=== PATIENT | female | born 1980 | race Caucasian/White ===

== ENCOUNTER 2016-08-02 23:50 | Emergency (ER) | payer SELFPAY ==
[~2016-08-02] VITALS: Ht 165.1 cm; Wt 102.1 kg
[~2016-08-02 23:50] MED LIST: ALPR0.254 PO; BENZ100C PO; CEPH-264 PO; CIPR500T94 PO; CLOT12CR2 TP; CYCL10TA2 PO; ESCI10TA PO; HYDR-971 PO; IBUP-1027 PO; LIDO20SO PO; LISI10TA2 PO; METH-37 PO; METR500T PO; MIRT15TA3 PO; NAPR500T PO; NAPR500T8 PO; ONDA4TAB10 PO; PHEN-318 PO; RANI150T6 PO; SULF1TAB24 PO; SUMA100T4 PO; SUMA50TA3 PO; TRAM-29 PO; blood pressure; iron
[2016-08-03 00:21] VITALS: BP 157/93
[2016-08-03] MEDS ORDERED: VALA1000 PO (00:44)
--- NOTE | 2016-08-03 00:44 | PHYS DOC ---
Past Medical History Past Medical History: Arthritis, Bronchitis, Hypertension, Migraines Additional Past Medical Histor: adrenal mass, CTA Past Surgical History: Hysterectomy, Tonsillectomy, Tubal ligation Additional Past Surgical Histo: partial hysterectomy, ADNOIDS Alcohol Use: None Drug Use: None Adult General Chief Complaint Chief Complaint: FACE PROBLEM HPI HPI Patient is a 36 year old female who presents with blood [place]. Patient noticed a blister at the right corner of her mouth this morning she woke up. Has never had one before. No inciting event. She has tried putting Carmex and OTC cold sore cream today with no improvement. Review of Systems Review of Systems Constitutional: Denies fever or chills HENT: Blister on upper lip at R corner of mouth Respiratory: Denies cough or shortness of breath Cardiovascular: Denies chest pain GI: Denies abdominal pain, nausea, vomiting, or diarrhea Musculoskeletal: Denies back pain or joint pain Neurologic: Denies headache, focal weakness or sensory changes Allergies Allergies Allergies Coded Allergies Type Severity Reaction Last Updated Verified latex Allergy Intermediate Rash 03/10/16 Yes Physical Exam Physical Exam Constitutional: Well developed, well nourished, no acute distress, non-toxic appearance HENT: Normocephalic, atraumatic. 2-3mm vesicle on superior lip at R corner of mouth Eyes: EOMI, conjunctiva normal, no discharge Neck: No stridor Pulmonary: No respiratory distress Skin: Warm, dry Neurologic: Alert and oriented X 3 Current Patient Data Vital Signs Vital Signs Date Time Temp Pulse Resp B/P Pulse Ox O2 Delivery O2 Flow Rate FiO2 08/03/16 00:21 98.2 90 20 98 Room Air 98.2 EKG EKG [] Radiology/Procedures Radiology/Procedures [] Course & Med Decision Making Course & Med Decision Making Pertinent Labs and Imaging studies reviewed. (See chart for details) Patient is 36-year-old female who presents with apparent cold sore. Discussed expected course with patient. Patient given prescription for valacyclovir. Discharged home with instructions for follow-up and return precautions. Dragon Disclaimer Dragon Disclaimer This electronic medical record was generated, in whole or in part, using a voice recognition dictation system. Departure Departure Impression: Primary Impression: Cold sore Disposition: HOME, SELF-CARE Condition: STABLE Referrals: PETRA BRADLEY MD (PCP) Patient Instructions: Cold Sore Additional Instructions: Thank you for allowing us to provide care today in the Emergency Department. Take the provided medication as directed. Schedule a follow up appointment with your primary care doctor. Return promptly to the Emergency Department if you develop any new or concerning symptoms. Scripts Valacyclovir Hcl (Valacyclovir)1,000 Mg Tablet1,000 Mg PO BID 7 Days Prov:JOSE CASTRO MD 08/03/16 JOSE CASTRO MD Aug 03, 2016 00:44
== END 2016-08-03 00:50 | disposition home or self-care (01) ==
LOC: ER 23:50
DX: B00.1 Herpesviral vesicular dermatitis (principal); I10 Essential (primary) hypertension; G43.909 Migraine, unspecified, not intractable, without status migrainosus; M19.90 Unspecified osteoarthritis, unspecified site; Z91.040 Latex allergy status
CPT/HCPCS: 99283

== ENCOUNTER 2016-09-01 19:39 | Emergency (ER) | payer OTHER ==
[~2016-09-01] VITALS: Ht 165.1 cm; Wt 99.8 kg
[~2016-09-01 19:39] MED LIST changes: +VALA1000 PO
[2016-09-01 20:36] VITALS: BP 146/94
[2016-09-01] MEDS ORDERED: HYDR-971 PO (20:58)
[2016-09-01] MEDS ORDERED: PENI500T PO (20:58)
--- NOTE | 2016-09-01 20:59 | PHYS DOC ---
Past Medical History Past Medical History: Arthritis, Asthma, Bronchitis, Hypertension, Migraines Additional Past Medical Histor: adrenal mass, CTA Past Surgical History: Hysterectomy, Tonsillectomy, Tubal ligation, Other Additional Past Surgical Histo: partial hysterectomy, ADNOIDS, R ear Additional Information: nonsmoker Alcohol Use: None Drug Use: None Adult General Chief Complaint Chief Complaint: DENTAL PROBLEM HPI HPI Patient is a 36 year old female who presents with right maxillary dental pain starting last night. She has a tooth that was previously broken. She feels swelling of the gum surrounding the affected tooth. She denies fever or otalgia. Her PCP is Dr. Phil Aguiar. Review of Systems Review of Systems Constitutional: Denies fever or chills. [] Eyes: Denies change in visual acuity, redness, or eye pain. [] HENT: Denies ear pain, nasal congestion or sore throat. Reports right maxillary dental pain. Integument: Denies rash or skin lesions. [] Neurologic: Denies headache, focal weakness or sensory changes. [] Allergies Allergies Allergies Coded Allergies Type Severity Reaction Last Updated Verified latex Allergy Intermediate Rash 03/10/16 Yes alcohol Allergy Unknown 09/01/16 Yes Physical Exam Physical Exam Constitutional: Well developed, well nourished, no acute distress, non-toxic appearance. [] HENT: Normocephalic, atraumatic, bilateral external ears normal, oropharynx moist, no oral exudates, nose normal. Bilateral TMs without erythema or bulging. There is no posterior pharyngeal erythema or tonsillar edema. Tooth #3 is broken to the level of the gum with decay and caries. There is minimal surrounding gingival edema. There is no dental abscess. Eyes: PERRLA, EOMI, conjunctiva normal, no discharge. [] Skin: Warm, dry, no erythema, no rash. [] Neurologic: Alert and oriented X 3, normal motor function, normal sensory function, no focal deficits noted. [] Psychologic: Affect normal, judgement normal, mood normal. [] Current Patient Data Vital Signs Vital Signs Date Time Temp Pulse Resp B/P Pulse Ox O2 Delivery O2 Flow Rate FiO2 09/01/16 20:36 98.0 93 16 97 Room Air 98.0 EKG EKG [] Radiology/Procedures Radiology/Procedures [] Course & Med Decision Making Course & Med Decision Making Pertinent Labs and Imaging studies reviewed. (See chart for details) [] Dragon Disclaimer Dragon Disclaimer This electronic medical record was generated, in whole or in part, using a voice recognition dictation system. Departure Departure Impression: Primary Impression: Dental decay Disposition: 01 HOME, SELF-CARE Condition: STABLE Referrals: PHIL AGUIAR MD (PCP) Additional Instructions: Please complete all the prescribed antibiotics, even if your tooth is feeling better. Please take the prescribed pain medication as instructed. Do not drive or operate heavy machinery while taking pain medication. Please follow-up with your dentist for treatment of your tooth. Return to emergency department if you have any new or concerning symptoms. Scripts Hydrocodone/Apap 5-325 (Ray 5-325 Tablet)1 Each Tablet1 Tab PO PRN Q6HRS PRN PAIN #20 TAB Prov:CARRIE RIVERA 09/01/16 Penicillin V Potassium 500 Mg Tablet1 Tab PO TID #30 TAB Prov:CARRIE RIVERA 09/01/16 CARRIE RIVERA Sep 01, 2016 20:59
== END 2016-09-01 21:05 | disposition home or self-care (01) ==
LOC: ER 19:39
DX: K02.9 Dental caries, unspecified (principal); M19.90 Unspecified osteoarthritis, unspecified site; J45.909 Unspecified asthma, uncomplicated; I10 Essential (primary) hypertension; G43.909 Migraine, unspecified, not intractable, without status migrainosus; Z90.710 Acquired absence of both cervix and uterus; Z98.51 Tubal ligation status; Z91.040 Latex allergy status; Z88.8 Allergy status to other drugs, medicaments and biological substances
CPT/HCPCS: 99283

== ENCOUNTER 2016-09-15 09:25 | Emergency (ER) | payer OTHER ==
[~2016-09-15] VITALS: Ht 165.1 cm; Wt 104.3 kg
[~2016-09-15 09:25] MED LIST changes: +PENI500T PO
[2016-09-15] MEDS ORDERED: HYDROMORPHONE 2 MG/ML VIAL. IV PRN (10:00)
[2016-09-15] MEDS ORDERED: ONDANSETRON PF 4 MG/2 ML VIAL. IV ONE (10:00)
[2016-09-15] MEDS ORDERED: IV NORMAL SALINE 1000ML BAG 1,000 ML IV ONE (10:00)
[2016-09-15 10:20] LABS: BILIRUBIN,URINE NEGATIVE (NEG); GLUCOSE,URINE NEGATIVE (NEG); NITRITE,URINE NEGATIVE (NEG); PROTEIN,URINE NEGATIVE (NEG-TRACE); UROBILINOGEN,URINE 0.2 mg/dL (0.2 mg/dL)
[2016-09-15 10:22] LABS: BASO # 0.1 x10^3/uL (0.0-0.2); BASO % 1 % (0-3); EOS % 3 % (0-3); HEMATOCRIT 42.3 % (36.0-47.0); HEMOGLOBIN 14.1 g/dL (12.0-15.5); LYMPH % 23 % (24-48); MEAN CORPUSCULAR HEMOGLOBIN 30 pg (25-35); MEAN CORPUSCULAR HGB CONC 34 g/dL (31-37); MEAN CORPUSCULAR VOLUME 88 fL (79-100); MONO % 9 % (0-9); NEUT % 65 % (31-73); PLATELET COUNT 325 x10^3/uL (140-400); RED BLOOD COUNT 4.78 x10^6/uL (3.50-5.40); RED CELL DISTRIBUTION WIDTH 12.9 % (11.5-14.5); WHITE BLOOD COUNT 8.8 x10^3/uL (4.0-11.0)
[2016-09-15 10:30] LABS: CREATININE 0.6 mg/dL (0.6-1.0); GFR 113.1
[2016-09-15 10:38] LABS: BACTERIA,URINE MODERATE /HPF (0-FEW); SQUAMOUS EPITHELIAL CELL,UR MANY /LPF
[2016-09-15] MEDS ORDERED: ONDA4TAB10 SL (11:05)
[2016-09-15] MEDS ORDERED: HYDR-2666 PO (11:05)
--- NOTE | 2016-09-15 11:05 | PHYS DOC ---
Past Medical History Past Medical History: Arthritis, Asthma, Bronchitis, Hypertension, Migraines Additional Past Medical Histor: adrenal mass, CTA Past Surgical History: Hysterectomy, Tonsillectomy, Tubal ligation, Other Additional Past Surgical Histo: partial hysterectomy, ADNOIDS, R ear Alcohol Use: None Drug Use: None Adult General Chief Complaint Chief Complaint: FLANK PAIN HPI HPI 36-year-old female presenting today with right lower quadrant abdominal pain and right flank pain that radiates in the groin. She has a history of kidney stones in the past and states it feels like her kidney stone. The pain is moderate intermittent and is been present for approximately 24 hours. Otherwise she denies nausea vomiting. Review of systems was negative for chest pain shortness of breath fevers chills. All other review of systems is negative unless otherwise noted in history of present illness. Review of Systems Review of Systems SEE ABOVE. Current Medications Current Medications Current Medications Medications (Trade) Dose Ordered Sig/Americo Start Time Stop Time Status Last Admin Dose Admin Hydromorphone HCl (Dilaudid) 0.5 mg PRN Q1HR PRN 09/15/16 10:00 09/15/16 10:13 0.5 MG Ondansetron HCl (Zofran) 4 mg 1X ONCE 09/15/16 10:00 09/15/16 10:01 DC 09/15/16 10:12 4 MG Sodium Chloride (Iv Sodium Chloride 0.9% 1000ml Bag) 1,000 ml @ 1,000 mls/hr 1X ONCE 09/15/16 10:00 09/15/16 10:59 DC 09/15/16 10:10 1,000 MLS/HR Allergies Allergies Allergies Coded Allergies Type Severity Reaction Last Updated Verified alcohol Allergy Intermediate 09/15/16 Yes latex Allergy Intermediate Rash 09/15/16 Yes Physical Exam Physical Exam Constitutional: Well developed, well nourished, no acute distress, non-toxic appearance. [] HENT: Normocephalic, atraumatic, bilateral external ears normal, oropharynx moist, no oral exudates, nose normal. Eyes: PERRLA, EOMI, conjunctiva normal, no discharge. [] Neck: Normal range of motion, no tenderness, supple, no stridor. Cardiovascular:Heart rate regular rhythm, no murmur [] Lungs & Thorax: Bilateral breath sounds clear to auscultation [] Abdomen: Soft nontender abdomen without rebound tenderness or guarding present. Negative McBurneys point. Negative Silva sign. No ecchymosis present. Skin: Warm, dry, no erythema, no rash. Back: No tenderness, mild right CVA tenderness. Extremities: No tenderness, no cyanosis, no clubbing, ROM intact, no edema. [] Neurologic: Alert and oriented X 3, normal motor function, normal sensory function, no focal deficits noted. Psychologic: Affect normal, judgement normal, mood normal. [] Current Patient Data Vital Signs Vital Signs Date Time Temp Pulse Resp B/P Pulse Ox O2 Delivery O2 Flow Rate FiO2 09/15/16 10:13 18 97 Room Air 09/15/16 09:45 98.3 85 149/82 98.3 Lab Values Laboratory Tests Test 09/15/16 09:40 09/15/16 09:51 09/15/16 10:10 Urine Collection Type Unknown Urine Color Yellow Urine Clarity Clear Urine pH 7.0 Urine Specific [place] 1.020 Urine Protein Negativemg/dL (NEG-TRACE) Urine Glucose (UA) Negativemg/dL (NEG) Urine Ketones (Stick) Negativemg/dL (NEG) Urine Blood Small (NEG) Urine Nitrite Negative (NEG) Urine Bilirubin Negative (NEG) Urine Urobilinogen Dipstick 0.2mg/dL (0.2 mg/dL) Urine Leukocyte Esterase Negative (NEG) Urine RBC 3-5/HPF (0-2) Urine WBC 1-4/HPF (0-4) Urine Squamous Epithelial Cells Many/LPF Urine Bacteria Moderate/HPF (0-FEW) POC Urine HCG, Qualitative Hcg negative (Negative) White Blood Count 8.8x10^3/uL (4.0-11.0) Red Blood Count 4.78x10^6/uL (3.50-5.40) Hemoglobin 14.1g/dL (12.0-15.5) Hematocrit 42.3% (36.0-47.0) Mean Corpuscular Volume 88fL (79-100) Mean Corpuscular Hemoglobin 30pg (25-35) Mean Corpuscular Hemoglobin Concent 34g/dL (31-37) Red Cell Distribution Width 12.9% (11.5-14.5) Platelet Count 325x10^3/uL (140-400) Neutrophils (%) (Auto) 65% (31-73) Lymphocytes (%) (Auto) 23% (24-48) L Monocytes (%) (Auto) 9% (0-9) Eosinophils (%) (Auto) 3% (0-3) Basophils (%) (Auto) 1% (0-3) Neutrophils # (Auto) 5.7x10^3uL (1.8-7.7) Lymphocytes # (Auto) 2.0x10^3/uL (1.0-4.8) Monocytes # (Auto) 0.8x10^3/uL (0.0-1.1) Eosinophils # (Auto) 0.2x10^3/uL (0.0-0.7) Basophils # (Auto) 0.1x10^3/uL (0.0-0.2) Sodium Level 140mmol/L (136-145) Potassium Level 4.0mmol/L (3.5-5.1) Chloride Level 104mmol/L (98-107) Carbon Dioxide Level 27mmol/L (21-32) Anion Gap 9 (6-14) Blood Urea Nitrogen 14mg/dL (7-20) Creatinine 0.6mg/dL (0.6-1.0) Estimated GFR (Cockcroft-Gault) 113.1 Glucose Level 99mg/dL (70-99) Calcium Level 9.0mg/dL (8.5-10.1) Laboratory Tests 09/15/16 10:10 Laboratory Tests 09/15/16 10:10 EKG EKG [] Radiology/Procedures Radiology/Procedures [] Course & Med Decision Making Course & Med Decision Making Pertinent Labs and Imaging studies reviewed. (See chart for details) [] 36-year-old female presenting to the emergency department with right-sided flank pain and right lower abdominal pain. Vital signs afebrile normal heart rate. Mild hypertension otherwise unremarkable. Physical exam showed a nontender abdomen. Nontender appendix. Mild right-sided CVA tenderness. Urine and blood obtained. IV medications given. CBC unremarkable. Chemistry panel unremarkable. Urine negative. Urine analysis shows negative nitrites with negative leuk esterase. Not suggestive of infection. We'll follow culture. On reexamination the patient's pain improved. She was subsequent discharged home to follow up with her primary care physician over the next 2-3 days if her symptoms did not improve. She was instructed to return if she develops a fever or worsening nausea with vomiting. [id number] discharge instructions were given. Patient comfortable plan. Tia Disclaimer Geraon Disclaimer This electronic medical record was generated, in whole or in part, using a voice recognition dictation system. Departure Departure Impression: Primary Impression: Abdominal pain Additional Impression: Acute flank pain Disposition: 01 HOME, SELF-CARE Condition: STABLE Referrals: PETRA BRADLEY MD (PCP) Patient Instructions: Abdominal Pain, Flank Pain Additional Instructions: Thank you for allowing us to participate in your care today. Followup with your primary care physician in 3 days if your symptoms do not improve. If you do not have a primary care provider you can ask for a list of our primary care providers. Return to the emergency department you have any new or concerning findings. This should be evaluated by the primary care physician and any necessary consulting services for continued management within a few days after discharge. Return to emergency room if you have any new or concerning symptoms including but not limited to fever, chills, nausea, vomiting, intractable pain, any new rashes, chest pain, shortness of air, uncontrolled bleeding, difficulty breathing, and/or vision loss. You may have been prescribed medication that can change in your level of thinking and ability to operate machinery. These medications include hydrocodone and Ativan. Also, Benadryl has been known to do this as well. Be sure to check with your pharmacist and ask if the medications you've prescribed can affect your level of consciousness. I recommend not operating heavy machinery or driving while on medication such as these. Scripts Hydrocodone Bit/Acetaminophen (Hydrocodone-Apap 5-325 )1 Each Tablet1 Tab PO PRN Q6HRS PRN PAIN #15 TAB Be careful as this medication may cause you to be drowsy or tired. Do not drive on this medication. Prov:BETZY ELIZONDO MD 09/15/16 Ondansetron (Zofran Odt)4 Mg Tab.rapdis1 Tab SL PRN Q8HRS PRN NAUSEA #6 TAB Prov:BETZY ELIZONDO MD 09/15/16 Problem Qualifiers BETZY ELIZONDO MD Sep 15, 2016 11:05
[2016-09-15 11:20] VITALS: BP 117/80
== END 2016-09-15 11:30 | disposition home or self-care (01) ==
LOC: ER 09:25
DX: R10.31 Right lower quadrant pain (principal); I10 Essential (primary) hypertension; M19.90 Unspecified osteoarthritis, unspecified site; Z87.442 Personal history of urinary calculi; J45.909 Unspecified asthma, uncomplicated; G43.909 Migraine, unspecified, not intractable, without status migrainosus; Z90.49 Acquired absence of other specified parts of digestive tract; Z90.711 Acquired absence of uterus with remaining cervical stump; Z98.51 Tubal ligation status; G56.00 Carpal tunnel syndrome, unspecified upper limb; Z88.8 Allergy status to other drugs, medicaments and biological substances; Z91.040 Latex allergy status
CPT/HCPCS: 36415; 80048; 81001; 81025; 85027; 87086; 96361; 96374; 96375; 99284; J1170; J2405; J7030

== ENCOUNTER 2016-10-03 01:14 | Emergency (ER) | payer OTHER ==
[~2016-10-03] VITALS: Ht 165.1 cm; Wt 104.3 kg
[~2016-10-03 01:14] MED LIST changes: +HYDR-2666 PO; +ONDA4TAB10 SL
[2016-10-03 02:16] LABS: GLUCOSE,URINE NEGATIVE (NEG)
[2016-10-03 02:17] LABS: BACTERIA,URINE MANY /HPF (0-FEW); BILIRUBIN,URINE NEGATIVE (NEG); NITRITE,URINE NEGATIVE (NEG); PROTEIN,URINE NEGATIVE (NEG-TRACE); RBC,URINE OCC /HPF (0-2); SQUAMOUS EPITHELIAL CELL,UR MOD /LPF; UROBILINOGEN,URINE 0.2 mg/dL (0.2 mg/dL); WBC,URINE >40 /HPF (0-4)
[2016-10-03] MEDS ORDERED: SMZ/TMP 800/160MG TABLET. PO ONE (02:30)
[2016-10-03] MEDS ORDERED: SULF1TAB24 PO (02:36)
--- NOTE | 2016-10-03 02:36 | PHYS DOC ---
Past Medical History Past Medical History: Arthritis, Asthma, Bronchitis, Hypertension, Migraines Additional Past Medical Histor: adrenal mass, CTA Past Surgical History: Hysterectomy, Tonsillectomy, Tubal ligation, Other Additional Past Surgical Histo: partial hysterectomy, ADNOIDS, R ear Alcohol Use: None Drug Use: None Adult General Chief Complaint Chief Complaint: URINARY FREQUENCY HPI HPI Patient is a 36 year old female who presents with dysuria and urinary frequency. Patient reports the symptoms started this afternoon. She also reports having a migraine headache today. Patient has frequent migraines, this is similar to past migraines. She has tried Tylenol, ibuprofen, escitalopram with insufficient relief. No abdominal pain, no fever. Review of Systems Review of Systems Constitutional: Denies fever or chills Respiratory: Denies cough or shortness of breath Cardiovascular: Denies chest pain GI: Denies abdominal pain, nausea, vomiting, or diarrhea : Dysuria, urinary frequency Musculoskeletal: Denies back pain or joint pain Neurologic: Migraine headache. Denies focal weakness or sensory changes Current Medications Current Medications Current Medications Medications (Trade) Dose Ordered Sig/Americo Start Time Stop Time Status Last Admin Dose Admin Ketorolac Tromethamine (Toradol Im) 30 mg 1X ONCE 10/03/16 03:00 10/03/16 03:04 DC 10/03/16 03:10 30 MG Ketorolac Tromethamine (Toradol) 30 mg STK-MED ONCE 10/03/16 02:59 10/03/16 03:00 DC Promethazine HCl (Phenergan Im) 25 mg 1X ONCE 10/03/16 03:00 10/03/16 03:04 DC 10/03/16 03:00 25 MG Trimethoprim/ Sulfamethoxazole (Bactrim Ds) 1 tab 1X ONCE 10/03/16 02:30 10/03/16 03:04 DC 10/03/16 03:01 1 TAB Allergies Allergies Allergies Coded Allergies Type Severity Reaction Last Updated Verified alcohol Allergy Intermediate 09/15/16 Yes latex Allergy Intermediate Rash 09/15/16 Yes Physical Exam Physical Exam Constitutional: Well developed, well nourished, no acute distress, non-toxic appearance HENT: Normocephalic, atraumatic, bilateral external ears normal Eyes: PERRL, EOMI, conjunctiva normal, no discharge Neck: Normal range of motion, no stridor Cardiovascular: Heart rate normal, regular rhythm, no murmur Lungs & Thorax: Bilateral breath sounds clear to auscultation Abdomen: Bowel sounds normal, soft, non-distended, no TTP Skin: Warm, dry, no erythema, no rash Extremities: No obvious deformity, no edema Neurologic: Alert and oriented X 3, GCS 15, CN II-XII grossly intact, strength intact and symmetrical throughout, sensation to light touch intact throughout, no dystaxia noted Current Patient Data Vital Signs Vital Signs Date Time Temp Pulse Resp B/P Pulse Ox O2 Delivery O2 Flow Rate FiO2 10/03/16 03:02 84 121/84 96 Room Air 10/03/16 01:52 98.1 16 98.1 Lab Values Laboratory Tests Test 10/03/16 01:16 Urine Collection Type Unknown Urine Color Yellow Urine Clarity Cloudy Urine pH 7.0 Urine Specific [place] 1.025 Urine Protein Negativemg/dL (NEG-TRACE) Urine Glucose (UA) Negativemg/dL (NEG) Urine Ketones (Stick) Negativemg/dL (NEG) Urine Blood Moderate (NEG) Urine Nitrite Negative (NEG) Urine Bilirubin Negative (NEG) Urine Urobilinogen Dipstick 0.2mg/dL (0.2 mg/dL) Urine Leukocyte Esterase Moderate (NEG) Urine RBC Occ/HPF (0-2) Urine WBC >40/HPF (0-4) Urine Squamous Epithelial Cells Mod/LPF Urine Bacteria Many/HPF (0-FEW) Urine Mucus Mod/LPF EKG EKG [] Radiology/Procedures Radiology/Procedures [] Course & Med Decision Making Course & Med Decision Making Pertinent Labs and Imaging studies reviewed. (See chart for details) Patient is 36-year-old female who presents complaining of dysuria, frequency, migraine headache. No concerning findings on physical exam. Will give dose of IM Toradol and Phenergan for headache relief. UA ordered; urine test was ordered initially but patient has h/o hysterectomy. UA indicative of UTI. Patient given dose of Bactrim for this. Will discharge home with prescription for same, instructions for follow-up, return precautions. Dragon Disclaimer Dragon Disclaimer This electronic medical record was generated, in whole or in part, using a voice recognition dictation system. Departure Departure Impression: Primary Impression: UTI (urinary tract infection) Additional Impression: Migraine Disposition: HOME, SELF-CARE Condition: STABLE Referrals: PETRA BRADLEY MD (PCP) Patient Instructions: Recurrent Migraine Headache, Urinary Tract Infection Additional Instructions: Thank you for allowing us to provide care today in the Emergency Department. Take the provided medication as directed. Continue to take the migraine medication you are prescribed. Schedule a follow up appointment with your primary care doctor. Return promptly to the Emergency Department if you develop any new or concerning symptoms. Scripts Sulfamethoxazole/Trimethoprim (Bactrim Ds Tablet)1 Each Tablet1 Tab PO BID #10 TAB Prov:JOSE CASTRO MD 10/03/16 Problem Qualifiers JOSE CASTRO MD Oct 03, 2016 02:36
[2016-10-03] MEDS ORDERED: KETOROLAC TROMETHAMINE 30 MG/ML SYRINGE. ONE (02:59)
[2016-10-03] MEDS ORDERED: KETOROLAC TROMETHAMINE 60 MG/2 ML SYRINGE. IM ONE (03:00)
[2016-10-03] MEDS ORDERED: PROMETHAZINE IM 25 MG/ML VIAL IM ONE (03:00)
[2016-10-03 03:02] VITALS: BP 121/84
== END 2016-10-03 03:16 | disposition home or self-care (01) ==
LOC: ER 01:14
DX: N39.0 Urinary tract infection, site not specified (principal); G43.909 Migraine, unspecified, not intractable, without status migrainosus; M19.90 Unspecified osteoarthritis, unspecified site; J45.909 Unspecified asthma, uncomplicated; I10 Essential (primary) hypertension; Z90.710 Acquired absence of both cervix and uterus; Z98.51 Tubal ligation status; Z91.040 Latex allergy status
CPT/HCPCS: 81001; 87086; 96372; 99284; J1885; J2550

== ENCOUNTER 2016-10-13 02:53 | Emergency (ER) | payer OTHER ==
[~2016-10-13] VITALS: Ht 165.1 cm; Wt 104.3 kg
[2016-10-13 03:04] VITALS: BP 130/100
[2016-10-13] MEDS ORDERED: TETRACAINE 0.5% OPHTH SOLUTION 4ML BOTTLE. OD ONE (04:00)
[2016-10-13] MEDS ORDERED: FLUORESCEIN OPHTH TEST STRIP. OD ONE (04:00)
[2016-10-13] MEDS ORDERED: TOBR5DRO6 OD (04:25)
--- NOTE | 2016-10-13 04:25 | PHYS DOC ---
Past Medical History Past Medical History: Asthma, Hypertension, Migraines Additional Past Medical Histor: adrenal mass, CTA Past Surgical History: Hysterectomy, Tonsillectomy, Tubal ligation Additional Past Surgical Histo: partial hysterectomy, ADNOIDS, R ear Alcohol Use: None Drug Use: None Adult General Chief Complaint Chief Complaint: EYE PROBLEMS HPI HPI Patient is a 36 year old female who presents with right eye irritation. Patient reports her right eye has been irritated all day. She says it is itchy, but not painful. It is draining clear discharge. She did not get anything in her eyes far she knows. Vision is intact. No other acute complaints. Review of Systems Review of Systems Constitutional: Denies fever or chills Eyes: R eye irritation, itching Respiratory: Denies cough or shortness of breath Cardiovascular: Denies chest pain GI: Denies abdominal pain, nausea, vomiting, or diarrhea Musculoskeletal: Denies back pain or joint pain Neurologic: Denies headache, focal weakness or sensory changes Current Medications Current Medications Current Medications Medications (Trade) Dose Ordered Sig/Americo Start Time Stop Time Status Last Admin Dose Admin Fluorescein Sodium (Ful-Oralia) 1 strip 1X ONCE 10/13/16 04:00 10/13/16 04:01 DC 10/13/16 04:00 1 STRIP Tetracaine HCl (Tetracaine) 1 drop 1X ONCE 10/13/16 04:00 10/13/16 04:01 DC 10/13/16 04:00 1 DROP Allergies Allergies Allergies Coded Allergies Type Severity Reaction Last Updated Verified alcohol Allergy Intermediate 09/15/16 Yes latex Allergy Intermediate Rash 09/15/16 Yes Physical Exam Physical Exam Constitutional: Well developed, well nourished, no acute distress, non-toxic appearance HENT: Normocephalic, atraumatic Eyes: PERRL, EOMI, R eye with conjunctival injection, no significant discharge noted; no corneal abrasion noted on exam with Suresh lamp; full visual field to confrontation Neck: No stridor Pulmonary: No respiratory distress Skin: Warm, dry Neurologic: Alert and oriented X 3 Current Patient Data Vital Signs Vital Signs Date Time Temp Pulse Resp B/P Pulse Ox O2 Delivery O2 Flow Rate FiO2 10/13/16 03:04 98.4 92 16 130/100 97 Room Air 98.4 EKG EKG [] Radiology/Procedures Radiology/Procedures [] Course & Med Decision Making Course & Med Decision Making Pertinent Labs and Imaging studies reviewed. (See chart for details) Patient is 36-year-old female who presents with right eye irritation. Apparent conjunctivitis. Tetracaine and fluorescein strip ordered to evaluate with Suresh lamp, no acute abnormality noted. Discussed with patient. Will discharge with prescription for tobramycin, drops. Will discharge with instructions for follow- up and return precautions. Dragon Disclaimer Dragon Disclaimer This electronic medical record was generated, in whole or in part, using a voice recognition dictation system. Departure Departure Impression: Primary Impression: Conjunctivitis Disposition: HOME, SELF-CARE Condition: STABLE Referrals: PETRA BRADLEY MD (PCP) Patient Instructions: Conjunctivitis (Viral and Bacterial) Additional Instructions: Thank you for allowing us to provide care today in the Emergency Department. Take the provided medication as directed. Schedule a follow up appointment with your primary care doctor. Return promptly to the Emergency Department if you develop any new or concerning symptoms. Scripts Tobramycin 5 Ml Drops1-2 Drop OD QID #1 BOTTLE Prov:JOSE CASTRO MD 10/13/16 JOSE CASTRO MD Oct 13, 2016 04:25
== END 2016-10-13 04:31 | disposition home or self-care (01) ==
LOC: ER 02:53
DX: H10.9 Unspecified conjunctivitis (principal); I10 Essential (primary) hypertension; J45.909 Unspecified asthma, uncomplicated; G43.909 Migraine, unspecified, not intractable, without status migrainosus; Z98.51 Tubal ligation status; Z91.040 Latex allergy status; Z90.710 Acquired absence of both cervix and uterus; Z91.048 Other nonmedicinal substance allergy status
CPT/HCPCS: 99283

== ENCOUNTER 2016-10-20 19:55 | Emergency (ER) | payer OTHER ==
[~2016-10-20] VITALS: Ht 165.1 cm; Wt 104.3 kg
[~2016-10-20 19:55] MED LIST changes: +TOBR5DRO6 OD
[2016-10-20 20:17] VITALS: BP 132/85
[2016-10-20 20:50] LABS: BILIRUBIN,URINE NEGATIVE (NEG); GLUCOSE,URINE NEGATIVE (NEG); NITRITE,URINE NEGATIVE (NEG); PH,URINE 6.5; PROTEIN,URINE NEGATIVE (NEG-TRACE); UROBILINOGEN,URINE 0.2 mg/dL (0.2 mg/dL)
[2016-10-20 20:55] LABS: BACTERIA,URINE MODERATE /HPF (0-FEW); RBC,URINE OCC /HPF (0-2); SQUAMOUS EPITHELIAL CELL,UR MOD /LPF
--- NOTE | 2016-10-20 21:19 | PHYS DOC ---
Past Medical History Past Medical History: Asthma, Hypertension, Migraines Additional Past Medical Histor: adrenal mass, CTA Past Surgical History: Hysterectomy, Tonsillectomy, Tubal ligation Additional Past Surgical Histo: partial hysterectomy, ADNOIDS, R ear Alcohol Use: None Drug Use: None Adult General Chief Complaint Chief Complaint: VAGINAL PROBLEM HPI HPI Patient is a 36 year old female presents emergency department stating that she is having burning with urination. Patient states that she has had vaginal discharge longer than the burning. Patient denies any fever, chills or any nausea vomiting. Patient is concern for sexual transmitted infections. Review of Systems Review of Systems Constitutional: Denies fever or chills [] Eyes: Denies change in visual acuity, redness, or eye pain [] HENT: Denies nasal congestion or sore throat [] Respiratory: Denies cough or shortness of breath [] Cardiovascular: No additional information not addressed in HPI [] GI: Denies abdominal pain, nausea, vomiting, bloody stools or diarrhea [] : dysuria denies hematuria. C/o vaginal discharge Musculoskeletal: Denies back pain or joint pain [] Integument: Denies rash or skin lesions [] Neurologic: Denies headache, focal weakness or sensory changes [] Current Medications Current Medications Current Medications Medications (Trade) Dose Ordered Sig/Americo Start Time Stop Time Status Last Admin Dose Admin Azithromycin (Zithromax) 1,000 mg 1X ONCE 10/20/16 22:00 10/20/16 22:01 Ceftriaxone Sodium (Rocephin Im) 250 mg 1X ONCE 10/20/16 22:00 10/20/16 22:01 Metronidazole (Flagyl) 2,000 mg 1X ONCE 10/20/16 22:00 10/20/16 22:01 Allergies Allergies Allergies Coded Allergies Type Severity Reaction Last Updated Verified alcohol Allergy Intermediate 09/15/16 Yes latex Allergy Intermediate Rash 09/15/16 Yes Physical Exam Physical Exam Constitutional: Well developed, well nourished, no acute distress, non-toxic appearance. [] HENT: Normocephalic, atraumatic, bilateral external ears normal, oropharynx moist, no oral exudates, nose normal. [] Eyes: PERRLA, EOMI, conjunctiva normal, no discharge. [] Neck: Normal range of motion, no tenderness, supple, no stridor. [] Cardiovascular:Heart rate regular rhythm, no murmur [] Lungs & Thorax: Bilateral breath sounds clear to auscultation [] Abdomen: Bowel sounds normal, soft, no tenderness, no masses, no pulsatile masses. [] Skin: Warm, dry, no erythema, no rash. [] Back: No tenderness Extremities: No tenderness, no cyanosis, no clubbing, ROM intact, no edema. [] Neurologic: Alert and oriented X 3, normal motor function, normal sensory function, no focal deficits noted. [] Psychologic: Affect normal, judgement normal, mood normal. [] Vaginal exam: Speculum exam with white clumpy secretions noted in the vaginal area. Manual exam no CMT no adnexal tenderness noted Current Patient Data Vital Signs Vital Signs Date Time Temp Pulse Resp B/P Pulse Ox O2 Delivery O2 Flow Rate FiO2 10/20/16 20:17 97.9 99 18 100 Room Air 97.9 Lab Values Laboratory Tests Test 10/20/16 19:50 10/20/16 20:40 POC Urine HCG, Qualitative Hcg negative (Negative) Urine Color Yellow Urine Clarity Cloudy Urine pH 6.5 Urine Specific [place] 1.025 Urine Protein Negativemg/dL (NEG-TRACE) Urine Glucose (UA) Negativemg/dL (NEG) Urine Ketones (Stick) Negativemg/dL (NEG) Urine Blood Small (NEG) Urine Nitrite Negative (NEG) Urine Bilirubin Negative (NEG) Urine Urobilinogen Dipstick 0.2mg/dL (0.2 mg/dL) Urine Leukocyte Esterase Large (NEG) Urine RBC Occ/HPF (0-2) Urine WBC 5-10/HPF (0-4) Urine Squamous Epithelial Cells Mod/LPF Urine Amorphous Sediment Present/HPF Urine Bacteria Moderate/HPF (0-FEW) Urine Mucus Slight/LPF Microbiology 10/20/16 Wet Prep - Final, Complete EKG EKG [] Radiology/Procedures Radiology/Procedures [] Course & Med Decision Making Course & Med Decision Making Pertinent Labs and Imaging studies reviewed. (See chart for details) Patient's urine was positive for urinary tract infection. Patient was treated for sexually transmitted infections as though she states she is really not concerned but does want to be tested. Patient was provided with Rocephin and Zithromax and Flagyl here in the emergency department. Wet prep was positive for yeast infection. She'll be provided with Diflucan. We'll also recommended plenty of fluids such as water and cranberry juice. Avoid cranberry juice cocktail carbonate beverages citrus fruits and alcohol sees her considered irritants to the bladder. Since symptoms to return back to emergency department been provided. Patient agrees with discharge instructions treatment regimens and follow-up recommendations. She was also recommended to avoid sexual intercourse for the next 2 weeks. [] Dragon Disclaimer Dragon Disclaimer This electronic medical record was generated, in whole or in part, using a voice recognition dictation system. Departure Departure Impression: Primary Impression: UTI (lower urinary tract infection) Additional Impression: Candidiasis of genitalia in female Disposition: HOME, SELF-CARE Condition: STABLE Referrals: PETRA BRADLEY MD (PCP) Patient Instructions: Candidal Vulvovaginitis, [id number], Urinary Tract Infection, [id number] Additional Instructions: Urine was positive for urinary tract infection. Your also noted to have a yeast infection. Medications as prescribed. Drink plenty fluids such as water and cranberry juice. Avoid cranberry juice cocktail, carbonated beverages, citrus fruits and alcohol disease are considered irritants to the bladder. Avoid sexual intercourse for the next 2 weeks. Follow-up to primary care physician in the next 7 days. Return back to emergency prior signs symptoms of become worse. Scripts Fluconazole (Diflucan)150 Mg Tablet1 Tab PO ONCE #1 TAB Ref 1 Prov:NIRMAL CAMARILLO APRN 10/20/16 Nitrofurantoin Monohyd/M-Cryst (Macrobid 100 Mg Capsule)100 Mg Capsule1 Cap PO BID #14 CAP Prov:NIRMAL CAMARILLO APRN 10/20/16 Problem Qualifiers NIRMAL CAMARILLO APRN Oct 20, 2016 21:19
[2016-10-20] MEDS ORDERED: NITR100C62 PO (21:44)
[2016-10-20] MEDS ORDERED: FLUC150T PO (21:44)
[2016-10-20] MEDS ORDERED: CEFTRIAXONE IM 250 MG VIAL. IM ONE (22:00)
[2016-10-20] MEDS ORDERED: AZITHROMYCIN 250 MG TABLET. PO ONE (22:00)
[2016-10-20] MEDS ORDERED: METRONIDAZOLE 500 MG TABLET. PO ONE (22:00)
== END 2016-10-20 22:00 | disposition home or self-care (01) ==
LOC: ER 19:55
DX: B37.3 Candidiasis of vulva and vagina (principal); N39.0 Urinary tract infection, site not specified; I10 Essential (primary) hypertension; J45.909 Unspecified asthma, uncomplicated; G43.909 Migraine, unspecified, not intractable, without status migrainosus; Z90.710 Acquired absence of both cervix and uterus; Z98.51 Tubal ligation status; Z90.711 Acquired absence of uterus with remaining cervical stump; Z88.8 Allergy status to other drugs, medicaments and biological substances; Z91.040 Latex allergy status
CPT/HCPCS: 81001; 81025; 87086; 96372; 99284; J0696; Q0111; Q0144; 87186; 87491; 87591

== ENCOUNTER 2016-12-04 18:27 | Emergency (ER) | payer OTHER ==
[~2016-12-04] VITALS: Ht 172.7 cm; Wt 104.3 kg
[~2016-12-04 18:27] MED LIST changes: +FLUC150T PO; +NITR100C62 PO
[2016-12-04] MEDS ORDERED: ONDA4TAB10 SL (19:10)
[2016-12-04] MEDS ORDERED: SUMA50TA3 PO (19:10)
--- NOTE | 2016-12-04 19:10 | PHYS DOC ---
Past Medical History Past Medical History: Asthma, Hypertension, Migraines Additional Past Medical Histor: adrenal mass, CTA Past Surgical History: Hysterectomy, Tonsillectomy, Tubal ligation Additional Past Surgical Histo: partial hysterectomy, ADNOIDS, R ear Alcohol Use: None Drug Use: None Adult General Chief Complaint Chief Complaint: HEADACHE HPI HPI Patient is a 36 year old female with history of hypertension, migraine headaches, asthma, who presents today with 10 out of 10 generalized migraine headache that began yesterday. Patient is complaining of nausea with no vomiting with this migraine. She states she has history of similar migraine headaches. She states this headache began gradually. Patient states this headache is consistent with her normal migraine headaches. She denies anything unusual about the headache today. Review of Systems Review of Systems Constitutional: Denies fever or chills [] Eyes: Denies change in visual acuity, redness, or eye pain [] HENT: Denies nasal congestion or sore throat [] Respiratory: Denies cough or shortness of breath [] Cardiovascular: No additional information not addressed in HPI [] GI: nausea Musculoskeletal: Denies back pain or joint pain [] Integument: Denies rash or skin lesions [] Neurologic: Migraine headache Endocrine: Denies polyuria or polydipsia [] Current Medications Current Medications Current Medications Medications (Trade) Dose Ordered Sig/Americo Start Time Stop Time Status Last Admin Dose Admin Hydromorphone HCl (Dilaudid) 2 mg 1X ONCE 12/04/16 19:15 12/04/16 19:16 UNV Ondansetron HCl (Zofran Odt) 4 mg 1X ONCE 12/04/16 19:15 12/04/16 19:16 UNV Allergies Allergies Allergies Coded Allergies Type Severity Reaction Last Updated Verified alcohol Allergy Intermediate 09/15/16 Yes latex Allergy Intermediate Rash 09/15/16 Yes Physical Exam Physical Exam Constitutional: Well developed, well nourished, no acute distress, non-toxic appearance. [] HENT: Normocephalic, atraumatic, bilateral external ears normal, oropharynx moist, no oral exudates, nose normal. [] Eyes: PERRLA, EOMI, conjunctiva normal, no discharge. [] Neck: Normal range of motion, no tenderness, supple, no stridor. [] Cardiovascular:Heart rate regular rhythm, no murmur [] Lungs & Thorax: Bilateral breath sounds clear to auscultation [] Abdomen: Bowel sounds normal, soft, no tenderness, no masses, no pulsatile masses. [] Skin: Warm, dry, no erythema, no rash. [] Back: No tenderness, no CVA tenderness. [] Extremities: No tenderness, no cyanosis, no clubbing, ROM intact, no edema. [] Neurologic: Alert and oriented X 3, normal motor function, normal sensory function, no focal deficits noted. Cranial nerves II through XII intact Psychologic: Affect normal, judgement normal, mood normal. [] Current Patient Data Vital Signs Vital Signs Date Time Temp Pulse Resp B/P (MAP) Pulse Ox O2 Delivery O2 Flow Rate FiO2 12/04/16 18:54 98.6 94 16 150/70 (96) 100 Room Air 98.6 EKG EKG [] Radiology/Procedures Radiology/Procedures [] Course & Med Decision Making Course & Med Decision Making Pertinent Labs and Imaging studies reviewed. (See chart for details) This is a 36-year-old female patient well known to this ED for migraine headaches and other ailments. She is in the ED today with complaints of a migraine headache. This headache is consistent with her normal migraine. There is nothing unusual today about her migraine today. She was given pain relief on discharge. She was provided return precautions and discharged in stable condition. Dragon Disclaimer Dragon Disclaimer This electronic medical record was generated, in whole or in part, using a voice recognition dictation system. Departure Departure Impression: Primary Impression: Migraine headache Additional Impression: Nausea alone Disposition: 01 HOME, SELF-CARE Condition: STABLE Referrals: PETRA BRADLEY MD (PCP) Follow-up with your own doctor in the next 7 days Patient Instructions: Migraine Headache Additional Instructions: You were seen for migraine headache. Please follow-up with your own doctor in the next 1 week. Scripts Ondansetron (ZOFRAN ODT) 4 Mg Tab.rapdis 1 TAB SL Q8HRS, #15 TAB Prov: MUTUNGA,RHONDA MEDIA/INSTRUCTIONAL DESIGNER 12/04/16 Sumatriptan Succinate (IMITREX) 50 Mg Tablet 1 TAB PO UD, #9 TAB 1 Refill Prov: MUTUNGA,RHONDA MEDIA/INSTRUCTIONAL DESIGNER 12/04/16 Problem Qualifiers Primary Impression: Migraine headache Migraine type: without aura Status migrainosus presence: without status migrainosus Intractability: not intractable Qualified Codes: G43.009 - Migraine without aura, not intractable, without status migrainosus RHONDA LAUREANO APRN December 04, 2016 19:10
[2016-12-04] MEDS ORDERED: ONDANSETRON ODT 4 MG TAB.RAPDIS. PO ONE (19:15)
[2016-12-04] MEDS ORDERED: HYDROmorphone 2 MG/ML VIAL IM ONE (19:15)
[2016-12-04 19:35] VITALS: BP 112/76
== END 2016-12-04 19:40 | disposition home or self-care (01) ==
LOC: ER 18:27
DX: G43.909 Migraine, unspecified, not intractable, without status migrainosus (principal); J45.909 Unspecified asthma, uncomplicated; I10 Essential (primary) hypertension; Z91.040 Latex allergy status; Z91.048 Other nonmedicinal substance allergy status
CPT/HCPCS: 81025; 96372; 99283; J1170; Q0162

== ENCOUNTER 2017-01-15 00:45 | Emergency (ER) | payer OTHER ==
[~2017-01-15] VITALS: Ht 165.1 cm; Wt 104.3 kg
[~2017-01-15 00:45] MED LIST changes: -ESCI10TA PO; +ESCITALOPRAM OX10 MG PO; -HYDR-2666 PO; +HYDR-2758 PO; -TRAM-29 PO; +TRAM-48 PO
[2017-01-15 01:02] VITALS: BP 146/102
--- NOTE | 2017-01-15 01:23 | PHYS DOC ---
Past Medical History Past Medical History: Asthma, Hypertension, Migraines Additional Past Medical Histor: adrenal mass, CTA Past Surgical History: Hysterectomy, Tonsillectomy, Tubal ligation Additional Past Surgical Histo: partial hysterectomy, ADNOIDS, R ear Alcohol Use: None Drug Use: None Adult General Chief Complaint Chief Complaint: HEADACHE HPI HPI Patient is a 36 year old female who presents with headache associated with nausea and photophobia, gradual in onset, constant, exactly like prior migraines ; not improved with [id number] medications at home. She denies vision changes, numbness, tingling, weakness, dizziness, chest pain, cough, dyspnea, abdominal pain, vomiting, diarrhea, fever or chills. Review of Systems Review of Systems Constitutional: Denies fever or chills [] Eyes: Denies change in visual acuity, redness, or eye pain [] HENT: Denies nasal congestion or sore throat [] Respiratory: Denies cough or shortness of breath [] Cardiovascular: No additional information not addressed in HPI [] GI: Denies abdominal pain, vomiting, bloody stools or diarrhea [] : Denies dysuria or hematuria [] Musculoskeletal: Denies back pain or joint pain [] Integument: Denies rash or skin lesions [] Neurologic: Denies focal weakness or sensory changes [] Endocrine: Denies polyuria or polydipsia [] Current Medications Current Medications Current Medications Medications (Trade) Dose Ordered Sig/[facility] Start Time Stop Time Status Last Admin Dose Admin Dexamethasone Sodium Phosphate (Decadron) 10 mg 1X ONCE 01/15/17 01:30 01/15/17 01:31 DC 01/15/17 01:19 10 MG Ketorolac Tromethamine (Toradol) 15 mg 1X ONCE 01/15/17 01:30 01/15/17 01:31 DC 01/15/17 01:19 15 MG Prochlorperazine Edisylate (Compazine) 10 mg 1X ONCE 01/15/17 01:30 01/15/17 01:31 DC 01/15/17 01:18 10 MG Allergies Allergies Allergies Coded Allergies Type Severity Reaction Last Updated Verified alcohol Allergy Intermediate 09/15/16 Yes latex Allergy Intermediate Rash 09/15/16 Yes Physical Exam Physical Exam Constitutional: Well developed, well nourished, no acute distress, non-toxic appearance. [] HENT: Normocephalic, atraumatic, bilateral external ears normal, oropharynx moist, no oral exudates, nose normal. [] Eyes: PERRLA, EOMI. [] Neck: Normal range of motion, supple. [] Cardiovascular:Heart rate regular rhythm [] Lungs & Thorax: Bilateral breath sounds clear to auscultation [] Abdomen: Bowel sounds normal, soft, no tenderness. [] Skin: Warm, dry, no erythema, no rash. [] Back: Normal range of motion. [] Extremities: No tenderness, ROM intact, no edema. [] Neurologic: Alert and oriented X 3, normal motor function, normal sensory function, no focal deficits noted, cranial nerves II through XII intact. [] Psychologic: Affect normal, judgement normal, mood normal. [] Current Patient Data Vital Signs Vital Signs Date Time Temp Pulse Resp B/P (MAP) Pulse Ox O2 Delivery O2 Flow Rate FiO2 01/15/17 01:02 98.6 86 16 146/102 (117) 96 Room Air 98.6 Course & Med Decision Making Course & Med Decision Making She was given medications here and started to feel better and wanted to go home. Discussed supportive care. Return precautions given. She understands and agrees with plan. Dragon Disclaimer Dragon Disclaimer This electronic medical record was generated, in whole or in part, using a voice recognition dictation system. Departure Departure Impression: Primary Impression: Migraine headache Disposition: 01 HOME, SELF-CARE Condition: STABLE Referrals: PETRA BRADLEY MD (PCP) ABY DOMÍNGUEZ MD Patient Instructions: Recurrent Migraine Headache, [id number] Additional Instructions: Follow-up with your primary care doctor and neurologist. Please call for appointment. Return for any concerns. Problem Qualifiers Primary Impression: Migraine headache Migraine type: unspecified Status migrainosus presence: without status migrainosus Intractability: not intractable Qualified Codes: G43.909 - Migraine, unspecified, not intractable, without status migrainosus Ronald FUENTES MD Jan 15, 2017 01:23
[2017-01-15] MEDS ORDERED: KETOROLAC 15 MG/ML VIAL. IM ONE (01:30)
[2017-01-15] MEDS ORDERED: PROCHLORPERAZINE 10 MG/2 ML VIAL. IM ONE (01:30)
[2017-01-15] MEDS ORDERED: DEXAMETHASONE SOD PHOS 20 MG/5 ML VIAL. IM ONE (01:30)
== END 2017-01-15 01:33 | disposition home or self-care (01) ==
LOC: ER 00:45
DX: G43.909 Migraine, unspecified, not intractable, without status migrainosus (principal); J45.909 Unspecified asthma, uncomplicated; I10 Essential (primary) hypertension; Z90.711 Acquired absence of uterus with remaining cervical stump; Z98.51 Tubal ligation status; Z91.040 Latex allergy status; Z88.8 Allergy status to other drugs, medicaments and biological substances
CPT/HCPCS: 96372; 99284; J0780; J1100; J1885

== ENCOUNTER → 2017-02-02 | Day surgery (SDC) | payer OTHER ==
[~2017-02-02] MED LIST changes: +HYDROmorphone 2 MG/ML VIAL IV PRN; +IV RINGERS,LACTATED 1000ML 1,000 ML IV SCH; +LIDOCAINE 1% 1 ML SYRINGE. ID PRN; +LIDOCAINE 2% PF Vial for OR 5 ML VIAL. ONE; +MORPHINE SULFATE 2 MG/ML DISP.SYRIN. IV PRN; +ONDANSETRON PF 4 MG/2 ML VIAL. IV PRN; +PROCHLORPERAZINE 10 MG/2 ML VIAL. IV PRN; +PROPOFOL 20 ML IV ONE; +fentaNYL PF VIAL 100 MCG/2 ML VIAL IV PRN
[2017-02-02 08:48] VITALS: BP 128/92
== END | disposition home or self-care (01) ==
LOC: ENDOS 06:54
PROVIDERS: ATTEND Internal Medicine Gastroenterology
DX: K22.2 Esophageal obstruction (principal); K29.50 Unspecified chronic gastritis without bleeding; K92.89 Other specified diseases of the digestive system; E78.00 Pure hypercholesterolemia, unspecified; I10 Essential (primary) hypertension; J45.909 Unspecified asthma, uncomplicated; E66.9 Obesity, unspecified; Z68.37 Body mass index [BMI] 37.0-37.9, adult; K21.9 Gastro-esophageal reflux disease without esophagitis; F41.9 Anxiety disorder, unspecified; F32.9 Major depressive disorder, single episode, unspecified; Z98.51 Tubal ligation status; Z90.710 Acquired absence of both cervix and uterus; Z87.440 Personal history of urinary (tract) infections; Z91.09 Other allergy status, other than to drugs and biological substances; Z91.040 Latex allergy status
CPT/HCPCS: 43235; 43450; J2001; J2704

== ENCOUNTER 2017-02-19 00:51 | Emergency (ER) | payer OTHER ==
[~2017-02-19] VITALS: Ht 165.1 cm; Wt 104.3 kg
[~2017-02-19 00:51] MED LIST changes: -HYDROmorphone 2 MG/ML VIAL IV PRN; -IV RINGERS,LACTATED 1000ML 1,000 ML IV SCH; -LIDOCAINE 1% 1 ML SYRINGE. ID PRN; -LIDOCAINE 2% PF Vial for OR 5 ML VIAL. ONE; -MORPHINE SULFATE 2 MG/ML DISP.SYRIN. IV PRN; -ONDANSETRON PF 4 MG/2 ML VIAL. IV PRN; -PROCHLORPERAZINE 10 MG/2 ML VIAL. IV PRN; -PROPOFOL 20 ML IV ONE; -fentaNYL PF VIAL 100 MCG/2 ML VIAL IV PRN
[2017-02-19 01:00] VITALS: BP 143/98
--- NOTE | 2017-02-19 01:39 | PHYS DOC ---
Past Medical History Past Medical History: Asthma, Hypertension, Migraines Additional Past Medical Histor: adrenal mass, CTA Past Surgical History: Hysterectomy, Tonsillectomy, Tubal ligation Additional Past Surgical Histo: partial hysterectomy, ADNOIDS, R ear Alcohol Use: None Drug Use: None Adult General Chief Complaint Chief Complaint: HEADACHE HPI HPI Patient is a 37 year old female who presents with complaints of headache that is similar to previous migraines. It started today. Other than light sensitivity and nausea and she has no other symptoms. No recent fevers, chills, exposures, sick contacts. No oneelse in the family is having headaches. No history of trauma Review of Systems Review of Systems Constitutional: Denies fever or chills [] Eyes: Denies change in visual acuity, redness, or eye pain. Has light sensitivity HENT: Denies neck pain Respiratory: Denies cough or shortness of breath [] Cardiovascular: No chest pain GI: Denies abdominal pain, Musculoskeletal: Denies back pain or joint pain [] Integument: Denies rash or skin lesions [] Neurologic: Denies focal weakness or sensory changes. Has headache similar to previous All other systems checked and found to be negative unless as stated above Current Medications Current Medications Current Medications Medications (Trade) Dose Ordered Sig/Americo Start Time Stop Time Status Last Admin Dose Admin Diphenhydramine HCl (Benadryl) 25 mg 1X ONCE 02/19/17 01:45 02/19/17 01:46 DC 02/19/17 01:51 25 MG Ketorolac Tromethamine (Toradol) 30 mg 1X ONCE 02/19/17 01:45 02/19/17 01:46 DC 02/19/17 01:52 30 MG Prochlorperazine Edisylate (Compazine) 10 mg 1X ONCE 02/19/17 01:45 02/19/17 01:46 DC 02/19/17 01:51 10 MG Allergies Allergies Allergies Coded Allergies Type Severity Reaction Last Updated Verified alcohol Allergy Intermediate Hives 02/02/17 Yes latex Allergy Intermediate Rash 02/02/17 Yes Physical Exam Physical Exam Constitutional: Well developed, well nourished, no acute distress, non-toxic appearance. In good humor and smiling during exam HENT: Normocephalic, atraumatic, bilateral external ears normal, Eyes: PERRLA, EOMI, conjunctiva normal, no discharge. Funduscopic exam normal Neck: Normal range of motion, no tenderness, supple, no stridor. No LAD, no meningeal signs Cardiovascular:Heart rate regular rhythm, no murmur, normal perfusion Lungs & Thorax: Bilateral breath sounds clear to auscultation, no tachypnea Abdomen: No distention Skin: Warm, dry, no erythema, no rash. [] Back: Normal range of motion Extremities: No tenderness, ROM intact, no edema. No signs of DVT Neurologic: Alert and oriented X 3, normal motor function, no pronator drift, patient ambulated in the ED without difficulty and with normal gait, no focal deficits noted. [] Psychologic: Affect normal, judgement normal, mood normal. [] Current Patient Data Vital Signs Vital Signs Date Time Temp Pulse Resp B/P (MAP) Pulse Ox O2 Delivery O2 Flow Rate FiO2 02/19/17 01:00 98.3 83 16 143/98 (113) 98 Room Air 98.3 EKG EKG [] Radiology/Procedures Radiology/Procedures [] Course & Med Decision Making Course & Med Decision Making Pertinent Labs and Imaging studies reviewed. (See chart for details) 0332 pt feels improved and requests discharge home. [] Dragon Disclaimer Dragon Disclaimer This electronic medical record was generated, in whole or in part, using a voice recognition dictation system. Departure Departure Impression: Primary Impression: Migraine headache Disposition: HOME, SELF-CARE Condition: IMPROVED Referrals: PETRA BRADLEY MD (PCP) Additional Instructions: please follow up with your doctor in 2 days. Linn ESCOBEDO MD Feb 19, 2017 01:39
[2017-02-19] MEDS ORDERED: PROCHLORPERAZINE 10 MG/2 ML VIAL. IV ONE (01:45)
[2017-02-19] MEDS ORDERED: diphenhydrAMINE 50 MG/ML VIAL IVP ONE (01:45)
[2017-02-19] MEDS ORDERED: KETOROLAC TROMETHAMINE 30 MG/ML INJ. IV ONE (01:45)
== END 2017-02-19 03:42 | disposition home or self-care (01) ==
LOC: ER 00:51
DX: G43.909 Migraine, unspecified, not intractable, without status migrainosus (principal); J45.909 Unspecified asthma, uncomplicated; I10 Essential (primary) hypertension; Z91.040 Latex allergy status; Z88.8 Allergy status to other drugs, medicaments and biological substances
CPT/HCPCS: 96374; 96375; 99284; J0780; J1200; J1885

== ENCOUNTER 2017-03-29 16:38 | Emergency (ER) | payer OTHER ==
[2017-03-29] MEDS ORDERED: NAPROXEN 500 MG TABLET PO ONE (18:15)
[2017-03-29] MEDS ORDERED: CYCLOBENZAPRINE 10 MG TABLET. PO ONE (18:15)
--- NOTE | 2017-03-29 18:37 | EKG ---
[facility] [address] [place] [address] Test Date: 2017-03-29 Test Time: 17:29:45 Pat Name: KAYLENE MUSA Department: Room: Gender: F [employer] Operator: : 1980 Requested By: CARRIE MARTINES Order Number: [id number] Reading MD: Kong mSith Measurements Intervals [place] Rate: 91 P: 28 TX: 190 QRS: 12 QRSD: 80 T: 25 QT: 358 QTc: 442 Interpretive Statements SINUS RHYTHM Electronically Signed On 03-30-2017 15:31:31 CDT by Kong Smith
[2017-03-29 19:08] VITALS: BP 116/73
[2017-03-29] MEDS ORDERED: NAPR250T6 PO (20:09)
[2017-03-29] MEDS ORDERED: CYCL10TA2 PO (20:09)
--- NOTE | 2017-03-29 21:58 | ED.ADGEN ---
Past Medical History Past Medical History: Asthma, Hypertension, Migraines Additional Past Medical Histor: adrenal mass, CTA Past Surgical History: Hysterectomy, Tonsillectomy, Tubal ligation Additional Past Surgical Histo: partial hysterectomy, ADNOIDS, R ear Alcohol Use: None Drug Use: None Adult General Chief Complaint Chief Complaint: CHEST WALL PAIN HPI HPI Patient is a 37 year old woman, history of hypertension, migraine headaches, "adrenal mass", who does not take any medications regular basis, who presents to the emergency department with a complaint of left chest wall pain. Patient states she was driving when she began feeling pain underneath her left breast, states pain is worse with motion, but did not have any injuries, states the pain is worse with deep inspiration and she says she was feeling slowly short of breath. Denies any back pain, any rashes, any similar symptoms previously, any weakness, numbness, tingling, states that she was have some pain in the left arm with motion, no numbness or tingling, no headache, no neck pain, no fevers or chills, no swelling extremities, rashes, sick contacts or exposures. Patient states that her mother did have "blood clots around her heart the needed stents", but this was after the patient is being treated for lung cancer. Patient herself has no history of DVT or PE, no recent travel or surgery , does not take any exogenous estrogens. Patient's heart rate is in the 60s to the 80s, sinus rhythm on the monitor, blood pressure 107/69, saturation is 100% on room air, respiratory rate is 24 and unlabored. Review of Systems Review of Systems Constitutional: Denies fever or chills. [] Eyes: Denies change in visual acuity. [] HENT: Denies nasal congestion or sore throat. [] Respiratory: Denies cough or shortness of breath. [] Cardiovascular: Left-sided chest pain, no edema. GI: Denies abdominal pain, nausea, vomiting, bloody stools or diarrhea. [] : Denies dysuria. [] Musculoskeletal: Denies back pain or joint pain. [] Integument: Denies rash. [] Neurologic: Denies headache, focal weakness or sensory changes. [] Endocrine: Denies polyuria or polydipsia. [] Lymphatic: Denies swollen glands. [] Psychiatric: Denies depression or anxiety. [] Current Medications Current Medications Current Medications Medications (Trade) Dose Ordered Sig/Americo Start Time Stop Time Status Last Admin Dose Admin Cyclobenzaprine HCl (Flexeril) 10 mg 1X ONCE 03/29/17 18:15 03/29/17 18:16 DC 03/29/17 18:17 10 MG Naproxen (Naprosyn) 500 mg 1X ONCE 03/29/17 18:15 03/29/17 18:16 DC 03/29/17 18:17 500 MG Allergies Allergies Allergies Coded Allergies Type Severity Reaction Last Updated Verified alcohol Allergy Intermediate Hives 02/02/17 Yes latex Allergy Intermediate Rash 02/02/17 Yes Physical Exam Physical Exam Constitutional: Well developed, well nourished, no acute distress, non-toxic appearance. [] HENT: Normocephalic, atraumatic, bilateral external ears normal, oropharynx moist, no oral exudates, nose normal. [] Eyes: PERRLA, EOMI, conjunctiva normal, no discharge. [] Neck: Normal range of motion, no tenderness, supple, no stridor. [] Cardiovascular:Heart rate regular rhythm, no murmur, S1, S2, rubs or gallops. Patient with reproducible point tenderness noted between ribs 5 and 6 the left anterior chest wall, no lesions injuries or abnormality identified, no crepitus. [] Lungs & Thorax: Bilateral breath sounds clear to auscultation [] Abdomen: Bowel sounds normal, soft, no rebound, rigidity, no guarding, no tenderness, no masses, no pulsatile masses. [] Skin: Warm, dry, no erythema, no rash. [] Back: No tenderness, no CVA tenderness. [] Extremities: No tenderness, no cyanosis, no clubbing, ROM intact, no edema. Negative Homans sign.[] Neurologic: Alert and oriented X 3, normal motor function, normal sensory function, no focal deficits noted. [] Psychologic: Affect normal, judgement normal, mood normal. [] Current Patient Data Vital Signs Vital Signs Date Time Temp Pulse Resp B/P (MAP) Pulse Ox O2 Delivery O2 Flow Rate FiO2 03/29/17 19:08 116/73 (87) 03/29/17 18:45 84 20 95 03/29/17 17:15 Room Air 03/29/17 17:10 98.3 98.3 Lab Values Laboratory Tests Test 03/29/17 18:06 POC Urine HCG, Qualitative Hcg negative (Negative) EKG EKG EC: Sinus rhythm, heart rate 91 beats/minute, upright axis, QTC of 442, DC 190, QRS of 80, no ST elevations or depressions. As interpreted by me. Radiology/Procedures Radiology/Procedures Chest x-ray: 2 view: Normal cardiopulmonary silhouette, no focal traits, no effusions, pneumothorax, no soft tissue or bony abnormalities identified. As interpreted by me.[] Course & Med Decision Making Course & Med Decision Making Pertinent Labs and Imaging studies reviewed. (See chart for details) Patient well-appearing, with reproducible chest wall tenderness, received chest x-ray and ECG both which were unremarkable. Patient received cyclobenzaprine and naproxen, reevaluation states she is feeling better. Patient was ambulated in the ED without difficulty, and with continued improvement of symptoms. Examination consistent with chest wall pain, costochondritis. Patient prescribed cyclobenzaprine and naproxen, given medication instructions and precautions. No indication for additional evaluation at this time based on patient's evaluation, symptoms and presentation, I did discuss concerning symptoms with patient that prompt return, importance of establishing a primary care provider for follow-up from an medication monitoring, patient voiced understanding and agreement with plan as stated, discharged home with significant other with plan and precautions as stated above Dragon Disclaimer Dragon Disclaimer This electronic medical record was generated, in whole or in part, using a voice recognition dictation system. Departure Impression: Primary Impression: Costochondritis Disposition: HOME, SELF-CARE Condition: IMPROVED Scripts Naproxen (NAPROXEN) 250 Mg Tablet 250 MG PO PRN BID Y for MUSCLE PAIN, #10 Prov: CARRIE MARTINES DO 03/29/17 Cyclobenzaprine Hcl (CYCLOBENZAPRINE HCL) 10 Mg Tablet 10 MG PO TID Y for MUSCLE PAIN, #12 TAB Prov: CARRIE MARTINES DO 03/29/17 CARRIE MARTINES DO Mar 29, 2017 21:58
--- NOTE | 2017-03-30 08:37 | RAD ---
Chest, 2 views, 03/29/2017: History: Chest pain The heart size and pulmonary vascularity are normal. No pulmonary infiltrates are seen. There is no evidence of pleural fluid. IMPRESSION: No acute cardiopulmonary abnormality is detected.
== END 2017-03-29 20:12 | disposition home or self-care (01) ==
LOC: ER 16:38
DX: M94.0 Chondrocostal junction syndrome [Tietze] (principal); J45.909 Unspecified asthma, uncomplicated; I10 Essential (primary) hypertension; G43.909 Migraine, unspecified, not intractable, without status migrainosus; Z88.8 Allergy status to other drugs, medicaments and biological substances; Z91.040 Latex allergy status
CPT/HCPCS: 71020; 81025; 93005; 99284-25

== ENCOUNTER 2017-05-05 01:11 | Emergency (ER) | payer OTHER ==
[~2017-05-05 01:11] MED LIST changes: +NAPR250T6 PO
--- NOTE | 2017-05-05 01:35 | PHYS DOC ---
Past Medical History Past Medical History: Asthma, Hypertension, Migraines Additional Past Medical Histor: adrenal mass, CTA Past Surgical History: Hysterectomy, Tonsillectomy, Tubal ligation Additional Past Surgical Histo: partial hysterectomy, ADNOIDS, R ear Alcohol Use: None Drug Use: None Adult General Chief Complaint Chief Complaint: CHEST PAIN HPI HPI Patient is a 37 year old female who presents with complaint of chest pain. Patient states her symptoms started approximately 1 hour prior to arrival. Patient states that her symptoms came on at rest. Patient states that she started having numbness in her left upper extremity which progressed to substernal chest pressure. Patient rates her discomfort as 10 out of 10 currently. Patient denies any history of similar symptoms. Patient has history of hypertension but denies any known personal cardiac history. The patient states that she does have family history of myocardial infarction in her parents. Patient is a nonsmoker and does not take cholesterol medication. The patient states that she has had associated nausea with her symptoms. Patient has not taken any medications to help with symptoms at this time. Review of Systems Review of Systems Constitutional: Denies fever or chills [] Eyes: Denies change in visual acuity, redness, or eye pain [] HENT: Denies nasal congestion or sore throat [] Respiratory: Denies cough or shortness of breath [] Cardiovascular: Chest pain, denies edema[] GI: Nausea, denies abdominal pain, vomiting, bloody stools or diarrhea [] : Denies dysuria or hematuria [] Musculoskeletal: Denies back pain or joint pain [] Integument: Denies rash or skin lesions [] Neurologic: Denies headache, focal weakness or sensory changes [] Current Medications Current Medications Current Medications Medications (Trade) Dose Ordered Sig/Americo Start Time Stop Time Status Last Admin Dose Admin Aspirin (Children'S Aspirin) 324 mg 1X ONCE 05/05/17 02:00 05/05/17 02:01 DC 05/05/17 01:55 324 MG Fentanyl Citrate (Fentanyl 2ml Vial) 50 mcg PRN Q15MIN PRN 05/05/17 01:45 05/06/17 01:44 05/05/17 01:57 50 MCG Nitroglycerin (Nitrostat) 0.4 mg PRN Q5MIN PRN 05/05/17 01:45 05/06/17 01:44 05/05/17 01:56 0.4 MG Sodium Chloride 1,000 ml @ 1,000 mls/hr Q1H 05/05/17 02:00 05/05/17 02:59 DC 05/05/17 01:57 1,000 MLS/HR Allergies Allergies Allergies Coded Allergies Type Severity Reaction Last Updated Verified alcohol Allergy Intermediate Hives 02/02/17 Yes latex Allergy Intermediate Rash 02/02/17 Yes Physical Exam Physical Exam Constitutional: Alert, obese, afebrile, appears in minimal discomfort. [] HENT: Normocephalic, atraumatic, bilateral external ears normal, oropharynx moist, no oral exudates, nose normal. [] Eyes: PERRLA, EOMI, conjunctiva normal, no discharge. [] Neck: Normal range of motion, no tenderness, supple, no stridor. [] Cardiovascular:Heart rate regular rhythm, no murmur [] Lungs & Thorax: Bilateral breath sounds clear to auscultation [] Abdomen: Bowel sounds normal, soft, no tenderness, no masses, no pulsatile masses. [] Skin: Warm, dry, no erythema, no rash. [] Back: No tenderness, no CVA tenderness. [] Extremities: No tenderness, no cyanosis, no clubbing, ROM intact, no edema. [] Neurologic: Alert and oriented X 3, normal motor function, normal sensory function, no focal deficits noted. [] Current Patient Data Vital Signs Vital Signs Date Time Temp Pulse Resp B/P (MAP) Pulse Ox O2 Delivery O2 Flow Rate FiO2 05/05/17 02:35 Room Air 05/05/17 01:56 77 124/78 05/05/17 01:30 98.4 30 97 98.4 Lab Values Laboratory Tests Test 05/05/17 01:44 05/05/17 02:20 05/05/17 03:25 White Blood Count 8.9 x10^3/uL (4.0-11.0) Red Blood Count 4.32 x10^6/uL (3.50-5.40) Hemoglobin 13.3 g/dL (12.0-15.5) Hematocrit 39.3 % (36.0-47.0) Mean Corpuscular Volume 91 fL (79-100) Mean Corpuscular Hemoglobin 31 pg (25-35) Mean Corpuscular Hemoglobin Concent 34 g/dL (31-37) Red Cell Distribution Width 12.7 % (11.5-14.5) Platelet Count 330 x10^3/uL (140-400) Neutrophils (%) (Auto) 55 % (31-73) Lymphocytes (%) (Auto) 30 % (24-48) Monocytes (%) (Auto) 10 % (0-9) H Eosinophils (%) (Auto) 3 % (0-3) Basophils (%) (Auto) 1 % (0-3) Neutrophils # (Auto) 4.9 x10^3uL (1.8-7.7) Lymphocytes # (Auto) 2.7 x10^3/uL (1.0-4.8) Monocytes # (Auto) 0.9 x10^3/uL (0.0-1.1) Eosinophils # (Auto) 0.3 x10^3/uL (0.0-0.7) Basophils # (Auto) 0.1 x10^3/uL (0.0-0.2) Sodium Level 139 mmol/L (136-145) Potassium Level 4.1 mmol/L (3.5-5.1) Chloride Level 104 mmol/L (98-107) Carbon Dioxide Level 28 mmol/L (21-32) Anion Gap 7 (6-14) Blood Urea Nitrogen 19 mg/dL (7-20) Creatinine 0.7 mg/dL (0.6-1.0) Estimated GFR (Cockcroft-Gault) 94.2 BUN/Creatinine Ratio 27 (6-20) H Glucose Level 102 mg/dL (70-99) H Calcium Level 8.6 mg/dL (8.5-10.1) Magnesium Level 2.1 mg/dL (1.8-2.4) Total Bilirubin 0.2 mg/dL (0.2-1.0) Aspartate Amino Transferase (AST) 12 U/L (15-37) L Alanine Aminotransferase (ALT) 26 U/L (14-59) Alkaline Phosphatase 53 U/L (46-116) Creatine Kinase 72 U/L (26-192) 84 U/L (26-192) Creatine Kinase MB (Mass) < 0.5 ng/mL (0.0-3.6) < 0.5 ng/mL (0.0-3.6) Creatine Kinase MB Relative Index 0.7 % (0-4) 0.6 % (0-4) Troponin I Quantitative < 0.017 ng/mL (0.000-0.055) < 0.017 ng/mL (0.000-0.055) VH-Woy-S-Type Natriuretic Peptide 17 pg/mL (0-124) Total Protein 7.1 g/dL (6.4-8.2) Albumin 3.6 g/dL (3.4-5.0) Albumin/Globulin Ratio 1.0 (1.0-1.7) Lipase 249 U/L (73-393) Urine Collection Type Unknown Urine Color Yellow Urine Clarity Clear Urine pH 5.5 Urine Specific [place] 1.025 Urine Protein Negative mg/dL (NEG-TRACE) Urine Glucose (UA) Negative mg/dL (NEG) Urine Ketones (Stick) Negative mg/dL (NEG) Urine Blood Small (NEG) Urine Nitrite Negative (NEG) Urine Bilirubin Negative (NEG) Urine Urobilinogen Dipstick 0.2 mg/dL (0.2 mg/dL) Urine Leukocyte Esterase Negative (NEG) Urine RBC 1-2 /HPF (0-2) Urine WBC 1-4 /HPF (0-4) Urine Squamous Epithelial Cells Mod /LPF Urine Bacteria Few /HPF (0-FEW) Urine Mucus Mod /LPF Laboratory Tests 05/05/17 01:44 Laboratory Tests 05/05/17 01:44 EKG EKG Interpreted by me: Heart rate 76, sinus rhythm, normal intervals, normal axis, no acute ST/T-wave abnormalities present[] Radiology/Procedures Radiology/Procedures One view AP chest x-ray interpreted by me: No infiltrates, no effusions, normal cardiac silhouette[] Course & Med Decision Making Course & Med Decision Making Pertinent Labs and Imaging studies reviewed. (See chart for details) Patient's HEART score is 1. The patient was given aspirin and nitroglycerin in the emergency department. Patient's pain has completely resolved at this time. 2 sets of cardiac enzymes show no elevation in troponin. The patient is appropriate for discharge with outpatient follow-up in 2 days with cardiology for reevaluation and cardiac stress testing. Patient referred to Dr. Frenando of cardiology. Advised to continue on full strength aspirin until she has been reevaluated by cardiology. Recommended return to the emergency department for any worsening symptoms. Patient voiced understanding and in agreement with treatment plan. Dragon Disclaimer Dragon Disclaimer This electronic medical record was generated, in whole or in part, using a voice recognition dictation system. Departure Departure Impression: Primary Impression: Chest pain Disposition: HOME, SELF-CARE Condition: IMPROVED Referrals: PETRA BRADLEY MD (PCP) SUISE FERNANDO MD Patient Instructions: Chest Pain (Nonspecific) Additional Instructions: Follow-up with Dr. Fernando of cardiology in 2 days for reevaluation and cardiac stress testing. Return to the emergency department for any worsening symptoms. Scripts Aspirin (ASPIRIN) 325 Mg Tablet 1 TAB PO DAILY, #30 TAB 0 Refills Prov: BRENDEN NEAL MD 05/05/17 Problem Qualifiers Primary Impression: Chest pain Chest pain type: unspecified Qualified Codes: R07.9 - Chest pain, unspecified BRENDEN NEAL MD May 05, 2017 01:35
[2017-05-05] MEDS ORDERED: fentaNYL PF VIAL 100 MCG/2 ML VIAL IV PRN (01:45)
[2017-05-05] MEDS ORDERED: NITROGLYCERIN SUBLINGUAL 0.4 MG BOTTLE OF 25. SL PRN (01:45)
[2017-05-05 01:58] LABS: BASO # 0.1 x10^3/uL (0.0-0.2); BASO % 1 % (0-3); EOS % 3 % (0-3); HEMATOCRIT 39.3 % (36.0-47.0); HEMOGLOBIN 13.3 g/dL (12.0-15.5); LYMPH # 2.7 x10^3/uL (1.0-4.8); LYMPH % 30 % (24-48); MEAN CORPUSCULAR HEMOGLOBIN 31 pg (25-35); MEAN CORPUSCULAR HGB CONC 34 g/dL (31-37); MEAN CORPUSCULAR VOLUME 91 fL (79-100); MONO % 10 % (0-9); NEUT % 55 % (31-73); PLATELET COUNT 330 x10^3/uL (140-400); RED BLOOD COUNT 4.32 x10^6/uL (3.50-5.40); RED CELL DISTRIBUTION WIDTH 12.7 % (11.5-14.5); WHITE BLOOD COUNT 8.9 x10^3/uL (4.0-11.0)
[2017-05-05] MEDS ORDERED: IV NORMAL SALINE 1000ML BAG 1,000 ML IV SCH (02:00)
[2017-05-05] MEDS ORDERED: ASPIRIN CHEWABLE 81 MG TABLET. PO ONE (02:00)
[2017-05-05 02:16] LABS: MAGNESIUM 2.1 mg/dL (1.8-2.4)
[2017-05-05 02:22] LABS: ALBUMIN 3.6 g/dL (3.4-5.0); CALCIUM 8.6 mg/dL (8.5-10.1); CREATININE 0.7 mg/dL (0.6-1.0); GFR 94.2; POTASSIUM 4.1 mmol/L (3.5-5.1); TOTAL BILIRUBIN 0.2 mg/dL (0.2-1.0); TOTAL PROTEIN 7.1 g/dL (6.4-8.2)
[2017-05-05 02:32] LABS: BILIRUBIN,URINE NEGATIVE (NEG); GLUCOSE,URINE NEGATIVE (NEG); NITRITE,URINE NEGATIVE (NEG); PH,URINE 5.5; PROTEIN,URINE NEGATIVE (NEG-TRACE); UROBILINOGEN,URINE 0.2 mg/dL (0.2 mg/dL)
[2017-05-05 02:32] LABS: CREATINE KINASE 72 U/L (26-192)
[2017-05-05 02:43] LABS: BACTERIA,URINE FEW /HPF (0-FEW); SQUAMOUS EPITHELIAL CELL,UR MOD /LPF
[2017-05-05 02:47] LABS: CKMB MASS < 0.5 ng/mL (0.0-3.6)
[2017-05-05 04:03] LABS: CREATINE KINASE 84 U/L (26-192)
[2017-05-05 04:04] LABS: CKMB MASS < 0.5 ng/mL (0.0-3.6)
[2017-05-05] MEDS ORDERED: ASPI325T8 PO (04:19)
[2017-05-05 04:24] VITALS: BP 144/75
--- NOTE | 2017-05-05 07:30 | EKG ---
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
--- NOTE | 2017-05-05 07:57 | RAD ---
Portable AP upright view CXR: Clinical indications: Chest pain. Comparison: May 05, 2017. Findings: No acute lung infiltrate or pleural effusion or pulmonary edema or lung mass or pneumothorax is seen. The heart size, pulmonary vasculature, mediastinum and both melissa are unremarkable. Impression: No acute radiographic abnormality is seen.
== END 2017-05-05 04:24 | disposition home or self-care (01) ==
LOC: ER 01:21
DX: R07.9 Chest pain, unspecified (principal); I10 Essential (primary) hypertension; J45.909 Unspecified asthma, uncomplicated; G43.909 Migraine, unspecified, not intractable, without status migrainosus; Z91.040 Latex allergy status; Z91.048 Other nonmedicinal substance allergy status
CPT/HCPCS: 36415; 71010; 80053; 81001; 82553; 83690; 83735; 83880; 84484; 85025; 93005; 96361; 96374; 99285; J3010; J7030

== ENCOUNTER 2017-05-16 20:46 | Emergency (ER) | payer OTHER ==
[~2017-05-16 20:46] MED LIST changes: +ASPI325T8 PO
[2017-05-16 21:28] LABS: BASO # 0.1 x10^3/uL (0.0-0.2); BASO % 1 % (0-3); EOS % 2 % (0-3); HEMATOCRIT 42.4 % (36.0-47.0); LYMPH # 2.8 x10^3/uL (1.0-4.8); LYMPH % 25 % (24-48); MEAN CORPUSCULAR HEMOGLOBIN 30 pg (25-35); MEAN CORPUSCULAR HGB CONC 33 g/dL (31-37); MEAN CORPUSCULAR VOLUME 91 fL (79-100); MONO % 8 % (0-9); NEUT % 64 % (31-73); PLATELET COUNT 333 x10^3/uL (140-400); RED BLOOD COUNT 4.68 x10^6/uL (3.50-5.40); RED CELL DISTRIBUTION WIDTH 12.9 % (11.5-14.5); WHITE BLOOD COUNT 11.1 x10^3/uL (4.0-11.0)
--- NOTE | 2017-05-16 21:28 | PHYS DOC ---
Past Medical History Past Medical History: Anxiety, Asthma, Hypertension, Migraines Additional Past Medical Histor: adrenal mass, CTA, Past Surgical History: Hysterectomy, Tonsillectomy, Tubal ligation Additional Past Surgical Histo: partial hysterectomy, ADNOIDS, R ear Alcohol Use: None Drug Use: None Adult General Chief Complaint Chief Complaint: left arm pain, shaking [facility] HPI Patient is a 37 year old female who presents with earlier today around 4 pm left arm pain lasting 20 minutes, moderate, not assoc w activity; also had shaking similar to prior anxiety (provoked by job interview); denies SOB, some tightness in chest (resolved) better w albuterol inhaler; recent eval for same, scheduled for cardiac stress test next week. denies DM, tob; some Fam HX CAD ( not early) and HTN. pain free on my eval.[] Review of Systems Review of Systems Constitutional: Denies fever or chills [] Eyes: Denies change in visual acuity, redness, or eye pain [] HENT: Denies nasal congestion or sore throat [] Respiratory: Denies cough or shortness of breath [] Cardiovascular: No additional information not addressed in HPI [] GI: Denies abdominal pain, nausea, vomiting, bloody stools or diarrhea [] : Denies dysuria or hematuria [] Musculoskeletal: Denies back pain or joint pain [] Integument: Denies rash or skin lesions [] Neurologic: Denies headache, focal weakness or sensory changes [] Endocrine: Denies polyuria or polydipsia [] Allergies Allergies Allergies Coded Allergies Type Severity Reaction Last Updated Verified alcohol Allergy Intermediate Hives 02/02/17 Yes latex Allergy Intermediate Rash 02/02/17 Yes Physical Exam Physical Exam Constitutional: Well developed, well nourished, no acute distress, non-toxic appearance. [] HENT: Normocephalic, atraumatic, bilateral external ears normal, oropharynx moist, no oral exudates, nose normal. [] Eyes: PERRLA, EOMI, conjunctiva normal, no discharge. [] Neck: Normal range of motion, no tenderness, supple, no stridor. [] Cardiovascular:Heart rate regular rhythm, no murmur [] Lungs & Thorax: Bilateral breath sounds clear to auscultation [] Abdomen: Bowel sounds normal, soft, no tenderness, no masses, no pulsatile masses. [] Skin: Warm, dry, no erythema, no rash. [] Back: No tenderness, no CVA tenderness. [] Extremities: No tenderness, no cyanosis, no clubbing, ROM intact, no edema. [] Neurologic: Alert and oriented X 3, normal motor function, normal sensory function, no focal deficits noted. [] Psychologic: Affect normal, judgement normal, mood normal. [] Current Patient Data Vital Signs Vital Signs Date Time Temp Pulse Resp B/P (MAP) Pulse Ox O2 Delivery O2 Flow Rate FiO2 05/16/17 22:19 73 124/73 (90) 96 Room Air 05/16/17 21:04 98.6 20 98.6 Lab Values Laboratory Tests Test 05/16/17 20:46 White Blood Count 11.1 x10^3/uL (4.0-11.0) H Red Blood Count 4.68 x10^6/uL (3.50-5.40) Hemoglobin 14.0 g/dL (12.0-15.5) Hematocrit 42.4 % (36.0-47.0) Mean Corpuscular Volume 91 fL (79-100) Mean Corpuscular Hemoglobin 30 pg (25-35) Mean Corpuscular Hemoglobin Concent 33 g/dL (31-37) Red Cell Distribution Width 12.9 % (11.5-14.5) Platelet Count 333 x10^3/uL (140-400) Neutrophils (%) (Auto) 64 % (31-73) Lymphocytes (%) (Auto) 25 % (24-48) Monocytes (%) (Auto) 8 % (0-9) Eosinophils (%) (Auto) 2 % (0-3) Basophils (%) (Auto) 1 % (0-3) Neutrophils # (Auto) 7.1 x10^3uL (1.8-7.7) Lymphocytes # (Auto) 2.8 x10^3/uL (1.0-4.8) Monocytes # (Auto) 0.9 x10^3/uL (0.0-1.1) Eosinophils # (Auto) 0.2 x10^3/uL (0.0-0.7) Basophils # (Auto) 0.1 x10^3/uL (0.0-0.2) D-Dimer (Nanci) < 0.27 ug/mlFEU Sodium Level 137 mmol/L (136-145) Potassium Level 3.8 mmol/L (3.5-5.1) Chloride Level 100 mmol/L (98-107) Carbon Dioxide Level 27 mmol/L (21-32) Anion Gap 10 (6-14) Blood Urea Nitrogen 11 mg/dL (7-20) Creatinine 0.7 mg/dL (0.6-1.0) Estimated GFR (Cockcroft-Gault) 94.2 BUN/Creatinine Ratio 16 (6-20) Glucose Level 98 mg/dL (70-99) Calcium Level 9.2 mg/dL (8.5-10.1) Total Bilirubin 0.2 mg/dL (0.2-1.0) Aspartate Amino Transferase (AST) 13 U/L (15-37) L Alanine Aminotransferase (ALT) 20 U/L (14-59) Alkaline Phosphatase 51 U/L (46-116) Troponin I Quantitative < 0.017 ng/mL (0.000-0.055) Total Protein 7.3 g/dL (6.4-8.2) Albumin 3.8 g/dL (3.4-5.0) Albumin/Globulin Ratio 1.1 (1.0-1.7) Laboratory Tests 05/16/17 20:46 Laboratory Tests 05/16/17 20:46 EKG EKG EKG NSR, rate 84, no STEMI, QTC nml; my interp[] Radiology/Procedures Radiology/Procedures chest xray neg per my read[] Course & Med Decision Making Course & Med Decision Making Pertinent Labs and Imaging studies reviewed. (See chart for details) [reexam at 2210pm: resting comfortably. stable for outpatient eval.] Dragon Disclaimer Dragon Disclaimer This electronic medical record was generated, in whole or in part, using a voice recognition dictation system. Departure Departure Impression: Primary Impression: Left arm pain Additional Impression: Anxiety attack Disposition: 01 HOME, SELF-CARE Condition: STABLE Referrals: PETRA BRADLEY MD (PCP) Problem Qualifiers BRENDEN ZAMORA MD May 16, 2017 21:28
[2017-05-16 21:39] LABS: CALCIUM 9.2 mg/dL (8.5-10.1); CREATININE 0.7 mg/dL (0.6-1.0); GFR 94.2; POTASSIUM 3.8 mmol/L (3.5-5.1)
[2017-05-16 21:46] LABS: ALBUMIN 3.8 g/dL (3.4-5.0); ALBUMIN/GLOBULIN RATIO 1.1 (1.0-1.7); TOTAL BILIRUBIN 0.2 mg/dL (0.2-1.0); TOTAL PROTEIN 7.3 g/dL (6.4-8.2)
[2017-05-16 22:19] VITALS: BP 124/73
--- NOTE | 2017-05-17 07:22 | EKG ---
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
--- NOTE | 2017-05-17 08:24 | RAD ---
Examination: Single frontal view the chest History: History of left-sided chest pain with shortness of breath Comparison: 05/05/2017. Findings: The cardiomediastinal silhouette grossly appears unremarkable. There is no acute infiltrate or visualized pneumothorax. Impression: 1. No acute cardiopulmonary findings.
== END 2017-05-16 22:25 | disposition home or self-care (01) ==
LOC: ER 20:46
DX: M79.602 Pain in left arm (principal); F41.1 Generalized anxiety disorder; I10 Essential (primary) hypertension; J45.909 Unspecified asthma, uncomplicated; G43.909 Migraine, unspecified, not intractable, without status migrainosus; Z91.040 Latex allergy status; Z91.048 Other nonmedicinal substance allergy status
CPT/HCPCS: 36415; 71010; 80053; 84484; 85025; 85379; 93005; 99285-25

== ENCOUNTER 2017-06-16 17:30 | Emergency (ER) | payer OTHER ==
[~2017-06-16] VITALS: Ht 165.1 cm; Wt 104.3 kg
[2017-06-16 17:40] VITALS: BP 138/85
--- NOTE | 2017-06-16 18:32 | PHYS DOC ---
Past Medical History Past Medical History: Anxiety, Asthma, High Cholesterol, Hypertension, Migraines Additional Past Medical Histor: adrenal mass, CTA, Past Surgical History: Hysterectomy, Tonsillectomy, Tubal ligation Additional Past Surgical Histo: partial hysterectomy, ADENOIDS, R ear Alcohol Use: None Drug Use: None Adult General Chief Complaint Chief Complaint: LOWER EXT PAIN [facility] HPI Patient is a 37 year old E male presents the ED complaining of left ankle pain 2 days. Patient states she works at [employer] and is on her feet a lot. States the pain as sharp. Rates the pain as 6 out of 10. States he had previous ankle pain like this before. Denies calf pain, fever, nausea/vomiting, trauma, weakness, chest pain, shortness of breath. Review of Systems Review of Systems Constitutional: Denies fever or chills [] Eyes: Denies change in visual acuity, redness, or eye pain [] HENT: Denies nasal congestion or sore throat [] Respiratory: Denies cough or shortness of breath [] Cardiovascular: No additional information not addressed in HPI [] GI: Denies abdominal pain, nausea, vomiting, bloody stools or diarrhea [] : Denies dysuria or hematuria [] Musculoskeletal: Complains of ankle pain. Denies back pain. [] Integument: Denies rash or skin lesions [] Neurologic: Denies headache, focal weakness or sensory changes [] Endocrine: Denies polyuria or polydipsia [] All other systems were reviewed and found to be within normal limits, except as documented in this note. Allergies Allergies Allergies Coded Allergies Type Severity Reaction Last Updated Verified alcohol Allergy Intermediate Hives 02/02/17 Yes latex Allergy Intermediate Rash 02/02/17 Yes Physical Exam Physical Exam Constitutional: Well developed, well nourished, no acute distress, non-toxic appearance. [] HENT: Normocephalic, atraumatic, bilateral external ears normal, oropharynx moist, no oral exudates, nose normal. [] Eyes: PERRLA, EOMI, conjunctiva normal, no discharge. [] Neck: Normal range of motion, no tenderness, supple, no stridor. [] Cardiovascular:Heart rate regular rhythm, no murmur [] Lungs & Thorax: Bilateral breath sounds clear to auscultation [] Abdomen: Bowel sounds normal, soft, no tenderness, no masses, no pulsatile masses. [] Skin: Warm, dry, no erythema, no rash. [] Back: No tenderness, no CVA tenderness. [] Extremities: MILD LEFT LATERAL ANKLE TENDERNESS. NO SWELLING., no cyanosis, no clubbing, ROM intact, no edema. [] Neurologic: Alert and oriented X 3, normal motor function, normal sensory function, no focal deficits noted. [] Psychologic: Affect normal, judgement normal, mood normal. [] Current Patient Data Vital Signs Vital Signs Date Time Temp Pulse Resp B/P (MAP) Pulse Ox O2 Delivery O2 Flow Rate FiO2 06/16/17 17:40 98.9 84 17 96 Room Air 98.9 EKG EKG [] Radiology/Procedures Radiology/Procedures [] PROCEDURE: ANKLE LEFT 3V ANKLE LEFT 3V History:injury, pain Comparison: None Findings:3 views left ankle are submitted. No acute fracture or dislocation is identified. There is small plantar calcaneal enthesophyte. Impression: 1.No acute osseous abnormality is identified. X-ray negative for acute injury. Patient's pain improved. Vital stable, no acute distress. Von wrap placed. Neurovascular intact post placement. Discussed follow-up with orthopedics if pain continues. Discussed reasons to return to the ED. Patient understands and agrees with plan. Course & Med Decision Making Course & Med Decision Making Pertinent Labs and Imaging studies reviewed. (See chart for details) [] Dragon Disclaimer Dragon Disclaimer This electronic medical record was generated, in whole or in part, using a voice recognition dictation system. Departure Departure Impression: Primary Impression: Ankle sprain Disposition: HOME, SELF-CARE Condition: IMPROVED Referrals: PETRA BRADLEY MD (PCP) Patient Instructions: Ankle Sprain Scripts Tramadol Hcl (TRAMADOL HCL) 50 Mg Tablet 1 TAB PO PRN Q6HRS, #10 TAB Prov: OSMAN GAYTAN 06/16/17 OSMAN GAYTAN Jun 16, 2017 18:32
[2017-06-16] MEDS ORDERED: TRAM50TA PO (19:45)
--- NOTE | 2017-06-17 07:47 | RAD ---
ANKLE LEFT 3V History:injury, pain Comparison: None Findings:3 views left ankle are submitted. No acute fracture or dislocation is identified. There is small plantar calcaneal enthesophyte. Impression: 1.No acute osseous abnormality is identified.
== END 2017-06-16 19:49 | disposition home or self-care (01) ==
LOC: ER 17:30
DX: S93.402A Sprain of unspecified ligament of left ankle, initial encounter (principal); E78.00 Pure hypercholesterolemia, unspecified; I10 Essential (primary) hypertension; F41.9 Anxiety disorder, unspecified; J45.909 Unspecified asthma, uncomplicated; G43.909 Migraine, unspecified, not intractable, without status migrainosus; Z88.8 Allergy status to other drugs, medicaments and biological substances; Z91.040 Latex allergy status; X58.XXXA Exposure to other specified factors, initial encounter; Y93.89 Activity, other specified; Y99.8 Other external cause status; Y92.89 Other specified places as the place of occurrence of the external cause
CPT/HCPCS: 73610; 99284

== ENCOUNTER 2017-07-06 10:53 | Emergency (ER) | payer OTHER ==
[~2017-07-06] VITALS: Ht 162.6 cm; Wt 104.3 kg
[~2017-07-06 10:53] MED LIST changes: +NAPR-683 PO; -NAPR500T PO; +TRAM50TA PO
[2017-07-06 11:30] LABS: BASO # 0.1 x10^3/uL (0.0-0.2); BASO % 1 % (0-3); EOS % 2 % (0-3); HEMATOCRIT 41.7 % (36.0-47.0); HEMOGLOBIN 13.6 g/dL (12.0-15.5); LYMPH # 2.3 x10^3/uL (1.0-4.8); LYMPH % 25 % (24-48); MEAN CORPUSCULAR HEMOGLOBIN 30 pg (25-35); MEAN CORPUSCULAR HGB CONC 33 g/dL (31-37); MEAN CORPUSCULAR VOLUME 92 fL (79-100); MONO % 8 % (0-9); NEUT % 64 % (31-73); PLATELET COUNT 328 x10^3/uL (140-400); RED BLOOD COUNT 4.55 x10^6/uL (3.50-5.40); RED CELL DISTRIBUTION WIDTH 13.6 % (11.5-14.5)
[2017-07-06] MEDS ORDERED: ASPIRIN 325 MG TABLET PO ONE (11:30)
--- NOTE | 2017-07-06 11:34 | RAD ---
Portable chest, 07/06/2017: History: Chest pain Comparison is made to a study from 05/16/2017. The heart size and pulmonary vascularity are normal. The lungs are clear. There is no evidence of pleural fluid. IMPRESSION: No acute cardiopulmonary abnormality is detected.
[2017-07-06 11:39] LABS: CALCIUM 8.8 mg/dL (8.5-10.1); CREATININE 0.6 mg/dL (0.6-1.0); GFR 112.5; POTASSIUM 3.8 mmol/L (3.5-5.1)
[2017-07-06 11:42] LABS: PROTHROMBIN TIME PATIENT 12.5 SEC (11.7-14.0)
[2017-07-06 11:46] LABS: ALBUMIN/GLOBULIN RATIO 1.2 (1.0-1.7); TOTAL BILIRUBIN 0.4 mg/dL (0.2-1.0); TOTAL PROTEIN 7.4 g/dL (6.4-8.2)
[2017-07-06 11:55] LABS: CKMB MASS 0.6 ng/mL (0.0-3.6)
[2017-07-06 11:56] LABS: BILIRUBIN,URINE NEGATIVE (NEG); GLUCOSE,URINE NEGATIVE (NEG); NITRITE,URINE NEGATIVE (NEG); PH,URINE 6.5; PROTEIN,URINE NEGATIVE (NEG-TRACE); UROBILINOGEN,URINE 0.2 mg/dL (0.2 mg/dL)
[2017-07-06 12:02] LABS: SQUAMOUS EPITHELIAL CELL,UR MANY /LPF
[2017-07-06 12:03] LABS: BACTERIA,URINE MOD /HPF (0-FEW); BARBITURATES NEG (NEG); BENZODIAZEPINES NEG (NEG); CANNABINOIDS NEG (NEG); COCAINE NEG (NEG); METHADONE NEG (NEG); OPIATES NEG (NEG); PHENCYCLIDINE NEG (NEG); WBC,URINE OCC /HPF (0-4)
--- NOTE | 2017-07-06 13:09 | PHYS DOC ---
Past Medical History Past Medical History: Anxiety, Asthma, High Cholesterol, Hypertension, Migraines Additional Past Medical Histor: adrenal mass, CTA, Past Surgical History: Hysterectomy, Tonsillectomy, Tubal ligation Additional Past Surgical Histo: partial hysterectomy, ADENOIDS, R ear Alcohol Use: None Drug Use: None Adult General Chief Complaint Chief Complaint: CHEST PAIN HPI HPI Patient is a 37 year old female with history of anxiety, asthma, hypertension, high cholesterol, who presents today complaining over 9/10 mid substernal chest pain radiating to the left upper extremity that began a couple minutes prior to coming to the ED. Patient states she was working at her normal job at [employer] when this pain began. Patient denies anything exacerbating or making the pain better. She states she's had similar pain before with her anxiety attacks. She states she is supposed to take escitalopram for her anxiety which she took earlier today. Patient denies any other associated symptoms. She states she is supposed to have a stress test on July 11, 2017 as an outpatient with Dr. Archibald. Review of Systems Review of Systems Constitutional: Denies fever or chills [] Eyes: Denies change in visual acuity, redness, or eye pain [] HENT: Denies nasal congestion or sore throat [] Respiratory: Denies cough or shortness of breath [] Cardiovascular: chest pain GI: Denies abdominal pain, nausea, vomiting, bloody stools or diarrhea [] : Denies dysuria or hematuria [] Musculoskeletal: Denies back pain or joint pain [] Integument: Denies rash or skin lesions [] Neurologic: Denies headache, focal weakness or sensory changes [] All other systems were reviewed and found to be within normal limits, except as documented in this note. Current Medications Current Medications Current Medications Medications (Trade) Dose Ordered Sig/Americo Start Time Stop Time Status Last Admin Dose Admin Aspirin (Harriet Aspirin) 325 mg 1X ONCE 07/06/17 11:30 07/06/17 11:31 DC 07/06/17 11:45 325 MG Allergies Allergies Allergies Coded Allergies Type Severity Reaction Last Updated Verified alcohol Allergy Intermediate Hives 02/02/17 Yes latex Allergy Intermediate Rash 02/02/17 Yes Physical Exam Physical Exam Constitutional: Well developed, well nourished, no acute distress, non-toxic appearance. [] HENT: Normocephalic, atraumatic, bilateral external ears normal, oropharynx moist, no oral exudates, nose normal. [] Eyes: PERRLA, EOMI, conjunctiva normal, no discharge. [] Neck: Normal range of motion, no tenderness, supple, no stridor. [] Cardiovascular:Heart rate regular rhythm, no murmur no gallops Lungs & Thorax: Bilateral breath sounds clear to auscultation [] Abdomen: Bowel sounds normal, soft, no tenderness, no masses, no pulsatile masses. [] Skin: Warm, dry, no erythema, no rash. [] Back: No tenderness, no CVA tenderness. [] Extremities: No tenderness, no cyanosis, no clubbing, ROM intact, no edema. [] Neurologic: Alert and oriented X 3, normal motor function, normal sensory function, no focal deficits noted. [] Psychologic: Affect normal, judgement normal, mood normal. [] Current Patient Data Vital Signs Vital Signs Date Time Temp Pulse Resp B/P (MAP) Pulse Ox O2 Delivery O2 Flow Rate FiO2 07/06/17 11:00 98.7 86 20 141/90 (107) 98 Room Air 98.7 Lab Values Laboratory Tests Test 07/06/17 11:15 07/06/17 11:40 White Blood Count 9.0 x10^3/uL (4.0-11.0) Red Blood Count 4.55 x10^6/uL (3.50-5.40) Hemoglobin 13.6 g/dL (12.0-15.5) Hematocrit 41.7 % (36.0-47.0) Mean Corpuscular Volume 92 fL (79-100) Mean Corpuscular Hemoglobin 30 pg (25-35) Mean Corpuscular Hemoglobin Concent 33 g/dL (31-37) Red Cell Distribution Width 13.6 % (11.5-14.5) Platelet Count 328 x10^3/uL (140-400) Neutrophils (%) (Auto) 64 % (31-73) Lymphocytes (%) (Auto) 25 % (24-48) Monocytes (%) (Auto) 8 % (0-9) Eosinophils (%) (Auto) 2 % (0-3) Basophils (%) (Auto) 1 % (0-3) Neutrophils # (Auto) 5.7 x10^3uL (1.8-7.7) Lymphocytes # (Auto) 2.3 x10^3/uL (1.0-4.8) Monocytes # (Auto) 0.7 x10^3/uL (0.0-1.1) Eosinophils # (Auto) 0.2 x10^3/uL (0.0-0.7) Basophils # (Auto) 0.1 x10^3/uL (0.0-0.2) Prothrombin Time 12.5 SEC (11.7-14.0) Prothrombin Time INR 1.0 (0.8-1.1) D-Dimer (Nanci) 0.30 ug/mlFEU (0.00-0.50) Sodium Level 138 mmol/L (136-145) Potassium Level 3.8 mmol/L (3.5-5.1) Chloride Level 103 mmol/L (98-107) Carbon Dioxide Level 27 mmol/L (21-32) Anion Gap 8 (6-14) Blood Urea Nitrogen 16 mg/dL (7-20) Creatinine 0.6 mg/dL (0.6-1.0) Estimated GFR (Cockcroft-Gault) 112.5 BUN/Creatinine Ratio 27 (6-20) H Glucose Level 96 mg/dL (70-99) Calcium Level 8.8 mg/dL (8.5-10.1) Magnesium Level 2.0 mg/dL (1.8-2.4) Total Bilirubin 0.4 mg/dL (0.2-1.0) Aspartate Amino Transferase (AST) 16 U/L (15-37) Alanine Aminotransferase (ALT) 23 U/L (14-59) Alkaline Phosphatase 52 U/L (46-116) Creatine Kinase 85 U/L (26-192) Creatine Kinase MB (Mass) 0.6 ng/mL (0.0-3.6) Creatine Kinase MB Relative Index 0.7 % (0-4) Troponin I Quantitative < 0.017 ng/mL (0.000-0.055) TF-[id number]-Type Natriuretic Peptide 13 pg/mL (0-124) Total Protein 7.4 g/dL (6.4-8.2) Albumin 4.0 g/dL (3.4-5.0) Albumin/Globulin Ratio 1.2 (1.0-1.7) Lipase 101 U/L (73-393) Thyroid Stimulating Hormone (TSH) 1.293 uIU/mL (0.358-3.74) Urine Collection Type Void Urine Color Yellow Urine Clarity Clear Urine pH 6.5 Urine Specific [place] 1.020 Urine Protein Negative mg/dL (NEG-TRACE) Urine Glucose (UA) Negative mg/dL (NEG) Urine Ketones (Stick) Negative mg/dL (NEG) Urine Blood Trace (NEG) Urine Nitrite Negative (NEG) Urine Bilirubin Negative (NEG) Urine Urobilinogen Dipstick 0.2 mg/dL (0.2 mg/dL) Urine Leukocyte Esterase Negative (NEG) Urine RBC 6-10 /HPF (0-2) Urine WBC Occ /HPF (0-4) Urine Squamous Epithelial Cells Many /LPF Urine Bacteria Mod /HPF (0-FEW) Urine Opiates Screen Neg (NEG) Urine Methadone Screen Neg (NEG) Urine Barbiturates Neg (NEG) Urine Phencyclidine Screen Neg (NEG) Urine Amphetamine/Methamphetamine Neg (NEG) Urine Benzodiazepines Screen Neg (NEG) Urine Cocaine Screen Neg (NEG) Urine Cannabinoids Screen Neg (NEG) Urine Ethyl Alcohol Neg (NEG) Laboratory Tests 07/06/17 11:15 Laboratory Tests 07/06/17 11:15 EKG EKG 10:[address] [facility], HR 83 no STEMI[] Radiology/Procedures Radiology/Procedures []PROCEDURE: PORTABLE CHEST 1V Portable chest, 07/06/2017: History: Chest pain Comparison is made to a study from 05/16/2017. The heart size and pulmonary vascularity are normal. The lungs are clear. There is no evidence of pleural fluid. IMPRESSION: No acute cardiopulmonary abnormality is detected. DICTATED and SIGNED BY: LUIS MIGUEL SAM MD DATE: 07/06/17 1139 CC: PETRA BRADLEY MD; RHONDA LAUREANO APRN ~ Course & Med Decision Making Course & Med Decision Making Pertinent Labs and Imaging studies reviewed. (See chart for details) This is a 37-year-old female patient presented to the ED today with substernal chest pain. Her cardiac workup is negative. She has a stress test scheduled on July 11, [address] Archibald. Consulted with Libra SUTHERLAND for Dr. Washington who requested we discharge her to home and she can f/u with the clinic next week. Dragon Disclaimer Dragon Disclaimer This electronic medical record was generated, in whole or in part, using a voice recognition dictation system. Departure Departure Impression: Primary Impression: Chest pain Additional Impression: Anxiety Disposition: HOME, SELF-CARE Condition: STABLE Referrals: PETRA BRADLEY MD (PCP) SUSIE WASHINGTON MD follow up next week Patient Instructions: Anxiety and Panic Attacks, [id number], Chest Pain ( Nonspecific) Additional Instructions: You were seen for chest pain in the emergency room. Your cardiac workup is negative. Contact Dr. Washington's office on Sunday and set up a follow-up appointment. Continue taking your anxiety medications and the rest of your daily medications Problem Qualifiers Primary Impression: Chest pain Chest pain type: unspecified Qualified Codes: R07.9 - Chest pain, unspecified RHONDA LAUREANO EYEGLASS CUTTER Jul 06, 2017 13:09
[2017-07-06 13:25] VITALS: BP 109/74
--- NOTE | 2017-07-06 14:37 | EKG ---
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
== END 2017-07-06 13:53 | disposition home or self-care (01) ==
LOC: ER 10:53
DX: R07.2 Precordial pain (principal); F41.9 Anxiety disorder, unspecified; J45.909 Unspecified asthma, uncomplicated; E78.00 Pure hypercholesterolemia, unspecified; I10 Essential (primary) hypertension; G43.909 Migraine, unspecified, not intractable, without status migrainosus; Z90.711 Acquired absence of uterus with remaining cervical stump; Z91.040 Latex allergy status; Z91.048 Other nonmedicinal substance allergy status
CPT/HCPCS: 36415; 71010; 80053; 80307; 81001; 82553; 83690; 83735; 83880; 84443; 84484; 85025; 85379; 85610; 93005; 99285-25; G0479

== ENCOUNTER → 2017-07-11 | Outpatient (CLI) | payer OTHER ==
[2017-07-06 13:25] VITALS: BP 109/74
--- NOTE | 2017-07-11 14:54 | CARD ---
APPROVED REPORT INDICATION Chest Pain Reason : Patient complained of pain PROCEDURE The patient underwent an Exercise Stress Test using the Brandon Protocol. Blood pressure, heart rate, a nd EKG were monitored. An Echocardiogram was performed by master technician in four stages in quad fashion. At peak stress four se lected images were obtained and placed side by side with resting images for comparison. STRESS ECHO FINDINGS The resting Echocardiogram showed normal left ventricular systolic contractility with an estimated Ej ection Fraction of about 60 %. The Resting Echocardiogram showed normal augmentation of myocardial wall segments using a 16 segment model. The Stress Echocardiogram showed normal augmentation of myocardial wall segments using a 16 segment m flip. The Stress Echocardiogram left ventricular systolic contractility has an estimated Ejection Fraction of about 65%. Test Type: Exercise Stress Nurse/Tech: Marianne Menard R.N. Test Indications: chest pain Cardiac History and Allergies: htn Medications: see ehr Medical History: see ehr Resting ECG: SR Resting Heart Rate: 78 bpm Resting Blood Pressure: 135/85mmHg Pretest Chest Pain: No chest pain Nurse/Tech Notes S1S2, lungs CTA Stress Symptoms SOB, chest discomfort scale 9/10 which decreased to scale 6/10 by the end of recovery period. Pt stat ed that this is what she has been having for the last 3-4 weeks with activity and that it takes sever al minutes for pain to go away once she rests POST EXERCISE Reason for Termination: Reached target heart rate Target HR: Yes Max HR: 181 bpm 99% of Maximum Predicted HR: 183 bpm Exercise duration: 6:04 min:sec, 3 Stage Exercise capacity: 7METs Max Blood Pressure: 204/102mmHg Blood Pressure response to exercise: b/p became very high during stress period but did come down quic kly once she was laying down. Chest Pain: Yes. see above nurse Arrhythmia: No. ST Change: No. INTERPRETATION Stress EKG Conclusion: Baseline EKG showed sinus rhythm. No ischemic changes at peak stress. No arr hythmias. Preliminary Notification Critical Value: No <Conclusion> Treadmill exercise stress echocardiogram did not show any evidence of ischemia or infarct. Normal left ventricle systolic function with ejection fraction estimated at 60%. Patient had good activity tolerance. Low risk for cardiac events.
== END | disposition home or self-care (01) ==
LOC: ECHO 12:25
PROVIDERS: ATTEND Internal Medicine Cardiovascular Disease
DX: R07.9 Chest pain, unspecified (principal); I10 Essential (primary) hypertension; R00.2 Palpitations
CPT/HCPCS: 93017; 93226; 93350

== ENCOUNTER 2017-07-30 19:48 | Emergency (ER) | payer OTHER ==
[2017-07-30 21:38] LABS: URINE HCG POC HCG NEGATIVE (Negative)
[2017-07-30 21:42] LABS: BILIRUBIN,URINE NEGATIVE (NEG); CLARITY,URINE CLEAR; COLOR,URINE YELLOW; GLUCOSE,URINE NEGATIVE (NEG); NITRITE,URINE NEGATIVE (NEG); PROTEIN,URINE NEGATIVE (NEG-TRACE); UROBILINOGEN,URINE 0.2 mg/dL (0.2 mg/dL)
[2017-07-30 21:50] LABS: BACTERIA,URINE MANY /HPF (0-FEW); SQUAMOUS EPITHELIAL CELL,UR MOD /LPF; WBC,URINE OCC /HPF (0-4)
== END 2017-07-30 22:10 | disposition home or self-care (01) ==
LOC: ER 19:48
DX: N64.4 Mastodynia (principal); M54.5 Low back pain; I10 Essential (primary) hypertension; E78.00 Pure hypercholesterolemia, unspecified; J45.909 Unspecified asthma, uncomplicated; G43.909 Migraine, unspecified, not intractable, without status migrainosus; Z90.710 Acquired absence of both cervix and uterus; Z88.8 Allergy status to other drugs, medicaments and biological substances; Z91.040 Latex allergy status
CPT/HCPCS: 81001; 81025; 87086; 99284

== ENCOUNTER 2017-09-02 15:23 | Emergency (ER) | payer OTHER ==
[2017-09-02 15:54] LABS: ADD MAN DIFF? NO
[2017-09-02 15:57] LABS: BASO # 0.1 x10^3/uL (0.0-0.2); BASO % 1 % (0-3); EOS # 0.2 x10^3/uL (0.0-0.7); EOS % 3 % (0-3); HEMATOCRIT 41.9 % (36.0-47.0); LYMPH # 2.3 x10^3/uL (1.0-4.8); LYMPH % 24 % (24-48); MEAN CORPUSCULAR HEMOGLOBIN 30 pg (25-35); MEAN CORPUSCULAR HGB CONC 33 g/dL (31-37); MEAN CORPUSCULAR VOLUME 90 fL (79-100); MONO % 10 % (0-9); NEUT # 5.9 x10^3uL (1.8-7.7); NEUT % 62 % (31-73); PLATELET COUNT 347 x10^3/uL (140-400); RED BLOOD COUNT 4.65 x10^6/uL (3.50-5.40); RED CELL DISTRIBUTION WIDTH 12.9 % (11.5-14.5); WHITE BLOOD COUNT 9.5 x10^3/uL (4.0-11.0)
[2017-09-02 15:58] LABS: BILIRUBIN,URINE NEGATIVE (NEG); CLARITY,URINE CLEAR; COLOR,URINE YELLOW; GLUCOSE,URINE NEGATIVE (NEG); NITRITE,URINE NEGATIVE (NEG); PROTEIN,URINE NEGATIVE (NEG-TRACE); UROBILINOGEN,URINE 0.2 mg/dL (0.2 mg/dL)
[2017-09-02 16:09] LABS: ANION GAP 9 (6-14); BACTERIA,URINE MANY /HPF (0-FEW); BLOOD UREA NITROGEN 16 mg/dL (7-20); BUN/CREATININE RATIO 27 (6-20); CALCIUM 9.7 mg/dL (8.5-10.1); CARBON DIOXIDE 28 mmol/L (21-32); CHLORIDE 100 mmol/L (98-107); CREATININE 0.6 mg/dL (0.6-1.0); GFR 112.5; GLUCOSE 95 mg/dL (70-99); POTASSIUM 4.1 mmol/L (3.5-5.1); SODIUM 137 mmol/L (136-145); SQUAMOUS EPITHELIAL CELL,UR MANY /LPF; WBC,URINE 0 /HPF (0-4)
[2017-09-02 16:14] LABS: ALBUMIN 3.7 g/dL (3.4-5.0); ALBUMIN/GLOBULIN RATIO 0.9 (1.0-1.7); ALK PHOS 55 U/L (46-116); ALT (SGPT) 23 U/L (14-59); AST (SGOT) 13 U/L (15-37); LIPASE 117 U/L (73-393); TOTAL BILIRUBIN 0.5 mg/dL (0.2-1.0); TOTAL PROTEIN 7.7 g/dL (6.4-8.2)
[2017-09-02] MEDS: HYDROcodone/APAP 5/325MG 1 TAB TABLET PO ×2 (16:17)
[2017-09-02] MEDS ORDERED: CONTRAST GIVEN MC ×2 (16:30)
[2017-09-02] MEDS: IOHEXOL 300 MG/ML 100ML VIAL. IV ×2 (16:38)
== END 2017-09-02 17:45 | disposition home or self-care (01) ==
LOC: ER 15:23
DX: R10.9 Unspecified abdominal pain (principal); E78.00 Pure hypercholesterolemia, unspecified; I10 Essential (primary) hypertension; J45.909 Unspecified asthma, uncomplicated; G43.909 Migraine, unspecified, not intractable, without status migrainosus; Z98.51 Tubal ligation status; Z90.711 Acquired absence of uterus with remaining cervical stump
CPT/HCPCS: 36415; 74177; 80053; 81001; 83690; 85025; 87086; 99285-25; Q9967

== ENCOUNTER 2017-09-16 09:21 | Emergency (ER) | payer OTHER ==
[2017-09-16 10:41] LABS: INFLUENZA A PATIENT NEGATIVE (NEGATIVE); INFLUENZA B PATIENT NEGATIVE (NEGATIVE); OBC FLU VALID
== END 2017-09-16 11:31 | disposition home or self-care (01) ==
LOC: ER 09:21
DX: J06.9 Acute upper respiratory infection, unspecified (principal); J45.909 Unspecified asthma, uncomplicated; E78.00 Pure hypercholesterolemia, unspecified; I10 Essential (primary) hypertension; G43.909 Migraine, unspecified, not intractable, without status migrainosus; Z88.8 Allergy status to other drugs, medicaments and biological substances; Z91.040 Latex allergy status
CPT/HCPCS: 71046; 87804; 87804-59; 99285

== ENCOUNTER 2017-09-30 15:28 | Emergency (ER) | payer OTHER ==
[2017-09-30 18:35] LABS: ADD MAN DIFF? NO
[2017-09-30 18:38] LABS: BASO # 0.1 x10^3/uL (0.0-0.2); BASO % 1 % (0-3); EOS # 0.2 x10^3/uL (0.0-0.7); EOS % 2 % (0-3); HEMATOCRIT 41.5 % (36.0-47.0); HEMOGLOBIN 14.1 g/dL (12.0-15.5); LYMPH # 2.5 x10^3/uL (1.0-4.8); LYMPH % 24 % (24-48); MEAN CORPUSCULAR HEMOGLOBIN 30 pg (25-35); MEAN CORPUSCULAR HGB CONC 34 g/dL (31-37); MEAN CORPUSCULAR VOLUME 89 fL (79-100); MONO # 0.8 x10^3/uL (0.0-1.1); MONO % 8 % (0-9); NEUT % 66 % (31-73); PLATELET COUNT 337 x10^3/uL (140-400); RED BLOOD COUNT 4.65 x10^6/uL (3.50-5.40); RED CELL DISTRIBUTION WIDTH 12.8 % (11.5-14.5); WHITE BLOOD COUNT 10.6 x10^3/uL (4.0-11.0)
[2017-09-30 18:52] LABS: ANION GAP 11 (6-14); BLOOD UREA NITROGEN 16 mg/dL (7-20); BUN/CREATININE RATIO 23 (6-20); CARBON DIOXIDE 25 mmol/L (21-32); CHLORIDE 106 mmol/L (98-107); CREATININE 0.7 mg/dL (0.6-1.0); GFR 94.2; GLUCOSE 105 mg/dL (70-99); POTASSIUM 3.9 mmol/L (3.5-5.1); SODIUM 142 mmol/L (136-145)
[2017-09-30 18:56] LABS: ALBUMIN 3.7 g/dL (3.4-5.0); ALK PHOS 54 U/L (46-116); ALT (SGPT) 24 U/L (14-59); AST (SGOT) 13 U/L (15-37); TOTAL BILIRUBIN 0.1 mg/dL (0.2-1.0); TOTAL PROTEIN 7.5 g/dL (6.4-8.2)
[2017-09-30 19:00] LABS: D-DIMER < 0.27 ug/mlFEU (0.00-0.50)
== END 2017-09-30 19:45 | disposition home or self-care (01) ==
LOC: ER 19:45
DX: R07.89 Other chest pain (principal); I10 Essential (primary) hypertension; J45.909 Unspecified asthma, uncomplicated; G43.909 Migraine, unspecified, not intractable, without status migrainosus; E78.00 Pure hypercholesterolemia, unspecified; Z90.711 Acquired absence of uterus with remaining cervical stump; Z98.51 Tubal ligation status; Z88.8 Allergy status to other drugs, medicaments and biological substances; Z91.040 Latex allergy status
CPT/HCPCS: 36415; 71046; 80053; 84484; 85025; 85379; 93005; 99285-25

== ENCOUNTER 2017-10-12 20:58 | Emergency (ER) | payer OTHER ==
[2017-10-12] MEDS: IV NORMAL SALINE 1000ML BAG 1,000 ML IV (21:41)
[2017-10-12] MEDS: diphenhydrAMINE 50 MG/ML VIAL IVP (21:41)
[2017-10-12] MEDS: PROCHLORPERAZINE 10 MG/2 ML VIAL. IV (21:41)
[2017-10-12] MEDS: KETOROLAC 15 MG/ML VIAL. IV (21:41)
== END 2017-10-12 23:30 | disposition home or self-care (01) ==
LOC: ER 20:58
DX: G43.909 Migraine, unspecified, not intractable, without status migrainosus (principal); F41.9 Anxiety disorder, unspecified; J45.909 Unspecified asthma, uncomplicated; K21.9 Gastro-esophageal reflux disease without esophagitis; E78.00 Pure hypercholesterolemia, unspecified; I10 Essential (primary) hypertension; Z88.8 Allergy status to other drugs, medicaments and biological substances; Z91.040 Latex allergy status
CPT/HCPCS: 96361; 96374; 96375; 99284-25; J0780; J1200; J1885; J7030

== ENCOUNTER 2017-10-21 14:00 | Emergency (ER) | payer OTHER | END 2017-10-21 14:40 | disposition home or self-care (01) | LOC: ER 14:00 | DX: M75.81 Other shoulder lesions, right shoulder (principal); Z91.040 Latex allergy status; Z88.8 Allergy status to other drugs, medicaments and biological substances | CPT/HCPCS: 99283 ==

== ENCOUNTER 2017-12-24 22:38 | Emergency (ER) | payer OTHER ==
[2017-12-25 00:09] LABS: ADD MAN DIFF? NO
[2017-12-25 00:10] LABS: BASO # 0.1 x10^3/uL (0.0-0.2); BASO % 1 % (0-3); EOS # 0.3 x10^3/uL (0.0-0.7); EOS % 3 % (0-3); HEMATOCRIT 39.3 % (36.0-47.0); HEMOGLOBIN 13.9 g/dL (12.0-15.5); LYMPH # 3.1 x10^3/uL (1.0-4.8); LYMPH % 30 % (24-48); MEAN CORPUSCULAR HEMOGLOBIN 32 pg (25-35); MEAN CORPUSCULAR HGB CONC 35 g/dL (31-37); MEAN CORPUSCULAR VOLUME 89 fL (79-100); MONO % 9 % (0-9); NEUT % 57 % (31-73); PLATELET COUNT 326 x10^3/uL (140-400); RED CELL DISTRIBUTION WIDTH 13.2 % (11.5-14.5); WHITE BLOOD COUNT 10.4 x10^3/uL (4.0-11.0)
[2017-12-25] MEDS: HYDROcodone/APAP 5/325MG 1 TAB TABLET PO (00:21)
[2017-12-25 00:23] LABS: D-DIMER < 0.27 ug/mlFEU (0.00-0.50)
== END 2017-12-25 01:24 | disposition home or self-care (01) ==
LOC: ER 22:38
DX: R07.89 Other chest pain (principal); M79.602 Pain in left arm; J45.909 Unspecified asthma, uncomplicated; I10 Essential (primary) hypertension; G43.909 Migraine, unspecified, not intractable, without status migrainosus; Z88.8 Allergy status to other drugs, medicaments and biological substances; Z91.040 Latex allergy status
CPT/HCPCS: 36415; 71045; 85025; 85379; 93005; 99285-25

== ENCOUNTER 2018-03-05 17:40 | Emergency (ER) | payer OTHER ==
[~2018-03-05] VITALS: Ht 165.1 cm; Wt 99.8 kg
[~2018-03-05 17:40] MED LIST changes: +PRED-220 PO; +RANI150T21 PO; -RANI150T6 PO
[2018-03-05] MEDS ORDERED: diazePAM 5 MG TABLET PO ONE (19:00)
[2018-03-05] MEDS ORDERED: MORPHINE SULFATE 4 MG/ML VIAL. IV ONE (19:00)
[2018-03-05 19:04] LABS: CALCIUM 8.9 mg/dL (8.5-10.1); CREATININE 0.8 mg/dL (0.6-1.0); GFR 80.3; POTASSIUM 3.8 mmol/L (3.5-5.1)
--- NOTE | 2018-03-05 19:20 | EKG ---
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
[2018-03-05] MEDS ORDERED: CYCL5TAB PO (20:24)
[2018-03-05] MEDS ORDERED: HYDR-971 PO (20:24)
[2018-03-05] MEDS ORDERED: IBUP-1060 PO (20:24)
[2018-03-05 20:51] VITALS: BP 128/86
--- NOTE | 2018-03-06 03:03 | PHYS DOC ---
Past Medical History Past Medical History: Anxiety, Asthma, Bronchitis, Depression, Hypertension, Migraines Additional Past Medical Histor: Adrenal mass, OVARIAN CYST Past Surgical History: No Surgical History, Tonsillectomy Additional Past Surgical Histo: partial hysterectomy, ADENOIDS, R ear, ESOPHAGEAL DILATION Alcohol Use: None Drug Use: None Adult General Chief Complaint Chief Complaint: CHEST WALL PAIN [facility] HPI Patient is a 38 year old female who presents with chest wall pain. Patient was at work at around 15:00 today when she began to have some pain over the left side of her chest wall and over the pectoralis muscle. 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 She did not have any recent strenuous activity or trauma. She has not had a cough or fever or chills. She does not have any coronary artery disease history. She has a significant family history of coronary artery disease. Pain is on the left side of the pectoralis muscle. It is worse with certain movements. It is worse when she takes a deep breath. Review of Systems Review of Systems Constitutional: Denies fever or chills Eyes: Denies change in visual acuity HENT: Denies nasal congestion Respiratory: Denies cough or shortness of breath Cardiovascular: No additional information not addressed in HPI GI: Denies abdominal pain : Denies dysuria or hematuria Musculoskeletal: Denies back pain Integument: Denies rash or skin lesions Neurologic: Denies headache Endocrine: Denies polyuria All other systems were reviewed and found to be within normal limits, except as documented in this note. Current Medications Current Medications Current Medications Medications (Trade) Dose Ordered Sig/Americo Start Time Stop Time Status Last Admin Dose Admin Diazepam (Valium) 5 mg 1X ONCE 03/05/18 19:00 03/05/18 19:01 DC 03/05/18 19:05 5 MG Morphine Sulfate (Morphine Sulfate) 4 mg 1X ONCE 03/05/18 19:00 03/05/18 19:01 DC 03/05/18 19:06 4 MG Allergies Allergies Allergies Coded Allergies Type Severity Reaction Last Updated Verified alcohol Allergy Intermediate Hives 02/02/17 Yes latex Allergy Intermediate Rash 02/02/17 Yes Physical Exam Physical Exam Constitutional: Well developed, well nourished, no acute distress, non-toxic appearance HENT: Normocephalic, atraumatic, bilateral external ears normal, oropharynx moist Eyes: PERRLA, EOMI Neck: Normal range of motion, no tenderness Cardiovascular:Heart rate regular rhythm, no murmur Lungs & Thorax: Bilateral breath sounds clear to auscultation Abdomen: Bowel sounds normal, soft, no tenderness Skin: Warm, dry, no erythema Back: No tenderness Extremities: No tenderness, no edema Neurologic: Alert and oriented X 3 Psychologic: Affect normal Current Patient Data Vital Signs Vital Signs Date Time Temp Pulse Resp B/P (MAP) Pulse Ox O2 Delivery O2 Flow Rate FiO2 03/05/18 20:51 73 128/86 (100) 96 Room Air 03/05/18 19:06 16 03/05/18 18:27 98.0 98.0 Lab Values Laboratory Tests Test 03/05/18 18:35 D-Dimer (Nanci) < 0.27 ug/mlFEU Sodium Level 138 mmol/L (136-145) Potassium Level 3.8 mmol/L (3.5-5.1) Chloride Level 103 mmol/L (98-107) Carbon Dioxide Level 27 mmol/L (21-32) Anion Gap 8 (6-14) Blood Urea Nitrogen 12 mg/dL (7-20) Creatinine 0.8 mg/dL (0.6-1.0) Estimated GFR (Cockcroft-Gault) 80.3 Glucose Level 97 mg/dL (70-99) Calcium Level 8.9 mg/dL (8.5-10.1) Troponin I Quantitative < 0.017 ng/mL (0.000-0.055) Laboratory Tests 03/05/18 18:35 EKG EKG No STEMI. NSR. Interpretation Time: 18:30 Radiology/Procedures Radiology/Procedures CXR: no acute findings Course & Med Decision Making Course & Med Decision Making Pertinent Labs and Imaging studies reviewed. (See chart for details) Patient was evaluated in the ER for HEENT. Her pain is very much musculoskeletal in nature on examination. Her EKG does not have acute findings. Her troponin is not elevated. D-dimer is not elevated. Patient was given 1 dose of by mouth Valium and small amount of morphine in the ER. These did significantly reduce her pain symptoms. Patient was discharged home with medications for pain control. She was encouraged to follow-up with her primary doctor or return to the ER for any new or worsening symptoms. Dragon Disclaimer Dragon Disclaimer This electronic medical record was generated, in whole or in part, using a voice recognition dictation system. Departure Departure Impression: Primary Impression: Chest pain Disposition: 01 HOME, SELF-CARE Condition: GOOD Referrals: PETRA BRADLEY MD (PCP) Patient Instructions: Chest Pain (Nonspecific), [id number] Scripts Cyclobenzaprine Hcl (CYCLOBENZAPRINE HCL) 5 Mg Tablet 5 MG PO PRN TID PRN for MUSCLE SPASMS, #15 TAB Prov: RICO VIGIL DO 03/05/18 Hydrocodone/Apap 5-325 (NORCO 5-325 TABLET) 1 Each Tablet 1-2 EACH PO PRN Q6HRS PRN for severe pain, #15 as needed for pain Prov: RICO VIGIL DO 03/05/18 Ibuprofen (IBUPROFEN) 800 Mg Tablet 800 MG PO PRN TID PRN for PAIN, #21 TAB take with food or milk to avoid upsetting stomach Prov: RICO VIGIL DO 03/05/18 RICO VIGIL DO Mar 06, 2018 03:03
--- NOTE | 2018-03-06 07:55 | RAD ---
PORTABLE PORTABLE CHEST 1V History: Left side chest, lateral rib pain. atraumatic. Comparison: December 25, 2017 Heart size: Within normal limits. Elizabeth/mediastinum: Within normal limits Lungs: No focal airspace consolidation. Pleura: No evidence of pleural effusion. Pneumothorax: None visualized Bones: Regional skeleton appears grossly intact. Miscellaneous: None Impression: No acute radiographic findings. Electronically signed by: Jay Browne MD (03/06/2018 7:52 AM) [facility]
== END 2018-03-05 21:05 | disposition home or self-care (01) ==
LOC: ER 17:40
DX: R07.89 Other chest pain (principal); I10 Essential (primary) hypertension; J45.909 Unspecified asthma, uncomplicated; G43.909 Migraine, unspecified, not intractable, without status migrainosus; F32.9 Major depressive disorder, single episode, unspecified; F41.9 Anxiety disorder, unspecified; Z88.8 Allergy status to other drugs, medicaments and biological substances; Z91.040 Latex allergy status
CPT/HCPCS: 36415; 71045; 80048; 84484; 85379; 93005; 96374; 99285; J2270

== ENCOUNTER 2018-03-16 10:52 | Emergency (ER) | payer OTHER ==
[~2018-03-16] VITALS: Ht 165.1 cm; Wt 100.7 kg
[~2018-03-16 10:52] MED LIST changes: +CYCL5TAB PO; +IBUP-1060 PO
[2018-03-16 11:00] VITALS: BP 151/99
--- NOTE | 2018-03-16 11:40 | PHYS DOC ---
Past Medical History Past Medical History: Anemia, Depression, GERD, Hypertension Additional Past Medical Histor: Adrenal mass, OVARIAN CYST Past Surgical History: Hysterectomy, Tonsillectomy, Tubal ligation Additional Past Surgical Histo: RIGHT EAR SURGERY Alcohol Use: None Drug Use: None Adult General Chief Complaint Chief Complaint: UPPER EXTREMITY PAIN [facility] HPI Patient is a 38 year old female who presents with left shoulder pain since Sunday. Patient states she was reaching up to grab something off the shelf and heard a pop in her left shoulder. Patient states she now has limited range of motion and when she goes to move at the shoulder joint is very painful. Patient states the pain is sharp in quality and rates it a 9 out of 10. Patient states she's been taking ibuprofen for pain. Patient states she's also missed work because of this. Patient states last took any pain medicine was last night and she took ibuprofen. Patient states that she is allergic to alcohol and latex. Review of Systems Review of Systems Constitutional: Denies fever or chills [] Eyes: Denies change in visual acuity, redness, or eye pain [] HENT: Denies nasal congestion or sore throat [] Respiratory: Denies cough or shortness of breath [] Cardiovascular: No additional information not addressed in HPI [] GI: Denies abdominal pain, nausea, vomiting, bloody stools or diarrhea [] : Denies dysuria or hematuria [] Musculoskeletal: Denies back pain or Left Shoulder joint pain without deformity[ ] Integument: Denies rash or skin lesions [] Neurologic: Denies headache, focal weakness or sensory changes [] Endocrine: Denies polyuria or polydipsia [] All other systems were reviewed and found to be within normal limits, except as documented in this note. Current Medications Current Medications Current Medications Medications (Trade) Dose Ordered Sig/Americo Start Time Stop Time Status Last Admin Dose Admin Ketorolac Tromethamine (Toradol Im) 60 mg 1X ONCE 03/16/18 12:15 03/16/18 12:16 Allergies Allergies Allergies Coded Allergies Type Severity Reaction Last Updated Verified alcohol Allergy Intermediate Hives 02/02/17 Yes latex Allergy Intermediate Rash 02/02/17 Yes Physical Exam Physical Exam Constitutional: Well developed, well nourished, no acute distress, non-toxic appearance. [] HENT: Normocephalic, atraumatic, bilateral external ears normal, oropharynx moist, no oral exudates, nose normal. [] Eyes: PERRLA, EOMI, conjunctiva normal, no discharge. [] Neck: Normal range of motion, no tenderness, supple, no stridor. [] Cardiovascular:Heart rate regular rhythm, no murmur [] Lungs & Thorax: Bilateral breath sounds clear to auscultation [] Abdomen: Bowel sounds normal, soft, no tenderness, no masses, no pulsatile masses. [] Skin: Warm, dry, no erythema, no rash. [] Back: No tenderness, no CVA tenderness. [] Extremities: No tenderness, no cyanosis, no clubbing, ROM intact, no edema. Left Shoulder limited ROM due to pain. Left shoulder has no edema or deformity and is painful to palpation. [] Neurologic: Alert and oriented X 3, normal motor function, normal sensory function, no focal deficits noted. [] Psychologic: Affect normal, judgement normal, mood normal. [] Current Patient Data Vital Signs Vital Signs Date Time Temp Pulse Resp B/P (MAP) Pulse Ox O2 Delivery O2 Flow Rate FiO2 03/16/18 11:00 98.1 95 20 151/99 (116) 96 Room Air 98.1 EKG EKG [] Radiology/Procedures Radiology/Procedures Left Shoulder [facility] Imp[facility]: [facility] [address] [facility] [place], [place] [id number] IMAGING REPORT Signed PATIENT: KAYLENE DANG ACCOUNT: [id number] : 1980 LOCATION: ER AGE: 38 SEX: F EXAM STATUS: REG ER ORD. PHYSICIAN: NIRMAL MCKEON APRN REASON: injury PROCEDURE: SHOULDER 2+V LEFT EXAM: Left shoulder, 3 views. HISTORY: Pain. COMPARISON: None. FINDINGS: 3 views of the left shoulder obtained. There is no fracture, dislocation or subluxation. IMPRESSION: No acute osseous finding. Electronically signed by: Ally Motley MD (03/16/2018 12:03 PM) [facility] DICTATED and SIGNED BY: ALLY MOTLEY MD DATE: 03/16/18 1203 Course & Med Decision Making Course & Med Decision Making Patient is alert and oriented. Patient states that on Sunday she reached up to grab something off the shelf and felt a pop in her left shoulder. Patient states she has limited range of motion due to a sharp pain that she rates 9 out of 10. Patient can lift her arm in all directions to shoulder height but cannot raise her arm above shoulder level. No edema or deformity seen. There is no popping or crepitus felt with movement of joint. Denies any numbness or tingling in that arm. Patient's cap refill is less than 3 seconds. Patient has no edema in the affected arm. She is neurologically intact. Shoulder x-ray shows no acute findings. Patient to be put in a shoulder sling and follow-up with her primary care physician. I will put in a referral to Orthopedics. [] Dragon Disclaimer Dragon Disclaimer This electronic medical record was generated, in whole or in part, using a voice recognition dictation system. Departure Departure Impression: Primary Impression: Shoulder pain Disposition: HOME, SELF-CARE Condition: STABLE Referrals: PETRA BRADLEY MD (PCP) OTIS FOX MD Patient Instructions: Shoulder Pain Additional Instructions: Follow-up with orthopedics. Follow-up primary care if needed. Take all medications as prescribed. Take ibuprofen for pain. Scripts Cyclobenzaprine Hcl (CYCLOBENZAPRINE HCL) 10 Mg Tablet 1 TAB PO TID, #10 TAB Prov: NIRMAL MCKEON APRN 03/16/18 Problem Qualifiers Primary Impression: Shoulder pain Chronicity: acute Laterality: left Qualified Codes: M25.512 - Pain in left shoulder NIRMAL MCKEON APRN Mar 16, 2018 11:40
--- NOTE | 2018-03-16 12:07 | RAD ---
EXAM: Left shoulder, 3 views. HISTORY: Pain. COMPARISON: None. FINDINGS: 3 views of the left shoulder obtained. There is no fracture, dislocation or subluxation. IMPRESSION: No acute osseous finding. Electronically signed by: Ally Mckeon MD (03/16/2018 12:03 PM) [facility]
[2018-03-16] MEDS ORDERED: CYCL10TA2 PO (12:14)
[2018-03-16] MEDS ORDERED: KETOROLAC 60 MG/2 ML INJ. IM ONE (12:15)
== END 2018-03-16 12:48 | disposition home or self-care (01) ==
LOC: ER 10:52
DX: M25.512 Pain in left shoulder (principal); K21.9 Gastro-esophageal reflux disease without esophagitis; I10 Essential (primary) hypertension; Z88.8 Allergy status to other drugs, medicaments and biological substances; Z91.040 Latex allergy status; X50.9XXA Other and unspecified overexertion or strenuous movements or postures, initial encounter; Y93.89 Activity, other specified; Y92.89 Other specified places as the place of occurrence of the external cause; Y99.8 Other external cause status
CPT/HCPCS: 73030; 96372; 99284; J1885

== ENCOUNTER 2018-03-25 14:03 | Emergency (ER) | payer OTHER ==
[~2018-03-25] VITALS: Ht 165.1 cm; Wt 99.8 kg
--- NOTE | 2018-03-25 14:27 | PHYS DOC ---
Past Medical History Past Medical History: Anemia, Depression, GERD, Hypertension Additional Past Medical Histor: Adrenal mass, OVARIAN CYST Past Surgical History: Hysterectomy, Tonsillectomy, Tubal ligation Additional Past Surgical Histo: RIGHT EAR SURGERY Alcohol Use: None Drug Use: None Adult General Chief Complaint Chief Complaint: CHEST PAIN HPI HPI 38-year-old female presents to ER for complaints of sudden onset of chest heaviness, pressure, and at times sharp chest pain which woke her up around 12 AM. Patient reports pain has been constant through the morning and she has had left arm heaviness and tingling. Patient reports she has increased pain with deep breaths. Patient denies any dizziness, cough, abdominal pain, or nausea and vomiting. Patient denies taking any aspirin today or having EMS provided aspirin to her. Pt denies any recent illness. She denies neck/back pain or swelling in extremities. Pt denies being daily smoker, recent travel, past hx blood clot/PE, or daily hormone therapy. Pt reports she had NL stress test in June. Pt does have family hx of CAD- both mother/father had MIs in their 50s. Pt has had partial hyster. no menses. Review of Systems Review of Systems Constitutional: Denies fever or chills [] Eyes: Denies change in visual acuity, redness, or eye pain [] HENT: Denies nasal congestion or sore throat [] Respiratory: Denies cough or shortness of breath [] Cardiovascular: Reports mid chest heaviness into left side chest and upper left arm. Reports increased chest heaviness and pressure with inspiration GI: Denies abdominal pain, nausea, vomiting, bloody stools or diarrhea [] : Denies dysuria or hematuria [] Musculoskeletal: Denies back/neck pain or joint pain [] Integument: Denies rash or skin lesions. Denies swelling Neurologic: Denies headache, focal weakness or sensory changes. Denies dizziness /lightheadedness All other systems were reviewed and found to be within normal limits, except as documented in this note. Current Medications Current Medications Current Medications Medications (Trade) Dose Ordered Sig/Americo Start Time Stop Time Status Last Admin Dose Admin Aspirin (Children'S Aspirin) 324 mg 1X ONCE 03/25/18 14:30 03/25/18 14:31 DC 03/25/18 14:41 324 MG Ibuprofen (Motrin) 600 mg 1X ONCE 03/25/18 16:00 03/25/18 16:01 UNV Nitroglycerin (Nitrostat) 0.4 mg PRN Q5MIN PRN 03/25/18 14:30 03/25/18 14:55 0.4 MG Allergies Allergies Allergies Coded Allergies Type Severity Reaction Last Updated Verified alcohol Allergy Intermediate Hives 02/02/17 Yes latex Allergy Intermediate Rash 02/02/17 Yes Physical Exam Physical Exam Constitutional: Well developed, well nourished, no acute distress, non-toxic appearance. [] HENT: Normocephalic, atraumatic, bilateral ears normal, mucous membranes pink/ moist, no oral exudates, nose normal. [] Eyes: PERRLA, conjunctiva normal, no discharge. [] Neck: Normal range of motion, no tenderness, supple, no gross adenopathy Cardiovascular:Heart rate regular rhythm, no murmur [] Lungs & Thorax: Bilateral breath sounds clear to auscultation. Resp. equal/ nonlabored. Upper mid chest wall tenderness which is reproducible on palpation this tenderness extends into left side chest and upper left arm. No swelling or crepitus. No palpable deformity Abdomen: Bowel sounds normal, soft, no tenderness, no masses, no pulsatile masses. [] Skin: Warm, dry, no erythema, no rash. [] Back: No tenderness, no CVA tenderness. [] Extremities: No tenderness, no cyanosis, no clubbing, ROM intact, no edema. [] Neurologic: Alert and oriented X 3, normal motor function, normal sensory function, no focal deficits noted. [] Psychologic: Affect normal, judgement normal, mood normal. [] Current Patient Data Vital Signs Vital Signs Date Time Temp Pulse Resp B/P (MAP) Pulse Ox O2 Delivery O2 Flow Rate FiO2 03/25/18 15:49 87 16 125/90 (102) 96 Room Air 03/25/18 14:06 98.6 98.6 Lab Values Laboratory Tests Test 03/25/18 14:15 White Blood Count 9.5 x10^3/uL (4.0-11.0) Red Blood Count 4.71 x10^6/uL (3.50-5.40) Hemoglobin 14.3 g/dL (12.0-15.5) Hematocrit 41.9 % (36.0-47.0) Mean Corpuscular Volume 89 fL (79-100) Mean Corpuscular Hemoglobin 30 pg (25-35) Mean Corpuscular Hemoglobin Concent 34 g/dL (31-37) Red Cell Distribution Width 12.9 % (11.5-14.5) Platelet Count 384 x10^3/uL (140-400) Neutrophils (%) (Auto) 65 % (31-73) Lymphocytes (%) (Auto) 25 % (24-48) Monocytes (%) (Auto) 7 % (0-9) Eosinophils (%) (Auto) 3 % (0-3) Basophils (%) (Auto) 1 % (0-3) Neutrophils # (Auto) 6.2 x10^3uL (1.8-7.7) Lymphocytes # (Auto) 2.3 x10^3/uL (1.0-4.8) Monocytes # (Auto) 0.6 x10^3/uL (0.0-1.1) Eosinophils # (Auto) 0.3 x10^3/uL (0.0-0.7) Basophils # (Auto) 0.1 x10^3/uL (0.0-0.2) D-Dimer (Nanci) 0.34 ug/mlFEU (0.00-0.50) Sodium Level 135 mmol/L (136-145) L Potassium Level 3.8 mmol/L (3.5-5.1) Chloride Level 100 mmol/L (98-107) Carbon Dioxide Level 29 mmol/L (21-32) Anion Gap 6 (6-14) Blood Urea Nitrogen 10 mg/dL (7-20) Creatinine 0.8 mg/dL (0.6-1.0) Estimated GFR (Cockcroft-Gault) 80.3 BUN/Creatinine Ratio 13 (6-20) Glucose Level 102 mg/dL (70-99) H Calcium Level 9.5 mg/dL (8.5-10.1) Magnesium Level 1.8 mg/dL (1.8-2.4) Total Bilirubin 0.4 mg/dL (0.2-1.0) Aspartate Amino Transferase (AST) 14 U/L (15-37) L Alanine Aminotransferase (ALT) 26 U/L (14-59) Alkaline Phosphatase 62 U/L (46-116) Creatine Kinase 80 U/L (26-192) Creatine Kinase MB (Mass) 0.8 ng/mL (0.0-3.6) Creatine Kinase MB Relative Index 1.0 % (0-4) Troponin I Quantitative < 0.017 ng/mL (0.000-0.055) SA-Huq-J-Type Natriuretic Peptide 67 pg/mL (0-124) Total Protein 7.7 g/dL (6.4-8.2) Albumin 3.9 g/dL (3.4-5.0) Albumin/Globulin Ratio 1.0 (1.0-1.7) Laboratory Tests 03/25/18 14:15 Laboratory Tests 03/25/18 14:15 Radiology/Procedures Radiology/Procedures CHEST PA LATERAL Clinical indications: CHEST PAIN SINCE LAST NITE COMPARISON: March 05, 2018. Findings: No acute lung infiltrate or pleural effusion or pulmonary edema or lung mass or pneumothorax is seen. The heart size, pulmonary vasculature, mediastinum and both melissa are unremarkable. The osseous structures appear intact. Impression: No acute radiographic abnormality is seen. Electronically signed by: Vipin Rubi MD (03/25/2018 3:18 PM) [facility] DICTATED and SIGNED BY: VIPIN RUBI MD DATE: 03/25/18 1518 Course & Med Decision Making Course & Med Decision Making Pertinent Labs and Imaging studies reviewed. (See chart for details) 1527: On reevaluation patient reports she has had no improvement or changes in symptoms. 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 Discussed test results with labs unremarkable troponin less than 0.017 and EKG with no acute ST elevation or STEMI. Chest x-ray was negative for acute findings and d-dimer was normal limits at 0.34. Discussed with ongoing sxs since 12 a.m. and neg. troponin/ddimer and EKG with no ischemic changes plans were for home discharge with pt to f/u with PCP in next 2-3 days if sxs persist. Pt is agreeable with discharge plan as discussed and requesting work note for today. Pt advised on returning to ER if sxs worsen or with concerns. Pt during discussion is in no visible distress and remains nontoxic in appearance. Discharge instructions were discussed. Patient will be provided with dose of ibuprofen prior to discharge. Dragon Disclaimer Dragon Disclaimer This electronic medical record was generated, in whole or in part, using a voice recognition dictation system. Departure Departure Impression: Primary Impression: Chest pain Disposition: HOME, SELF-CARE Condition: STABLE Referrals: PETRA BRADLEY MD (PCP) Patient Instructions: Chest Pain (Nonspecific) Additional Instructions: You can take over the counter tylenol and/or Ibuprofen as needed for pain control as directed on container. Although your labs and cardiac markers/EKG were normal limits today it is recommended to follow-up with your primary doctor and/or cardiology if symptoms persist in next 2-3 days. If symptoms worsen or with any concerns return to Emergency Department for further evaluation. KAYLENE KELLER APRN Mar 25, 2018 14:27
[2018-03-25] MEDS ORDERED: ASPIRIN CHEWABLE 81 MG TABLET. PO ONE (14:30)
[2018-03-25 14:36] LABS: BASO # 0.1 x10^3/uL (0.0-0.2); BASO % 1 % (0-3); EOS # 0.3 x10^3/uL (0.0-0.7); EOS % 3 % (0-3); HEMATOCRIT 41.9 % (36.0-47.0); HEMOGLOBIN 14.3 g/dL (12.0-15.5); LYMPH # 2.3 x10^3/uL (1.0-4.8); LYMPH % 25 % (24-48); MEAN CORPUSCULAR HEMOGLOBIN 30 pg (25-35); MEAN CORPUSCULAR HGB CONC 34 g/dL (31-37); MEAN CORPUSCULAR VOLUME 89 fL (79-100); MONO # 0.6 x10^3/uL (0.0-1.1); MONO % 7 % (0-9); NEUT # 6.2 x10^3uL (1.8-7.7); NEUT % 65 % (31-73); PLATELET COUNT 384 x10^3/uL (140-400); RED BLOOD COUNT 4.71 x10^6/uL (3.50-5.40); RED CELL DISTRIBUTION WIDTH 12.9 % (11.5-14.5); WHITE BLOOD COUNT 9.5 x10^3/uL (4.0-11.0)
[2018-03-25] MEDS: NITROGLYCERIN SUBLINGUAL 0.4 MG BOTTLE OF 25. SL PRN ×2 (14:43→14:55)
[2018-03-25 14:47] LABS: CALCIUM 9.5 mg/dL (8.5-10.1); CREATININE 0.8 mg/dL (0.6-1.0); GFR 80.3; POTASSIUM 3.8 mmol/L (3.5-5.1)
[2018-03-25 14:52] LABS: ALBUMIN 3.9 g/dL (3.4-5.0); MAGNESIUM 1.8 mg/dL (1.8-2.4); TOTAL BILIRUBIN 0.4 mg/dL (0.2-1.0); TOTAL PROTEIN 7.7 g/dL (6.4-8.2)
--- NOTE | 2018-03-25 15:22 | RAD ---
CHEST PA LATERAL Clinical indications: CHEST PAIN SINCE LAST NITE COMPARISON: March 05, 2018. Findings: No acute lung infiltrate or pleural effusion or pulmonary edema or lung mass or pneumothorax is seen. The heart size, pulmonary vasculature, mediastinum and both melissa are unremarkable. The osseous structures appear intact. Impression: No acute radiographic abnormality is seen. Electronically signed by: Ananth Rubi MD (03/25/2018 3:18 PM) [facility]
[2018-03-25 15:45] VITALS: BP 125/90
[2018-03-25] MEDS ORDERED: IBUPROFEN 600 MG TABLET. PO ONE (16:00)
--- NOTE | 2018-03-25 17:36 | EKG ---
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
[2018-03-30] MEDS ORDERED: COLC0.6T34 PO ×2 (22:43→23:10)
== END 2018-03-25 16:11 | disposition home or self-care (01) ==
LOC: ER 14:03
DX: R07.89 Other chest pain (principal); R20.2 Paresthesia of skin; K21.9 Gastro-esophageal reflux disease without esophagitis; I10 Essential (primary) hypertension; Z88.8 Allergy status to other drugs, medicaments and biological substances; Z91.040 Latex allergy status
CPT/HCPCS: 36415; 71046; 80053; 82553; 83735; 83880; 84484; 85025; 85379; 93005; 99285-25

== ENCOUNTER → 2018-04-10 | Outpatient (CLI) | payer OTHER ==
[2018-03-30 21:45] VITALS: BP 140/91
[~2018-04-10] MED LIST changes: +COLC0.6T34 PO
--- NOTE | 2018-04-10 10:56 | RAD ---
MRI Lumbar Spine without contrast History: Chronic low back pain, worsening leg radiculopathy bilaterally Technique: Multiplanar, multi sequential noncontrast MR imaging was performed of the lumbar spine. Contrast: None Comparison: None Findings: Lumbar vertebral body stature and AP alignment are maintained. There is degenerative endplate change superiorly of S1. There is mild degenerative disc disease at L1-L2, mild disc desiccation L2-3 and L4-5. There is no significant marrow edema. There is mild levoscoliosis centered about L2. Conus terminates at L1. L1-L2: There is shallow protrusion right lateral recess with mild narrowing the far right lateral recess in combination with the scoliotic curvature. Neural foramina are adequate. There is mild facet degenerative change. L2-L3: Spinal canal is adequate. Right neural foramen is adequate, minimal narrowing of the inferior left neural foramen distally. There is a shallow protrusion in the left extraforaminal region near the undersurface of the left L2 nerve root without significant displacement. There is mild facet hypertrophic change. L3-L4: Spinal canal and the neural foramina are adequate. There is mild facet degenerative change. L4-L5: Neural foramina and spinal canal are adequate. L5-S1: There is mild left facet hypertrophic change. Spinal canal is adequate. Right neural foramen is adequate. There is a very shallow protrusion in the far left lateral recess and inferior left neural foramen, mild narrowing of the left neural foramen. Impression: 1. There is mild lumbar levoscoliosis. There is mild degenerative disc disease L1-2. There is mild right lateral recess stenosis L1-L2. There is mild narrowing of the left L5-S1 and L2-3 neural foramen, shallow protrusion near the undersurface extraforaminal left L2 nerve root at L2-3 without displacement. Electronically signed by: John Monson MD (04/10/2018 10:52 AM) [id number]
== END | disposition home or self-care (01) ==
LOC: MRI 10:02
PROVIDERS: ATTEND Physician Assistant Medical
DX: M51.36 Other intervertebral disc degeneration, lumbar region (principal); M48.061 Spinal stenosis, lumbar region without neurogenic claudication; M51.26 Other intervertebral disc displacement, lumbar region; M41.86 Other forms of scoliosis, lumbar region; I10 Essential (primary) hypertension; E78.00 Pure hypercholesterolemia, unspecified; G43.909 Migraine, unspecified, not intractable, without status migrainosus; K21.9 Gastro-esophageal reflux disease without esophagitis; Z87.442 Personal history of urinary calculi; Z87.440 Personal history of urinary (tract) infections; Z86.69 Personal history of other diseases of the nervous system and sense organs; Z90.711 Acquired absence of uterus with remaining cervical stump; Z86.2 Personal history of diseases of the blood and blood-forming organs and certain disorders involving the immune mechanism; Z90.49 Acquired absence of other specified parts of digestive tract; Z90.710 Acquired absence of both cervix and uterus; Z91.09 Other allergy status, other than to drugs and biological substances
CPT/HCPCS: 72148

== ENCOUNTER 2018-04-28 20:04 | Emergency (ER) | payer OTHER ==
[~2018-04-28] VITALS: Ht 165.1 cm; Wt 99.8 kg
[2018-04-28 20:20] VITALS: BP 158/96
[2018-04-28 20:26] LABS: BILIRUBIN,URINE NEGATIVE (NEG); CLARITY,URINE CLEAR; NITRITE,URINE NEGATIVE (NEG); PH,URINE 6.5; PROTEIN,URINE NEGATIVE (NEG-TRACE); UROBILINOGEN,URINE 0.2 mg/dL (0.2 mg/dL)
[2018-04-28 20:40] LABS: BACTERIA,URINE MODERATE /HPF (0-FEW); COLOR,URINE STRAW; SQUAMOUS EPITHELIAL CELL,UR MOD /LPF
--- NOTE | 2018-04-28 20:55 | PHYS DOC ---
Past Medical History Past Medical History: Arthritis, Asthma, Bronchitis, Depression, Hypertension, Migraines, Ovarian Cyst, Renal Disease Additional Past Medical Histor: Adrenal mass, OVARIAN CYST Past Surgical History: Hysterectomy, Tonsillectomy Additional Past Surgical Histo: RIGHT EAR SURGERY Alcohol Use: None Drug Use: None Adult General Chief Complaint Chief Complaint: FLANK PAIN HPI HPI Patient is a 38 year old female who presents to the ER with complaints of left low back pain that radiates to left leg. She denies any injury, states she has an appointment with pain management in 2 weeks. She denies any abdominal pain, saddle anesthesia, or loss of bowel/bladder control. Currently she rates her pain as a 10 out of 10 on the pain scale and states that OTC pain medication is not helping. Review of Systems Review of Systems Constitutional: Denies fever or chills [] Eyes: Denies change in visual acuity, redness, or eye pain [] Respiratory: Denies cough or shortness of breath [] GI: Denies abdominal pain, nausea, vomiting, or diarrhea [] : Denies increased frequency, dysuria or hematuria [] Musculoskeletal: reports bilateral low back pain with pain radiating down left leg and to left groin Integument: Denies rash or skin lesions [] Neurologic: Denies headache, focal weakness or sensory changes [] All other systems were reviewed and found to be within normal limits, except as documented in this note. Current Medications Current Medications Current Medications Medications (Trade) Dose Ordered Sig/Americo Start Time Stop Time Status Last Admin Dose Admin Ketorolac Tromethamine (Toradol Im) 30 mg 1X ONCE 04/28/18 21:00 04/28/18 21:01 DC 04/28/18 21:06 30 MG Orphenadrine Citrate (Norflex) 60 mg 1X ONCE 04/28/18 21:00 04/28/18 21:01 DC 04/28/18 21:00 60 MG Allergies Allergies Allergies Coded Allergies Type Severity Reaction Last Updated Verified alcohol Allergy Intermediate Hives 02/02/17 Yes latex Allergy Intermediate Rash 02/02/17 Yes Physical Exam Physical Exam Constitutional: Well developed, well nourished, no acute distress, non-toxic appearance. [] HENT: Normocephalic, atraumatic, bilateral external ears normal, oropharynx moist, no oral exudates, nose normal. [] Eyes: PERRLA, EOMI, conjunctiva normal, no discharge. [] Neck: Normal range of motion, no tenderness, supple, no stridor. [] Cardiovascular:Heart rate regular rhythm, no murmur [] Lungs & Thorax: Bilateral breath sounds clear to auscultation [] Abdomen: Bowel sounds normal, soft, no tenderness, no masses, no pulsatile masses. [] Skin: Warm, dry, no erythema, no rash. [] Back: No tenderness, no CVA tenderness. [] Extremities: No tenderness, no cyanosis, no clubbing, ROM intact, no edema. [] Neurologic: Alert and oriented X 3, normal motor function, normal sensory function, no focal deficits noted. [] Psychologic: Affect normal, judgement normal, mood normal. [] Current Patient Data Vital Signs Vital Signs Date Time Temp Pulse Resp B/P (MAP) Pulse Ox O2 Delivery O2 Flow Rate FiO2 04/28/18 20:20 98.5 85 14 158/96 (116) 97 Room Air 98.5 Lab Values Laboratory Tests Test 04/28/18 20:10 04/28/18 20:15 Urine Collection Type Unknown Urine Color Straw Urine Clarity Clear Urine pH 6.5 Urine Specific [place] 1.025 Urine Protein Negative mg/dL (NEG-TRACE) Urine Glucose (UA) Negative mg/dL (NEG) Urine Ketones (Stick) Negative mg/dL (NEG) Urine Blood Trace (NEG) Urine Nitrite Negative (NEG) Urine Bilirubin Negative (NEG) Urine Urobilinogen Dipstick 0.2 mg/dL (0.2 mg/dL) Urine Leukocyte Esterase Negative (NEG) Urine RBC 6-10 /HPF (0-2) Urine WBC 1-4 /HPF (0-4) Urine Squamous Epithelial Cells Mod /LPF Urine Bacteria Moderate /HPF (0-FEW) Urine Mucus Mod /LPF POC Urine HCG, Qualitative Hcg negative (Negative) EKG EKG [] Radiology/Procedures Radiology/Procedures PROCEDURE: CT ABDOMEN PELVIS WO CONTRAST CT ABDOMEN PELVIS WO CONTRAST dated 04/28/2018 9:36 PM Indication: Pain.LEFT FLANK PAIN. Comparison: 09/02/2017. Technique: Contiguous axial imaging of the abdomen and pelvis performed without the administration of intravenous contrast. One or more of the following individualized dose reduction techniques were utilized for this examination: 1. Automated exposure control 2. Adjustment of the mA and/or kV according to patient size 3. Use of iterative reconstruction technique Findings: Limited images of lung bases are clear. There is a calcified granuloma in the right middle lobe. Heart size upper limits of normal. No pleural or pericardial effusion. Solid abdominal viscera not well evaluated in the absence of contrast material. No apparent attenuation abnormality of the liver or spleen. Gallbladder, pancreas unremarkable. There is small low-density nodule at the left adrenal gland that is unchanged, likely adenoma. Right adrenal gland unremarkable. Kidneys are symmetric in size and attenuation. No apparent stone or hydronephrosis. Unopacified GI tract normal in caliber and contour. No focal bowel wall thickening. No inflammatory stranding in the mesentery. No ascites or lymphadenopathy. Abdominal aorta normal in caliber. Appendix normal in caliber. Images of pelvis show nondistended urinary bladder. No calcific bladder stone. Uterus is surgically absent. No free pelvic fluid or pelvic lymphadenopathy. Bone windows show no acute findings. Mild multilevel spondylosis. IMPRESSION: 1. No acute abnormality of abdomen or pelvis. Normal appendix. 2. No renal stone or hydronephrosis. 3. Status post hysterectomy. 4. Small left adrenal adenoma, unchanged.[] Course & Med Decision Making Course & Med Decision Making Pertinent Labs and Imaging studies reviewed. (See chart for details) Dx bilateral low back pain with left sided sciatica Physical exam consistent with low back pain with sciatica. UA revealed blood and RBCs, kidney stone ruled out with negative CT findings. UA also reveals 1-4 WBCs and bacteria pt denies any urinary sx likely contaminated specimen. Pt was given 60 mg IM norflex and 30 mg IM toradol in the ER reports significant improvement after these medications. Prescriptions were written for naproxen and orphenadrine. Activity as tolerated. Follow up with pain management as scheduled on 05/08/18. Patient verbalized an understanding of home care, medications, follow-up, and return to ED instructions and was in agreement with the plan of care. [] Dragon Disclaimer Dragon Disclaimer This electronic medical record was generated, in whole or in part, using a voice recognition dictation system. Departure Departure Impression: Primary Impression: Low back pain Disposition: 01 HOME, SELF-CARE Condition: IMPROVED Referrals: PETRA BRADLEY MD (PCP) Patient Instructions: Back Pain, Adult, [id number] Additional Instructions: Follow up with pain management as scheduled on 05/08/18. Fill prescriptions and use as directed. May apply ice or heat to sore areas for discomfort. Activity as tolerated. Return to the ER if your symptoms worsen. Scripts Naproxen (NAPROXEN) 500 Mg Tablet 500 MG PO BID PRN for PAIN for 10 Days, #20 TAB 0 Refills Prov: DEMETRIO SHERWOOD APRN 04/28/18 Orphenadrine Citrate (ORPHENADRINE CITRATE) 100 Mg Tablet.er 100 MG PO BID PRN for PAIN for 10 Days, #20 TAB.SR 0 Refills Prov: DEMETRIO SHERWOOD APRN 04/28/18 Attending Signature Attending Signature I have reviewed the PA/WOUND CARE PHYSICIAN's note and plan of care. I was available for consultation as needed during the patient's visit in the emergency department. I agree with the clinical impression, plan, and disposition. Problem Qualifiers Primary Impression: Low back pain Chronicity: acute Back pain laterality: bilateral Sciatica presence: with sciatica Sciatica laterality: sciatica of left side Qualified Codes: M54.42 - Lumbago with sciatica, left side DEMETRIO SHERWOOD APRN Apr 28, 2018 20:55 ARREDONDO,JOYCELYN Pace DO Apr 29, 2018 02:46
[2018-04-28] MEDS ORDERED: KETOROLAC 60 MG/2 ML INJ. IM ONE (21:00)
[2018-04-28] MEDS ORDERED: ORPHENADRINE CITRATE 60 MG/2 ML VIAL. IM ONE (21:00)
--- NOTE | 2018-04-28 22:15 | RAD ---
CT ABDOMEN PELVIS WO CONTRAST dated 04/28/2018 9:36 PM Indication: Pain.LEFT FLANK PAIN. Comparison: 09/02/2017. Technique: Contiguous axial imaging of the abdomen and pelvis performed without the administration of intravenous contrast. One or more of the following individualized dose reduction techniques were utilized for this examination: 1. Automated exposure control 2. Adjustment of the mA and/or kV according to patient size 3. Use of iterative reconstruction technique Findings: Limited images of lung bases are clear. There is a calcified granuloma in the right middle lobe. Heart size upper limits of normal. No pleural or pericardial effusion. Solid abdominal viscera not well evaluated in the absence of contrast material. No apparent attenuation abnormality of the liver or spleen. Gallbladder, pancreas unremarkable. There is small low-density nodule at the left adrenal gland that is unchanged, likely adenoma. Right adrenal gland unremarkable. Kidneys are symmetric in size and attenuation. No apparent stone or hydronephrosis. Unopacified GI tract normal in caliber and contour. No focal bowel wall thickening. No inflammatory stranding in the mesentery. No ascites or lymphadenopathy. Abdominal aorta normal in caliber. Appendix normal in caliber. Images of pelvis show nondistended urinary bladder. No calcific bladder stone. Uterus is surgically absent. No free pelvic fluid or pelvic lymphadenopathy. Bone windows show no acute findings. Mild multilevel spondylosis. IMPRESSION: 1. No acute abnormality of abdomen or pelvis. Normal appendix. 2. No renal stone or hydronephrosis. 3. Status post hysterectomy. 4. Small left adrenal adenoma, unchanged. Electronically signed by: Jay Templeton MD (04/28/2018 10:12 PM) [facility]
[2018-04-28] MEDS ORDERED: ORPH100T PO (22:37)
[2018-04-28] MEDS ORDERED: NAPR-514 PO (22:37)
== END 2018-04-28 23:22 | disposition home or self-care (01) ==
LOC: ER 20:04
DX: M54.42 Lumbago with sciatica, left side (principal); J45.909 Unspecified asthma, uncomplicated; G43.909 Migraine, unspecified, not intractable, without status migrainosus; I10 Essential (primary) hypertension; N28.9 Disorder of kidney and ureter, unspecified; D35.02 Benign neoplasm of left adrenal gland; Z90.710 Acquired absence of both cervix and uterus; Z88.8 Allergy status to other drugs, medicaments and biological substances; Z91.040 Latex allergy status
CPT/HCPCS: 74176; 81001; 81025; 96372; 99285; J1885; J2360; 87086

== ENCOUNTER 2018-05-04 16:56 | Emergency (ER) | payer OTHER ==
[~2018-05-04] VITALS: Ht 165.1 cm; Wt 111.1 kg
[~2018-05-04 16:56] MED LIST changes: +NAPR-514 PO; +ORPH100T PO
[2018-05-04 17:10] VITALS: BP 162/80
[2018-05-04] MEDS ORDERED: NYST15CR2 TP (18:09)
--- NOTE | 2018-05-04 18:09 | PHYS DOC ---
Past Medical History Past Medical History: Anxiety, Arthritis, Hypertension, Other Additional Past Medical Histor: Adrenal mass, OVARIAN CYST Past Surgical History: Hysterectomy, Tonsillectomy, Tubal ligation, Other Additional Past Surgical Histo: EAR Alcohol Use: None Drug Use: None Adult General Chief Complaint Chief Complaint: SKIN RASH/ABSCESS HPI HPI Patient is a 38 year old female who presents with a red itchy rash in her left groin area for the last week. Patient states that she's been using a bacterial cream on them but is not been working. Patient is alert and oriented. Review of Systems Review of Systems Constitutional: Denies fever or chills [] Eyes: Denies change in visual acuity, redness, or eye pain [] HENT: Denies nasal congestion or sore throat [] Respiratory: Denies cough or shortness of breath [] Cardiovascular: No additional information not addressed in HPI [] GI: Denies abdominal pain, nausea, vomiting, bloody stools or diarrhea [] : Denies dysuria or hematuria [] Musculoskeletal: Denies back pain or joint pain [] Integument: Left groin red, itchy rash or skin lesions [] Neurologic: Denies headache, focal weakness or sensory changes [] Endocrine: Denies polyuria or polydipsia [] All other systems were reviewed and found to be within normal limits, except as documented in this note. Allergies Allergies Allergies Coded Allergies Type Severity Reaction Last Updated Verified alcohol Allergy Intermediate Hives 02/02/17 Yes latex Allergy Intermediate Rash 02/02/17 Yes Physical Exam Physical Exam Constitutional: Well developed, well nourished, no acute distress, non-toxic appearance. [] HENT: Normocephalic, atraumatic, bilateral external ears normal, oropharynx moist, no oral exudates, nose normal. [] Eyes: PERRLA, EOMI, conjunctiva normal, no discharge. [] Neck: Normal range of motion, no tenderness, supple, no stridor. [] Cardiovascular:Heart rate regular rhythm, no murmur [] Lungs & Thorax: Bilateral breath sounds clear to auscultation [] Abdomen: Bowel sounds normal, soft, no tenderness, no masses, no pulsatile masses. [] Skin: Warm, dry, left groin erythema, left groin rash. [] Back: No tenderness, no CVA tenderness. [] Extremities: No tenderness, no cyanosis, no clubbing, ROM intact, no edema. [] Neurologic: Alert and oriented X 3, normal motor function, normal sensory function, no focal deficits noted. [] Psychologic: Affect normal, judgement normal, mood normal. [] Current Patient Data Vital Signs Vital Signs Date Time Temp Pulse Resp B/P (MAP) Pulse Ox O2 Delivery O2 Flow Rate FiO2 05/04/18 17:10 99.0 97 16 162/80 (107) 97 Room Air 99.0 EKG EKG [] Radiology/Procedures Radiology/Procedures [] Course & Med Decision Making Course & Med Decision Making Patient is a 38 year old female who presents with a red itchy rash in her left groin area for the last week. Patient states that she's been using a bacterial cream on them but is not been working. Patient is alert and oriented. There is nondraining and has not but she was. Differential would be a cutaneous yeast infection or some kind of a contact dermatitis. Patient states that she is allergic to latex and alcohol they drink. Patient states that she has no known history and does not been taking medications daily. Patient denies any urinary symptoms. Patient denies any nausea or vomiting or diarrhea. Will be given a prescription for nystatin to apply and follow up with her primary care doctor. Dragon Disclaimer Dragon Disclaimer This electronic medical record was generated, in whole or in part, using a voice recognition dictation system. Departure Departure Impression: Primary Impression: Yeast infection of the skin Disposition: 01 HOME, SELF-CARE Condition: STABLE Referrals: PETRA BRADLEY MD (PCP) Patient Instructions: Yeast Infection of the Skin, [id number] Additional Instructions: Follow up with your primary care. Keep the effected area dry. Scripts Nystatin/Triamcin (NYSTATIN-TRIAMCINOLONE CREAM) 15 Gm Cream..g. 1 ALLIE TP BID for 5 Days, #30 GM 1 Refill Prov: NIRMAL MCKEON APRN 05/04/18 NIRMAL MCKEON APRN May 04, 2018 18:09
[2018-05-08] MEDS ORDERED: OMEP20TA8 PO (09:44)
[2018-05-08] MEDS ORDERED: BUPR150T6 PO (09:44)
[2018-05-08] MEDS ORDERED: ESCITALOPRAM OX20 MG PO (09:44)
== END 2018-05-04 18:55 | disposition home or self-care (01) ==
LOC: ER 16:56
DX: B37.2 Candidiasis of skin and nail (principal); I10 Essential (primary) hypertension; Z88.8 Allergy status to other drugs, medicaments and biological substances; Z91.040 Latex allergy status
CPT/HCPCS: 99283

== ENCOUNTER → 2018-05-08 | Outpatient (CLI) | payer OTHER ==
[2018-05-04 17:10] VITALS: BP 162/80
[~2018-05-08] MED LIST changes: +BUPR150T6 PO; +ESCITALOPRAM OX20 MG PO; +IOHEXOL 180 MG/ML 10 ML VIAL. ONE; +LIDOCAINE 1% PF 2 ML VIAL. ONE; +NYST15CR2 TP; +OMEP20TA8 PO; +methylPREDNISolone ACETATE 40 MG/ML VIAL. ONE; +methylPREDNISolone ACETATE 80 MG/ML VIAL. ONE
--- NOTE | 2018-05-08 21:42 | PAIN ---
DATE OF SERVICE: 05/08/2018 INITIAL CONSULTATION FOR PAIN CLINIC CHIEF COMPLAINT: Low back and left lower extremity pain. HISTORY OF PRESENT ILLNESS: The patient is a 38-year-old female who presents with history of about 2 years or more pain in the low back and left leg radiating to the posterior gluteus, lateral thigh, lateral anterior thigh, posterior thigh, posterior calf, on the left side in the back of the knee as well. The patient reports it is across the low back bilaterally, left equal to right, but only in the left lower extremity. The patient reports no loss of motor function of the left lower extremity, but significant fatigability with walking and standing. The patient reports pain is worse with walking and standing, change in positions, bending or stooping, has been awakening her from sleep at least 3 times at night, does not affect her bowel or bladder control, but does affect her ability to walk as her legs do feel weak, but has not had any actual motor loss. The patient reports she is not currently had any physical therapy, any chiropractic treatment or other modalities. She is doing some stretching on her own at home, but that is all and has not been helping significantly. The patient describes the pain as constant, throbbing, radiating, aching across low back and into the left leg. The patient did have a lumbar MRI scan dated 04/10/2018 showing shallow protrusion at the L1-L2 level with right lateral recess and mild narrowing of the far right lateral recess. L2-L3 shows a shallow protrusion in the left extraforaminal region near the undersurface of the left L2 nerve root without significant displacement. Mild degenerative change at L3-L4. L5-S1 shows right neural foramen adequate with very shallow protrusion far left lateral recess and inferior left neural foramen with mild narrowing of the left neural foramen as well. The patient rates her disability rating from 0-10, 10 being the worst as 10 with family and home responsibilities, recreation, social activity, occupation and life support activities; 7 with sexual behavior and 9 with self-care activities. The patient reports no loss of motor function, but again significant fatigability with the left leg with ambulation and activity, even standing for more than 10-15 minutes becomes more noticeable and tender. PAST MEDICAL HISTORY: Significant for hypertension, arthritis, acid reflux, anemia. PAST SURGICAL HISTORY: Include hysterectomy in 2010, tubal ligation in 2013, ear tubes in 1999 and tonsillectomy as a child. CURRENT MEDICATIONS: Include sumatriptan, lisinopril daily, baby aspirin, omeprazole, bupropion and escitalopram. ALLERGIES: THE PATIENT IS ALLERGIC TO LATEX AND ALCOHOL. FAMILY HISTORY: Significant for cancers, kidney diseases, heart diseases. SOCIAL HISTORY: The patient does not drink alcohol; does not smoke; does not use any illegal, illicit or recreational drugs. The patient is single, lives with her fiance and 2 children living at home, lives locally in [place], [place]. REVIEW OF SYSTEMS: The patient's review of systems is positive for those items mentioned in history of present illness. All systems reviewed and otherwise negative. It is complete, full and well documented on the patient's chart. PHYSICAL EXAMINATION: VITAL SIGNS: The patient's blood pressure is 133/93, pulse is 87, respirations 18, temperature 98.4 degrees Fahrenheit. Height is 5 feet 6 inches, weighs 245 pounds. GENERAL: The patient is awake, alert, oriented, appropriate, very pleasant demeanor. HEENT: Head shows normocephalic, atraumatic. Extraocular movements are intact, symmetrical. Oral cavity: Mucous membranes moist and pink. Dentition is intact. NECK: Shows anterior throat supple without palpable lymphadenopathy noted. Swallow reflex is symmetrical. CHEST: Shows normal with inspection. Breath sounds are clear to auscultation bilaterally. HEART: Shows S1, S2 clear. No murmurs auscultated. ABDOMEN: Obese, soft, nontender, nondistended. No palpable organomegaly is noted. No rebound or guarding demonstrated. BACK: Shows spine gross in the midline. Slight exaggeration of thoracic kyphosis. Some minor flattening of lumbar lordotic curvature. Lumbar paraspinous muscle shows symmetrical on inspection; with palpation it shows some mild tenderness throughout the upper, middle, lower distribution of paraspinous muscles bilaterally, but only diffusely without radiation, without atrophy, hypertrophy, without trigger points. The patient has no tenderness over the spinous processes, sacrum or sacroiliac regions. The patient has good rotational motion of lumbar spine, both laterally greater than 10 degrees right and left as well as extension greater than 10 degrees, forward flexion 45 degrees without significant pain reported. LOWER EXTREMITIES: Show deep tendon, 2+ in the patellar, 1+ tendo-calcaneus tendons are equal. Motor exam is strong with approximately 4 on a scale of 5 left dorsiflexion, extension and 5/5 on the right. Peripheral pulses are 1+ posterior tibia. No peripheral edema is noted. No clubbing or cyanosis. Lower extremities are warm and dry to touch, equal in color and appearance. Straight leg raise noted to be positive on the left at about 40-45 degrees, is decreased with knee flexion; right side is negative. Gaenslen's and Jared's maneuvers are negative for reproduction of pain bilaterally. The patient is able to stand, stand on her toes without significant difficulty or loss of balance, walks with a slight shuffling gait; however, does appear to favor the left lower extremity, not using any assistive devices to ambulate, however. The patient's skin shows warm and dry, good turgor. No edema. No sores, rashes, or bruises noted. IMPRESSION: This is 38-year-old female with: 1. Approximately 2+ year history of low back and left lower extremity pain in a radicular fashion. 2. MRI scan of lumbar spine as noted. 3. Arthritis. 4. Hypertension. 5. Acid reflux. PLAN: Options were discussed with the patient including conservative medical management, physical therapy, interventional technique. She elected to proceed with interventional techniques. We discussed a lumbar epidural steroid injection using description as well as anatomical models to describe the procedure. Risks were discussed including but not limited to bleeding, infection, possibility of epidural hematoma and subsequent neurological compromise, dural puncture, headaches, spinal cord and/or nerve damage, side effects of steroid medication and poor results regarding pain control. The patient understands and wished to proceed. The patient will return to clinic in approximately 2 weeks for followup. She was counseled as to return appointment, activity level and side effects to be aware of. DIAGNOSIS: Lumbar radiculopathy with lumbar degenerative disk disease. PROCEDURE: Lumbar epidural steroid injection, translaminar approach at the L5-S1 level using C-arm fluoroscopic guidance under sterile prep and drape using local anesthetic. MEDICATION INJECTED: A total of 120 mg of Depo-Medrol plus 10 mL of preservative-free normal saline and 2 mL of Isovue for contrast. CONDITION AT DISCHARGE: Stable. The patient tolerated the procedure well. No complications. RICO CHACON MD DR: VINOD/marianne JOB#: [id number] / [id number] PETRA Godwin MD
== END | disposition home or self-care (01) ==
LOC: PNCL 08:43
PROVIDERS: ATTEND Anesthesiology
DX: M51.16 Intervertebral disc disorders with radiculopathy, lumbar region (principal); I10 Essential (primary) hypertension; K21.9 Gastro-esophageal reflux disease without esophagitis; M19.90 Unspecified osteoarthritis, unspecified site; D64.9 Anemia, unspecified; Z90.710 Acquired absence of both cervix and uterus; Z98.890 Other specified postprocedural states; Z98.51 Tubal ligation status; Z88.8 Allergy status to other drugs, medicaments and biological substances; Z91.040 Latex allergy status; Z79.82 Long term (current) use of aspirin; Z79.899 Other long term (current) drug therapy; Z82.49 Family history of ischemic heart disease and other diseases of the circulatory system; Z84.1 Family history of disorders of kidney and ureter
CPT/HCPCS: 62323; J1030; J1040; Q9965

== ENCOUNTER → 2018-05-27 | Outpatient (CLI) | payer OTHER ==
[2018-05-04 17:10] VITALS: BP 162/80
[~2018-05-27] MED LIST changes: -LIDOCAINE 1% PF 2 ML VIAL. ONE
--- NOTE | 2018-05-27 23:06 | PAIN ---
DATE OF SERVICE: 05/27/2018 PROGRESS NOTE FOR PAIN CLINIC DIAGNOSIS: Lumbar radiculopathy with lumbar degenerative disk disease. HISTORY OF PRESENT ILLNESS: The patient is a 38-year-old female who returns for followup status post lumbar epidural steroid injection x 1. The patient reports about 20% improvement overall, the first few days was much better than the last but lasting about a week or so. The patient reports the pain is returning now in the low back, not so much in the left leg as well as leg is doing much better about 75% improved but the low back is only about 20. The patient reports her pain is a 9 on a scale of 10 at its worst, average and at its least and is a 9 today. The patient reports it is aching, occasionally shooting but essentially just now in the low back and hips posteriorly and laterally, again worse on the left but the leg is doing much better. The patient reports no new motor or sensory deficits and no new bowel or bladder incontinence or other complaints. The patient reports the pain awakens her from sleep occasionally but not every night. Initially, she was doing much better with distance walking, returning to a household activities as well as traveling with greater ease especially with involvement of the left leg and is doing better. The patient reports no other motor or sensory deficits or other complaints. PHYSICAL EXAMINATION: VITAL SIGNS: The patient's blood pressure 151/85, pulse 91, respirations are 16, temperature 98.1 degrees Fahrenheit, height is 5 feet 6 inches and weight is 246 pounds. GENERAL: The patient is awake, alert, oriented, appropriate and very pleasant demeanor. HEENT: Head shows normocephalic and atraumatic. Extraocular movements are intact and symmetrical. Oral cavity: Mucous membranes are moist and pink. Dentition is intact. NECK: Shows anterior throat supple without palpable lymphadenopathy noted. Swallow reflex symmetrical. CHEST: Shows normal on inspection. Breath sounds are clear to auscultation bilaterally. HEART: Shows S1 and S2 clear. No murmurs auscultated. ABDOMEN: Obese, soft, nontender and nondistended. No palpable organomegaly is noted. No rebound or guarding demonstrated. BACK: Shows spine grossly in the midline. Normal-appearing thoracic kyphosis, some minor flattening of the lumbar lordotic curvature. Lumbar paraspinous musculature shows symmetrical on inspection, on palpation shows some moderate tenderness but only diffusely in the lumbar distribution bilaterally, but only in the low lumbar distribution without radiation. The patient shows no radiation and no difficulty with rotational motion of the lumbar spine, both laterally as well as extension and flexion. The patient shows no tenderness over the sacrum or sacroiliac regions with palpation. EXTREMITIES: The patient's lower extremities show deep tendon reflexes at 2+ in the patellar, 1+ tendo-calcaneus tendons. Motor exam is approximately 4 on a scale of 5 with left dorsiflexion and extension, 5/5 on the right. Peripheral pulses are 1+ posterior tibia. No peripheral edema is noted bilaterally. Options were discussed with the patient. The patient's old chart was reviewed as well as her current medication regimen updated. Current review of systems updated today as well. We will proceed with a second in the series of lumbar epidural steroid injection today with fluoroscopic guidance. Risks were again discussed including, but not limited to bleeding, infection, possibility of epidural hematoma and subsequent neurological compromise, dural puncture, headaches, spinal cord and/or nerve damage, side effects of steroid medication and poor results regarding pain control. The patient understands and wished to proceed. The patient will return to the clinic in approximately 2 weeks for followup, was counseled as to return appointment, activity level and side effects to be aware of. DIAGNOSIS: Lumbar radiculopathy with lumbar degenerative disk disease. PROCEDURES: Lumbar epidural steroid injection, translaminar approach, L5-S1 level using C-arm fluoroscopic guidance under sterile prep and drape using local anesthetic. MEDICATION INJECTED: A total of 120 mg Depo-Medrol plus 10 mL of preservative-free normal saline and 2 mL of Isovue for contrast. CONDITION AT DISCHARGE: Stable. The patient tolerated the procedure well and had no complications. RICO CHACON MD DR: VINOD/marianne JOB#: [id number] / [id number]
== END | disposition home or self-care (01) ==
LOC: PNCL 09:33
PROVIDERS: ATTEND Anesthesiology
DX: M54.16 Radiculopathy, lumbar region (principal); M51.36 Other intervertebral disc degeneration, lumbar region; Z98.890 Other specified postprocedural states; Z91.040 Latex allergy status
CPT/HCPCS: 62323; J1030; J1040; Q9965

== ENCOUNTER 2018-06-03 21:06 | Emergency (ER) | payer OTHER ==
[~2018-06-03] VITALS: Ht 165.1 cm; Wt 112.5 kg
[~2018-06-03 21:06] MED LIST changes: -IOHEXOL 180 MG/ML 10 ML VIAL. ONE; -methylPREDNISolone ACETATE 40 MG/ML VIAL. ONE; -methylPREDNISolone ACETATE 80 MG/ML VIAL. ONE
--- NOTE | 2018-06-03 22:38 | PHYS DOC ---
Past Medical History Past Medical History: Anxiety, Arthritis, Depression, Hypertension, Migraines, Other Additional Past Medical Histor: Adrenal mass, OVARIAN CYST Past Surgical History: Hysterectomy, Tonsillectomy, Tubal ligation, Other Additional Past Surgical Histo: EAR Alcohol Use: None Drug Use: None Adult General Chief Complaint Chief Complaint: KNEE INJURY [facility] HPI Patient is a 38 year old female who presents with pain in her right knee with no known injury. The patient states that she does have a history of arthritis in her spine. She does not have any swelling or bruising noted to the knee. She states that the pain is been ongoing for approximately 2 days. She has tried taking ibuprofen with no relief from her symptoms. Review of Systems Review of Systems Constitutional: Denies fever or chills [] Respiratory: Denies cough or shortness of breath [] Cardiovascular: No additional information not addressed in HPI [] GI: Denies abdominal pain, nausea, vomiting, bloody stools or diarrhea [] : Denies dysuria or hematuria [] Musculoskeletal: See history of present illness Integument: Denies rash or skin lesions [] Neurologic: Denies headache, focal weakness or sensory changes [] Endocrine: Denies polyuria or polydipsia [] All other systems were reviewed and found to be within normal limits, except as documented in this note. Allergies Allergies Allergies Coded Allergies Type Severity Reaction Last Updated Verified alcohol Allergy Intermediate Hives 02/02/17 Yes latex Allergy Intermediate Rash 02/02/17 Yes Physical Exam Physical Exam Constitutional: Well developed, well nourished, no acute distress, non-toxic appearance. [] Cardiovascular:Heart rate regular rhythm, no murmur [] Lungs & Thorax: Bilateral breath sounds clear to auscultation [] Abdomen: Bowel sounds normal, soft, no tenderness, no masses, no pulsatile masses. [] Skin: Warm, dry, no erythema, no rash. [] Back: No tenderness, no CVA tenderness. [] Extremities: right knee tenderness, no cyanosis, no clubbing, ROM intact, no edema or ecchymosis. [] Neurologic: Alert and oriented X 3, normal motor function, normal sensory function, no focal deficits noted. [] Psychologic: Affect normal, judgement normal, mood normal. [] Current Patient Data Vital Signs Vital Signs Date Time Temp Pulse Resp B/P (MAP) Pulse Ox O2 Delivery O2 Flow Rate FiO2 06/03/18 21:45 98.1 97 16 155/94 (114) 98 Room Air 98.1 EKG EKG [] Radiology/Procedures Radiology/Procedures PATIENT: KAYLENE DANG ACCOUNT: [id number] : 1980 LOCATION: ER AGE: 38 SEX: F EXAM STATUS: DEP ER ORD. PHYSICIAN: MIAH TEJADA APRN REASON: pain x 2 days PROCEDURE: KNEE RIGHT 3V Three-view right knee dated 06/03/2018. No comparison available. CLINICAL INDICATION: Right knee pain and swelling for 2 days. No known injury. FINDINGS: 3 views right knee show normal bony alignment. No displaced fracture. No acute osseous or articular abnormality. No apparent joint effusion or loose body. IMPRESSION: No acute radiographic abnormality. Electronically signed by: Jay Templeton MD (06/03/2018 11:03 PM) [facility] DICTATED and SIGNED BY: JAY TEMPLETON MD DATE: 06/03/182301 Course & Med Decision Making Course & Med Decision Making Pertinent Labs and Imaging studies reviewed. (See chart for details) []Patient walked to radiology with a slight limp. She was placed in an Von wrap in the emergency department by the ER nurse. Neurovascular status was intact post-application. Dragon Disclaimer Dragon Disclaimer This electronic medical record was generated, in whole or in part, using a voice recognition dictation system. Departure Departure Impression: Primary Impression: Right knee pain Disposition: 01 HOME, SELF-CARE Condition: STABLE Referrals: SHIRLEY MCCABE MD (PCP) Patient Instructions: Knee Pain, RICE - Routine Care for Injuries Additional Instructions: You may take ibuprofen or Tylenol for pain. Rice the extremity. Follow-up with orthopedics if not improving in a week or sooner if worsening. MIAH TEJADA APRN Jun 03, 2018 22:38
--- NOTE | 2018-06-03 23:06 | RAD ---
Three-view right knee dated 06/03/2018. No comparison available. CLINICAL INDICATION: Right knee pain and swelling for 2 days. No known injury. FINDINGS: 3 views right knee show normal bony alignment. No displaced fracture. No acute osseous or articular abnormality. No apparent joint effusion or loose body. IMPRESSION: No acute radiographic abnormality. Electronically signed by: Jay Templeton MD (06/03/2018 11:03 PM) [facility]
== END 2018-06-03 22:50 | disposition home or self-care (01) ==
LOC: ER 21:06
DX: M25.561 Pain in right knee (principal); M47.899 Other spondylosis, site unspecified; F41.9 Anxiety disorder, unspecified; F32.9 Major depressive disorder, single episode, unspecified; G43.909 Migraine, unspecified, not intractable, without status migrainosus; Z90.710 Acquired absence of both cervix and uterus; Z90.89 Acquired absence of other organs; Z98.51 Tubal ligation status; I10 Essential (primary) hypertension; Z91.040 Latex allergy status; Z91.048 Other nonmedicinal substance allergy status
CPT/HCPCS: 73562; 99284

== ENCOUNTER → 2018-06-10 | Outpatient (CLI) | payer OTHER ==
[2018-06-03 21:45] VITALS: BP 155/94
[~2018-06-10] MED LIST changes: +HYDR-3164 PO; -HYDR-971 PO; +IOHEXOL 180 MG/ML 10 ML VIAL. ONE; +LIDOCAINE 1% PF 2 ML VIAL. ONE; +methylPREDNISolone ACETATE 40 MG/ML VIAL. ONE; +methylPREDNISolone ACETATE 80 MG/ML VIAL. ONE
--- NOTE | 2018-06-10 10:24 | PAIN ---
DATE OF SERVICE: 06/10/2018 DIAGNOSES: Lumbar radiculopathy with lumbar degenerative disk disease. HISTORY OF PRESENT ILLNESS: The patient is a 38-year-old female who returns for followup status post lumbar epidural steroid injection x 2. The patient reports about 75% improvement initially, but now only about 20% improvement overall. The patient reports again after about 1 week, the pain returned fairly significantly. The patient reports it is across the low back into the right lower extremity greater than the left, but radiating mostly posterior, lateral and anterior thighs, worse with walking, standing, change in positions. The patient also reports some significant pain in her right knee, prompting her to go to the Emergency Room over the weekend where they took some x-rays, told it was structurally intact and to take anti-inflammatories and wear a brace. The patient reports that her pain is now 7 on a scale of 10 at its worst, average and its least and is a 7 today. The patient reports the pain in low back and sharp, tight, stabbing at times, worse with standing, walking, changing positions, better with lying down or sleeping, but does awaken her from sleep about 3-4 times at night. The patient reports no new motor or sensory deficits, no new bowel or bladder incontinence or other complaints. PHYSICAL EXAMINATION: VITAL SIGNS: The patient's blood pressure 131/89, pulse is 71, respirations 16, temperature 98.5 degrees Fahrenheit, height is 5 feet 6 inches, weight is 242 pounds. GENERAL: The patient is awake, alert, oriented, appropriate, very pleasant demeanor. HEENT: Head is normocephalic, atraumatic. Extraocular movements intact and symmetrical. Oral cavity: Mucous membranes are moist and pink. Dentition is intact. NECK: Shows anterior throat supple without palpable lymphadenopathy noted. Swallow reflex symmetrical. CHEST: Shows normal on inspection. Breath sounds clear to auscultation bilaterally. HEART: Shows S1, S2 clear. No murmurs auscultated. ABDOMEN: Soft, nontender, nondistended. No palpable organomegaly is noted. No rebound or guarding demonstrated. BACK: Shows spine grossly in the midline. Normal-appearing thoracic kyphosis and minor flattening of lumbar lordotic curvature. Lumbar paraspinous muscle shows symmetrical on inspection, on palpation shows some moderate tenderness diffusely bilaterally, but only diffusely without radiation. The patient's lumbar spine shows good rotational motion both laterally as well as extension and flexion. EXTREMITIES: Lower extremities show deep tendon reflexes 2+ in the patella, 1+ in the tendocalcaneous tendon. Motor exam is approximately 4 on a scale of 5 on the left, 5/5 on the right with quadriceps and hamstring flexion, dorsiflexion and extension. Peripheral pulses are 1+ posterior tibia. No peripheral edema is noted. Options were discussed with the patient. The patient's old chart was reviewed as well as his current medication regimen updated. Current review of systems updated today as well. We will proceed with the third in the series of lumbar epidural steroid injection today with fluoroscopic guidance. Risks were again discussed including, but not limited to bleeding, infection, possibility of epidural hematoma, subsequent neurological compromise, dural puncture, headaches, spinal cord and/or nerve damage, side effects of steroid medication and poor results regarding pain control. The patient understands and wished to proceed. The patient will return to clinic in approximately 2 weeks for followup, was counseled on return appointment, activity level and side effects to be aware of. Also discussed some physical therapy and pool therapy, specifically. The patient would like to proceed with this. We will make the arrangements for pool therapy to start as well. DIAGNOSES: Lumbar radiculopathy with lumbar degenerative disk disease. PROCEDURE: Lumbar epidural steroid injection, translaminar approach at L5-S1 level using C-arm fluoroscopic guidance under sterile prep and drape using local anesthetic. MEDICATION INJECTED: A total of 120 mg Depo-Medrol, plus 10 mL of preservative-free normal saline and 2 mL of Isovue for contrast. CONDITION AT DISCHARGE: Stable. The patient tolerated the procedure well, had no complications. RICO CHACON MD DR: VINOD/marianne JOB#: [id number] / [id number] SHIRLEY Rosario MD
== END | disposition home or self-care (01) ==
LOC: PNCL 08:37
PROVIDERS: ATTEND Anesthesiology
DX: M51.16 Intervertebral disc disorders with radiculopathy, lumbar region (principal); Z91.040 Latex allergy status; Z88.8 Allergy status to other drugs, medicaments and biological substances
CPT/HCPCS: 62323; J1030; J1040; Q9965

== ENCOUNTER 2018-06-24 20:54 | Emergency (ER) | payer OTHER ==
[~2018-06-24] VITALS: Ht 165.1 cm; Wt 108.9 kg
[~2018-06-24 20:54] MED LIST changes: -HYDR-2758 PO; +HYDR-2761 PO; -IOHEXOL 180 MG/ML 10 ML VIAL. ONE; -LIDOCAINE 1% PF 2 ML VIAL. ONE; -methylPREDNISolone ACETATE 40 MG/ML VIAL. ONE; -methylPREDNISolone ACETATE 80 MG/ML VIAL. ONE
[2018-06-24 21:36] VITALS: BP 137/90
[2018-06-24] MEDS ORDERED: TRAM50TA PO (21:37)
[2018-06-24] MEDS ORDERED: MELO15TA6 PO (21:37)
[2018-06-24] MEDS ORDERED: traMADol 50 MG TABLET PO ONE (21:45)
[2018-06-24] MEDS ORDERED: KETOROLAC 60 MG/2 ML INJ. IM ONE (21:45)
--- NOTE | 2018-06-24 22:34 | PHYS DOC ---
Past Medical History Past Medical History: Anxiety, Arthritis, Asthma, Bronchitis, Depression, Hypertension, Migraines, Other Additional Past Medical Histor: Adrenal mass, OVARIAN CYST, Scoliosis Past Surgical History: Hysterectomy, Tonsillectomy, Tubal ligation, Other Additional Past Surgical Histo: EAR Alcohol Use: None Drug Use: None Adult General Chief Complaint Chief Complaint: KNEE SWELLING HPI HPI Patient is a 38 year old female who presents with right knee pain. Patient states she has chronic pain in the right knee. The pain is improved in the mornings and worsens as the day progresses. She has been diagnosed with osteoarthritis in the past. She was evaluated in this emergency department recently and had plain film imaging which revealed osteoarthritis. She was also followed up by her primary care doctor who according to the patient did not do anything for her. She presents today requesting some further management of her knee pain which she x-ray changes on a daily basis. No fever or chills. No new trauma. Review of Systems Review of Systems Constitutional: Denies fever Eyes: Denies change in visual acuity HENT: Denies nasal congestion Respiratory: Denies GI: Denies : Denies Musculoskeletal: as documented above Integument: Denies Neurologic: Denies Endocrine: Denies All other systems were reviewed and found to be within normal limits, except as documented in this note. Current Medications Current Medications Current Medications Medications (Trade) Dose Ordered Sig/Americo Start Time Stop Time Status Last Admin Dose Admin Ketorolac Tromethamine (Toradol Im) 60 mg 1X ONCE 06/24/18 21:45 06/24/18 21:46 DC 06/24/18 21:43 60 MG Tramadol HCl (Ultram) 50 mg 1X ONCE 06/24/18 21:45 06/24/18 21:46 DC 06/24/18 21:43 50 MG Allergies Allergies Allergies Coded Allergies Type Severity Reaction Last Updated Verified alcohol Allergy Intermediate Hives 02/02/17 Yes latex Allergy Intermediate Rash 02/02/17 Yes Physical Exam Physical Exam Constitutional: Well developed, well nourished, no acute distress HENT: Normocephalic, atraumatic, bilateral external ears normal, oropharynx moist Neck: Normal range of motion Cardiovascular:Heart rate regular rhythm Lungs & Thorax: Bilateral breath sounds clear Abdomen: Bowel sounds normal, soft Extremities: mild tenderness of the right knee with passive ROM. No local warmth to touch Neurologic: Alert and oriented X 3 Psychologic: Affect normal Current Patient Data Vital Signs Vital Signs Date Time Temp Pulse Resp B/P (MAP) Pulse Ox O2 Delivery O2 Flow Rate FiO2 06/24/18 21:43 13 99 Room Air 06/24/18 21:36 98.6 107 137/90 (106) 98.6 EKG EKG [] Radiology/Procedures Radiology/Procedures [] Course & Med Decision Making Course & Med Decision Making Pertinent Labs and Imaging studies reviewed. (See chart for details) Patient is evaluated in the emergency department for control of her pain related to osteoarthritis. In the ER, the patient was given a shot of Toradol. She is discharged home with a prescription for Mobic and tramadol. She is also provided a referral to follow-up with an orthopedist as she may benefit from steroid injections. Patient is agreeable to plan of care. She is advised to also follow up with her primary care doctor as needed. No concern this evening for septic joint based on her physical exam and HPI. Dragon Disclaimer Dragon Disclaimer This electronic medical record was generated, in whole or in part, using a voice recognition dictation system. Departure Departure Impression: Primary Impression: Osteoarthritis Disposition: HOME, SELF-CARE Condition: GOOD Patient Instructions: Osteoarthritis, Pain Medicine Instructions, [id number]-[id number] Scripts Tramadol Hcl (TRAMADOL HCL) 50 Mg Tablet 50 MG PO Q12H PRN for PAIN, #40 TAB 1 Refill Prov: RICO VIGIL DO 06/24/18 Meloxicam (MOBIC) 15 Mg Tablet 1 TAB PO DAILY, #60 TAB 1 Refill Prov: RICO VIGIL DO 06/24/18 RICO VIGIL DO Jun 24, 2018 22:34
== END 2018-06-24 21:49 | disposition home or self-care (01) ==
LOC: ER 20:54
DX: M17.11 Unilateral primary osteoarthritis, right knee (principal); G89.29 Other chronic pain; F41.9 Anxiety disorder, unspecified; J45.909 Unspecified asthma, uncomplicated; F32.9 Major depressive disorder, single episode, unspecified; I10 Essential (primary) hypertension; G43.909 Migraine, unspecified, not intractable, without status migrainosus; Z91.040 Latex allergy status; Z88.8 Allergy status to other drugs, medicaments and biological substances
CPT/HCPCS: 96372; 99283; J1885

== ENCOUNTER 2018-06-25 12:07 | Emergency (ER) | payer OTHER ==
[~2018-06-25] VITALS: Ht 165.1 cm; Wt 110.7 kg
[~2018-06-25 12:07] MED LIST changes: +MELO15TA6 PO
[2018-06-25] MEDS ORDERED: ASPIRIN CHEWABLE 81 MG TABLET. PO ONE (12:30)
--- NOTE | 2018-06-25 12:38 | PHYS DOC ---
Past Medical History Past Medical History: Anxiety, Arthritis, Asthma, Bronchitis, Depression, Hypertension, Migraines, Other Additional Past Medical Histor: Adrenal mass, OVARIAN CYST, Scoliosis Past Surgical History: Hysterectomy, Tonsillectomy, Tubal ligation, Other Additional Past Surgical Histo: EAR Alcohol Use: None Drug Use: None Adult General Chief Complaint Chief Complaint: CHEST PAIN [facility] HPI Patient is a 38-year-old female who presents to the emergency department for evaluation. 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 She also reports some exertional dyspnea. She states that the pain is her chest is described as an achy and sharp feeling, under her left breast, radiating up towards the center of her sternum. She states that she has had similar symptoms in the past, and been told that she has anxiety. She has been seen in this emergency department several times for chest pain and has been diagnosed with chest wall pain in the past. She does have a family history of heart disease, although she has never had any gross heart trouble that she is aware. She is a nonsmoker. She does have a history of hypertension. Her HEART score is a 1, assuming a negative troponin. When asked about exacerbating factor she states that "everything" makes her pain worse. Deep breathing and exertion and trying to get comfortable all symptomatic her pain worse. She states she is unable to find a comfortable position. There are no known specific alleviating or exacerbating factors to the patient's symptoms otherwise. Review of Systems Review of Systems Constitutional: Denies fever or chills [] Eyes: Denies change in visual acuity, redness, or eye pain [] HENT: Denies nasal congestion or sore throat [] Respiratory: Denies cough . [] Cardiovascular: No additional information not addressed in HPI [] GI: Denies abdominal pain, nausea, vomiting, bloody stools or diarrhea [] : Denies dysuria or hematuria [] Musculoskeletal: Denies back pain or joint pain [] Integument: Denies rash or skin lesions [] Neurologic: Denies headache, focal weakness or sensory changes [] Endocrine: Denies polyuria or polydipsia [] All other systems were reviewed and found to be within normal limits, except as documented in this note. Current Medications Current Medications Current Medications Medications (Trade) Dose Ordered Sig/Americo Start Time Stop Time Status Last Admin Dose Admin Aspirin (Children'S Aspirin) 324 mg 1X ONCE 06/25/18 12:30 06/25/18 12:37 DC 06/25/18 12:56 324 MG Lorazepam (Ativan) 1 mg 1X ONCE 06/25/18 12:30 06/25/18 12:37 DC 06/25/18 12:57 1 MG Allergies Allergies Allergies Coded Allergies Type Severity Reaction Last Updated Verified alcohol Allergy Intermediate Hives 02/02/17 Yes latex Allergy Intermediate Rash 02/02/17 Yes Physical Exam Physical Exam PHYSICAL EXAM: CONSTITUTIONAL: Well developed, well nourished HEAD: normocephalic, atraumatic EENT: PERRL, EOMI. Conjunctivae normal color, sclerae non-icteric; moist mucous membranes. NECK: Supple, non-tender; no meningismus. LUNGS: Lungs CTA, breathing even and unlabored. Normal air movement. HEART: Regular rate and rhythm, no murmur CHEST: No deformity; there is tenderness to palpation of the anterior left chest wall, which reproduces the patient's pain. ABDOMEN: The abdomen is soft, and non-tender, no masses or bruits. EXTREM: Normal ROM; no deformity, no calf tenderness. Normal pulses palpable in all extremities. There is no pedal edema. SKIN: No rash; no diaphoresis NEURO: Alert; normal speech and cognition; CN's grossly intact; strength grossly intact without focal deficit. BACK: No CVA TTP. Current Patient Data Vital Signs Vital Signs Date Time Temp Pulse Resp B/P (MAP) Pulse Ox O2 Delivery O2 Flow Rate FiO2 06/25/18 12:16 98.2 98 22 146/94 (111) 99 Room Air 98.2 Lab Values Laboratory Tests Test 06/25/18 12:43 White Blood Count 9.8 x10^3/uL (4.0-11.0) Red Blood Count 4.31 x10^6/uL (3.50-5.40) Hemoglobin 13.4 g/dL (12.0-15.5) Hematocrit 39.5 % (36.0-47.0) Mean Corpuscular Volume 92 fL (79-100) Mean Corpuscular Hemoglobin 31 pg (25-35) Mean Corpuscular Hemoglobin Concent 34 g/dL (31-37) Red Cell Distribution Width 13.7 % (11.5-14.5) Platelet Count 323 x10^3/uL (140-400) Neutrophils (%) (Auto) 66 % (31-73) Lymphocytes (%) (Auto) 22 % (24-48) L Monocytes (%) (Auto) 10 % (0-9) H Eosinophils (%) (Auto) 1 % (0-3) Basophils (%) (Auto) 1 % (0-3) Neutrophils # (Auto) 6.4 x10^3uL (1.8-7.7) Lymphocytes # (Auto) 2.2 x10^3/uL (1.0-4.8) Monocytes # (Auto) 1.0 x10^3/uL (0.0-1.1) Eosinophils # (Auto) 0.1 x10^3/uL (0.0-0.7) Basophils # (Auto) 0.1 x10^3/uL (0.0-0.2) D-Dimer (Nanci) 0.27 ug/mlFEU (0.00-0.50) Sodium Level 141 mmol/L (136-145) Potassium Level 4.0 mmol/L (3.5-5.1) Chloride Level 104 mmol/L (98-107) Carbon Dioxide Level 29 mmol/L (21-32) Anion Gap 8 (6-14) Blood Urea Nitrogen 15 mg/dL (7-20) Creatinine 0.7 mg/dL (0.6-1.0) Estimated GFR (Cockcroft-Gault) 93.6 BUN/Creatinine Ratio 21 (6-20) H Glucose Level 95 mg/dL (70-99) Calcium Level 9.5 mg/dL (8.5-10.1) Total Bilirubin 0.4 mg/dL (0.2-1.0) Aspartate Amino Transferase (AST) 11 U/L (15-37) L Alanine Aminotransferase (ALT) 28 U/L (14-59) Alkaline Phosphatase 53 U/L (46-116) Creatine Kinase 71 U/L (26-192) Creatine Kinase MB (Mass) 1.8 ng/mL (0.0-3.6) Creatine Kinase MB Relative Index 2.5 % (0-4) Troponin I Quantitative < 0.017 ng/mL (0.000-0.055) IY-Kem-Y-Type Natriuretic Peptide 85 pg/mL (0-124) Total Protein 6.8 g/dL (6.4-8.2) Albumin 3.4 g/dL (3.4-5.0) Albumin/Globulin Ratio 1.0 (1.0-1.7) Lipase 114 U/L (73-393) Laboratory Tests 06/25/18 12:43 Laboratory Tests 06/25/18 12:43 EKG EKG [Normal sinus rhythm at a rate of 72 beats for minute, normal axis, normal intervals. There are no acute ischemic ST/T changes. Poor anterior R progression is present.] Radiology/Procedures Radiology/Procedures [PROCEDURE: PORTABLE CHEST 1V Single view of the chest. 06/25/2018 12:32 PM Indication: LEFT SIDED CHEST PAIN, SOA TODAY Comparison: None Findings: There is no focal consolidation. There is no pleural effusion or pneumothorax. The cardiomediastinal silhouette and pulmonary vasculature are within normal limits. No acute osseous abnormalities are seen. Impression: No evidence of acute cardiopulmonary process. ] Course & Med Decision Making Course & Med Decision Making Pertinent Labs and Imaging studies reviewed. (See chart for details) [2:00 PM:Patient remains stable. She has had improvement in her pain. She appears more calm. She has been evaluated several times in this emergency department for similar type pain. Her pain is reproducible, and she has a history of anxiety, and score is low and cardiac risk stratification scores. I am doubtful this is related to her heart. I discussed test results, the need for close follow-up, and return precautions.] Dragon Disclaimer Dragon Disclaimer This electronic medical record was generated, in whole or in part, using a voice recognition dictation system. Departure Departure Impression: Primary Impression: Chest pain Disposition: HOME, SELF-CARE Condition: STABLE Referrals: SHIRLEY MCCABE MD (PCP) Patient Instructions: Chest Pain (Nonspecific), Chest Wall Pain Additional Instructions: Ibuprofen 400-600 mg every 6 hours may help improve your symptoms. Applying a heating pad to the affected area may help improve your symptoms. PETRA TALAMANTES MD Jun 25, 2018 12:37
--- NOTE | 2018-06-25 12:44 | EKG ---
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
--- NOTE | 2018-06-25 12:52 | RAD ---
Single view of the chest. 06/25/2018 12:32 PM Indication: LEFT SIDED CHEST PAIN, SOA TODAY Comparison: None Findings: There is no focal consolidation. There is no pleural effusion or pneumothorax. The cardiomediastinal silhouette and pulmonary vasculature are within normal limits. No acute osseous abnormalities are seen. Impression: No evidence of acute cardiopulmonary process. Electronically signed by: Jarrod Cervantes MD (06/25/2018 12:48 PM) [id number]
[2018-06-25 12:55] LABS: BASO # 0.1 x10^3/uL (0.0-0.2); BASO % 1 % (0-3); EOS # 0.1 x10^3/uL (0.0-0.7); EOS % 1 % (0-3); HEMATOCRIT 39.5 % (36.0-47.0); HEMOGLOBIN 13.4 g/dL (12.0-15.5); LYMPH # 2.2 x10^3/uL (1.0-4.8); LYMPH % 22 % (24-48); MEAN CORPUSCULAR HEMOGLOBIN 31 pg (25-35); MEAN CORPUSCULAR HGB CONC 34 g/dL (31-37); MEAN CORPUSCULAR VOLUME 92 fL (79-100); MONO % 10 % (0-9); NEUT # 6.4 x10^3uL (1.8-7.7); NEUT % 66 % (31-73); PLATELET COUNT 323 x10^3/uL (140-400); RED BLOOD COUNT 4.31 x10^6/uL (3.50-5.40); RED CELL DISTRIBUTION WIDTH 13.7 % (11.5-14.5); WHITE BLOOD COUNT 9.8 x10^3/uL (4.0-11.0)
[2018-06-25 13:11] LABS: CALCIUM 9.5 mg/dL (8.5-10.1); CREATININE 0.7 mg/dL (0.6-1.0); GFR 93.6
[2018-06-25 13:17] LABS: ALBUMIN 3.4 g/dL (3.4-5.0); TOTAL BILIRUBIN 0.4 mg/dL (0.2-1.0); TOTAL PROTEIN 6.8 g/dL (6.4-8.2)
[2018-06-25] MEDS ORDERED: KETOROLAC 30 MG/ML VIAL. IV ONE (14:00)
[2018-06-25 14:08] VITALS: BP 117/79
== END 2018-06-25 14:20 | disposition home or self-care (01) ==
LOC: ER 12:07
DX: R07.89 Other chest pain (principal); R06.09 Other forms of dyspnea; F41.9 Anxiety disorder, unspecified; M19.90 Unspecified osteoarthritis, unspecified site; J45.909 Unspecified asthma, uncomplicated; F32.9 Major depressive disorder, single episode, unspecified; I10 Essential (primary) hypertension; G43.909 Migraine, unspecified, not intractable, without status migrainosus; Z90.710 Acquired absence of both cervix and uterus; Z90.89 Acquired absence of other organs; Z98.51 Tubal ligation status; Z91.040 Latex allergy status; Z91.09 Other allergy status, other than to drugs and biological substances
CPT/HCPCS: 36415; 71045; 80053; 82553; 83690; 83880; 84484; 85025; 85379; 93005; 96374; 96375; 99284; J1885; J2060

== ENCOUNTER 2018-08-10 21:10 | Emergency (ER) | payer OTHER ==
[~2018-08-10] VITALS: Ht 165.1 cm; Wt 110.7 kg
[~2018-08-10 21:10] MED LIST changes: +RANI-376 PO; -RANI150T21 PO
--- NOTE | 2018-08-10 22:01 | PHYS DOC ---
Past Medical History Past Medical History: Anxiety, Arthritis, Asthma, Bronchitis, Depression, GERD , Hypertension, Migraines, Other Additional Past Medical Histor: Adrenal mass,OVARIAN CYST,Scoliosis,PANIC ATTACKS Past Surgical History: Hysterectomy, Tonsillectomy, Tubal ligation, Other Additional Past Surgical Histo: EAR,ADENOIDECTOMY Alcohol Use: None Drug Use: None Adult General Chief Complaint Chief Complaint: ANXIETY/PANIC ATTACK HPI HPI Patient is a 38 yo female who presents with complaint of panic attack, chest pressure, shortness of breath, and left arm heaviness. Patient reports she has had panic attacks previously and feels like this episode is another panic attack , however having the chest pressure and shortness of breath is new for her. She reports that she has increased stress in her life which she thinks is the trigger for today's event. She admits that because she had the panic attack at work, she thinks her symptoms were worse d/t being in public. She denies that she is . Patient also denies tobacco use, alcohol use, and drug use. Review of Systems Review of Systems Constitutional: Denies fever or chills [] Eyes: Denies change in visual acuity, redness, or eye pain [] HENT: Denies nasal congestion or sore throat [] Respiratory: Denies cough. Admits shortness of breath. Cardiovascular: Admits chest pressure. ] GI: Denies abdominal pain, nausea, vomiting, bloody stools or diarrhea [] : Denies dysuria or hematuria [] Musculoskeletal: Denies back pain or joint pain. Admits to left arm "heaviness" . Denies trouble w/ r arm. Integument: Denies rash or skin lesions. Admits to "hickies" on chest. Neurologic: Denies headache, focal weakness or sensory changes [] Endocrine: Denies polyuria or polydipsia [] Complete systems were reviewed and found to be within normal limits, except as documented in this note. Current Medications Current Medications Current Medications Medications (Trade) Dose Ordered Sig/Americo Start Time Stop Time Status Last Admin Dose Admin Cephalexin HCl (Keflex) 500 mg 1X ONCE 08/10/18 23:30 08/10/18 23:31 Lorazepam (Ativan) 0.5 mg 1X ONCE 08/10/18 22:00 08/10/18 22:01 DC 08/10/18 21:52 0.5 MG Allergies Allergies Allergies Coded Allergies Type Severity Reaction Last Updated Verified alcohol Allergy Intermediate Hives 02/02/17 Yes latex Allergy Intermediate Rash 02/02/17 Yes Physical Exam Physical Exam Constitutional: Well developed, well nourished, Resting quietly in bed. non- toxic appearance. [] HENT: Normocephalic, atraumatic, bilateral external ears normal, oropharynx moist, no oral exudates, nose normal. [] Eyes: PERRLA, EOMI, conjunctiva w/ minimal erythema, eyes moist from tears [] Neck: Normal range of motion, no tenderness, supple, no stridor. [] Cardiovascular:Heart rate regular rhythm, no murmur [] Lungs & Thorax: Bilateral breath sounds clear to auscultation [] Abdomen: Bowel sounds normal, soft, no tenderness, no masses, no pulsatile masses. [] Skin: Warm, dry, no erythema, no rash.Tattoos present R and L forearms, chest, and low back. Ecchymosis present on chest, which patient admits are "hickeys".[ ] Back: No tenderness, no CVA tenderness. [] Extremities: No tenderness, no cyanosis, no clubbing, ROM intact, no edema. [] Neurologic: Alert and oriented X 3, normal motor function, normal sensory function, no focal deficits noted. [] Psychologic: Affect normal, judgement normal, mood normal. [] Current Patient Data Vital Signs Vital Signs Date Time Temp Pulse Resp B/P (MAP) Pulse Ox O2 Delivery O2 Flow Rate FiO2 08/10/18 21:15 98.9 102 20 152/91 (111) 95 Room Air 98.9 Lab Values Laboratory Tests Test 08/10/18 21:20 08/10/18 21:30 Urine Collection Type Unknown Urine Color [facility] Urine Clarity Cloudy Urine pH 5.5 Urine Specific [place] >=1.030 Urine Protein Negative mg/dL (NEG-TRACE) Urine Glucose (UA) Negative mg/dL (NEG) Urine Ketones (Stick) Negative mg/dL (NEG) Urine Blood Small (NEG) Urine Nitrite Negative (NEG) Urine Bilirubin Small (NEG) Urine Urobilinogen Dipstick 0.2 mg/dL (0.2 mg/dL) Urine Leukocyte Esterase Moderate (NEG) Urine RBC 6-10 /HPF (0-2) Urine WBC >40 /HPF (0-4) Urine Squamous Epithelial Cells Many /LPF Urine Bacteria Many /HPF (0-FEW) Urine Mucus Mod /LPF POC Urine HCG, Qualitative Hcg negative (Negative) EKG Interpretation Time: @2117/ HR 93BPM, sinus rhythm.[] Radiology/Procedures Radiology/Procedures [] Course & Med Decision Making Course & Med Decision Making Patient is 38 yo female w/ PMH anxiety, panic attacks who presented today following panic attack at work. Pt reports she felt the attack coming on, tried to calm herself down, but felt chest pressure, shortness of breath, and left arm heaviness which were new symptoms for her. On physical exam patient was initially tachycardic but slowed to around 80bpm. We discussed with the patient that because she has had similar symptoms prior we could work her up for the chest pressure and shortness of breath but that her symptoms, clinical presentation, and normal ekg lead us to believe she her condition was the result of anxiety. We discussed with the patient the pros and cons of working up her new symptoms versus treating her anxiety, and patient agreed that she would like to forego a chest pain workup in favor of treatment for her anxiety. As we discussed plan with patient she mentioned her urine was dark, and UA revealed possible UTI. Patient was treated with ativan and PO keflex. Patient agreed with plan to dc home with ativan understands that she may return to ED if symptoms return. Dragon Disclaimer Dragon Disclaimer This electronic medical record was generated, in whole or in part, using a voice recognition dictation system. Departure Departure Impression: Primary Impression: Anxiety Additional Impression: UTI (urinary tract infection) Disposition: 01 HOME, SELF-CARE Condition: IMPROVED Referrals: SHIRLEY MCCABE MD (PCP) Patient Instructions: Anxiety and Panic Attacks, [id number], Urinary Tract Infection, [id number]-rp-Osat Scripts Cephalexin (KEFLEX) 500 Mg Capsule 500 MG PO TID for 7 Days, #21 CAP Prov: JOYCELYN ARREDONDO DO 08/10/18 Lorazepam (ATIVAN) 0.5 Mg Tablet 0.5 MG PO TID PRN for ANXIETY, #10 TAB Prov: JOYCELYN ARREDONDO DO 08/10/18 Problem Qualifiers Additional Impression: UTI (urinary tract infection) Urinary tract infection type: acute cystitis Hematuria presence: with hematuria Qualified Codes: N30.01 - Acute cystitis with hematuria JOYCELYN ARREDONDO DO Aug 10, 2018 22:01
[2018-08-10] MEDS ORDERED: LORA0.5T96 PO (22:17)
[2018-08-10 22:30] VITALS: BP 116/72
[2018-08-10 22:37] LABS: BILIRUBIN,URINE SMALL (NEG); CLARITY,URINE CLOUDY; COLOR,URINE AMBER; NITRITE,URINE NEGATIVE (NEG); PH,URINE 5.5; PROTEIN,URINE NEGATIVE (NEG-TRACE); UROBILINOGEN,URINE 0.2 mg/dL (0.2 mg/dL)
[2018-08-10 23:03] LABS: BACTERIA,URINE MANY /HPF (0-FEW); SQUAMOUS EPITHELIAL CELL,UR MANY /LPF; WBC,URINE >40 /HPF (0-4)
[2018-08-10] MEDS ORDERED: CEPH-264 PO (23:15)
[2018-08-10] MEDS ORDERED: CEPHALEXIN 250 MG CAPSULE. PO ONE (23:30)
--- NOTE | 2018-08-11 07:19 | EKG ---
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
== END 2018-08-10 23:20 | disposition home or self-care (01) ==
LOC: ER 21:10
DX: F41.9 Anxiety disorder, unspecified (principal); N30.01 Acute cystitis with hematuria; K21.9 Gastro-esophageal reflux disease without esophagitis; I10 Essential (primary) hypertension; J45.909 Unspecified asthma, uncomplicated; F32.9 Major depressive disorder, single episode, unspecified; G43.909 Migraine, unspecified, not intractable, without status migrainosus; Z91.040 Latex allergy status; Z88.8 Allergy status to other drugs, medicaments and biological substances
CPT/HCPCS: 81001; 81025; 87086; 93005; 96374; 99284; J2060

== ENCOUNTER 2018-08-25 00:23 | Emergency (ER) | payer OTHER ==
[~2018-08-25] VITALS: Ht 165.1 cm; Wt 106.6 kg
[~2018-08-25 00:23] MED LIST changes: +LORA0.5T96 PO; -RANI-376 PO; +RANI150T21 PO
[2018-08-25 00:35] VITALS: BP 138/82
--- NOTE | 2018-08-25 01:31 | PHYS DOC ---
Past Medical History Past Medical History: Anxiety, Arthritis, Asthma, Bronchitis, Depression, GERD , Hypertension, Migraines, Other Additional Past Medical Histor: Adrenal mass,OVARIAN CYST,Scoliosis,PANIC ATTACKS Past Surgical History: Hysterectomy, Tonsillectomy, Tubal ligation, Other Additional Past Surgical Histo: EAR,ADENOIDECTOMY Alcohol Use: None Drug Use: None Adult General Chief Complaint Chief Complaint: MECHANICAL FALL HPI HPI Patient is a 38 year old female who presents with right hip and back pain. Patient tripped over an electrical cord attached to a fan at home yesterday. She felt a pop on the way down. She has been able to ambulate with pain. No loss of bowel or bladder control. No loss of consciousness. Not a syncopal event. Minimal relief with [id number] ibuprofen. Increased pain with movement. Better with rest and nonweightbearing. Pain is moderate to severe.[] Review of Systems Review of Systems Constitutional: Denies fever or chills [] Eyes: Denies change in visual acuity, redness, or eye pain [] HENT: Denies nasal congestion or sore throat [] Respiratory: Denies cough or shortness of breath [] Cardiovascular: No chest pain or palpitations[] GI: Denies abdominal pain, nausea, vomiting, bloody stools or diarrhea [] : Denies dysuria or hematuria [] Musculoskeletal: See history of present illness[] Integument: Denies rash or skin lesions [] Neurologic: Denies headache, focal weakness or sensory changes [] Endocrine: Denies polyuria or polydipsia [] All other systems were reviewed and found to be within normal limits, except as documented in this note. Current Medications Current Medications Current Medications Medications (Trade) Dose Ordered Sig/Americo Start Time Stop Time Status Last Admin Dose Admin Ketorolac Tromethamine (Toradol 30mg Vial) 30 mg 1X ONCE 08/25/18 02:00 08/25/18 02:01 DC 08/25/18 01:52 30 MG Allergies Allergies Allergies Coded Allergies Type Severity Reaction Last Updated Verified alcohol Allergy Intermediate Hives 02/02/17 Yes latex Allergy Intermediate Rash 02/02/17 Yes Physical Exam Physical Exam Constitutional: Well developed, well nourished, mild discomfort, sitting on her left hip to avoid putting pressure on her right hip, non-toxic appearance. [] HENT: Normocephalic, atraumatic, bilateral external ears normal, oropharynx moist, no oral exudates, nose normal. [] Eyes: PERRLA, EOMI, conjunctiva normal, no discharge. [] Neck: Normal range of motion, no tenderness, supple, no stridor. [] Cardiovascular:Heart rate regular rhythm, no murmur [] Lungs & Thorax: Bilateral breath sounds clear to auscultation [] Abdomen: Bowel sounds normal, soft, no tenderness, no masses, no pulsatile masses. [] Skin: Warm, dry, no erythema, no rash. [] Back: Tenderness along the lumbar paraspinal muscles on the right, no midline tenderness, no CVA tenderness. [] Extremities: Tenderness diffusely around the right hip, no cyanosis, no clubbing , ROM limited secondary to pain, patient is able to ambulate. no edema. [] Neurologic: Alert and oriented X 3, normal motor function, normal sensory function, no focal deficits noted. [] Psychologic: Affect normal, judgement normal, mood normal. [] Current Patient Data Vital Signs Vital Signs Date Time Temp Pulse Resp B/P (MAP) Pulse Ox O2 Delivery O2 Flow Rate FiO2 08/25/18 00:35 97.8 86 16 138/82 (100) 99 Room Air 97.8 Lab Values Laboratory Tests Test 08/25/18 01:39 08/25/18 01:49 Urine Collection Type Unknown Urine Color [facility] Urine Clarity Cloudy Urine pH 5.5 Urine Specific [place] >=1.030 Urine Protein Negative mg/dL (NEG-TRACE) Urine Glucose (UA) Negative mg/dL (NEG) Urine Ketones (Stick) Trace mg/dL (NEG) Urine Blood Small (NEG) Urine Nitrite Negative (NEG) Urine Bilirubin Small (NEG) Urine Urobilinogen Dipstick 0.2 mg/dL (0.2 mg/dL) Urine Leukocyte Esterase Negative (NEG) Urine RBC 3-5 /HPF (0-2) Urine WBC 1-4 /HPF (0-4) Urine Squamous Epithelial Cells Many /LPF Urine Bacteria Moderate /HPF (0-FEW) Urine Mucus Mod /LPF POC Urine HCG, Qualitative Hcg negative (Negative) EKG EKG [] Radiology/Procedures Radiology/Procedures X-rays of the lumbar spine and pelvis and right hip were negative for any acute fracture or dislocation[] Course & Med Decision Making Course & Med Decision Making Pertinent Labs and Imaging studies reviewed. (See chart for details) Medical decision making: There is no evidence of an acute fracture, dislocation , or subluxation. No urinary tract infection or pyelonephritis.[] Dragon Disclaimer Dragon Disclaimer This electronic medical record was generated, in whole or in part, using a voice recognition dictation system. Departure Departure Impression: Primary Impression: Low back pain Additional Impression: Hip pain, right Disposition: HOME, SELF-CARE Condition: IMPROVED Referrals: SHIRLEY MCCABE MD (PCP) Follow-up in 2 days Patient Instructions: Back Pain, Adult, Hip Pain Additional Instructions: Follow-up with your regular doctor in 2 days. Return to the ER if worsening pain , weakness, or any other concerns. Scripts Cyclobenzaprine Hcl (CYCLOBENZAPRINE HCL) 5 Mg Tablet 5 MG PO PRN TID PRN for back pain, #15 TAB Prov: CONNIE MOHAN DO 08/25/18 Meloxicam (MELOXICAM) 7.5 Mg Tablet 7.5 MG PO DAILY, #20 TAB Prov: CONNIE MOHAN DO 08/25/18 Problem Qualifiers Primary Impression: Low back pain Chronicity: unspecified Back pain laterality: right Sciatica presence: without sciatica Qualified Codes: M54.5 - Low back pain CONNIE MOHAN DO Aug 25, 2018 01:31
[2018-08-25 01:52] LABS: BILIRUBIN,URINE SMALL (NEG); CLARITY,URINE CLOUDY; COLOR,URINE AMBER; NITRITE,URINE NEGATIVE (NEG); PH,URINE 5.5; PROTEIN,URINE NEGATIVE (NEG-TRACE); UROBILINOGEN,URINE 0.2 mg/dL (0.2 mg/dL)
[2018-08-25 02:00] LABS: BACTERIA,URINE MODERATE /HPF (0-FEW); SQUAMOUS EPITHELIAL CELL,UR MANY /LPF
[2018-08-25] MEDS ORDERED: KETOROLAC 30 MG/ML VIAL. IM ONE (02:00)
--- NOTE | 2018-08-25 02:44 | RAD ---
EXAM: 1. Lumbar spine 3 views. 2. Frontal pelvis with two-view right hip. HISTORY: Fall with low back and right hip pain. COMPARISON: CTs dating back through 2013. FINDINGS: There is a mild lumbar levoscoliosis centered at L2. No fractures are identified. Degenerative disc disease is mild at L1-2. A sclerotic focus within the left ischium measures 2.1 x 1.2 cm. It does not have a definitively benign correlate on prior CTs. No fractures are appreciated within the pelvis or proximal femurs. The joint spaces of both hips are maintained. There is mildly decreased femoral head/neck offset anteriorly on the right. IMPRESSION: 1. Mild lumbar levoscoliosis. Mild degenerative disc disease at L1-2. 2. A 2.1 cm sclerotic focus in the left ischium is indeterminate. MRI of the pelvis could further evaluate if there is persistent concern. 3. Correlate for femoroacetabular impingement anteriorly on the right. Electronically signed by: Lilian Payne MD (08/25/2018 2:39 AM) [facility]
[2018-08-25] MEDS ORDERED: CYCL5TAB PO (02:45)
[2018-08-25] MEDS ORDERED: MELO7.5T29 PO (02:45)
== END 2018-08-25 02:52 | disposition home or self-care (01) ==
LOC: ER 00:23
DX: M25.551 Pain in right hip (principal); M54.5 Low back pain; F41.9 Anxiety disorder, unspecified; M19.90 Unspecified osteoarthritis, unspecified site; J45.909 Unspecified asthma, uncomplicated; F32.9 Major depressive disorder, single episode, unspecified; K21.9 Gastro-esophageal reflux disease without esophagitis; I10 Essential (primary) hypertension; G43.909 Migraine, unspecified, not intractable, without status migrainosus; Z90.710 Acquired absence of both cervix and uterus; Z90.89 Acquired absence of other organs; Z98.51 Tubal ligation status; Z91.040 Latex allergy status; Z91.09 Other allergy status, other than to drugs and biological substances
CPT/HCPCS: 72100; 73502; 81001; 81025; 96372; 99284; J1885

== ENCOUNTER 2018-09-13 18:23 | Emergency (ER) | payer OTHER ==
[~2018-09-13] VITALS: Ht 165.1 cm; Wt 106.6 kg
[~2018-09-13 18:23] MED LIST changes: +MELO7.5T29 PO; +RANI-376 PO; -RANI150T21 PO
[2018-09-13 18:47] LABS: BILIRUBIN,URINE SMALL (NEG); CLARITY,URINE CLEAR; COLOR,URINE YELLOW; NITRITE,URINE NEGATIVE (NEG); PH,URINE 5.5; PROTEIN,URINE NEGATIVE (NEG-TRACE); UROBILINOGEN,URINE 0.2 mg/dL (0.2 mg/dL)
[2018-09-13] MEDS ORDERED: NAPROXEN 500 MG TABLET PO STA (18:50)
[2018-09-13] MEDS ORDERED: HYDROcodone/APAP 5/325MG 1 TAB TABLET PO ONE (19:00)
[2018-09-13 19:03] LABS: BACTERIA,URINE MANY /HPF (0-FEW); SQUAMOUS EPITHELIAL CELL,UR MANY /LPF; WBC,URINE 0 /HPF (0-4)
--- NOTE | 2018-09-13 19:38 | RAD ---
PQRS Compliance Statement: One or more of the following individualized dose reduction techniques were utilized for this examination: 1. Automated exposure control 2. Adjustment of the mA and/or kV according to patient size 3. Use of iterative reconstruction technique CT abdomen/pelvis without contrast 09/13/2018 6:50 PM INDICATION: Right-sided flank pain COMPARISON: CT abdomen/pelvis April 28, 2018 TECHNIQUE: Multiple axial CT images of the abdomen and pelvis were obtained without intravenous contrast. Coronal and sagittal reformats are provided. FINDINGS: Lung bases are clear. Heart size is within normal limits. There is a small hiatal hernia. Evaluation of the solid abdominal viscera is limited by lack of intravenous contrast. Liver, spleen, right adrenal gland and pancreas are normal in appearance. Gallbladder is present without adjacent inflammatory changes. There is a left adrenal mass measuring 13 x 12 mm with Hounsfield units measuring 3 compatible with a lipid rich adrenal adenoma. The abdominal aorta is normal in course and caliber. There are no pathologically enlarged lymph nodes in the abdomen and pelvis. There is no abdominal free fluid. There is no free intraperitoneal air. Small and large bowel are normal in caliber. There is no evidence for bowel obstruction. There are no pericolonic inflammatory changes. A normal, nondilated appendix is visualized without adjacent inflammatory changes. Mild wall thickening involving the sigmoid colon and rectum is favored to be secondary to underdistention. The kidneys enhance symmetrically. There is no suspicious renal mass. There is no hydronephrosis. There are no suspected calculi within the kidneys, ureters or urinary bladder. Uterus is surgically absent. There is mild thickening of the vaginal cuff. Nodular density in the right adnexa measures 13 mm and may represent the right ovary. Correlate with surgical history. IMPRESSION: 1. No acute abnormality is identified in the abdomen and pelvis. 2. Appendix is normal. 3. Hysterectomy changes with mild thickening of the vaginal cuff which appears chronic. 13 mm nodule in the right adnexa may represent residual ovary. Findings are stable. Correlate with surgical history. 4. 13 x 12 mm left adrenal lipid rich adenoma. 5. Small hiatal hernia. Electronically signed by: Mulu Espitia MD (09/13/2018 7:35 PM) [facility]
[2018-09-13 20:25] VITALS: BP 122/70
--- NOTE | 2018-09-13 20:34 | PHYS DOC ---
Past Medical History Past Medical History: Anxiety, Arthritis, Asthma, Bronchitis, Depression, GERD , Hypertension, Migraines, Other Additional Past Medical Histor: Adrenal mass,OVARIAN CYST,Scoliosis,PANIC ATTACKS Past Surgical History: Hysterectomy, Tonsillectomy, Tubal ligation, Other Additional Past Surgical Histo: EAR,ADENOIDECTOMY Alcohol Use: None Drug Use: None Adult General Chief Complaint Chief Complaint: FLANK PAIN HPI HPI Patient is a 38 year old female who presents complaining of 9 out of 10 bilateral left upper, left mid, basically generalized abdominal pain that began 2 weeks ago. Patient denies any fever. Denies any chance she is , she is had a hysterectomy. Patient is also complaining of nausea, denies any vomiting. States has been seen by the PCP was informed her urine has blood. Review of Systems Review of Systems Constitutional: Denies fever or chills [] Eyes: Denies change in visual acuity, redness, or eye pain [] HENT: Denies nasal congestion or sore throat [] Respiratory: Denies cough or shortness of breath [] Cardiovascular: No additional information not addressed in HPI [] GI: Reports generalized abdominal pain with nausea, denies.Vomiting, bloody stools or diarrhea [] : Reports hematuria, denies dysuria Musculoskeletal: Denies back pain or joint pain [] Integument: Denies rash or skin lesions [] Neurologic: Denies headache, focal weakness or sensory changes [] All other systems were reviewed and found to be within normal limits, except as documented in this note. Current Medications Current Medications Current Medications Medications (Trade) Dose Ordered Sig/Americo Start Time Stop Time Status Last Admin Dose Admin Acetaminophen/ Hydrocodone Bitart (Lortab 5/325) 2 tab 1X ONCE 09/13/18 19:00 09/13/18 19:01 DC 09/13/18 19:18 2 TAB Naproxen (Naprosyn) 500 mg 1X STAT 09/13/18 18:50 09/13/18 18:56 DC 09/13/18 19:17 500 MG Allergies Allergies Allergies Coded Allergies Type Severity Reaction Last Updated Verified alcohol Allergy Intermediate Hives 02/02/17 Yes latex Allergy Intermediate Rash 02/02/17 Yes Physical Exam Physical Exam Constitutional: Well developed, well nourished, no acute distress, non-toxic appearance. [] HENT: Normocephalic, atraumatic, bilateral external ears normal, oropharynx moist, no oral exudates, nose normal. [] Eyes: PERRLA, EOMI, conjunctiva normal, no discharge. [] Neck: Normal range of motion, no tenderness, supple, no stridor. [] Cardiovascular:Heart rate regular rhythm, no murmur [] Lungs & Thorax: Bilateral breath sounds clear to auscultation [] Abdomen: Rounded abdomen. Bowel sounds normal, soft, generalized tenderness throughout, no masses, no pulsatile masses. [] Skin: Warm, dry, no erythema, no rash. [] Back: No tenderness, no CVA tenderness. [] Extremities: No tenderness, no cyanosis, no clubbing, ROM intact, no edema. [] Neurologic: Alert and oriented X 3, normal motor function, normal sensory function, no focal deficits noted. [] Psychologic: Affect normal, judgement normal, mood normal. [] Current Patient Data Vital Signs Vital Signs Date Time Temp Pulse Resp B/P (MAP) Pulse Ox O2 Delivery O2 Flow Rate FiO2 09/13/18 20:25 82 122/70 (87) 95 Room Air 09/13/18 19:18 15 09/13/18 18:26 98.7 98.7 Lab Values Laboratory Tests Test 09/13/18 18:26 Urine Collection Type Void Urine Color Yellow Urine Clarity Clear Urine pH 5.5 Urine Specific [place] 1.025 Urine Protein Negative mg/dL (NEG-TRACE) Urine Glucose (UA) Negative mg/dL (NEG) Urine Ketones (Stick) Trace mg/dL (NEG) Urine Blood Moderate (NEG) Urine Nitrite Negative (NEG) Urine Bilirubin Small (NEG) Urine Urobilinogen Dipstick 0.2 mg/dL (0.2 mg/dL) Urine Leukocyte Esterase Negative (NEG) Urine RBC 1-2 /HPF (0-2) Urine WBC 0 /HPF (0-4) Urine Squamous Epithelial Cells Many /LPF Urine Bacteria Many /HPF (0-FEW) Urine Mucus Marked /LPF EKG EKG [] Radiology/Procedures Radiology/Procedures []PROCEDURE: CT ABDOMEN PELVIS WO CONTRAST PQRS Compliance Statement: One or more of the following individualized dose reduction techniques were utilized for this examination: 1. Automated exposure control 2. Adjustment of the mA and/or kV according to patient size 3. Use of iterative reconstruction technique CT abdomen/pelvis without contrast 09/13/2018 6:50 PM INDICATION: Right-sided flank pain COMPARISON: CT abdomen/pelvis April 28, 2018 TECHNIQUE: Multiple axial CT images of the abdomen and pelvis were obtained without intravenous contrast. Coronal and sagittal reformats are provided. FINDINGS: Lung bases are clear. Heart size is within normal limits. There is a small hiatal hernia. Evaluation of the solid abdominal viscera is limited by lack of intravenous contrast. Liver, spleen, right adrenal gland and pancreas are normal in appearance. Gallbladder is present without adjacent inflammatory changes. There is a left adrenal mass measuring 13 x 12 mm with Hounsfield units measuring 3 compatible with a lipid rich adrenal adenoma. The abdominal aorta is normal in course and caliber. There are no pathologically enlarged lymph nodes in the abdomen and pelvis. There is no abdominal free fluid. There is no free intraperitoneal air. Small and large bowel are normal in caliber. There is no evidence for bowel obstruction. There are no pericolonic inflammatory changes. A normal, nondilated appendix is visualized without adjacent inflammatory changes. Mild wall thickening involving the sigmoid colon and rectum is favored to be secondary to underdistention. The kidneys enhance symmetrically. There is no suspicious renal mass. There is no hydronephrosis. There are no suspected calculi within the kidneys, ureters or urinary bladder. Uterus is surgically absent. There is mild thickening of the vaginal cuff. Nodular density in the right adnexa measures 13 mm and may represent the right ovary. Correlate with surgical history. IMPRESSION: 1. No acute abnormality is identified in the abdomen and pelvis. 2. Appendix is normal. 3. Hysterectomy changes with mild thickening of the vaginal cuff which appears chronic. 13 mm nodule in the right adnexa may represent residual ovary. Findings are stable. Correlate with surgical history. 4. 13 x 12 mm left adrenal lipid rich adenoma. 5. Small hiatal hernia. Electronically signed by: Abiodun Espitia MD (09/13/2018 7:35 PM) [facility] DICTATED and SIGNED BY: ABIODUN ESPITIA MD DATE: 09/13/181928 Course & Med Decision Making Course & Med Decision Making Pertinent Labs and Imaging studies reviewed. (See chart for details) This is a 38-year-old female patient well known to this ED presented today for flank pain, abdominal pain. Urine analysis is negative for infection, noted for blood. CT of the abdomen and pelvic is negative for any acute findings. Patient was discharged with instructions to follow-up with her own PCP as well as urologist. Dragon Disclaimer Dragon Disclaimer This electronic medical record was generated, in whole or in part, using a voice recognition dictation system. Departure Departure Impression: Primary Impression: Abdominal pain Additional Impressions: Acute flank pain Hematuria Disposition: ADMITTED INPATIENT Condition: STABLE Referrals: SHIRLEY MCCABE MD (PCP) Follow-up in one week Patient Instructions: Abdominal Pain (Nonspecific), Hematuria, Adult Additional Instructions: You were evaluated in the emergency room, we could not find any acute cause for your pain. Your CT is negative for any acute findings. Continue following up with your own doctor. Problem Qualifiers Primary Impression: Abdominal pain Abdominal location: generalized Qualified Codes: R10.84 - Generalized abdominal pain Additional Impressions: Hematuria Hematuria type: unspecified type Qualified Codes: R31.9 - Hematuria, unspecified RHONDA LAUREANO APRN Sep 13, 2018 20:34
== END 2018-09-13 20:43 | disposition home or self-care (01) ==
LOC: ER 18:23
DX: R10.84 Generalized abdominal pain (principal); R31.9 Hematuria, unspecified; R10.11 Right upper quadrant pain; R10.12 Left upper quadrant pain; J45.909 Unspecified asthma, uncomplicated; I10 Essential (primary) hypertension; K21.9 Gastro-esophageal reflux disease without esophagitis; G43.909 Migraine, unspecified, not intractable, without status migrainosus; Z90.710 Acquired absence of both cervix and uterus; Z98.51 Tubal ligation status; Z91.040 Latex allergy status; Z88.8 Allergy status to other drugs, medicaments and biological substances
CPT/HCPCS: 74176; 81001; 87086; 99284-25

== ENCOUNTER 2018-10-06 16:45 | Emergency (ER) | payer OTHER ==
[~2018-10-06] VITALS: Ht 165.1 cm; Wt 106.6 kg
[2018-10-06 17:15] LABS: BILIRUBIN,URINE NEGATIVE (NEG); CLARITY,URINE CLEAR; COLOR,URINE YELLOW; NITRITE,URINE NEGATIVE (NEG); PH,URINE 5.5; PROTEIN,URINE NEGATIVE (NEG-TRACE); UROBILINOGEN,URINE 0.2 mg/dL (0.2 mg/dL)
[2018-10-06] MEDS ORDERED: MECLIZINE HCL 12.5 MG TABLET. PO ONE (17:15)
[2018-10-06 17:21] LABS: BARBITURATES NEG (NEG); BENZODIAZEPINES NEG (NEG); CANNABINOIDS NEG (NEG); COCAINE NEG (NEG); METHADONE NEG (NEG); OPIATES NEG (NEG); PHENCYCLIDINE NEG (NEG)
[2018-10-06 17:23] LABS: AMPHETAMINE/METHAMPHETAMINE NEG (NEG)
[2018-10-06 17:25] LABS: BACTERIA,URINE MODERATE /HPF (0-FEW); RBC,URINE RARE /HPF (0-2); SQUAMOUS EPITHELIAL CELL,UR MANY /LPF; WBC,URINE 0 /HPF (0-4)
[2018-10-06 17:25] LABS: BASO # 0.1 x10^3/uL (0.0-0.2); BASO % 1 % (0-3); EOS # 0.2 x10^3/uL (0.0-0.7); EOS % 2 % (0-3); HEMATOCRIT 40.8 % (36.0-47.0); HEMOGLOBIN 13.3 g/dL (12.0-15.5); LYMPH # 1.9 x10^3/uL (1.0-4.8); LYMPH % 23 % (24-48); MEAN CORPUSCULAR HEMOGLOBIN 30 pg (25-35); MEAN CORPUSCULAR HGB CONC 33 g/dL (31-37); MEAN CORPUSCULAR VOLUME 91 fL (79-100); MONO # 0.7 x10^3/uL (0.0-1.1); MONO % 9 % (0-9); NEUT # 5.7 x10^3uL (1.8-7.7); NEUT % 66 % (31-73); PLATELET COUNT 385 x10^3/uL (140-400); RED BLOOD COUNT 4.51 x10^6/uL (3.50-5.40); RED CELL DISTRIBUTION WIDTH 13.2 % (11.5-14.5); WHITE BLOOD COUNT 8.6 x10^3/uL (4.0-11.0)
[2018-10-06 17:34] LABS: CREATININE 0.6 mg/dL (0.6-1.0); GFR 111.9; POTASSIUM 3.8 mmol/L (3.5-5.1)
--- NOTE | 2018-10-06 17:50 | PHYS DOC ---
Past Medical History Past Medical History: Anxiety, Arthritis, Asthma, Bronchitis, Depression, GERD , Hypertension, Migraines, Sciatica, Other Additional Past Medical Histor: Adrenal mass,OVARIAN CYST,Scoliosis,PANIC ATTACKS Past Surgical History: Hysterectomy, Tonsillectomy, Tubal ligation, Other Additional Past Surgical Histo: EAR,ADENOIDECTOMY Alcohol Use: None Drug Use: None Adult General Chief Complaint Chief Complaint: DIZZY/LIGHT HEADED HPI HPI Patient is a 38 year old female with history of hypertension, bronchitis, anxiety, sciatica who presents today from work, patient states while at work she felt "blah" or dizzy. She states the dizziness is not exacerbated or relieved by anything in particular. She states she feels much better now in the ED. She is up ambulating in the room in no distress. She is actually smiling as we speak. Patient denies any chest pain or shortness of breath. Seen this patient before from work with "medical" complaints. Patient is also complaining of yeast infection in between her thighs that she's had for weeks. She is currently using nystatin which she ran out of. Review of Systems Review of Systems Constitutional: Denies fever or chills [] Eyes: Denies change in visual acuity, redness, or eye pain [] HENT: Denies nasal congestion or sore throat [] Respiratory: Denies cough or shortness of breath [] Cardiovascular: No additional information not addressed in HPI [] GI: Denies abdominal pain, nausea, vomiting, bloody stools or diarrhea [] : Denies dysuria or hematuria [] Musculoskeletal: Denies back pain or joint pain [] Integument: Reports yeast infection in between her thighs Neurologic: Reports dizziness. Denies headache, focal weakness or sensory changes [] All other systems were reviewed and found to be within normal limits, except as documented in this note. Current Medications Current Medications Current Medications Medications (Trade) Dose Ordered Sig/Americo Start Time Stop Time Status Last Admin Dose Admin Meclizine HCl (Antivert) 25 mg 1X ONCE 10/06/18 17:15 10/06/18 17:16 DC 10/06/18 17:35 25 MG Allergies Allergies Allergies Coded Allergies Type Severity Reaction Last Updated Verified alcohol Allergy Intermediate Hives 02/02/17 Yes latex Allergy Intermediate Rash 02/02/17 Yes Physical Exam Physical Exam Constitutional: Well developed, well nourished, no acute distress, non-toxic appearance. [] HENT: Normocephalic, atraumatic, bilateral external ears normal, oropharynx moist, no oral exudates, nose normal. [] Eyes: PERRLA, EOMI, conjunctiva normal, no discharge. [] Neck: Normal range of motion, no tenderness, supple, no stridor. [] Cardiovascular:Heart rate regular rhythm, no murmur [] Lungs & Thorax: Bilateral breath sounds clear to auscultation [] Abdomen: Bowel sounds normal, soft, no tenderness, no masses, no pulsatile masses. [] Skin: Warm, dry, there is raised crusty erythematous lesions in between her groin area consistent with tinea cruris Back: No tenderness, no CVA tenderness. [] Extremities: No tenderness, no cyanosis, no clubbing, ROM intact, no edema. [] Neurologic: Alert and oriented X 3, normal motor function, normal sensory function, no focal deficits noted. [] Psychologic: Very happy, laughing and smiling as we speak Current Patient Data Vital Signs Vital Signs Date Time Temp Pulse Resp B/P (MAP) Pulse Ox O2 Delivery O2 Flow Rate FiO2 10/06/18 17:00 98.1 90 17 144/71 (95) 99 Room Air 98.1 Lab Values Laboratory Tests Test 10/06/18 16:55 10/06/18 17:15 Urine Collection Type Unknown Urine Color Yellow Urine Clarity Clear Urine pH 5.5 Urine Specific [place] 1.025 Urine Protein Negative mg/dL (NEG-TRACE) Urine Glucose (UA) Negative mg/dL (NEG) Urine Ketones (Stick) Negative mg/dL (NEG) Urine Blood Moderate (NEG) Urine Nitrite Negative (NEG) Urine Bilirubin Negative (NEG) Urine Urobilinogen Dipstick 0.2 mg/dL (0.2 mg/dL) Urine Leukocyte Esterase Negative (NEG) Urine RBC Rare /HPF (0-2) Urine WBC 0 /HPF (0-4) Urine Squamous Epithelial Cells Many /LPF Urine Bacteria Moderate /HPF (0-FEW) Urine Mucus Slight /LPF Urine Opiates Screen Neg (NEG) Urine Methadone Screen Neg (NEG) Urine Barbiturates Neg (NEG) Urine Phencyclidine Screen Neg (NEG) Urine Amphetamine/Methamphetamine Neg (NEG) Urine Benzodiazepines Screen Neg (NEG) Urine Cocaine Screen Neg (NEG) Urine Cannabinoids Screen Neg (NEG) Urine Ethyl Alcohol Neg (NEG) White Blood Count 8.6 x10^3/uL (4.0-11.0) Red Blood Count 4.51 x10^6/uL (3.50-5.40) Hemoglobin 13.3 g/dL (12.0-15.5) Hematocrit 40.8 % (36.0-47.0) Mean Corpuscular Volume 91 fL (79-100) Mean Corpuscular Hemoglobin 30 pg (25-35) Mean Corpuscular Hemoglobin Concent 33 g/dL (31-37) Red Cell Distribution Width 13.2 % (11.5-14.5) Platelet Count 385 x10^3/uL (140-400) Neutrophils (%) (Auto) 66 % (31-73) Lymphocytes (%) (Auto) 23 % (24-48) L Monocytes (%) (Auto) 9 % (0-9) Eosinophils (%) (Auto) 2 % (0-3) Basophils (%) (Auto) 1 % (0-3) Neutrophils # (Auto) 5.7 x10^3uL (1.8-7.7) Lymphocytes # (Auto) 1.9 x10^3/uL (1.0-4.8) Monocytes # (Auto) 0.7 x10^3/uL (0.0-1.1) Eosinophils # (Auto) 0.2 x10^3/uL (0.0-0.7) Basophils # (Auto) 0.1 x10^3/uL (0.0-0.2) Sodium Level 139 mmol/L (136-145) Potassium Level 3.8 mmol/L (3.5-5.1) Chloride Level 101 mmol/L (98-107) Carbon Dioxide Level 30 mmol/L (21-32) Anion Gap 8 (6-14) Blood Urea Nitrogen 18 mg/dL (7-20) Creatinine 0.6 mg/dL (0.6-1.0) Estimated GFR (Cockcroft-Gault) 111.9 Glucose Level 94 mg/dL (70-99) Calcium Level 9.0 mg/dL (8.5-10.1) Troponin I Quantitative < 0.017 ng/mL (0.000-0.055) QG-Ksq-E-Type Natriuretic Peptide 10 pg/mL (0-124) Laboratory Tests 10/06/18 17:15 Laboratory Tests 10/06/18 17:15 EKG EKG 17:[address] Dumont sinus rhythm heart rate 85 no STEMI[] Radiology/Procedures Radiology/Procedures [] Course & Med Decision Making Course & Med Decision Making Pertinent Labs and Imaging studies reviewed. (See chart for details) This is a 38-year-old female patient well known to this ED presenting today complaining of dizziness that began while she was at work. Patient is in no distress smiling and laughing in the room as we speak. EKG was negative, labs are negative Patient was given meclizine. She is also complaining of a tinea cruris she ran out of nystatin, prescription was given, she was also given prescription for meclizine.Follow-up with her PCP Tia Disclaimer Tia Disclaimer This electronic medical record was generated, in whole or in part, using a voice recognition dictation system. Departure Departure Impression: Primary Impression: Tinea cruris Additional Impression: Dizziness Disposition: 01 HOME, SELF-CARE Condition: STABLE Referrals: SHIRLEY MCCABE MD (PCP) follow up in 1 week Patient Instructions: Cutaneous Candidiasis, Dizziness, [id number] Additional Instructions: You were evaluated in the emergency room for dizziness, your workup in the emergency room was negative for any acute findings. We recommend you follow-up with your own primary care doctor. We gave you a prescription for nystatin, use it for the fungal infection. Change positions slowly, take meclizine as needed for dizziness. Push fluids. Change positions slowly. Follow-up with your doctor next week, come back to the ED at any point symptoms worsen. Scripts Meclizine Hcl (MECLIZINE HCL) 25 Mg Tablet 1 TAB PO TID, #20 TAB Prov: RHONDA LAUREANO APRN 10/06/18 Nystatin (NYSTATIN) 15 Gm Cream..g. 1 ALLIE TP TID, #30 GM 2 Refills Prov: HRONDA LAUREANO APRN 10/06/18 Problem Qualifiers RHONDA LAUREANO APRN Oct 06, 2018 17:50
[2018-10-06] MEDS ORDERED: MECL25TA3 PO (18:19)
[2018-10-06] MEDS ORDERED: NYST15CR TP (18:19)
[2018-10-06 19:00] VITALS: BP 106/64
--- NOTE | 2018-10-07 07:01 | EKG ---
[facility] [address] [place] [address] Test Date: 2018-10-06 Test Time: 17:10:16 Pat Name: KAYLENE DANG Department: Room: Gender: F Watch Leader: : 1980 Requested By: RHONDA LAUREANO Order Number: [id number] Reading MD: Kong Smith MD Measurements Intervals [place] Rate: 84 P: 6 NE: 202 QRS: 2 QRSD: 84 T: 13 QT: 416 QTc: 495 Interpretive Statements SINUS RHYTHM NON SPECIFIC T ABNORMALITY Electronically Signed On 10-10-2018 15:53:32 CDT by Kong Smith MD
--- NOTE | 2018-10-07 07:52 | RAD ---
PROCEDURE: PORTABLE CHEST 1V CLINICAL INDICATION: PT STATES DIZZINESS, DENIES TROUBLE BREATHING OR CHEST PAIN. COMPARISON: None FINDINGS: No pneumothorax identified. Cardiac and mediastinal contours unremarkable. No pulmonary consolidation or acute airspace disease. No acute osseous abnormalities identified. IMPRESSION: No pulmonary consolidation or acute airspace disease. Electronically signed by: Stephan Madrigal DO (10/07/2018 7:50 AM) [facility]
== END 2018-10-06 19:09 | disposition home or self-care (01) ==
LOC: ER 16:45
DX: R42 Dizziness and giddiness (principal); B35.6 Tinea cruris; J45.909 Unspecified asthma, uncomplicated; K21.9 Gastro-esophageal reflux disease without esophagitis; I10 Essential (primary) hypertension; G43.909 Migraine, unspecified, not intractable, without status migrainosus; Z91.041 Radiographic dye allergy status; Z88.8 Allergy status to other drugs, medicaments and biological substances
CPT/HCPCS: 36415; 71045; 80048; 80307; 81001; 83880; 84484; 85025; 87086; 93005; 99284; J8597

== ENCOUNTER 2018-11-04 12:35 | Emergency (ER) | payer OTHER ==
[~2018-11-04] VITALS: Ht 165.1 cm; Wt 99.8 kg
[~2018-11-04 12:35] MED LIST changes: +MECL25TA3 PO; +NYST15CR TP
[2018-11-04 14:50] VITALS: BP 112/79
--- NOTE | 2018-11-04 15:44 | PHYS DOC ---
Past Medical History Past Medical History: Anxiety, Arthritis, Asthma, Bronchitis, Depression, GERD , Hypertension, Migraines, Sciatica, Other Additional Past Medical Histor: Adrenal mass,OVARIAN CYST,Scoliosis,PANIC ATTACKS Past Surgical History: Hysterectomy, Tonsillectomy, Tubal ligation, Other Additional Past Surgical Histo: EAR,ADENOIDECTOMY Alcohol Use: None Drug Use: None Adult General Chief Complaint Chief Complaint: COUGH HPI HPI Patient is a 38 year old female with a history of hypertension, depression, anxiety, asthma, who presents with a cough for 1 week. Patient states the cough is productive. Denies any fever. She states she was at work today and EMS was called she was evaluated and they had to send her home. Review of Systems Review of Systems Constitutional: Denies fever or chills [] Eyes: Denies change in visual acuity, redness, or eye pain [] HENT: Denies nasal congestion or sore throat [] Respiratory: Reports a productive cough, denies shortness of breath [] Cardiovascular: No additional information not addressed in HPI [] GI: Denies abdominal pain, nausea, vomiting, bloody stools or diarrhea [] : Denies dysuria or hematuria [] Musculoskeletal: Denies back pain or joint pain [] Integument: Denies rash or skin lesions [] Neurologic: Denies headache, focal weakness or sensory changes [] All other systems were reviewed and found to be within normal limits, except as documented in this note. Allergies Allergies Allergies Coded Allergies Type Severity Reaction Last Updated Verified alcohol Allergy Intermediate Hives 02/02/17 Yes latex Allergy Intermediate Rash 02/02/17 Yes Physical Exam Physical Exam Constitutional: Well developed, well nourished, no acute distress, non-toxic appearance. [] HENT: Normocephalic, atraumatic, bilateral external ears normal, oropharynx moist, no oral exudates, nose normal. [] Eyes: PERRLA, EOMI, conjunctiva normal, no discharge. [] Neck: Normal range of motion, no tenderness, supple, no stridor. [] Cardiovascular:Heart rate regular rhythm, no murmur [] Lungs & Thorax: Bilateral breath sounds clear to auscultation [] Abdomen: Bowel sounds normal, soft, no tenderness, no masses, no pulsatile masses. [] Skin: Warm, dry, no erythema, no rash. [] Back: No tenderness, no CVA tenderness. [] Extremities: No tenderness, no cyanosis, no clubbing, ROM intact, no edema. [] Neurologic: Alert and oriented X 3, normal motor function, normal sensory function, no focal deficits noted. [] Psychologic: Affect normal, judgement normal, mood normal. [] Current Patient Data Vital Signs Vital Signs Date Time Temp Pulse Resp B/P (MAP) Pulse Ox O2 Delivery O2 Flow Rate FiO2 11/04/18 14:50 99.0 78 20 112/79 (90) 97 Room Air 99.0 EKG EKG [] Radiology/Procedures Radiology/Procedures [] Course & Med Decision Making Course & Med Decision Making Pertinent Labs and Imaging studies reviewed. (See chart for details) This is a 38-year-old female patient presenting to the ED today complaining of a productive cough for 1 week. Patient is well known to this ED for multiple visits most of them from work, today she states she was at work EMS was called was evaluated and told everything is okay but came to the ED to be seen. Chest x-ray is negative, discharged to home. Follow-up with PCP in 1-2 weeks. Dragon Disclaimer Dragon Disclaimer This electronic medical record was generated, in whole or in part, using a voice recognition dictation system. Departure Departure Impression: Primary Impression: Cough Disposition: 01 HOME, SELF-CARE Condition: STABLE Referrals: SHIRLEY MCCABE MD (PCP) Follow-up in 1-2 weeks Patient Instructions: Cough, Adult, [id number] Additional Instructions: You were evaluated in the emergency room for cough. You can take over-the- counter remedies as needed. Follow-up with your doctor in 1-2 weeks. RHONDA LAUREANO APRN Nov 04, 2018 15:44
--- NOTE | 2018-11-04 15:59 | RAD ---
EXAM: Chest, 2 views. HISTORY: Cough and fever. COMPARISON: 10/06/2018 FINDINGS: 2 views the chest are obtained. There is no infiltrate, pleural effusion or pneumothorax. The heart is normal in size. IMPRESSION: No acute pulmonary finding. Electronically signed by: Alyl Mckeon MD (11/04/2018 3:56 PM) [id number]
== END 2018-11-04 16:40 | disposition home or self-care (01) ==
LOC: ER 12:35
DX: R05 Cough (principal); J45.909 Unspecified asthma, uncomplicated; I10 Essential (primary) hypertension; K21.9 Gastro-esophageal reflux disease without esophagitis; G43.909 Migraine, unspecified, not intractable, without status migrainosus; Z91.040 Latex allergy status; Z88.8 Allergy status to other drugs, medicaments and biological substances
CPT/HCPCS: 71046; 99284

== ENCOUNTER → 2018-11-25 | Outpatient (CLI) | payer OTHER ==
[2018-11-04 14:50] VITALS: BP 112/79
--- NOTE | 2018-11-25 08:34 | RAD ---
Abdominal ultrasound, 11/25/2018: HISTORY: Right upper quadrant pain, left lower quadrant pain The gallbladder is not well distended. No gallstones are seen. The common hepatic duct is of normal caliber. The hepatic echogenicity is diffusely increased, most commonly due to fatty change. There is no evidence of a hepatic mass. The visualized portions of the pancreas and both kidneys are unremarkable. The spleen is of normal size. The upper abdominal aorta and inferior vena cava are unremarkable. Inferiorly those vessels are largely obscured by overlying bowel. No free fluid is evident in the abdomen. IMPRESSION: 1. Increased hepatic echogenicity suggesting hepatic steatosis. 2. The abdomen is otherwise unremarkable. Electronically signed by: Tate Antonio MD (11/25/2018 8:31 AM) [facility]
== END | disposition home or self-care (01) ==
LOC: US 06:14
PROVIDERS: ATTEND Family Medicine
DX: K76.0 Fatty (change of) liver, not elsewhere classified (principal)
CPT/HCPCS: 76700

== ENCOUNTER 2018-12-01 16:35 | Emergency (ER) | payer OTHER ==
[~2018-12-01] VITALS: Ht 165.1 cm; Wt 104.3 kg
[2018-12-01] MEDS ORDERED: ASPIRIN 325 MG TABLET PO ONE (17:00)
--- NOTE | 2018-12-01 17:02 | PHYS DOC ---
Past Medical History Past Medical History: Anxiety, Arthritis, Asthma, Bronchitis, Depression, GERD, Hypertension, Migraines, Sciatica, Other Additional Past Medical Histor: Adrenal mass,OVARIAN CYST,Scoliosis,PANIC ATTACKS (RHONDA LAUREANO APRN) Past Surgical History: Hysterectomy, Tonsillectomy, Tubal ligation, Other Additional Past Surgical Histo: EAR,ADENOIDECTOMY (RHONDA LAUREANO APRN) Alcohol Use: None Drug Use: None (RHONDA LAUREANO APRN) Smoking: Quit Greater Than 1 Year (JAY ARREDONDO DO) Adult General Chief Complaint Chief Complaint: CHEST PAIN HPI HPI Patient is a 38 year old female with history of hypertension, anxiety, depression, acid reflex who presents to the ED today complaining of a 9 out of 10 sharp intermittent right chest pain that began while she was at work. Patient denies anything specific exacerbating or relieving the pain. Patient denies the pain radiating anywhere. She is well known to this ED for going to work and coming to be checked out for medical complaints. (RHONDA LAUREANO APRN) Review of Systems Review of Systems Constitutional: Denies fever or chills [] Eyes: Denies change in visual acuity, redness, or eye pain [] HENT: Denies nasal congestion or sore throat [] Respiratory: Denies cough or shortness of breath [] Cardiovascular: Reports right-sided chest pain GI: Denies abdominal pain, nausea, vomiting, bloody stools or diarrhea [] : Denies dysuria or hematuria [] Musculoskeletal: Denies back pain or joint pain [] Integument: Denies rash or skin lesions [] Neurologic: Denies headache, focal weakness or sensory changes [] All other systems were reviewed and found to be within normal limits, except as documented in this note. (RHONDA LAUREANO APRN) Current Medications Current Medications Current Medications Medications (Trade) Dose Ordered Sig/Americo Start Time Stop Time Status Last Admin Dose Admin Aspirin (Harriet Aspirin) 325 mg 1X ONCE 12/01/18 17:00 12/01/18 17:01 DC 12/01/18 17:06 325 MG Potassium Chloride (Klor-Con) 20 meq 1X ONCE 12/01/18 18:30 12/01/18 18:31 DC 12/01/18 18:52 20 MEQ (JAY ARREDONDO DO) Allergies Allergies Allergies Coded Allergies Type Severity Reaction Last Updated Verified alcohol Allergy Intermediate Hives 02/02/17 Yes latex Allergy Intermediate Rash 02/02/17 Yes (JAY ARREDONDO DO) Physical Exam Physical Exam Constitutional: Well developed, well nourished, no acute distress, non-toxic appearance. [] HENT: Normocephalic, atraumatic, bilateral external ears normal, oropharynx moist, no oral exudates, nose normal. [] Eyes: PERRLA, EOMI, conjunctiva normal, no discharge. [] Neck: Normal range of motion, no tenderness, supple, no stridor. [] Cardiovascular:Heart rate regular rhythm, no murmur [] Lungs & Thorax: Bilateral breath sounds clear to auscultation [] Abdomen: Bowel sounds normal, soft, no tenderness, no masses, no pulsatile masses. [] Skin: Warm, dry, no erythema, no rash. [] Back: No tenderness, no CVA tenderness. [] Extremities: No tenderness, no cyanosis, no clubbing, ROM intact, no edema. [] Neurologic: Alert and oriented X 3, normal motor function, normal sensory function, no focal deficits noted. [] Psychologic: Affect normal, judgement normal, mood normal. [] (RHONDA LAUREANO APRN) Current Patient Data Vital Signs Vital Signs Date Time Temp Pulse Resp B/P (MAP) Pulse Ox O2 Delivery O2 Flow Rate FiO2 12/01/18 19:04 68 17 125/73 (90) 100 Nasal Cannula 2.0 12/01/18 16:35 98.0 98.0 (JAY ARREDONDO DO) Lab Values Laboratory Tests Test 12/01/18 17:10 12/01/18 17:57 White Blood Count 5.9 x10^3/uL (4.0-11.0) Red Blood Count 4.20 x10^6/uL (3.50-5.40) Hemoglobin 12.5 g/dL (12.0-15.5) Hematocrit 37.9 % (36.0-47.0) Mean Corpuscular Volume 90 fL (79-100) Mean Corpuscular Hemoglobin 30 pg (25-35) Mean Corpuscular Hemoglobin Concent 33 g/dL (31-37) Red Cell Distribution Width 12.9 % (11.5-14.5) Platelet Count 345 x10^3/uL (140-400) Neutrophils (%) (Auto) 55 % (31-73) Lymphocytes (%) (Auto) 33 % (24-48) Monocytes (%) (Auto) 8 % (0-9) Eosinophils (%) (Auto) 3 % (0-3) Basophils (%) (Auto) 1 % (0-3) Neutrophils # (Auto) 3.2 x10^3uL (1.8-7.7) Lymphocytes # (Auto) 2.0 x10^3/uL (1.0-4.8) Monocytes # (Auto) 0.5 x10^3/uL (0.0-1.1) Eosinophils # (Auto) 0.2 x10^3/uL (0.0-0.7) Basophils # (Auto) 0.1 x10^3/uL (0.0-0.2) Prothrombin Time 12.8 SEC (11.7-14.0) Prothrombin Time INR 1.0 (0.8-1.1) PTT 33 SEC (24-38) Sodium Level 142 mmol/L (136-145) Potassium Level 3.3 mmol/L (3.5-5.1) L Chloride Level 103 mmol/L (98-107) Carbon Dioxide Level 29 mmol/L (21-32) Anion Gap 10 (6-14) Blood Urea Nitrogen 15 mg/dL (7-20) Creatinine 0.7 mg/dL (0.6-1.0) Estimated GFR (Cockcroft-Gault) 93.6 BUN/Creatinine Ratio 21 (6-20) H Glucose Level 94 mg/dL (70-99) Calcium Level 8.7 mg/dL (8.5-10.1) Magnesium Level 1.9 mg/dL (1.8-2.4) Total Bilirubin 0.3 mg/dL (0.2-1.0) Aspartate Amino Transferase (AST) 11 U/L (15-37) L Alanine Aminotransferase (ALT) 19 U/L (14-59) Alkaline Phosphatase 55 U/L (46-116) Creatine Kinase 76 U/L (26-192) Creatine Kinase MB (Mass) 1.4 ng/mL (0.0-3.6) Creatine Kinase MB Relative Index 1.8 % (0-4) Troponin I Quantitative < 0.017 ng/mL (0.000-0.055) OC-Eux-O-Type Natriuretic Peptide 24 pg/mL (0-124) Total Protein 6.9 g/dL (6.4-8.2) Albumin 3.8 g/dL (3.4-5.0) Albumin/Globulin Ratio 1.2 (1.0-1.7) Thyroid Stimulating Hormone (TSH) 1.126 uIU/mL (0.358-3.74) Urine Opiates Screen Neg (NEG) Urine Methadone Screen Neg (NEG) Urine Barbiturates Neg (NEG) Urine Phencyclidine Screen Neg (NEG) Urine Amphetamine/Methamphetamine Neg (NEG) Urine Benzodiazepines Screen Neg (NEG) Urine Cocaine Screen Neg (NEG) Urine Cannabinoids Screen Neg (NEG) Urine Ethyl Alcohol Neg (NEG) Laboratory Tests 12/01/18 17:10 Laboratory Tests 12/01/18 17:10 (JAY ARREDONDO DO) Lab Values Laboratory Tests Test 12/01/18 17:10 12/01/18 17:57 White Blood Count 5.9 x10^3/uL (4.0-11.0) Red Blood Count 4.20 x10^6/uL (3.50-5.40) Hemoglobin 12.5 g/dL (12.0-15.5) Hematocrit 37.9 % (36.0-47.0) Mean Corpuscular Volume 90 fL (79-100) Mean Corpuscular Hemoglobin 30 pg (25-35) Mean Corpuscular Hemoglobin Concent 33 g/dL (31-37) Red Cell Distribution Width 12.9 % (11.5-14.5) Platelet Count 345 x10^3/uL (140-400) Neutrophils (%) (Auto) 55 % (31-73) Lymphocytes (%) (Auto) 33 % (24-48) Monocytes (%) (Auto) 8 % (0-9) Eosinophils (%) (Auto) 3 % (0-3) Basophils (%) (Auto) 1 % (0-3) Neutrophils # (Auto) 3.2 x10^3uL (1.8-7.7) Lymphocytes # (Auto) 2.0 x10^3/uL (1.0-4.8) Monocytes # (Auto) 0.5 x10^3/uL (0.0-1.1) Eosinophils # (Auto) 0.2 x10^3/uL (0.0-0.7) Basophils # (Auto) 0.1 x10^3/uL (0.0-0.2) Prothrombin Time 12.8 SEC (11.7-14.0) Prothrombin Time INR 1.0 (0.8-1.1) PTT 33 SEC (24-38) Sodium Level 142 mmol/L (136-145) Potassium Level 3.3 mmol/L (3.5-5.1) L Chloride Level 103 mmol/L (98-107) Carbon Dioxide Level 29 mmol/L (21-32) Anion Gap 10 (6-14) Blood Urea Nitrogen 15 mg/dL (7-20) Creatinine 0.7 mg/dL (0.6-1.0) Estimated GFR (Cockcroft-Gault) 93.6 BUN/Creatinine Ratio 21 (6-20) H Glucose Level 94 mg/dL (70-99) Calcium Level 8.7 mg/dL (8.5-10.1) Magnesium Level 1.9 mg/dL (1.8-2.4) Total Bilirubin 0.3 mg/dL (0.2-1.0) Aspartate Amino Transferase (AST) 11 U/L (15-37) L Alanine Aminotransferase (ALT) 19 U/L (14-59) Alkaline Phosphatase 55 U/L (46-116) Creatine Kinase 76 U/L (26-192) Creatine Kinase MB (Mass) 1.4 ng/mL (0.0-3.6) Creatine Kinase MB Relative Index 1.8 % (0-4) Troponin I Quantitative < 0.017 ng/mL (0.000-0.055) UI-Obx-B-Type Natriuretic Peptide 24 pg/mL (0-124) Total Protein 6.9 g/dL (6.4-8.2) Albumin 3.8 g/dL (3.4-5.0) Albumin/Globulin Ratio 1.2 (1.0-1.7) Thyroid Stimulating Hormone (TSH) 1.126 uIU/mL (0.358-3.74) Urine Opiates Screen Neg (NEG) Urine Methadone Screen Neg (NEG) Urine Barbiturates Neg (NEG) Urine Phencyclidine Screen Neg (NEG) Urine Amphetamine/Methamphetamine Neg (NEG) Urine Benzodiazepines Screen Neg (NEG) Urine Cocaine Screen Neg (NEG) Urine Cannabinoids Screen Neg (NEG) Urine Ethyl Alcohol Neg (NEG) Laboratory Tests 12/01/18 17:10 Laboratory Tests 12/01/18 17:10 (RHONDA LAUREANO APRN) EKG EKG 16:46 Interpreted by sinus rhythm HR 66 no STEMI[] (RHONDA LAUREANO APRN) Radiology/Procedures Radiology/Procedures []PROCEDURE: PORTABLE CHEST 1V PORTABLE CHEST 1V History: Chest pain.. Comparison with November 04, 2018. Heart size is not enlarged. No pneumothorax, pleural effusion or consolidating infiltrate. Bones appear intact. IMPRESSION: No consolidating infiltrate. Electronically signed by: Jay Browne MD (12/01/2018 5:52 PM) [facility] DICTATED and SIGNED BY: JAY BROWNE MD DATE: 12/01/181751 (RHONDA LAUREANO APRN) Course & Med Decision Making Course & Med Decision Making Pertinent Labs and Imaging studies reviewed. (See chart for details) This is a 38-year-old female patient well known to this ED presenting today for right-sided chest pain that began while at work. She somehow tends to have medical complaints when she is at work and has to come to the ED to be evaluated. Patient's vitals are normal on arrival to the ED. Lab work with no acute findings other than K of 3.3 given 20 meq of k discussed dietary K measures including eating bananas. EKG troponin chest x-ray and normal. Heart Score 1 Patient was discharged to home. Follow-up with her own PCP and process engineering intern in the course of this week. (RHONDA LAUREANO APRN) Dragon Disclaimer Dragon Disclaimer This electronic medical record was generated, in whole or in part, using a voice recognition dictation system. (RHONDA LAUREANO APRN) Departure Departure Impression: Primary Impression: Chest pain Disposition: HOME, SELF-CARE Condition: STABLE Referrals: SHIRLEY MCCABE MD (PCP) follow up in 1 week LYNDSAY RODNEY MD follow up in 1 week Patient Instructions: Chest Pain (Nonspecific) Additional Instructions: You were evaluated in the emergency room for chest pain, your cardiac workup is negative. Please follow-up with the primary care doctor as well as the process engineering intern provided in the course of this week. Your blood glucose 94 which is good. PERC Rule for PE PERC Rule for PE Response (Comments) Value Age > 50: No 0 HR > 100: No 0 Sa02 on room air <95%: No 0 Unilateral leg swelling: No 0 Hemoptysis: No 0 Recent surgery or trauma: No 0 Prior PE or DVT: No 0 Hormone use: No 0 Total 0 The HEART Score for CP Pts HEART Score for Chest Pain: HEART Score for Chest Pain Response (Comments) Value History Slighlty/Non-Suspicious 0 ECG Normal 0 Age < 45 0 Risk Factors 1 or 2 Risk Factors 1 Troponin < Normal Limit 0 Total 1 Risk Factors: Risk Factors: DM, Current or recent (<one month) smoker, HTN, HLP, family history of CAD, obesity. Risk Scores: Score 0 - 3: 2.5% MACE over next 6 weeks - Discharge Home Score 4 - 6: 20.3% MACE over next 6 weeks - Admit for Clinical Observation Score 7 - 10: 72.7% MACE over next 6 weeks - Early Invasive Strategies (JAY ARREDONDO DO) Attending Signature Attending Signature I have reviewed the PA/CRYSTAL ATTACHER's note and plan of care. I was available for consultation as needed during the patient's visit in the emergency department. I agree with the clinical impression, plan, and disposition. (JAY ARREDONDO DO) Problem Qualifiers Primary Impression: Chest pain Chest pain type: unspecified Qualified Codes: R07.9 - Chest pain, unspecified GEORGIRHONDA OVALLE December 01, 2018 17:02 JAY ARREDONDO DO December 03, 2018 01:50
[2018-12-01 17:25] LABS: BASO # 0.1 x10^3/uL (0.0-0.2); BASO % 1 % (0-3); EOS # 0.2 x10^3/uL (0.0-0.7); EOS % 3 % (0-3); HEMATOCRIT 37.9 % (36.0-47.0); HEMOGLOBIN 12.5 g/dL (12.0-15.5); LYMPH % 33 % (24-48); MEAN CORPUSCULAR HEMOGLOBIN 30 pg (25-35); MEAN CORPUSCULAR HGB CONC 33 g/dL (31-37); MEAN CORPUSCULAR VOLUME 90 fL (79-100); MONO # 0.5 x10^3/uL (0.0-1.1); MONO % 8 % (0-9); NEUT # 3.2 x10^3uL (1.8-7.7); NEUT % 55 % (31-73); PLATELET COUNT 345 x10^3/uL (140-400); RED CELL DISTRIBUTION WIDTH 12.9 % (11.5-14.5); WHITE BLOOD COUNT 5.9 x10^3/uL (4.0-11.0)
[2018-12-01 17:35] LABS: PROTHROMBIN TIME PATIENT 12.8 SEC (11.7-14.0)
[2018-12-01 17:39] LABS: CALCIUM 8.7 mg/dL (8.5-10.1); CREATININE 0.7 mg/dL (0.6-1.0); GFR 93.6; POTASSIUM 3.3 mmol/L (3.5-5.1)
[2018-12-01 17:46] LABS: ALBUMIN 3.8 g/dL (3.4-5.0); ALBUMIN/GLOBULIN RATIO 1.2 (1.0-1.7); MAGNESIUM 1.9 mg/dL (1.8-2.4); TOTAL BILIRUBIN 0.3 mg/dL (0.2-1.0); TOTAL PROTEIN 6.9 g/dL (6.4-8.2)
--- NOTE | 2018-12-01 17:54 | RAD ---
PORTABLE CHEST 1V History: Chest pain.. Comparison with November 04, 2018. Heart size is not enlarged. No pneumothorax, pleural effusion or consolidating infiltrate. Bones appear intact. IMPRESSION: No consolidating infiltrate. Electronically signed by: Jay Browne MD (12/01/2018 5:52 PM) [facility]
[2018-12-01 18:15] LABS: BARBITURATES NEG (NEG); BENZODIAZEPINES NEG (NEG); CANNABINOIDS NEG (NEG); COCAINE NEG (NEG); METHADONE NEG (NEG); OPIATES NEG (NEG); PHENCYCLIDINE NEG (NEG)
[2018-12-01 18:16] LABS: AMPHETAMINE/METHAMPHETAMINE NEG (NEG)
[2018-12-01] MEDS ORDERED: POTASSIUM CHLORIDE 20 MEQ TABLET.ER. PO ONE (18:30)
[2018-12-01 19:04] VITALS: BP 125/73
--- NOTE | 2018-12-02 07:56 | EKG ---
[facility] [address] [place] [address] Test Date: 2018-12-01 Test Time: 16:46:48 Pat Name: KAYLENE DANG Department: Room: Gender: F User Support Specialist: : 1980 Requested By: RHONDA LAUREANO Order Number: [id number] Reading MD: Kong Smith MD Measurements Intervals [place] Rate: 66 P: 38 [place]: 216 QRS: 9 QRSD: 90 T: 21 QT: 438 QTc: 461 Interpretive Statements SINUS RHYTHM Electronically Signed On 12-26-2018 15:06:29 CDT by Kong Smith MD
== END 2018-12-01 19:07 | disposition home or self-care (01) ==
LOC: ER 16:35
DX: R07.89 Other chest pain (principal); I10 Essential (primary) hypertension; F41.9 Anxiety disorder, unspecified; F32.9 Major depressive disorder, single episode, unspecified; K21.9 Gastro-esophageal reflux disease without esophagitis; M19.90 Unspecified osteoarthritis, unspecified site; J45.909 Unspecified asthma, uncomplicated; G43.909 Migraine, unspecified, not intractable, without status migrainosus; Z87.891 Personal history of nicotine dependence; Z91.040 Latex allergy status; Z91.048 Other nonmedicinal substance allergy status; Z79.82 Long term (current) use of aspirin
CPT/HCPCS: 36415; 71045; 80053; 80307; 82553; 83735; 83880; 84443; 84484; 85025; 85610; 85730; 93005; 99285

== ENCOUNTER 2018-12-08 17:39 | Emergency (ER) | payer OTHER ==
[~2018-12-08] VITALS: Ht 165.1 cm; Wt 103.0 kg
[2018-12-08 18:24] LABS: BASO # 0.1 x10^3/uL (0.0-0.2); BASO % 1 % (0-3); EOS # 0.2 x10^3/uL (0.0-0.7); EOS % 3 % (0-3); HEMATOCRIT 41.2 % (36.0-47.0); HEMOGLOBIN 13.8 g/dL (12.0-15.5); LYMPH # 2.3 x10^3/uL (1.0-4.8); LYMPH % 34 % (24-48); MEAN CORPUSCULAR HEMOGLOBIN 30 pg (25-35); MEAN CORPUSCULAR HGB CONC 34 g/dL (31-37); MEAN CORPUSCULAR VOLUME 90 fL (79-100); MONO # 0.5 x10^3/uL (0.0-1.1); MONO % 7 % (0-9); NEUT # 3.7 x10^3uL (1.8-7.7); NEUT % 55 % (31-73); PLATELET COUNT 334 x10^3/uL (140-400); RED CELL DISTRIBUTION WIDTH 13.2 % (11.5-14.5); WHITE BLOOD COUNT 6.8 x10^3/uL (4.0-11.0)
[2018-12-08 18:38] LABS: CREATININE 0.7 mg/dL (0.6-1.0); GFR 93.6; POTASSIUM 3.6 mmol/L (3.5-5.1)
[2018-12-08 18:42] LABS: BARBITURATES NEG (NEG); BENZODIAZEPINES NEG (NEG); CANNABINOIDS NEG (NEG); COCAINE NEG (NEG); METHADONE NEG (NEG); OPIATES NEG (NEG); PHENCYCLIDINE NEG (NEG)
[2018-12-08 18:45] LABS: AMPHETAMINE/METHAMPHETAMINE NEG (NEG)
[2018-12-08 19:16] VITALS: BP 119/63
--- NOTE | 2018-12-08 19:33 | PHYS DOC ---
Past Medical History Past Medical History: Anxiety, Arthritis, Asthma, Bronchitis, Depression, GERD, Hypertension, Migraines, Sciatica, Other Additional Past Medical Histor: Adrenal mass,OVARIAN CYST,Scoliosis,PANIC ATTACKS (RHONDA LAUREANO APRN) Past Surgical History: Hysterectomy, Tonsillectomy, Tubal ligation, Other Additional Past Surgical Histo: EAR,ADENOIDECTOMY (RHONDA LAUREANO APRN) Alcohol Use: None Drug Use: None (RHONDA LAUREANO APRN) Adult General Chief Complaint Chief Complaint: CHEST WALL PAIN HPI HPI Patient is a 38 year old female with a history of hypertension, anxiety, depression, who presents again from work complaining of 8 out of 10 generalized chest pain that began while working at [employer]. 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 She states her fingers went numb bilaterally as well as her toes. Patient states they had to call 911 to bring her to the hospital. Patient denies any shortness of breath. She states her symptoms already relieved. She is well known to this ED for similar complaints from work. (RHONDA LAUREANO APRN) Review of Systems Review of Systems Constitutional: Denies fever or chills [] Eyes: Denies change in visual acuity, redness, or eye pain [] HENT: Denies nasal congestion or sore throat [] Respiratory: Denies cough or shortness of breath [] Cardiovascular: Reports chest pain GI: Denies abdominal pain, nausea, vomiting, bloody stools or diarrhea [] : Denies dysuria or hematuria [] Musculoskeletal: Denies back pain or joint pain [] Integument: Denies rash or skin lesions [] Neurologic: Denies headache, focal weakness or sensory changes [] All other systems were reviewed and found to be within normal limits, except as documented in this note. (RHONDA LAUREANO APRN) Allergies Allergies Allergies Coded Allergies Type Severity Reaction Last Updated Verified alcohol Allergy Intermediate Hives 02/02/17 Yes latex Allergy Intermediate Rash 02/02/17 Yes (JOYCELYN ARREDONDO DO) Physical Exam Physical Exam Constitutional: Well developed, well nourished, no acute distress, non-toxic appearance. [] HENT: Normocephalic, atraumatic, bilateral external ears normal, oropharynx moist, no oral exudates, nose normal. [] Eyes: PERRLA, EOMI, conjunctiva normal, no discharge. [] Neck: Normal range of motion, no tenderness, supple, no stridor. [] Cardiovascular:Heart rate regular rhythm, no murmur [] Lungs & Thorax: Bilateral breath sounds clear to auscultation [] Abdomen: Bowel sounds normal, soft, no tenderness, no masses, no pulsatile masses. [] Skin: Warm, dry, no erythema, no rash. [] Back: No tenderness, no CVA tenderness. [] Extremities: No tenderness, no cyanosis, no clubbing, ROM intact, no edema. [] Neurologic: Alert and oriented X 3, normal motor function, normal sensory function, no focal deficits noted. [] Psychologic: Affect normal, judgement normal, mood normal. [] (RHONDA LAUREANO APRN) Current Patient Data Vital Signs Vital Signs Date Time Temp Pulse Resp B/P (MAP) Pulse Ox O2 Delivery O2 Flow Rate FiO2 12/08/18 19:16 68 119/63 (81) 99 Room Air 12/08/18 17:45 98.4 20 98.4 (ARREDONDOJOYCELYN POLLOCK DO) Lab Values Laboratory Tests Test 12/08/18 17:50 12/08/18 18:00 White Blood Count 6.8 x10^3/uL (4.0-11.0) Red Blood Count 4.60 x10^6/uL (3.50-5.40) Hemoglobin 13.8 g/dL (12.0-15.5) Hematocrit 41.2 % (36.0-47.0) Mean Corpuscular Volume 90 fL (79-100) Mean Corpuscular Hemoglobin 30 pg (25-35) Mean Corpuscular Hemoglobin Concent 34 g/dL (31-37) Red Cell Distribution Width 13.2 % (11.5-14.5) Platelet Count 334 x10^3/uL (140-400) Neutrophils (%) (Auto) 55 % (31-73) Lymphocytes (%) (Auto) 34 % (24-48) Monocytes (%) (Auto) 7 % (0-9) Eosinophils (%) (Auto) 3 % (0-3) Basophils (%) (Auto) 1 % (0-3) Neutrophils # (Auto) 3.7 x10^3uL (1.8-7.7) Lymphocytes # (Auto) 2.3 x10^3/uL (1.0-4.8) Monocytes # (Auto) 0.5 x10^3/uL (0.0-1.1) Eosinophils # (Auto) 0.2 x10^3/uL (0.0-0.7) Basophils # (Auto) 0.1 x10^3/uL (0.0-0.2) Sodium Level 139 mmol/L (136-145) Potassium Level 3.6 mmol/L (3.5-5.1) Chloride Level 104 mmol/L (98-107) Carbon Dioxide Level 25 mmol/L (21-32) Anion Gap 10 (6-14) Blood Urea Nitrogen 11 mg/dL (7-20) Creatinine 0.7 mg/dL (0.6-1.0) Estimated GFR (Cockcroft-Gault) 93.6 Glucose Level 97 mg/dL (70-99) Calcium Level 9.0 mg/dL (8.5-10.1) Troponin I Quantitative < 0.017 ng/mL (0.000-0.055) Ethyl Alcohol Level < 10 mg/dL (0-10) Urine Opiates Screen Neg (NEG) Urine Methadone Screen Neg (NEG) Urine Barbiturates Neg (NEG) Urine Phencyclidine Screen Neg (NEG) Urine Amphetamine/Methamphetamine Neg (NEG) Urine Benzodiazepines Screen Neg (NEG) Urine Cocaine Screen Neg (NEG) Urine Cannabinoids Screen Neg (NEG) Urine Ethyl Alcohol Neg (NEG) Laboratory Tests 12/08/18 17:50 Laboratory Tests 12/08/18 17:50 (JOYCELYN ARREDONDO DO) EKG EKG 17:47 Interpreted by sinus rhythm HR 75 no STEMI[] (RHONDA LAUREANO APRN) Radiology/Procedures Radiology/Procedures [] (RHONDA LAUREANO APRN) Course & Med Decision Making Course & Med Decision Making Pertinent Labs and Imaging studies reviewed. (See chart for details) This is a 38-year-old female patient well known to this ED presenting for chest pain that began while at work, patient is known to go to work and end up with chest pain and anxiety symptoms and usually has to be brought to the ED. Her wo rkup is reassuring, there is no acute finding on the cardiac workup. Encouraged to follow up with her PCP aerobics instructor and possibly [facility] for anxiety. (RHONDA LAUREANO APRN) Dragon Disclaimer Dragon Disclaimer This electronic medical record was generated, in whole or in part, using a voice recognition dictation system. (RHONDA LAUREANO APRN) Departure Departure Impression: Primary Impression: Chest pain Additional Impression: Anxiety Disposition: HOME, SELF-CARE Condition: STABLE Referrals: SHIRLEY MCCABE MD (PCP) follow up in 1 week Patient Instructions: Anxiety and Panic Attacks, Chest Pain (Nonspecific) Additional Instructions: You were evaluated in the emergency room for chest pain. Your cardiac workup is negative. Follow-up with your doctor. Consider following up with [facility] for anxiety. Attending Signature Attending Signature I have reviewed the PA/CASTING MACHINE ADJUSTER's note and plan of care. I was available for consultation as needed during the patient's visit in the emergency department. I agree with the clinical impression, plan, and disposition. (JOYCELYN ARREDONDO DO) Problem Qualifiers Primary Impression: Chest pain Chest pain type: unspecified Qualified Codes: R07.9 - Chest pain, unspecified RHONDA LAUREANO APRN December 08, 2018 19:33 JOYCELYN ARREDONDO DO December 09, 2018 05:19
--- NOTE | 2018-12-09 01:16 | RAD ---
Portable AP chest. HISTORY: Chest pain AP view was taken of the chest. Lungs are clear. Heart is normal in size without heart failure. There is no pleural effusion. IMPRESSION: 1. No acute chest disease. Electronically signed by: Gucci Rod MD (12/09/2018 1:13 AM) [facility]
--- NOTE | 2018-12-09 08:43 | EKG ---
[facility] [address] [place] [address] Test Date: 2018-12-08 Test Time: 17:47:03 Pat Name: KAYLENE DANG Department: Room: Gender: F Real Estate Investment Analyst: : 1980 Requested By: RHONDA LAUREANO Order Number: [id number] Reading MD: Leonardo Fernando Measurements Intervals [place] Rate: 75 P: 15 MS: 198 QRS: 6 QRSD: 80 T: 16 QT: 398 QTc: 447 Interpretive Statements SINUS RHYTHM LEFT ATRIAL ABNORMALITY Electronically Signed On 12-27-2018 12:50:16 CDT by Leonardo Fernando
== END 2018-12-08 19:44 | disposition home or self-care (01) ==
LOC: ER 17:39
DX: R07.89 Other chest pain (principal); F41.9 Anxiety disorder, unspecified; R20.0 Anesthesia of skin; M54.9 Dorsalgia, unspecified; J45.909 Unspecified asthma, uncomplicated; K21.9 Gastro-esophageal reflux disease without esophagitis; I10 Essential (primary) hypertension; F32.9 Major depressive disorder, single episode, unspecified; G43.909 Migraine, unspecified, not intractable, without status migrainosus; Z91.040 Latex allergy status; Z88.8 Allergy status to other drugs, medicaments and biological substances
CPT/HCPCS: 36415; 71045; 80048; 80307; 84484; 85025; 93005; 99285; G0480

== ENCOUNTER → 2018-12-12 | Outpatient (CLI) | payer OTHER ==
[2018-12-08 19:16] VITALS: BP 119/63
[~2018-12-12] MED LIST changes: +SINCALIDE 2 MCG in IV NORMAL SALINE 50ML 30 ML IV ONE
--- NOTE | 2018-12-12 13:55 | RAD ---
Radionuclide hepatobiliary scan with gallbladder ejection fraction, 12/12/2018: HISTORY: Right upper quadrant abdominal pain Following IV injection of 6 mCi of technetium 99m Choletec there was prompt uptake of the radionuclide from the blood stream by the liver. Activity is present in the gallbladder and bile ducts at 10 minutes. Over the first hour there is increasing activity in the gallbladder without extension into the small bowel. This is not abnormal. Additional imaging was then performed following IV injection of 1 mcg of cholecystokinin. There is good gallbladder emptying with extension of activity into the small bowel. The gallbladder ejection fraction was calculated at 89 percent. IMPRESSION: 1. Normal radionuclide hepatobiliary scan. 2. The gallbladder ejection fraction is 89 percent. Electronically signed by: Tate Antonio MD (12/12/2018 1:53 PM) [facility]
== END | disposition home or self-care (01) ==
LOC: NM 11:08
PROVIDERS: ATTEND Family Medicine
DX: R10.11 Right upper quadrant pain (principal)
CPT/HCPCS: 78227; A9537; J2805

== ENCOUNTER 2018-12-26 23:35 | Emergency (ER) | payer MEDICAID, OTHER ==
[~2018-12-26] VITALS: Ht 165.1 cm; Wt 102.1 kg
[~2018-12-26 23:35] MED LIST changes: -SINCALIDE 2 MCG in IV NORMAL SALINE 50ML 30 ML IV ONE
[2018-12-26 23:58] LABS: BILIRUBIN,URINE NEGATIVE (NEG); CLARITY,URINE CLEAR; COLOR,URINE YELLOW; NITRITE,URINE NEGATIVE (NEG); PROTEIN,URINE NEGATIVE (NEG-TRACE)
[2018-12-27 00:05] VITALS: BP 117/64
--- NOTE | 2018-12-27 00:11 | PHYS DOC ---
Past Medical History Past Medical History: Anxiety, Arthritis, Asthma, Bronchitis, Depression, GERD, Hypertension, Migraines, Sciatica, Other Additional Past Medical Histor: Adrenal mass,OVARIAN CYST,Scoliosis,PANIC ATTACKS Past Surgical History: Hysterectomy, Tonsillectomy, Tubal ligation, Other Additional Past Surgical Histo: EAR,ADENOIDECTOMY Smoking: Cigarettes, Less than 1pk/day Alcohol Use: None Drug Use: None Adult General Chief Complaint Chief Complaint: LOWER BACK PAIN OR INJURY HPI HPI Patient is a 38 year old female who presents with chronic back pain that radiates down her right leg. The patient states that it has gotten worse in the last 3 days but has been ongoing for 2 years. States her pain is 10/10 and sharp. No interventions prior to arrival. Has seen pain management for chronic pain. Review of Systems Review of Systems Constitutional: Denies fever or chills [] Eyes: Denies change in visual acuity, redness, or eye pain [] HENT: Denies nasal congestion or sore throat [] Respiratory: Denies cough or shortness of breath [] Cardiovascular: No additional information not addressed in HPI [] GI: Denies abdominal pain, nausea, vomiting, bloody stools or diarrhea [] : Denies dysuria or hematuria [] Musculoskeletal: Reports back pain that radiates down the right leg or joint pain [] Integument: Denies rash or skin lesions [] Neurologic: Denies headache, focal weakness or sensory changes [] Endocrine: Denies polyuria or polydipsia [] Complete systems were reviewed and found to be within normal limits, except as documented in this note. Current Medications Current Medications Current Medications Medications (Trade) Dose Ordered Sig/[facility] Start Time Stop Time Status Last Admin Dose Admin Cyclobenzaprine HCl (Flexeril) 10 mg 1X ONCE 12/27/18 00:15 12/27/18 00:16 DC 12/27/18 00:13 10 MG Allergies Allergies Allergies Coded Allergies Type Severity Reaction Last Updated Verified alcohol Allergy Intermediate Hives 02/02/17 Yes latex Allergy Intermediate Rash 02/02/17 Yes Physical Exam Physical Exam Constitutional: Well developed, well nourished, no acute distress, non-toxic appearance. [] HENT: Normocephalic, atraumatic, bilateral external ears normal, oropharynx moist, no oral exudates, nose normal. [] Eyes: PERRLA, EOMI, conjunctiva normal, no discharge. [] Neck: Normal range of motion, no tenderness, supple, no stridor. [] Cardiovascular:Heart rate regular rhythm, no murmur [] Lungs & Thorax: Bilateral breath sounds clear to auscultation [] Abdomen: Bowel sounds normal, soft, no tenderness, no masses, no pulsatile masses. [] Skin: Warm, dry, no erythema, no rash. [] Back: Tenderness, no CVA tenderness. [] Extremities: No tenderness, no cyanosis, no clubbing, ROM intact, no edema. [] Neurologic: Alert and oriented X 3, normal motor function, normal sensory function, no focal deficits noted. [] Psychologic: Affect normal, judgement normal, mood normal. [] Current Patient Data Vital Signs Vital Signs Date Time Temp Pulse Resp B/P (MAP) Pulse Ox O2 Delivery O2 Flow Rate FiO2 12/27/18 00:05 98.0 65 18 117/64 (81) 99 Room Air 98.0 Lab Values Laboratory Tests Test 12/26/18 23:48 Urine Collection Type Unknown Urine Color Yellow Urine Clarity Clear Urine pH 6.0 Urine Specific [place] >=1.030 Urine Protein Negative mg/dL (NEG-TRACE) Urine Glucose (UA) Negative mg/dL (NEG) Urine Ketones (Stick) Negative mg/dL (NEG) Urine Blood Small (NEG) Urine Nitrite Negative (NEG) Urine Bilirubin Negative (NEG) Urine Urobilinogen Dipstick 1.0 mg/dL (0.2 mg/dL) Urine Leukocyte Esterase Negative (NEG) Urine RBC 6-10 /HPF (0-2) Urine WBC 1-4 /HPF (0-4) Urine Squamous Epithelial Cells Many /LPF Urine Bacteria Mod /HPF (0-FEW) Urine Mucus Mod /LPF EKG EKG [] Radiology/Procedures Radiology/Procedures [] Course & Med Decision Making Course & Med Decision Making Pertinent Labs and Imaging studies reviewed. (See chart for details) Will get urine to r/o UTI and give Flexeril. Urine is negative. Will d/c home with Flexeril. Dragon Disclaimer Dragon Disclaimer This electronic medical record was generated, in whole or in part, using a voice recognition dictation system. Departure Departure Impression: Primary Impression: Sciatica Disposition: HOME, SELF-CARE Condition: STABLE Referrals: SHIRLEY MCCABE MD (PCP) Patient Instructions: Back Pain, Adult Additional Instructions: Please follow up with your pain management doctor and your primary care. Scripts Cyclobenzaprine Hcl (CYCLOBENZAPRINE HCL) 10 Mg Tablet 1 TAB PO TID PRN for MUSCLE SPASMS, #30 TAB Prov: JOYCELYN KEITH APRN 12/27/18 Problem Qualifiers Primary Impression: Sciatica Laterality: right Qualified Codes: M54.31 - Sciatica, right side JOYCELYN KEITH APRN Dec 27, 2018 00:11
[2018-12-27 00:13] LABS: BACTERIA,URINE MOD /HPF (0-FEW); SQUAMOUS EPITHELIAL CELL,UR MANY /LPF
[2018-12-27] MEDS ORDERED: CYCLOBENZAPRINE 10 MG TABLET. PO ONE (00:15)
[2018-12-27] MEDS ORDERED: CYCL10TA2 PO (00:18)
== END 2018-12-27 00:37 | disposition home or self-care (01) ==
LOC: ER 23:35
DX: M54.41 Lumbago with sciatica, right side (principal); J45.909 Unspecified asthma, uncomplicated; K21.9 Gastro-esophageal reflux disease without esophagitis; I10 Essential (primary) hypertension; G43.909 Migraine, unspecified, not intractable, without status migrainosus; Z90.710 Acquired absence of both cervix and uterus; Z98.51 Tubal ligation status; F17.210 Nicotine dependence, cigarettes, uncomplicated; Z91.040 Latex allergy status; Z88.8 Allergy status to other drugs, medicaments and biological substances
CPT/HCPCS: 81001; 99283

== ENCOUNTER 2019-01-12 23:24 | Emergency (ER) | payer MEDICAID ==
[~2019-01-12] VITALS: Ht 165.1 cm; Wt 102.1 kg
[2019-01-13] VITALS: BP 139/99
[2019-01-13] MEDS ORDERED: ORPH100T PO (01:02)
--- NOTE | 2019-01-13 01:12 | PHYS DOC ---
Past Medical History Past Medical History: Hypertension Additional Past Medical Histor: Adrenal mass,OVARIAN CYST,Scoliosis,PANIC ATTACKS Past Surgical History: Tonsillectomy, Tubal ligation Additional Past Surgical Histo: Partial hysterectomy Alcohol Use: None Drug Use: None Adult General Chief Complaint Chief Complaint: RIB PAIN [facility] HPI 38-year-old female presents to ER for complaints of left-sided rib pain and left upper back pain radiating into her left shoulder. Patient reports pain started after lifting a heavy objects. Patient states pain is reproducible with repositioning and palpation of area. Patient denies chest pain, palpitations, or shortness of air. Patient denies direct trauma. Patient reports she did take ibuprofen after onset of pain. Patient states pain started around 4-5 PM tonight. She denies being a daily smoker. Review of Systems Review of Systems Constitutional: Denies fever or chills [] Eyes: Denies change in visual acuity, redness, or eye pain [] HENT: Denies nasal congestion or sore throat [] Respiratory: Denies cough or shortness of breath [] Cardiovascular: No additional information not addressed in HPI [] GI: Denies abdominal pain, nausea, vomiting, bloody stools or diarrhea [] : Denies dysuria or hematuria [] Musculoskeletal: Denies back pain or joint pain [] Integument: Denies rash or skin lesions [] Neurologic: Denies headache, focal weakness or sensory changes [] Endocrine: Denies polyuria or polydipsia [] All other systems were reviewed and found to be within normal limits, except as documented in this note. Current Medications Current Medications Current Medications Medications (Trade) Dose Ordered Sig/[facility] Start Time Stop Time Status Last Admin Dose Admin Lidocaine (Lidoderm) 2 patch DAILY 01/13/19 01:00 01/13/19 01:13 2 PATCH Orphenadrine Citrate (Norflex) 60 mg 1X ONCE 01/13/19 01:00 01/13/19 01:01 DC 01/13/19 01:13 60 MG Allergies Allergies Allergies Coded Allergies Type Severity Reaction Last Updated Verified alcohol Allergy Intermediate Hives 02/02/17 Yes latex Allergy Intermediate Rash 02/02/17 Yes Physical Exam Physical Exam Constitutional: Well developed, well nourished, no acute distress, non-toxic appearance. [] HENT: Normocephalic, atraumatic, oropharynx moist, nose normal. [] Eyes: Pupils equal, conjunctiva normal, no discharge. [] Neck: Normal range of motion, no tenderness/crepitus, supple, no stridor. [] Cardiovascular: Heart rate regular rhythm, no murmur [] Lungs & Thorax: Bilateral breath sounds clear to auscultation- resp. equal/nonlabored. Tender on palp. under lt breast- reproducible with palp. No palpable deformity or crepitus. Abdomen: Bowel sounds normal, soft, no tenderness, no masses, no pulsatile masses. [] Skin: Warm, dry, no erythema, no rash. [] Back: Tender on palpation left upper back into left shoulder-no swelling or c repitus, no CVA tenderness. [] Extremities: No cyanosis, no clubbing, ROM intact, no edema. 2+ bilateral radial Neurologic: Alert and oriented X 3, normal motor function, normal sensory function, no focal deficits noted. [] Psychologic: Affect normal, judgement normal, mood normal. [] EKG EKG EKG obtained 01/13/[address] Calderon Sinus rhythm Rate 75 No STEMI Radiology/Procedures Radiology/Procedures Dr. Calderon viewed pt's xray with no obvious acute findings- this was discussed with pt Course & Med Decision Making Course & Med Decision Making Pertinent Imaging studies reviewed. (See chart for details) Pt was evaluated in the ER for complaints of left-sided rib pain and left upper back pain into left shoulder following lifting heavy objects at work. Patient was treated with Lidoderm patch and given IM Norflex. She reported improvement in symptoms. EKG was obtained with no acute ST elevation or STEMI. Chest x-ray with no obvious acute findings. Discussed plans for home discharge with prescription for Lidoderm patches and Norflex. Patient to follow-up with her primary care physician if symptoms persist or with concerns. Patient was in no visible distress during discharge discussion with equal nonlabored respirations. Patient's pain was reproducible with palpation of areas and with any repositioning. Patient had no complaints of shortness of air and was nontoxic in appearance. Education provided on signs and symptoms to return to ER. Discharge instructions were discussed. Dragon Disclaimer Dragon Disclaimer This electronic medical record was generated, in whole or in part, using a voice recognition dictation system. Departure Departure Impression: Primary Impression: Muscle strain Additional Impression: Musculoskeletal chest pain Disposition: HOME, SELF-CARE Condition: STABLE Referrals: SHIRLEY MCCABE MD (PCP) Patient Instructions: Incentive Spirometer, Muscle Strain, Musculoskeletal Pain Additional Instructions: Tylenol and/or ibuprofen as needed for pain as directed on container. With your primary care physician if symptoms persist or with concerns. You are being provided with a Lidoderm patch prescription use as directed. Scripts Orphenadrine Citrate (ORPHENADRINE CITRATE) 100 Mg Tablet.er 1 TAB PO BID PRN for PAIN, #8 TAB 0 Refills No driving or drinking alcohol while taking this medication Prov: KAYLENE KELLER APRN 01/13/19 Problem Qualifiers KAYLENE KELLER APRN Jan 13, 2019 01:12
[2019-01-13] MEDS: LIDOCAINE (700MG/PATCH) PATCH. TD SCH (01:13)
[2019-01-13] MEDS: ORPHENADRINE CITRATE 60 MG/2 ML VIAL. IM ONE (01:13)
--- NOTE | 2019-01-13 04:16 | RAD ---
Chest radiograph 01/13/2019 12:40 AM INDICATION: Left-sided rib pain and left upper back pain COMPARISON: December 08, 2018 TECHNIQUE: Frontal and lateral views of the chest are provided. FINDINGS: The cardiomediastinal silhouette is within normal limits. There are no pleural effusions. There is no pulmonary vascular congestion. There is no pneumothorax. The lungs are clear. No significant osseous abnormality is identified. IMPRESSION: No acute cardiopulmonary process. Electronically signed by: Mulu Espitia MD (01/13/2019 4:14 AM) [facility]
--- NOTE | 2019-01-13 07:42 | EKG ---
[facility] [address] [place] [address] Test Date: 2019-01-13 Test Time: 01:06:25 Pat Name: KAYLENE DANG Department: Room: Gender: F [employer]: : [id number] Requested By: KAYLENE KELLER Order Number: [id number] Reading MD: Measurements Intervals [place] Rate: 75 P: 49 HI: 208 QRS: 37 QRSD: 78 T: 41 QT: 398 QTc: 447 Interpretive Statements SINUS RHYTHM QRS(T) CONTOUR ABNORMALITY CONSIDER ANTEROSEPTAL MYOCARDIAL DAMAGE POSSIBLY ABNORMAL ECG RI6.01 No previous ECG available for comparison
== END 2019-01-13 01:51 | disposition home or self-care (01) ==
LOC: ER 01-13 00:16
DX: S29.012A Strain of muscle and tendon of back wall of thorax, initial encounter (principal); S46.912A Strain of unspecified muscle, fascia and tendon at shoulder and upper arm level, left arm, initial encounter; R07.89 Other chest pain; I10 Essential (primary) hypertension; Z98.51 Tubal ligation status; Z90.711 Acquired absence of uterus with remaining cervical stump; Z91.040 Latex allergy status; Z88.8 Allergy status to other drugs, medicaments and biological substances; X50.0XXA Overexertion from strenuous movement or load, initial encounter; Y93.89 Activity, other specified; Y92.89 Other specified places as the place of occurrence of the external cause; Y99.8 Other external cause status
CPT/HCPCS: 71046; 93005; 96372; 99284; J2360

== ENCOUNTER 2019-01-21 23:57 | Emergency (ER) | payer MEDICAID ==
[~2019-01-21] VITALS: Ht 165.1 cm; Wt 102.1 kg
[2019-01-22 00:05] VITALS: BP 143/100
[2019-01-22 00:22] LABS: BILIRUBIN,URINE SMALL (NEG); CLARITY,URINE CLEAR; COLOR,URINE YELLOW; NITRITE,URINE NEGATIVE (NEG); PH,URINE 5.5; PROTEIN,URINE NEGATIVE (NEG-TRACE)
[2019-01-22 00:26] LABS: BACTERIA,URINE MANY /HPF (0-FEW); RBC,URINE OCC /HPF (0-2); SQUAMOUS EPITHELIAL CELL,UR MOD /LPF; WBC,URINE OCC /HPF (0-4)
--- NOTE | 2019-01-22 00:45 | PHYS DOC ---
Past Medical History Past Medical History: Anxiety, Depression, Hypertension, Migraines Additional Past Medical Histor: Adrenal mass,OVARIAN CYST,Scoliosis,PANIC ATTACKS Past Surgical History: Tonsillectomy, Tubal ligation Additional Past Surgical Histo: Partial hysterectomy, RIGHT EAR Alcohol Use: None Drug Use: None Adult General Chief Complaint Chief Complaint: LOWER BACK PAIN OR INJURY [facility] HPI Patient is a 38 year old female with history of hypertension, depression, anxiety, who presents to the ED today complaining of 9 out of 10 intermittent bilateral low back pain nonradiating in nature that began 2 days ago. Patient denies any known injury. Denies any loss of bowel bladder function. Denies any numbness or tingling in bilateral lower extremities. She states the pain is intermittent. She has history of chronic back pain as well. Denies anything exacerbating or relieving the pain. She states she would like to be checked out to make sure she does not have a kidney infection. Review of Systems Review of Systems Constitutional: Denies fever or chills [] Eyes: Denies change in visual acuity, redness, or eye pain [] HENT: Denies nasal congestion or sore throat [] Respiratory: Denies cough or shortness of breath [] Cardiovascular: No additional information not addressed in HPI [] GI: Denies abdominal pain, nausea, vomiting, bloody stools or diarrhea [] : Denies dysuria or hematuria [] Musculoskeletal: Reports low back pain Integument: Denies rash or skin lesions [] Neurologic: Denies headache, focal weakness or sensory changes [] All other systems were reviewed and found to be within normal limits, except as documented in this note. Allergies Allergies Allergies Coded Allergies Type Severity Reaction Last Updated Verified alcohol Allergy Intermediate Hives 02/02/17 Yes latex Allergy Intermediate Rash 02/02/17 Yes Physical Exam Physical Exam Constitutional: Well developed, well nourished, no acute distress, non-toxic appearance. [] HENT: Normocephalic, atraumatic, bilateral external ears normal, oropharynx moist, no oral exudates, nose normal. [] Eyes: PERRLA, EOMI, conjunctiva normal, no discharge. [] Neck: Normal range of motion, no tenderness, supple, no stridor. [] Cardiovascular:Heart rate regular rhythm, no murmur [] Lungs & Thorax: Bilateral breath sounds clear to auscultation [] Abdomen: Bowel sounds normal, soft, no tenderness, no masses, no pulsatile masses. [] Skin: Warm, dry, no erythema, no rash. [] Back: No tenderness, no CVA tenderness. [] Extremities: No tenderness, no cyanosis, no clubbing, ROM intact, no edema. [] Neurologic: Alert and oriented X 3, normal motor function, normal sensory function, no focal deficits noted. [] Psychologic: Affect normal, judgement normal, mood normal. [] Current Patient Data Vital Signs Vital Signs Date Time Temp Pulse Resp B/P (MAP) Pulse Ox O2 Delivery O2 Flow Rate FiO2 01/22/19 00:05 98.4 89 18 143/100 (114) 95 Room Air 98.4 Lab Values Laboratory Tests Test 01/22/19 00:01 01/22/19 00:05 Urine Collection Type Unknown Urine Color Yellow Urine Clarity Clear Urine pH 5.5 Urine Specific [place] >=1.030 Urine Protein Negative mg/dL (NEG-TRACE) Urine Glucose (UA) Negative mg/dL (NEG) Urine Ketones (Stick) Negative mg/dL (NEG) Urine Blood Trace (NEG) Urine Nitrite Negative (NEG) Urine Bilirubin Small (NEG) Urine Urobilinogen Dipstick 1.0 mg/dL (0.2 mg/dL) Urine Leukocyte Esterase Negative (NEG) Urine RBC Occ /HPF (0-2) Urine WBC Occ /HPF (0-4) Urine Squamous Epithelial Cells Mod /LPF Urine Bacteria Many /HPF (0-FEW) Urine Mucus Mod /LPF POC Urine HCG, Qualitative Hcg negative (Negative) EKG EKG [] Radiology/Procedures Radiology/Procedures [] Course & Med Decision Making Course & Med Decision Making Pertinent Labs and Imaging studies reviewed. (See chart for details) This is a 38-year-old female patient well known to this ED presenting to the ED today for low back pain and requesting to be checked for UTI. Urine analysis is negative. Discharged to home. Follow-up with PCP in 1-2 weeks. [id number] pain regimens recommended. Dragon Disclaimer Dragon Disclaimer This electronic medical record was generated, in whole or in part, using a voice recognition dictation system. Departure Departure Impression: Primary Impression: Low back pain Disposition: HOME, SELF-CARE Condition: STABLE Referrals: SHIRLEY MCCABE MD (PCP) Follow-up with your doctor in 1-2 weeks Patient Instructions: Back Pain, Adult, [id number] Additional Instructions: You were evaluated in the emergency room follow back pain, your urine analysis is negative for infection. Please take [id number] pain medications as needed for pain. Follow-up with your doctor in 1-2 weeks. Problem Qualifiers Primary Impression: Low back pain Chronicity: chronic Back pain laterality: bilateral Sciatica presence: without sciatica Qualified Codes: M54.5 - Low back pain; G89.29 - Other chronic pain RHONDA LAUREANO APRN Jan 22, 2019 00:45
== END 2019-01-22 00:50 | disposition home or self-care (01) ==
LOC: ER 23:57
DX: G89.29 Other chronic pain (principal); M54.5 Low back pain; I10 Essential (primary) hypertension; G43.909 Migraine, unspecified, not intractable, without status migrainosus; Z98.51 Tubal ligation status; Z90.711 Acquired absence of uterus with remaining cervical stump; Z91.040 Latex allergy status; Z88.8 Allergy status to other drugs, medicaments and biological substances
CPT/HCPCS: 81001; 81025; 99283

== ENCOUNTER 2019-01-27 23:51 | Emergency (ER) | payer MEDICAID ==
[~2019-01-27] VITALS: Ht 165.1 cm; Wt 102.1 kg
[2019-01-27 23:54] VITALS: BP 151/98
[2019-01-28 00:59] LABS: BILIRUBIN,URINE SMALL (NEG); CLARITY,URINE CLEAR; COLOR,URINE YELLOW; NITRITE,URINE NEGATIVE (NEG); PH,URINE 5.5; PROTEIN,URINE 100 mg/dL (NEG-TRACE)
[2019-01-28 01:05] LABS: RBC,URINE TNTC /HPF (0-2); SQUAMOUS EPITHELIAL CELL,UR MOD /LPF
[2019-01-28 01:06] LABS: BACTERIA,URINE MODERATE /HPF (0-FEW)
[2019-01-28] MEDS ORDERED: NITR100C62 PO ×2 (01:20→01:25)
--- NOTE | 2019-01-28 01:52 | PHYS DOC ---
Past Medical History Past Medical History: Anxiety, Depression, Hypertension, Migraines Additional Past Medical Histor: Adrenal mass,OVARIAN CYST,Scoliosis,PANIC ATTACKS Past Surgical History: Tonsillectomy, Tubal ligation Additional Past Surgical Histo: Partial hysterectomy, RIGHT EAR Alcohol Use: None Drug Use: None Adult General Chief Complaint Chief Complaint: GROIN PAIN HPI HPI Patient is a 38 year old female presenting with urinary frequency some pressure with urination no fever she thinks she has UTI she feels some pain radiating up into her flank area. Review of Systems Review of Systems Constitutional: Denies fever or chills [] Eyes: Denies change in visual acuity, redness, or eye pain [] HENT: Denies nasal congestion or sore throat [] Respiratory: Denies cough or shortness of breath [] Musculoskeletal: Neurologic: Denies headache, focal weakness or sensory changes [] Endocrine: Denies polyuria or polydipsia [] All other systems were reviewed and found to be within normal limits, except as documented in this note. Allergies Allergies Allergies Coded Allergies Type Severity Reaction Last Updated Verified alcohol Allergy Intermediate Hives 02/02/17 Yes latex Allergy Intermediate Rash 02/02/17 Yes Physical Exam Physical Exam Constitutional: Well developed, well nourished, no acute distress, non-toxic appearance. [] HENT: Normocephalic, atraumatic, bilateral external ears normal, oropharynx moist, no oral exudates, nose normal. [] Eyes: PERRLA, EOMI, conjunctiva normal, no discharge. [] Neck: Normal range of motion, no tenderness, supple, no stridor. [] Cardiovascular:Heart rate regular rhythm, no murmur [] Lungs & Thorax: Bilateral breath sounds clear to auscultation [] Abdomen: Bowel sounds normal, soft, no tenderness, no masses, no pulsatile masses. [] Skin: Warm, dry, no erythema, no rash. [] Back: No tenderness, no CVA tenderness. [] Extremities: No tenderness, no cyanosis, no clubbing, ROM intact, no edema. [] Neurologic: Alert and oriented X 3, normal motor function, normal sensory function, no focal deficits noted. [] Psychologic: Affect normal, judgement normal, mood normal. [] Current Patient Data Vital Signs Vital Signs Date Time Temp Pulse Resp B/P (MAP) Pulse Ox O2 Delivery O2 Flow Rate FiO2 7/8/19 23:54 98.4 80 16 151/98 (115) 95 Room Air 98.4 Lab Values Laboratory Tests Test 01/27/19 23:53 01/28/19 00:23 Urine Collection Type Unknown Urine Color Yellow Urine Clarity Clear Urine pH 5.5 Urine Specific [place] >=1.030 Urine Protein 100 mg/dL (NEG-TRACE) Urine Glucose (UA) Negative mg/dL (NEG) Urine Ketones (Stick) Negative mg/dL (NEG) Urine Blood Large (NEG) Urine Nitrite Negative (NEG) Urine Bilirubin Small (NEG) Urine Urobilinogen Dipstick 1.0 mg/dL (0.2 mg/dL) Urine Leukocyte Esterase Small (NEG) Urine RBC Tntc /HPF (0-2) Urine WBC 11-20 /HPF (0-4) Urine Squamous Epithelial Cells Mod /LPF Urine Bacteria Moderate /HPF (0-FEW) Urine Mucus Mod /LPF POC Urine HCG, Qualitative Hcg negative (Negative) EKG EKG [] Radiology/Procedures Radiology/Procedures [] Course & Med Decision Making Course & Med Decision Making Pertinent Labs and Imaging studies reviewed. (See chart for details) []Abdomen nontender patient is well-appearing may have a UTI on urinalysis given treatment for the above patient is reassured she denied any vaginal discharge Dragon Disclaimer Dragon Disclaimer This electronic medical record was generated, in whole or in part, using a voice recognition dictation system. Departure Departure Impression: Primary Impression: UTI (urinary tract infection) Disposition: 01 HOME, SELF-CARE Condition: STABLE Referrals: SHIRLEY MCCABE MD (PCP) Patient Instructions: Urinary Tract Infection, [id number] Scripts Nitrofurantoin Monohyd/M-Cryst (MACROBID 100 MG CAPSULE) 100 Mg Capsule 1 CAP PO BID, #14 CAP Prov: ELVIS YARBROUGH MD 01/28/19 Nitrofurantoin Monohyd/M-Cryst (MACROBID 100 MG CAPSULE) 100 Mg Capsule 1 CAP PO BID, #14 CAP Prov: ELVIS YARBROUGH MD 01/28/19 ELVIS YARBROUGH MD Jan 28, 2019 01:52
== END 2019-01-28 01:26 | disposition home or self-care (01) ==
LOC: ER 23:51
DX: N39.0 Urinary tract infection, site not specified (principal); I10 Essential (primary) hypertension; G43.909 Migraine, unspecified, not intractable, without status migrainosus; Z90.711 Acquired absence of uterus with remaining cervical stump; Z98.51 Tubal ligation status; Z91.040 Latex allergy status; Z88.8 Allergy status to other drugs, medicaments and biological substances
CPT/HCPCS: 81001; 81025; 87086; 99284

== ENCOUNTER 2019-02-17 23:49 | Emergency (ER) | payer MEDICAID ==
[~2019-02-17] VITALS: Ht 165.1 cm; Wt 99.8 kg
[2019-02-17 23:49] VITALS: BP 139/92
[2019-02-18] MEDS ORDERED: BETA15CR3 TP (00:50)
[2019-02-18] MEDS ORDERED: PRED50TA PO (00:50)
[2019-02-18] MEDS ORDERED: SULF1TAB23 PO (00:50)
[2019-02-18] MEDS ORDERED: CLOT15CR4 TP (00:50)
--- NOTE | 2019-02-18 00:50 | PHYS DOC ---
Past Medical History Past Medical History: Anxiety, Depression, Hypertension, Migraines Additional Past Medical Histor: Adrenal mass,OVARIAN CYST,Scoliosis,PANIC ATTACKS (RHONDA LAUREANO APRN) Past Surgical History: Hysterectomy, Tonsillectomy, Tubal ligation Additional Past Surgical Histo: Partial hysterectomy, RIGHT EAR (RHONDA LAUREANO APRN) Alcohol Use: None Drug Use: None (RHONDA LAUREANO APRN) Adult General Chief Complaint Chief Complaint: SKIN PROBLEM HPI HPI Patient is a 39 year old female with a history of depression, anxiety, hypertension, who presents to the ED today complaining of a rash on the left lower extremity as well as the pubic region that began weeks ago. Patient states she was seen by the PCP and was put on oral steroid as well as topical steroid and antibiotics, she states the rash cleared up then a couple days later it came back when the medications were finished. Denies any fever. (RHONDA LAUREANO APRN) Review of Systems Review of Systems Constitutional: Denies fever or chills [] Musculoskeletal: Denies back pain or joint pain [] Integument: Reports rash to the pubic region as well as left lower extremity Neurologic: Denies headache, focal weakness or sensory changes [] All other systems were reviewed and found to be within normal limits, except as documented in this note. (RHONDA LAUREANO APRN) Allergies Allergies Allergies Coded Allergies Type Severity Reaction Last Updated Verified alcohol Allergy Intermediate Hives 02/02/17 Yes latex Allergy Intermediate Rash 02/02/17 Yes (JOYCELYN ARREDONDO DO) Physical Exam Physical Exam Constitutional: Well developed, well nourished, no acute distress, non-toxic appearance. [] Skin: Warm, dry, mild amount of crusty erythematous rash circular rash noted on the pubic region as well as left lower extremity. No drainage. Back: No tenderness, no CVA tenderness. [] Extremities: No tenderness, no cyanosis, no clubbing, ROM intact, no edema. [] Neurologic: Alert and oriented X 3, normal motor function, normal sensory function, no focal deficits noted. [] Psychologic: Affect normal, judgement normal, mood normal. [] (RHONDA LAUREANO APRN) Current Patient Data Vital Signs Vital Signs Date Time Temp Pulse Resp B/P (MAP) Pulse Ox O2 Delivery O2 Flow Rate FiO2 02/17/19 23:49 97.6 78 14 139/92 (108) 98 Room Air 97.6 (ARREDONDOJOYCELYN Sanjeev ROSA) EKG EKG [] (RHONDA LAUREANO APRN) Radiology/Procedures Radiology/Procedures [] (RHONDA LAUREANO APRN) Course & Med Decision Making Course & Med Decision Making Pertinent Labs and Imaging studies reviewed. (See chart for details) This is a 39-year-old female patient who presents to the ED today with a rash on the pubic region and left lower extremity. She has been going on for weeks, was apparently on oral steroids and topical steroid as well as antibiotic which cleared the rash then it came back. I went ahead and put patient on oral steroid, antibiotics, and topical steroid with an antifungal with it and requested she follows up with detective captain in 2 weeks. (RHONDA LAUREANO APRN) Dragon Disclaimer Dragon Disclaimer This electronic medical record was generated, in whole or in part, using a voice recognition dictation system. (RHONDA LAUREANO APRN) Departure Departure Impression: Primary Impression: Rash Disposition: 01 HOME, SELF-CARE Condition: STABLE Referrals: SHIRLEY MCCABE MD (PCP) LYNNE BE MD follow up in 2 weeks Patient Instructions: Rash Additional Instructions: You were evaluated in the emergency room for rash, we put you on medications, take them as prescribed. Follow-up with the detective captain in 2 weeks Scripts Clotrimazole (CLOTRIMAZOLE) 15 Gm Cream..g. 1 ALLIE TP BID, #30 GM Prov: RHONDA LAUREANO APRN 02/18/19 Prednisone (PREDNISONE) 50 Mg Tablet 1 TAB PO DAILY, #5 TAB Prov: RHONDA LAUREANO APRN 02/18/19 Betamethasone/Propylene Glyc (BETAMETHASONE DP AUG 0.05% CRM) 15 Gm Cream..g. 1 ALLIE TP BID, #1 EACH Prov: RHONDA LAUREANO APRN 02/18/19 Sulfamethoxazole/Trimethoprim (BACTRIM 400-80 MG TABLET) 1 Each Tablet 1 TAB PO BID, #20 TAB Prov: RHONDA LAUREANO APRN 02/18/19 Attending Signature Attending Signature I have reviewed the PA/CONTROL OFFICER's note and plan of care. I was available for consultation as needed during the patient's visit in the emergency department. I agree with the clinical impression, plan, and disposition. (JOYCELYN ARREDONDO DO) RAMÓNRHONDA ROGERS YAMILE Feb 18, 2019 00:50 JOYCELYN ARREDONDO DO Feb 18, 2019 02:53
== END 2019-02-18 01:13 | disposition home or self-care (01) ==
LOC: ER 23:49
DX: R21 Rash and other nonspecific skin eruption (principal); F41.9 Anxiety disorder, unspecified; F32.9 Major depressive disorder, single episode, unspecified; I10 Essential (primary) hypertension; G43.909 Migraine, unspecified, not intractable, without status migrainosus; Z90.710 Acquired absence of both cervix and uterus; Z98.51 Tubal ligation status; Z90.89 Acquired absence of other organs; Z91.040 Latex allergy status; Z91.09 Other allergy status, other than to drugs and biological substances
CPT/HCPCS: 99283

== ENCOUNTER 2019-02-21 16:45 | Emergency (ER) | payer OTHER, MEDICAID ==
[~2019-02-21] VITALS: Ht 167.6 cm; Wt 99.8 kg
[~2019-02-21 16:45] MED LIST changes: +BETA15CR3 TP; +CLOT15CR4 TP; +PRED50TA PO; +SULF1TAB23 PO
[2019-02-21 17:00] VITALS: BP 145/102
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
== END 2019-02-21 18:31 | disposition home or self-care (01) ==
LOC: ER 16:45
DX: M54.6 Pain in thoracic spine (principal); M54.5 Low back pain; M25.551 Pain in right hip; R07.81 Pleurodynia; G89.11 Acute pain due to trauma; I10 Essential (primary) hypertension; Z90.711 Acquired absence of uterus with remaining cervical stump; Z91.040 Latex allergy status; Z88.8 Allergy status to other drugs, medicaments and biological substances; V46.4XXA Person boarding or alighting a car injured in collision with other nonmotor vehicle, initial encounter; Y92.488 Other paved roadways as the place of occurrence of the external cause; Y93.89 Activity, other specified; Y99.8 Other external cause status
CPT/HCPCS: 71101; 72072; 72100; 73502; 99284

== ENCOUNTER 2019-02-24 23:44 | Emergency (ER) | payer MEDICAID, OTHER ==
[~2019-02-24] VITALS: Ht 165.1 cm; Wt 104.8 kg
[2019-02-24 23:50] VITALS: BP 141/80
[2019-02-25] MEDS ORDERED: CYCL5TAB PO (00:34)
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
[2019-02-25] MEDS ORDERED: CYCLOBENZAPRINE 10 MG TABLET. PO ONE (01:00)
== END 2019-02-25 00:40 | disposition home or self-care (01) ==
LOC: ER 23:44
DX: S39.012A Strain of muscle, fascia and tendon of lower back, initial encounter (principal); I10 Essential (primary) hypertension; Z90.711 Acquired absence of uterus with remaining cervical stump; Z91.040 Latex allergy status; Z88.8 Allergy status to other drugs, medicaments and biological substances; V89.2XXA Person injured in unspecified motor-vehicle accident, traffic, initial encounter; Y93.89 Activity, other specified; Y92.488 Other paved roadways as the place of occurrence of the external cause; Y99.8 Other external cause status
CPT/HCPCS: 99283

== ENCOUNTER → 2019-02-26 | Outpatient (CLI) | payer MEDICAID ==
[2019-02-24 23:50] VITALS: BP 141/80
--- NOTE | 2019-02-26 12:20 | CARD ---
MR#: [id number] Date of Study: 02/26/2019 Ordering Physician: LYNDSAY RODNEY, Referring Physician: LYNDSAY RODNEY, Tech: Ayana Kelly GAURI APPROVED REPORT EXAM: Two-dimensional and M-mode echocardiogram with Doppler and color Doppler. Other Information Quality : Good INDICATION Palpitations 2D DIMENSIONS RVDd2.7 (2.9-3.5cm)Left Atrium(2D)3.8 (1.6-4.0cm) IVSd1.3 (0.7-1.1cm)Aortic Root(2D)3.2 (2.0-3.7cm) LVDd4.2 (3.9-5.9cm)LVOT Diameter2.1 (1.8-2.4cm) PWd1.0 (0.7-1.1cm)LVDs3.0 (2.5-4.0cm) FS (%) 29.6 %SV46.0 ml LVEF(%)57.0 (>50%) Aortic Valve AoV Peak Luther.102.5cm/sAoV VTI21.9cm AO Peak GR.4.2mmHgLVOT Peak Luther.99.7cm/s AO Mean GR.2mmHgAVA (VMAX)3.43cm2 MARGARITO (VTI)3.50cm2 Mitral Valve MV E Gcomhswe49.0cm/sMV DECEL [id number] MV A Glelekck36.3cm/sE/A Ratio1.1 Pulmonary Vein S1 Aumtgxpe11.8cm/sD2 Zhgddaqn08.0cm/s LEFT VENTRICLE The left ventricle is normal size. There is mild asymmetric septal hypertrophy. The left ventricular systolic function is normal and the ejection fraction is within normal range. The Ejection Fraction i s 55-60%. There is normal LV segmental wall motion. The left ventricular diastolic function and filli ng is normal for age. RIGHT VENTRICLE The right ventricle is normal size. The right ventricular systolic function is normal. ATRIA The left atrium size is normal. The right atrium size is normal. The interatrial septum is intact wit h no evidence for an atrial septal defect or patent foramen ovale as noted on 2-D or Doppler imaging. AORTIC VALVE The aortic valve is normal in structure and function. Doppler and Color Flow revealed no significant aortic regurgitation. There is no significant aortic valvular stenosis. MITRAL VALVE The mitral valve is normal in structure and function. There is no evidence of mitral valve prolapse. There is no mitral valve stenosis. Doppler and Color-flow revealed trace mitral regurgitation. TRICUSPID VALVE The tricuspid valve is normal in structure and function. Doppler and Color Flow revealed no tricuspid valve regurgitation noted. There is no tricuspid valve stenosis. PULMONIC VALVE The pulmonic valve is not well visualized. Doppler and Color Flow revealed trace to mild pulmonic adrianna vular regurgitation. There is no pulmonic valvular stenosis. GREAT VESSELS The aortic root is normal in size. The ascending aorta is normal in size. The IVC is normal in size a nd collapses >50% with inspiration. PERICARDIAL EFFUSION There is no evidence of significant pericardial effusion. Critical Notification Critical Value: No <Conclusion> The left ventricular systolic function is normal and the ejection fraction is within normal range. Th e Ejection Fraction is 55-60%. There is normal LV segmental wall motion. Signed by : Lyndsay Rodney, Electronically Approved : 02/26/2019 12:19:43
== END | disposition home or self-care (01) ==
LOC: ECHO 10:38
PROVIDERS: ATTEND Internal Medicine Cardiovascular Disease
DX: I37.1 Nonrheumatic pulmonary valve insufficiency (principal); I51.7 Cardiomegaly
CPT/HCPCS: 93306

== ENCOUNTER 2019-03-01 17:10 | Emergency (ER) | payer MEDICAID ==
[~2019-03-01] VITALS: Ht 165.1 cm; Wt 103.4 kg
[2019-03-01 17:34] VITALS: BP 134/93
--- NOTE | 2019-03-01 17:43 | PHYS DOC ---
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 Review of Systems Review of Systems Constitutional: Denies fever or chills [] Musculoskeletal: Denies back pain or joint pain [] Integument: Reports left index finger laceration Neurologic: Denies headache, focal weakness or sensory changes [] All other systems were reviewed and found to be within normal limits, except as documented in this note. Allergies Allergies Allergies Coded Allergies Type Severity Reaction Last Updated Verified ethyl alcohol Allergy Intermediate Hives 02/25/19 Yes latex Allergy Intermediate Rash 02/02/17 Yes Physical Exam Physical Exam Constitutional: Well developed, well nourished, no acute distress, non-toxic appearance. [] Skin: Warm, dry, and lower aspect of the left pinky finger at the DIP joint with a superficial laceration approximately 2 cm long. There is no obvious tendon involvement. Patient able to flex and extend the finger at the MIP PIP and DIP joints. +2 left radial pulse. Cap refill less than 2 seconds the left index finger. Adequate radius sensation to the left index finger. Back: No tenderness, no CVA tenderness. [] Extremities: No tenderness, no cyanosis, no clubbing, ROM intact, no edema. [] Neurologic: Alert and oriented X 3, normal motor function, normal sensory function, no focal deficits noted. [] Psychologic: Affect normal, judgement normal, mood normal. [] EKG EKG [] Radiology/Procedures Radiology/Procedures [] Course & Med Decision Making Course & Med Decision Making Pertinent Labs and Imaging studies reviewed. (See chart for details) This is a 39-year-old female patient presenting to the ED today with a superficial laceration on the left index finger that did not need suturing. Laceration was cleaned and closed with derma boykin. Tetanus up-to-date. Wound care instructions and return precautions provided. Dragon Disclaimer Dragon Disclaimer This electronic medical record was generated, in whole or in part, using a voice recognition dictation system. Departure Departure Impression: Primary Impression: Laceration of index finger Disposition: 01 HOME, SELF-CARE Condition: STABLE Referrals: SHIRLEY MCCABE MD (PCP) Follow-up with your doctor as needed Patient Instructions: Fingertip Laceration Additional Instructions: You have a laceration to the left index finger, keep it clean and dry. Apply Ne osporin to the laceration twice a day. Monitor the are for signs of infection including but not limited to increased redness, yellow drainage from the area and return to the ED if they occur or see your own primary care doctor. Keep the area clean and dry. Problem Qualifiers Primary Impression: Laceration of index finger Encounter type: initial encounter Damage to nail status: without damage Foreign body presence: without foreign body Laterality: left Qualified Codes: S61.211A - Laceration without foreign body of left index finger without damage to nail, initial encounter RHONDA LAUREANO APRN Mar 01, 2019 17:43
== END 2019-03-01 17:57 | disposition home or self-care (01) ==
LOC: ER 17:10
DX: S61.211A Laceration without foreign body of left index finger without damage to nail, initial encounter (principal); F41.9 Anxiety disorder, unspecified; I10 Essential (primary) hypertension; Z90.710 Acquired absence of both cervix and uterus; W26.8XXA Contact with other sharp object(s), not elsewhere classified, initial encounter; Y93.89 Activity, other specified; Y92.89 Other specified places as the place of occurrence of the external cause; Y99.0 Civilian activity done for income or pay
CPT/HCPCS: 12001; 99283

== ENCOUNTER 2019-03-13 02:15 | Emergency (ER) | payer MEDICAID ==
[~2019-03-13] VITALS: Ht 165.1 cm; Wt 103.4 kg
[2019-03-13] MEDS ORDERED: NAPROXEN 500 MG TABLET PO ONE (02:30)
[2019-03-13 02:37] LABS: BILIRUBIN,URINE NEGATIVE (NEG); CLARITY,URINE CLEAR; COLOR,URINE YELLOW; NITRITE,URINE NEGATIVE (NEG); PH,URINE 5.5; PROTEIN,URINE NEGATIVE (NEG-TRACE)
[2019-03-13 02:41] LABS: SQUAMOUS EPITHELIAL CELL,UR MOD /LPF
[2019-03-13 02:42] LABS: BACTERIA,URINE FEW /HPF (0-FEW); WBC,URINE RARE /HPF (0-4)
[2019-03-13 02:44] LABS: BARBITURATES NEG (NEG); BENZODIAZEPINES NEG (NEG); CANNABINOIDS NEG (NEG); COCAINE NEG (NEG); METHADONE NEG (NEG); OPIATES NEG (NEG); PHENCYCLIDINE NEG (NEG)
[2019-03-13 02:45] LABS: AMPHETAMINE/METHAMPHETAMINE NEG (NEG)
--- NOTE | 2019-03-13 03:57 | RAD ---
EXAM: CT ABDOMEN/PELVIS WITHOUT CONTRAST. HISTORY: Left flank pain. TECHNIQUE: Computed tomography of the abdomen and pelvis was performed without intravenous contrast. COMPARISON: 09/13/2018. FINDINGS: Lung windows through the visualized portions of the bases reveal mild atelectasis. There is a calcified granuloma in the right middle lobe. Bone windows reveal no suspicious lesions. The liver, gallbladder, pancreas, adrenal glands and spleen are unremarkable without contrast. There are no pathologically enlarged lymph nodes. The uterus is surgically absent. The appendix is not inflamed. There is no small bowel obstruction. There are no renal or ureteral calculi. The bladder is decompressed. There is no hydronephrosis. There are no suspicious renal lesions without contrast. IMPRESSION: 1. No renal or ureteral calculi. No cause for acute pain is identified. *One or more of the following individualized dose reduction techniques were utilized for this examination: 1. Automated exposure control. 2. Adjustment of the mA and/or kV according to patient size. 3. Use of iterative reconstruction technique. Electronically signed by: Lilian Payne MD (03/13/2019 3:55 AM) [facility]
[2019-03-13] MEDS ORDERED: CYCL10TA2 PO (04:02)
[2019-03-13] MEDS ORDERED: NAPR-683 PO (04:02)
--- NOTE | 2019-03-13 04:02 | PHYS DOC ---
Past Medical History Past Medical History: Anxiety, Bronchitis, Hypertension, Migraines Additional Past Medical Histor: Adrenal mass,OVARIAN CYST,Scoliosis,PANIC ATTACKS Past Surgical History: No Surgical History, Tubal ligation, Other Additional Past Surgical Histo: Partial hysterectomy, RIGHT EAR Alcohol Use: None Drug Use: None Adult General Chief Complaint Chief Complaint: ABDOMINAL PAIN HPI HPI Patient is a 39 year old female who presents with complaining of abdominal pain. Patient complaining of sudden onset of left lower quadrant and left flank pain that started about 3-4 hours ago as a constant sharp pain and rated her pain 9/10. Patient complaining of nausea without vomiting, fever and chills, vaginal bleeding or discharge, chest pain and shortness of breath. Patient states she had the same pain with previous kidney stone. Patient has 4 visits in February to this emergency department. Review of Systems Review of Systems Constitutional: Denies fever or chills [] Eyes: Denies change in visual acuity, redness, or eye pain [] HENT: Denies nasal congestion or sore throat [] Respiratory: Denies cough or shortness of breath [] Cardiovascular: No additional information not addressed in HPI [] GI: Reports abdominal pain, nausea, denies vomiting, bloody stools or diarrhea [] : Denies dysuria or hematuria [] Musculoskeletal: Denies back pain or joint pain [] Integument: Denies rash or skin lesions [] Neurologic: Denies headache, focal weakness or sensory changes [] Endocrine: Denies polyuria or polydipsia [] All other systems were reviewed and found to be within normal limits, except as documented in this note. Current Medications Current Medications Current Medications Medications (Trade) Dose Ordered Sig/Americo Start Time Stop Time Status Last Admin Dose Admin Naproxen (Naprosyn) 500 mg 1X ONCE 03/13/19 02:30 03/13/19 02:31 DC 03/13/19 02:44 500 MG Allergies Allergies Allergies Coded Allergies Type Severity Reaction Last Updated Verified ethyl alcohol Allergy Intermediate Hives 02/25/19 Yes latex Allergy Intermediate Rash 02/02/17 Yes Physical Exam Physical Exam Constitutional: Well developed, well nourished, no distress, non-toxic appearance. [] HENT: Normocephalic, atraumatic. Eyes: PERRLA, EOMI, conjunctiva normal, no discharge. [] Neck: Normal range of motion, no tenderness, supple, no stridor. [] Cardiovascular:Heart rate regular rhythm, no murmur [] Lungs & Thorax: Bilateral breath sounds clear to auscultation [] Abdomen: Bowel sounds normal, soft, no tenderness, no masses, no pulsatile masses. [] Skin: Warm, dry, no erythema, no rash. [] Back: No tenderness, no CVA tenderness. [] Extremities: No tenderness, no cyanosis, no clubbing, ROM intact, no edema. [] Neurologic: Alert and oriented X 3, no focal deficits noted. [] Psychologic: Affect normal, judgement normal, mood normal. [] Current Patient Data Vital Signs Vital Signs Date Time Temp Pulse Resp B/P (MAP) Pulse Ox O2 Delivery O2 Flow Rate FiO2 03/13/19 02:17 98.3 94 20 138/80 (99) 95 Room Air 98.3 Lab Values Laboratory Tests Test 03/13/19 02:25 03/13/19 02:30 POC Urine HCG, Qualitative Hcg negative (Negative) Urine Collection Type Unknown Urine Color Yellow Urine Clarity Clear Urine pH 5.5 Urine Specific [place] >=1.030 Urine Protein Negative mg/dL (NEG-TRACE) Urine Glucose (UA) Negative mg/dL (NEG) Urine Ketones (Stick) Negative mg/dL (NEG) Urine Blood Small (NEG) Urine Nitrite Negative (NEG) Urine Bilirubin Negative (NEG) Urine Urobilinogen Dipstick 1.0 mg/dL (0.2 mg/dL) Urine Leukocyte Esterase Negative (NEG) Urine RBC 3-5 /HPF (0-2) Urine WBC Rare /HPF (0-4) Urine Squamous Epithelial Cells Mod /LPF Urine Bacteria Few /HPF (0-FEW) Urine Mucus Slight /LPF Urine Opiates Screen Neg (NEG) Urine Methadone Screen Neg (NEG) Urine Barbiturates Neg (NEG) Urine Phencyclidine Screen Neg (NEG) Urine Amphetamine/Methamphetamine Neg (NEG) Urine Benzodiazepines Screen Neg (NEG) Urine Cocaine Screen Neg (NEG) Urine Cannabinoids Screen Neg (NEG) Urine Ethyl Alcohol Neg (NEG) EKG EKG [] Radiology/Procedures Radiology/Procedures [][facility] [address] [place], [place] [id number] IMAGING REPORT Signed PATIENT: KAYLENE CORDERO ACCOUNT: [id number] : 1980 LOCATION: ER AGE: 39 SEX: F EXAM STATUS: REG ER ORD. PHYSICIAN: ANABELL WEISS MD REASON: left flank pain PROCEDURE: CT ABDOMEN PELVIS WO CONTRAST EXAM: CT ABDOMEN/PELVIS WITHOUT CONTRAST. HISTORY: Left flank pain. TECHNIQUE: Computed tomography of the abdomen and pelvis was performed without intravenous contrast. COMPARISON: 09/13/2018. FINDINGS: Lung windows through the visualized portions of the bases reveal mild atelectasis. There is a calcified granuloma in the right middle lobe. Bone windows reveal no suspicious lesions. The liver, gallbladder, pancreas, adrenal glands and spleen are unremarkable without contrast. There are no pathologically enlarged lymph nodes. The uterus is surgically absent. The appendix is not inflamed. There is no small bowel obstruction. There are no renal or ureteral calculi. The bladder is decompressed. There is no hydronephrosis. There are no suspicious renal lesions without contrast. IMPRESSION: 1. No renal or ureteral calculi. No cause for acute pain is identified. *One or more of the following individualized dose reduction techniques were utilized for this examination: 1. Automated exposure control. 2. Adjustment of the mA and/or kV according to patient size. 3. Use of iterative reconstruction technique. Electronically signed by: Lilian Payne MD (03/13/2019 3:55 AM) [facility] DICTATED and SIGNED BY: GEO PAYNE MD DATE: 03/13/19 0355 Course & Med Decision Making Course & Med Decision Making Pertinent Labs and Imaging studies reviewed. (See chart for details) Evaluation of patient in ER showed 39-year-old patient with frequent emergency room visits presented with complaining of flank pain and rated her pain 9 while she looks very comfortable. Patient had unremarkable UA and CT abdomen and pelvis. Patient was advised to follow-up with her primary care physician with chronic pain. I've spoken with the patient and/or caregivers. I've explained the patient's condition, diagnosis and treatment plan based on information available to me at this time. I've answered the patient's and/or caregivers questions and addressed any concerns. The patient and/or caregivers have a good understanding the patient's diagnosis, condition and treatment plan as can be expected at this point. Vital signs have been stabilized. The patient's condition is stable for discharge from the emergency department. The patient will pursue further outpatient evaluation with her primary care provider or other designated consulting physician as outlined in the discharge i nstructions. Patient and/or caregivers are agreeable to this plan of care and follow-up instructions have been explained in detail. The patient and/or caregivers have received these instructions in written format and expressed understanding of these discharge instructions. The patient and her caregivers are aware that if any significant change in condition or worsening of symptoms should prompt him to immediately return to this of the closest emergency department. If an emergent department is not readily available I would encourage him to call 911. Dragon Disclaimer Dragon Disclaimer This electronic medical record was generated, in whole or in part, using a voice recognition dictation system. Departure Departure Impression: Primary Impression: Musculoskeletal pain Disposition: 01 HOME, SELF-CARE (at 0400) Condition: STABLE Referrals: SHIRLEY MCCABE MD (PCP) Patient Instructions: Musculoskeletal Pain Additional Instructions: Drink plenty of liquids Follow-up with your primary care physician in 3-5 days Return to ER if not getting better Scripts Naproxen (NAPROSYN) 500 Mg Tablet 1 TAB PO BID for pain, #20 TAB Prov: ANABELL WEISS MD 03/13/19 Cyclobenzaprine Hcl (CYCLOBENZAPRINE HCL) 10 Mg Tablet 1 TAB PO TID, #21 TAB Prov: ANABELL WEISS MD 03/13/19 ANABELL WEISS MD Mar 13, 2019 04:02
[2019-03-13 04:11] VITALS: BP 144/98
== END 2019-03-13 04:13 | disposition home or self-care (01) ==
LOC: ER 02:15
DX: R10.32 Left lower quadrant pain (principal); R11.0 Nausea; F41.9 Anxiety disorder, unspecified; I10 Essential (primary) hypertension; G43.909 Migraine, unspecified, not intractable, without status migrainosus; Z90.710 Acquired absence of both cervix and uterus; Z98.51 Tubal ligation status; Z91.040 Latex allergy status; Z91.09 Other allergy status, other than to drugs and biological substances
CPT/HCPCS: 74176; 80307; 81001; 81025; 99285-25

== ENCOUNTER 2019-03-18 21:42 | Emergency (ER) | payer MEDICAID ==
[~2019-03-18] VITALS: Ht 165.1 cm; Wt 104.3 kg
[2019-03-18 22:20] VITALS: BP 124/85
--- NOTE | 2019-03-18 22:37 | PHYS DOC ---
Past Medical History Past Medical History: Anxiety, Bronchitis, Hypertension, Migraines Additional Past Medical Histor: Adrenal mass,OVARIAN CYST,Scoliosis,PANIC ATTACKS Past Surgical History: No Surgical History, Tubal ligation, Other Additional Past Surgical Histo: Partial hysterectomy, RIGHT EAR Alcohol Use: None Drug Use: None Adult General Chief Complaint Chief Complaint: KNEE SWELLING HPI HPI Patient is a 39 year old female presents to the ER with right knee pain that started last night she was laying there. Patient states the pain is around the kneecap. Reports her pain as 9/10 in severity. Review of Systems Review of Systems Constitutional: Denies fever or chills [] Eyes: Denies change in visual acuity, redness, or eye pain [] HENT: Denies nasal congestion or sore throat [] Respiratory: Denies cough or shortness of breath [] Cardiovascular: No additional information not addressed in HPI [] GI: Denies abdominal pain, nausea, vomiting, bloody stools or diarrhea [] : Denies dysuria or hematuria [] Musculoskeletal: Reports R knee pain. Integument: Denies rash or skin lesions [] Neurologic: Denies headache, focal weakness or sensory changes [] Endocrine: Denies polyuria or polydipsia [] Complete systems were reviewed and found to be within normal limits, except as documented in this note. Current Medications Current Medications Current Medications Medications (Trade) Dose Ordered Sig/Americo Start Time Stop Time Status Last Admin Dose Admin Ketorolac Tromethamine (Toradol 30mg Vial) 30 mg 1X ONCE 03/18/19 23:00 03/18/19 23:01 DC Allergies Allergies Allergies Coded Allergies Type Severity Reaction Last Updated Verified ethyl alcohol Allergy Intermediate Hives 02/25/19 Yes latex Allergy Intermediate Rash 02/02/17 Yes Physical Exam Physical Exam Constitutional: Well developed, well nourished, no acute distress, non-toxic appearance. [] HENT: Normocephalic, atraumatic, bilateral external ears normal, oropharynx moist, no oral exudates, nose normal. [] Eyes: PERRLA, EOMI, conjunctiva normal, no discharge. [] Neck: Normal range of motion, no tenderness, supple, no stridor. [] Cardiovascular:Heart rate regular rhythm, no murmur [] Lungs & Thorax: Bilateral breath sounds clear to auscultation [] Abdomen: Bowel sounds normal, soft, no tenderness, no masses, no pulsatile masses. [] Skin: Warm, dry, no erythema, no rash. [] Back: No tenderness, no CVA tenderness. [] Extremities: Tenderness to R knee with suprapatellar edema and tenderness. Neurologic: Alert and oriented X 3, normal motor function, normal sensory function, no focal deficits noted. [] Psychologic: Affect normal, judgement normal, mood normal. [] Current Patient Data Vital Signs Vital Signs Date Time Temp Pulse Resp B/P (MAP) Pulse Ox O2 Delivery O2 Flow Rate FiO2 03/18/19 22:20 98.4 89 16 124/85 (98) 97 Room Air 98.4 EKG EKG [] Radiology/Procedures Radiology/Procedures Knee x-ray interpreted by Dr. Felipe[] No obvious acute fracture or deformity Course & Med Decision Making Course & Med Decision Making Pertinent Labs and Imaging studies reviewed. (See chart for details) Will get x-ray and give toradol. x-ray is negative. Will place in Von wrap and d/c home. Dragon Disclaimer Dragon Disclaimer This electronic medical record was generated, in whole or in part, using a voice recognition dictation system. Departure Departure Impression: Primary Impression: Right knee pain Disposition: HOME, SELF-CARE Condition: STABLE Referrals: JOYCELYN SORIANO MD (PCP) Patient Instructions: Knee Pain, Knee Wraps (Elastic Bandage) and RICE Additional Instructions: Thank you for visiting [facility]. We appreciate you trusting us with your care. If any additional problems come up don't hesitate to return to visit us. Please follow up with your primary care provider so they can plan additional care if needed and know about the problem that you had. If symptoms worsen come back to the Emergency Department. Any concerning symptoms that start such as chest pain, shortness of air, weakness or numbness on one side of the body, running high fevers or any other concerning symptoms return to the ER. Problem Qualifiers Primary Impression: Right knee pain Chronicity: acute Qualified Codes: M25.561 - Pain in right knee KEITHJOYCELYN MCKINNEY YAMILE Mar 18, 2019 22:37
[2019-03-18] MEDS ORDERED: KETOROLAC 30 MG/ML VIAL. IM ONE (23:00)
--- NOTE | 2019-03-19 05:56 | RAD ---
Right knee 4 views: Reason for examination: Knee pain and swelling. No acute fracture or dislocation is seen. The bone density is normal. Joint spaces are fairly well-maintained. There are some mild degenerative changes present. There is suggestion of possibly a small suprapatellar joint effusion. IMPRESSION: No acute bony abnormality seen at the right knee. Possibly a small suprapatellar joint effusion. Electronically signed by: Vickie Trent MD (03/19/2019 5:54 AM) [facility]
== END 2019-03-18 23:38 | disposition home or self-care (01) ==
LOC: ER 21:42
DX: M25.561 Pain in right knee (principal); F41.9 Anxiety disorder, unspecified; I10 Essential (primary) hypertension; G43.909 Migraine, unspecified, not intractable, without status migrainosus; Z98.51 Tubal ligation status; Z90.710 Acquired absence of both cervix and uterus
CPT/HCPCS: 73564; 96372; 99284; J1885

== ENCOUNTER 2019-04-06 00:55 | Emergency (ER) | payer MEDICAID ==
[~2019-04-06] VITALS: Ht 165.1 cm; Wt 104.6 kg
[2019-04-06 01:30] VITALS: BP 124/64
--- NOTE | 2019-04-06 01:31 | PHYS DOC ---
Past Medical History Past Medical History: Anxiety, Bronchitis, Hypertension, Migraines Additional Past Medical Histor: Adrenal mass,OVARIAN CYST,Scoliosis,PANIC ATTACKS Past Surgical History: Hysterectomy, Tubal ligation, Other Additional Past Surgical Histo: Partial hysterectomy, RIGHT EAR Alcohol Use: None Drug Use: None Adult General Chief Complaint Chief Complaint: NEURO SYMPTOMS/DEFICITS HPI HPI 39-year-old female presents to emergency department with complaints of right finger and hand numbness and tingling. Patient states this has been ongoing for at least 2 months. She denies any headache, visual changes, chest pain, shortness breath, nausea, vomiting. 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 She states her reason for visit tonight was because she got anxious and concerned about. The symptoms are restricted to the palmar aspect of her hand as well as the first 3 digits. She does have a history of carpal tunnel syndrome and has received steroid injections in the past. All other ROS negative unless documented in HPI Review of Systems Review of Systems See Above Allergies Allergies Allergies Coded Allergies Type Severity Reaction Last Updated Verified ethyl alcohol Allergy Intermediate Hives 02/25/19 Yes latex Allergy Intermediate Rash 02/02/17 Yes Physical Exam Physical Exam See Above Constitutional: Well developed, well nourished, no acute distress, non-toxic appearance. [] Neck: Normal range of motion, no tenderness, supple, no stridor. [] Cardiovascular:Heart rate regular rhythm, no murmur [] Lungs & Thorax: Bilateral breath sounds clear to auscultation [] Skin: Warm, dry, no erythema, no rash. [] Extremities: No tenderness, no cyanosis, no edema. [] Neurologic: Alert and oriented X 3, no focal deficits noted, patient's numbness and tingling is primarily in the distribution of the median nerve the right hand. She has sensory deficit appreciated to the palmar aspect as well as the first 3 digits. [] Psychologic: Affect normal, judgement normal, mood normal. [] Current Patient Data Vital Signs Vital Signs Date Time Temp Pulse Resp B/P (MAP) Pulse Ox O2 Delivery O2 Flow Rate FiO2 04/06/19 00:55 98.3 91 17 156/84 (108) 97 Room Air 98.3 EKG EKG [] Radiology/Procedures Radiology/Procedures [] Course & Med Decision Making Course & Med Decision Making Pertinent Labs and Imaging studies reviewed. (See chart for details) []39-year-old female presents to emergency department with complaints of right finger and hand numbness and tingling. Patient states this has been ongoing for at least 2 months. She denies any headache, visual changes, chest pain, shortness breath, nausea, vomiting. 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 She states her reason for visit tonight was because she got anxious and concerned about. The symptoms are restri cted to the palmar aspect of her hand as well as the first 3 digits. She does have a history of carpal tunnel syndrome and has received steroid injections in the past. Patient understanding of discharge instructions and return precautions. Dragon Disclaimer Dragon Disclaimer This electronic medical record was generated, in whole or in part, using a voice recognition dictation system. Departure Departure Impression: Primary Impression: Numbness and tingling of hand Disposition: 01 HOME, SELF-CARE Condition: STABLE Referrals: JOYCELYN SORIANO MD (PCP) Patient Instructions: Carpal Tunnel Syndrome, [id number] Additional Instructions: Recommend follow up with PCP/Neurology Distribution of symptoms consistent with median nerve compression, likely related to carpal tunnel history Return to the ER with concern for stroke like symptoms - facial numbness, unilateral weakness JOSE HOLT MD Apr 06, 2019 01:31
== END 2019-04-06 01:37 | disposition home or self-care (01) ==
LOC: ER 00:55
DX: R20.0 Anesthesia of skin (principal); R20.2 Paresthesia of skin; F41.9 Anxiety disorder, unspecified; I10 Essential (primary) hypertension; G43.909 Migraine, unspecified, not intractable, without status migrainosus; Z90.710 Acquired absence of both cervix and uterus; Z98.51 Tubal ligation status; Z91.040 Latex allergy status; Z91.09 Other allergy status, other than to drugs and biological substances
CPT/HCPCS: 99281

== ENCOUNTER 2019-04-13 20:53 | Emergency (ER) | payer MEDICAID ==
[~2019-04-13] VITALS: Ht 165.1 cm; Wt 104.3 kg
[2019-04-13 21:10] VITALS: BP 175/100
--- NOTE | 2019-04-13 21:55 | PHYS DOC ---
Past Medical History Past Medical History: Anxiety, Bronchitis, Hypertension, Migraines Additional Past Medical Histor: Adrenal mass,OVARIAN CYST,Scoliosis,PANIC ATTACKS (JOYCELYN KEITH APRN) Past Surgical History: Hysterectomy, Tubal ligation, Other Additional Past Surgical Histo: Partial hysterectomy, RIGHT EAR (JOYCELYN KEITH APRN) Alcohol Use: None Drug Use: None (JOYCELYN KEITH APRN) Adult General Chief Complaint Chief Complaint: SORE THROAT HPI HPI Patient is a 39 year old female that presents for sore throat, and cough. Patient states his been ongoing for 2 days and got worse today. She states it hurts to swallow water. Rates her pain as 9 out of 10 in severity and sharp and throbbing. Denies fever. (JOYCELYN KEITH APRN) Review of Systems Review of Systems Constitutional: Denies fever or chills [] Eyes: Denies change in visual acuity, redness, or eye pain [] HENT: Reports nasal congestion and sore throat [] Respiratory: Reports cough and denies shortness of breath [] Cardiovascular: No additional information not addressed in HPI [] GI: Denies abdominal pain, nausea, vomiting, bloody stools or diarrhea [] : Denies dysuria or hematuria [] Musculoskeletal: Denies back pain or joint pain [] Integument: Denies rash or skin lesions [] Neurologic: Denies headache, focal weakness or sensory changes [] Endocrine: Denies polyuria or polydipsia [] Complete systems were reviewed and found to be within normal limits, except as documented in this note. (JOYCELYN KEITH APRN) Current Medications Current Medications Current Medications Medications (Trade) Dose Ordered Sig/Americo Start Time Stop Time Status Last Admin Dose Admin Dexamethasone (Decadron) 10 mg 1X ONCE 04/13/19 22:00 04/13/19 22:01 DC 04/13/19 21:57 10 MG (JOSE HOLT MD) Allergies Allergies Allergies Coded Allergies Type Severity Reaction Last Updated Verified ethyl alcohol Allergy Intermediate Hives 02/25/19 Yes latex Allergy Intermediate Rash 02/02/17 Yes (JOSE HOLT MD) Physical Exam Physical Exam Constitutional: Well developed, well nourished, no acute distress, non-toxic appearance. [] HENT: Normocephalic, atraumatic, bilateral external ears normal, tonsils are 1+/4 with no exudate, oropharynx moist, no oral exudates, nose normal. [] Eyes: PERRLA, EOMI, conjunctiva normal, no discharge. [] Neck: Normal range of motion, no tenderness, supple, no stridor. [] Cardiovascular:Heart rate regular rhythm, no murmur [] Lungs & Thorax: Bilateral breath sounds clear to auscultation [] Abdomen: Bowel sounds normal, soft, no tenderness, no masses, no pulsatile masses. [] Skin: Warm, dry, no erythema, no rash. [] Back: No tenderness, no CVA tenderness. [] Extremities: No tenderness, no cyanosis, no clubbing, ROM intact, no edema. [] Neurologic: Alert and oriented X 3, normal motor function, normal sensory function, no focal deficits noted. [] Psychologic: Affect normal, judgement normal, mood normal. [] (JOYCELYN KEITH APRN) Current Patient Data Vital Signs Vital Signs Date Time Temp Pulse Resp B/P (MAP) Pulse Ox O2 Delivery O2 Flow Rate FiO2 04/13/19 21:10 98.4 101 17 175/100 (125) 96 Room Air 98.4 (JOSE HOLT MD) EKG EKG [] (JOYCELYN KEITH APRN) Radiology/Procedures Radiology/Procedures [] (JOYCELYN KEITH APRN) Course & Med Decision Making Course & Med Decision Making Pertinent Labs and Imaging studies reviewed. (See chart for details) Will give Decadron. Recommend to take Zyrtec at home. Centor criteria is a 1 and does not recommend testing or treatment for strep. (JOYCELYN KEITH APRN) Dragon Disclaimer Dragon Disclaimer This electronic medical record was generated, in whole or in part, using a voice recognition dictation system. (JOYCELYN KEITH APRN) Departure Departure Impression: Primary Impression: Allergic rhinitis Disposition: HOME, SELF-CARE Condition: STABLE Referrals: JOYCELYN SORIANO MD (PCP) Patient Instructions: Allergic Rhinitis Additional Instructions: Thank you for visiting [facility]. We appreciate you trusting us with your care. If any additional problems come up don't hesitate to return to visit us. Please follow up with your primary care provider so they can plan additional care if needed and know about the problem that you had. If symptoms worsen come back to the Emergency Department. Any concerning symptoms that start such as chest pain, shortness of air, weakness or numbness on one side of the body, running high fevers or any other concerning symptoms return to the ER. Please start taking Zyrtec [id number] per label instructions at home. Attending Signature I have participated in the care of this patient and I have reviewed and agree with all pertinent clinical information above including history, exam, and recommendations. (JOSE HOLT MD) Problem Qualifiers Primary Impression: Allergic rhinitis Allergic rhinitis trigger: unspecified Allergic rhinitis seasonality: unspecified Qualified Codes: J30.9 - Allergic rhinitis, unspecified JOYCELYN KEITH APRN Apr 13, 2019 21:55 JOSE HOLT MD Apr 14, 2019 05:03
[2019-04-13] MEDS ORDERED: DEXAMETHASONE 4 MG TABLET PO ONE (22:00)
== END 2019-04-13 22:04 | disposition home or self-care (01) ==
LOC: ER 20:53
DX: J30.9 Allergic rhinitis, unspecified (principal); I10 Essential (primary) hypertension; G43.909 Migraine, unspecified, not intractable, without status migrainosus; Z91.040 Latex allergy status; Z88.8 Allergy status to other drugs, medicaments and biological substances
CPT/HCPCS: 87070; 87880; 99283; J8540

== ENCOUNTER 2019-04-21 01:30 | Emergency (ER) | payer MEDICAID ==
[~2019-04-21] VITALS: Ht 165.1 cm; Wt 104.3 kg
[~2019-04-21 01:30] MED LIST changes: -BETA15CR3 TP; +BETA15CR6 TP
[2019-04-21 01:39] VITALS: BP 157/80
[2019-04-21] MEDS ORDERED: GUAI12003 PO (03:12)
--- NOTE | 2019-04-21 03:18 | PHYS DOC ---
Past Medical History Past Medical History: Anxiety, Bronchitis, Hypertension, Migraines Additional Past Medical Histor: Adrenal mass,OVARIAN CYST,Scoliosis,PANIC ATTACKS Past Surgical History: Hysterectomy, Tubal ligation, Other Additional Past Surgical Histo: Partial hysterectomy, RIGHT EAR Alcohol Use: None Drug Use: None Adult General Chief Complaint Chief Complaint: COUGH HPI HPI Patient is a 39 year old female well-known to this facility presents with nonproductive cough 2 weeks. Patient was evaluated emergency department 7 days ago for the same and subsequently evaluated by her PCP and diagnosed with bronchitis and allergic rhinitis. Patient denies fever chills, nausea vomiting or sweats. No retractions wheezes or history of asthma. No other acute symptoms or complaints. [] Review of Systems Review of Systems Review of symptoms as per history of present illness. All other systems were reviewed and found to be within normal limits, except as documented in this note. Allergies Allergies Allergies Coded Allergies Type Severity Reaction Last Updated Verified ethyl alcohol Allergy Intermediate Hives 02/25/19 Yes latex Allergy Intermediate Rash 02/02/17 Yes Physical Exam Physical Exam Constitutional: Well developed, well nourished, no acute distress, non-toxic tasha earance. [] HENT: Normocephalic, atraumatic, bilateral external ears normal, oropharynx moist, no oral exudates, nose, congestion with clear rhinorrhea, hoarse voice. [] Eyes: PERRLA, EOMI, conjunctiva normal, no discharge. [] Neck: Normal range of motion, no tenderness, supple, no stridor. [] Cardiovascular:Heart rate regular rhythm, no murmur [] Lungs & Thorax: Bilateral breath sounds clear to auscultation [] Abdomen: Bowel sounds normal, soft, no tenderness. [] Skin: Warm, dry. [] Back: No tenderness, no CVA tenderness. [] Extremities: No tenderness, no cyanosis, no clubbing, ROM intact, no edema. [] Neurologic: Alert and oriented X 3, normal motor function, normal sensory function, no focal deficits noted. [] Psychologic: Affect normal, judgement normal, mood normal. [] Current Patient Data Vital Signs Vital Signs Date Time Temp Pulse Resp B/P (MAP) Pulse Ox O2 Delivery O2 Flow Rate FiO2 04/21/19 01:39 98.7 82 20 157/80 (105) 98 Room Air 98.7 EKG EKG [] Radiology/Procedures Radiology/Procedures [] Course & Med Decision Making Course & Med Decision Making Pertinent Labs and Imaging studies reviewed. (See chart for details) [Acute bronchitis without respiratory compromise. Recommend continued supportive care with PCP follow-up.] Tia Disclaimer Tia Disclaimer This electronic medical record was generated, in whole or in part, using a voice recognition dictation system. Departure Departure Impression: Primary Impression: Bronchitis Disposition: HOME, SELF-CARE Condition: GOOD Patient Instructions: Bronchitis, [id number] Additional Instructions: Take Mucinex for cough and warm tea with honey as needed for additional relief. Follow-up with your PCP in 3-5 days for reevaluation Scripts Guaifenesin (MUCINEX) 1,200 Mg Tbmp.12hr 1 TAB PO BID, #30 TAB Prov: SERA MATSON DO 04/21/19 SERA MATSON DO Apr 21, 2019 03:18
== END 2019-04-21 03:24 | disposition home or self-care (01) ==
LOC: ER 01:30
DX: J20.9 Acute bronchitis, unspecified (principal); F41.9 Anxiety disorder, unspecified; I10 Essential (primary) hypertension; G43.909 Migraine, unspecified, not intractable, without status migrainosus; Z90.710 Acquired absence of both cervix and uterus; Z98.51 Tubal ligation status; Z91.040 Latex allergy status; Z91.09 Other allergy status, other than to drugs and biological substances
CPT/HCPCS: 99282

== ENCOUNTER 2019-05-10 16:43 | Emergency (ER) | payer MEDICAID ==
[~2019-05-10] VITALS: Ht 165.1 cm; Wt 99.8 kg
[~2019-05-10 16:43] MED LIST changes: +GUAI12003 PO
[2019-05-10 17:56] VITALS: BP 157/101
--- NOTE | 2019-05-10 18:46 | PHYS DOC ---
Past Medical History Past Medical History: Anxiety, Bronchitis, Hypertension, Migraines Additional Past Medical Histor: Adrenal mass,OVARIAN CYST,Scoliosis,PANIC ATTACKS Past Surgical History: Hysterectomy, Tubal ligation, Other Additional Past Surgical Histo: Partial hysterectomy, RIGHT EAR Alcohol Use: None Drug Use: None Adult General Chief Complaint Chief Complaint: Palpitations HPI HPI Patient is a 39 year old female who presents with left chest bow tattoo ink, There is a small bump that came up and has been there for a month. Patient states it has not gotten bigger, no drainage, no pain, does not itch. Patient also complains of left chest palpitations that started today while she was just sitting. Patient states her left arm also feels heavy. Patient states her left chest feels sore. This all started at 1300 today. Patient currently rates her pain a 4 out of 10. Patient denies any shortness of breath Review of Systems Review of Systems Cardiovascular: Palpitations, left chest sore Musculoskeletal: Left arm heavy, Denies back pain or joint pain [] All other systems were reviewed and found to be within normal limits, except as documented in this note. Allergies Allergies Allergies Coded Allergies Type Severity Reaction Last Updated Verified ethyl alcohol Allergy Intermediate Hives 02/25/19 Yes latex Allergy Intermediate Rash 02/02/17 Yes Physical Exam Physical Exam Constitutional: Well developed, well nourished, no acute distress, non-toxic appearance. [] HENT: Normocephalic, atraumatic, bilateral external ears normal, oropharynx moist, no oral exudates, nose normal. [] Eyes: PERRLA, EOMI, conjunctiva normal, no discharge. [] Neck: Normal range of motion, no tenderness, supple, no stridor. [] Cardiovascular:Heart rate regular rhythm, no murmur [] Lungs & Thorax: Bilateral breath sounds clear to auscultation [] Abdomen: Bowel sounds normal, soft, no tenderness, no masses, no pulsatile masses. [] Skin: Small bump on Black out line of left chest tattoo. Warm, dry, no erythema, no rash. [] Back: No tenderness, no CVA tenderness. [] Extremities: No tenderness, no cyanosis, no clubbing, ROM intact, no edema. [] Neurologic: Alert and oriented X 3, normal motor function, normal sensory function, no focal deficits noted. [] Psychologic: Affect normal, judgement normal, mood normal. [] Current Patient Data Vital Signs Vital Signs Date Time Temp Pulse Resp B/P (MAP) Pulse Ox O2 Delivery O2 Flow Rate FiO2 05/10/19 17:56 98.0 82 14 157/101 (119) 98 Room Air 98.0 Lab Values Laboratory Tests Test 05/10/19 18:38 Troponin I Quantitative < 0.017 ng/mL (0.000-0.055) EKG EKG Sinus Rhythm and no STEMI[] Interpretation Time: [address] Domingo Radiology/Procedures Radiology/Procedures [] Course & Med Decision Making Course & Med Decision Making Alert and oriented. Skin pink warm and dry. Speaks in full clear sentences. Ambulatory with a steady gait. EKG shows sinus rhythm and no STEMI. Lungs are clear to auscultation all lobes. Patient states her asthma has been acting up recently she's been to the doctor for this. Patient states she has been taking more her inhaler recently. Patient states she does have a history of anxiety and panic attacks also. Patient states the chest pain is worse with movement. Can't reproduce the chest pain with palpation over the left chest and mid chest. Patient can move all extremities equally with equal strength. No extremity swelling. Radial pulses are strong and present. Cap refill less than 3 seconds. Patient denies any numbness or tingling, dizziness, headache, visual changes, focal weakness, abdominal pain, nausea, vomiting, diarrhea, fevers, recent illness. Patient states she has been having a cough but that her asthma is acting up. Dragon Disclaimer Dragon Disclaimer This electronic medical record was generated, in whole or in part, using a voice recognition dictation system. Departure Departure Impression: Primary Impression: Palpitations Disposition: HOME, SELF-CARE Condition: STABLE Referrals: JOYCELYN SORIANO MD (PCP) Patient Instructions: Anxiety and Panic Attacks, Chest Wall Pain, Palpitations Additional Instructions: FOLLOW UP WITH PRIMARY CARE PROVIDER SOON POSSIBLE. NIRMAL MCKEON MARKET RESEARCH COORDINATOR May 10, 2019 18:46
--- NOTE | 2019-05-12 08:52 | EKG ---
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
== END 2019-05-10 19:45 | disposition home or self-care (01) ==
LOC: ER 16:43
DX: R00.2 Palpitations (principal); F41.9 Anxiety disorder, unspecified; I10 Essential (primary) hypertension; G43.909 Migraine, unspecified, not intractable, without status migrainosus; Z90.710 Acquired absence of both cervix and uterus; Z98.51 Tubal ligation status; Z91.040 Latex allergy status; Z91.09 Other allergy status, other than to drugs and biological substances
CPT/HCPCS: 36415; 84484; 93005; 99285

== ENCOUNTER → 2019-05-22 | Day surgery (SDC) | payer MEDICAID ==
[~2019-05-22] MED LIST changes: +DICL50TA2 PO; +HYDROmorphone 2 MG/ML VIAL IV PRN; +IV RINGERS,LACTATED 1000ML 1,000 ML IV SCH; +LIDOCAINE 1% PF 2 ML VIAL. ID PRN; +LIDOCAINE 2% PF 5 ML VIAL. ONE; +MORPHINE SULFATE 2 MG/ML VIAL. IV PRN; +ONDA4TAB7 PO; +PROCHLORPERAZINE 10 MG/2 ML VIAL. IV PRN; +PROPOFOL 20 ML IV ONE; +fentaNYL PF VIAL 100 MCG/2 ML VIAL IV PRN
[2019-05-22 12:50] VITALS: BP 142/85
== END | disposition home or self-care (01) ==
LOC: ENDOS 10:38
PROVIDERS: ATTEND Internal Medicine Gastroenterology
DX: K22.2 Esophageal obstruction (principal); R13.10 Dysphagia, unspecified; Z91.040 Latex allergy status; Z88.8 Allergy status to other drugs, medicaments and biological substances
CPT/HCPCS: 43235; 43450; J2001; J2704

== ENCOUNTER 2019-05-31 23:57 | Emergency (ER) | payer MEDICAID ==
[~2019-05-31] VITALS: Ht 167.6 cm; Wt 103.4 kg
[~2019-05-31 23:57] MED LIST changes: -DICL50TA2 PO; -HYDROmorphone 2 MG/ML VIAL IV PRN; -IV RINGERS,LACTATED 1000ML 1,000 ML IV SCH; -LIDOCAINE 1% PF 2 ML VIAL. ID PRN; -LIDOCAINE 2% PF 5 ML VIAL. ONE; -MORPHINE SULFATE 2 MG/ML VIAL. IV PRN; -ONDA4TAB7 PO; -PROCHLORPERAZINE 10 MG/2 ML VIAL. IV PRN; -PROPOFOL 20 ML IV ONE; -fentaNYL PF VIAL 100 MCG/2 ML VIAL IV PRN
[2019-06-01 00:15] VITALS: BP 163/81
--- NOTE | 2019-06-01 00:36 | PHYS DOC ---
Past Medical History Past Medical History: Anxiety, Arthritis, Bronchitis, Hypertension, Migraines Additional Past Medical Histor: Adrenal mass,OVARIAN CYST,Scoliosis,PANIC ATTACKS Past Surgical History: Hysterectomy, Tubal ligation, Other Additional Past Surgical Histo: Partial hysterectomy, RIGHT EAR Alcohol Use: None Drug Use: None Adult General Chief Complaint Chief Complaint: BACK PAIN - NO INJURY [facility] HPI Patient is a 39 year old female, accompanied by her significant other, who presents to the emergency department with complaints of right low back pain that starts in the middle of her right buttock and shoots into her right thigh with weightbearing and ambulation. Patient denies any recent heavy lifting, increased in exercise, or known injury. She currently rates the pain a 9 out of 10 on the pain scale she denies any alleviating or exacerbating factors. Patient denies any numbness, tingling, or weakness of the affected extremity. She denies any nausea, vomiting, diarrhea, or abdominal pain. Patient also denies any increased urinary frequency, dysuria, hematuria, saddle anesthesia, loss of bowel/bladder control. All other ROS is neg unless otherwise noted in HPI. Review of Systems Review of Systems sEE aBOVE Allergies Allergies Allergies Coded Allergies Type Severity Reaction Last Updated Verified ethyl alcohol Allergy Intermediate Hives 05/22/19 Yes latex Allergy Intermediate Rash 05/22/19 Yes Physical Exam Physical Exam See Above Constitutional: Well developed, well nourished, no acute distress, non-toxic appearance, obese. [] HENT: Normocephalic, atraumatic, bilateral external ears normal, nose normal. [] Eyes: PERRLA, EOMI, conjunctiva normal, no discharge. [] Neck: Normal range of motion, no stridor. [] Cardiovascular:Heart rate regular rhythm Lungs & Thorax: Respirations even and unlabored, no retractions, no respiratory distress Skin: Warm, dry, no erythema, no rash. [] Back: No bony tenderness, no CVA tenderness; R lumbar paraspinal TTP with radiation to R buttock and R thigh [] Extremities: No cyanosis, no clubbing, ROM intact, no edema; R piriformis TTP [] Neurologic: Alert and oriented X 3, no focal deficits noted. [] Psychologic: Affect normal, judgement normal, mood normal. [] EKG EKG [] Radiology/Procedures Radiology/Procedures [] Course & Med Decision Making Course & Med Decision Making Pertinent Labs and Imaging studies reviewed. (See chart for details) [] Dragon Disclaimer Dragon Disclaimer This electronic medical record was generated, in whole or in part, using a voice recognition dictation system. Departure Departure Impression: Primary Impression: Acute right hip pain Additional Impression: Piriformis muscle pain Disposition: HOME, SELF-CARE Condition: STABLE Referrals: JOYCELYN SORIANO MD (PCP) Patient Instructions: Piriformis Syndrome with [facility] Additional Instructions: Fill the prescriptions and use them as directed. Apply heat or ice to the area as needed for comfort. Practice exercises provided for stretching. Return to the emergency room if symptoms worsen. Follow-up with your primary care doctor next week Scripts Naproxen (NAPROXEN) 500 Mg Tablet 1 TAB PO BID PRN for PAIN for 10 Days, #20 TAB 0 Refills Prov: DEMETRIO SHERWOOD APRN 06/01/19 Cyclobenzaprine Hcl (CYCLOBENZAPRINE HCL) 10 Mg Tablet 1 TAB PO TID PRN for PAIN for 10 Days, #30 TAB 0 Refills Prov: DEMETRIO SHERWOOD APRN 06/01/19 Problem Qualifiers DEMETRIO SHERWOOD APRN Jun 01, 2019 00:36
[2019-06-01] MEDS ORDERED: NAPR-514 PO (00:44)
[2019-06-01] MEDS ORDERED: CYCL10TA2 PO (00:44)
== END 2019-06-01 01:10 | disposition home or self-care (01) ==
LOC: ER 23:57
DX: M62.838 Other muscle spasm (principal); M25.551 Pain in right hip; M54.5 Low back pain; M79.651 Pain in right thigh; I10 Essential (primary) hypertension; G43.909 Migraine, unspecified, not intractable, without status migrainosus; Z90.711 Acquired absence of uterus with remaining cervical stump; Z98.51 Tubal ligation status; Z91.040 Latex allergy status; Z88.8 Allergy status to other drugs, medicaments and biological substances
CPT/HCPCS: 99283

== ENCOUNTER 2019-06-13 02:55 | Emergency (ER) | payer MEDICAID ==
[~2019-06-13] VITALS: Ht 165.1 cm; Wt 99.8 kg
[2019-06-13 03:45] LABS: BASO # 0.1 x10^3/uL (0.0-0.2); BASO % 1 % (0-3); EOS # 0.2 x10^3/uL (0.0-0.7); EOS % 3 % (0-3); HEMATOCRIT 40.4 % (36.0-47.0); HEMOGLOBIN 13.3 g/dL (12.0-15.5); LYMPH % 22 % (24-48); MEAN CORPUSCULAR HEMOGLOBIN 29 pg (25-35); MEAN CORPUSCULAR HGB CONC 33 g/dL (31-37); MEAN CORPUSCULAR VOLUME 89 fL (79-100); MONO # 0.9 x10^3/uL (0.0-1.1); MONO % 11 % (0-9); NEUT # 5.6 x10^3/uL (1.8-7.7); NEUT % 64 % (31-73); PLATELET COUNT 375 x10^3/uL (140-400); RED BLOOD COUNT 4.53 x10^6/uL (3.50-5.40); RED CELL DISTRIBUTION WIDTH 13.5 % (11.5-14.5); WHITE BLOOD COUNT 8.9 x10^3/uL (4.0-11.0)
[2019-06-13 03:54] LABS: CALCIUM 8.8 mg/dL (8.5-10.1); CREATININE 0.8 mg/dL (0.6-1.0); GFR 79.9; POTASSIUM 3.5 mmol/L (3.5-5.1)
[2019-06-13 04:00] LABS: ALBUMIN/GLOBULIN RATIO 1.1 (1.0-1.7); TOTAL BILIRUBIN 0.3 mg/dL (0.2-1.0); TOTAL PROTEIN 7.5 g/dL (6.4-8.2)
[2019-06-13] MEDS ORDERED: IV NORMAL SALINE 1000ML BAG 1,000 ML IV ONE (04:00)
[2019-06-13 04:02] LABS: BILIRUBIN,URINE SMALL (NEG); CLARITY,URINE CLOUDY; COLOR,URINE AMBER; NITRITE,URINE NEGATIVE (NEG); PH,URINE 5.5; PROTEIN,URINE 30 mg/dL (NEG-TRACE)
[2019-06-13 04:10] LABS: BACTERIA,URINE MANY /HPF (0-FEW); RBC,URINE OCC /HPF (0-2); SQUAMOUS EPITHELIAL CELL,UR MANY /LPF; WBC,URINE OCC /HPF (0-4)
--- NOTE | 2019-06-13 04:10 | PHYS DOC ---
Past Medical History Past Medical History: Anxiety, Arthritis, Bronchitis, Hypertension, Migraines Additional Past Medical Histor: Adrenal mass,OVARIAN CYST,Scoliosis,PANIC ATTACKS Past Surgical History: Hysterectomy, Tubal ligation, Other Additional Past Surgical Histo: Partial hysterectomy, RIGHT EAR Alcohol Use: None Drug Use: None Adult General Chief Complaint Chief Complaint: ABDOMINAL PAIN HPI HPI 39 no female presents to the emergency Department complaints of right flank pain with radiation to her right groin. Patient states started around 4 PM on . She describes nausea however no vomiting. She describes frequency of urination however no dysuria. She does have underlying history of urinary tract infections. States her symptoms worse, nothing makes her symptoms better. Patient denies any left lower quadrant pain. She does have some right CVA tenderness on exam. Patient denies any fever, shortness breath, chest pain, headache or visual changes. Review of Systems Review of Systems Constitutional: Denies fever or chills [] Respiratory: Denies cough or shortness of breath [] Cardiovascular: No additional information not addressed in HPI [] GI: right flank, right abd pain, + nausea, no vomiting, bloody stools or diarrhea [] : Denies dysuria or hematuria [] Musculoskeletal: + right cva tenderness Neurologic: Denies headache, focal weakness or sensory changes [] All other systems were reviewed and found to be within normal limits, except as documented in this note. Current Medications Current Medications Current Medications Medications (Trade) Dose Ordered Sig/[facility] Start Time Stop Time Status Last Admin Dose Admin Ketorolac Tromethamine (Toradol 30mg Vial) 30 mg 1X ONCE 06/13/19 04:15 06/13/19 04:16 DC 06/13/19 04:13 30 MG Ondansetron HCl (Zofran) 4 mg 1X ONCE 06/13/19 04:15 06/13/19 04:16 DC 06/13/19 04:13 4 MG Sodium Chloride 1,000 ml @ 1,000 mls/hr 1X ONCE 06/13/19 04:00 06/13/19 04:59 06/13/19 04:13 1,000 MLS/HR Allergies Allergies Allergies Coded Allergies Type Severity Reaction Last Updated Verified ethyl alcohol Allergy Intermediate Hives 05/22/19 Yes latex Allergy Intermediate Rash 05/22/19 Yes Physical Exam Physical Exam Constitutional: Well developed, well nourished, no acute distress, non-toxic appearance. [] HENT: Normocephalic, atraumatic, bilateral external ears normal, oropharynx moist, no oral exudates, nose normal. [] Eyes: PERRLA, EOMI, conjunctiva normal, no discharge. [] Cardiovascular:Heart rate regular rhythm, no murmur [] Lungs & Thorax: Bilateral breath sounds clear to auscultation [] Abdomen: Bowel sounds normal, no pulsatile masses. [] Skin: Warm, dry, no erythema, no rash. [] Back: right CVA tenderness Extremities: No tenderness, no cyanosis, no clubbing, ROM intact, no edema. [] Neurologic: Alert and oriented X 3, no focal deficits noted. [] Psychologic: Affect normal, judgement normal, mood normal. [] Current Patient Data Vital Signs Vital Signs Date Time Temp Pulse Resp B/P (MAP) Pulse Ox O2 Delivery O2 Flow Rate FiO2 06/13/19 03:10 97.6 87 16 109/74 (86) 97 Room Air 97.6 Lab Values Laboratory Tests Test 06/13/19 03:15 06/13/19 03:34 Urine Collection Type Unknown Urine Color [facility] Urine Clarity Cloudy Urine pH 5.5 Urine Specific [place] >=1.030 Urine Protein 30 mg/dL (NEG-TRACE) Urine Glucose (UA) Negative mg/dL (NEG) Urine Ketones (Stick) Trace mg/dL (NEG) Urine Blood Small (NEG) Urine Nitrite Negative (NEG) Urine Bilirubin Small (NEG) Urine Urobilinogen Dipstick 1.0 mg/dL (0.2 mg/dL) Urine Leukocyte Esterase Negative (NEG) Urine RBC Occ /HPF (0-2) Urine WBC Occ /HPF (0-4) Urine Squamous Epithelial Cells Many /LPF Urine Bacteria Many /HPF (0-FEW) Urine Mucus Marked /LPF White Blood Count 8.9 x10^3/uL (4.0-11.0) Red Blood Count 4.53 x10^6/uL (3.50-5.40) Hemoglobin 13.3 g/dL (12.0-15.5) Hematocrit 40.4 % (36.0-47.0) Mean Corpuscular Volume 89 fL (79-100) Mean Corpuscular Hemoglobin 29 pg (25-35) Mean Corpuscular Hemoglobin Concent 33 g/dL (31-37) Red Cell Distribution Width 13.5 % (11.5-14.5) Platelet Count 375 x10^3/uL (140-400) Neutrophils (%) (Auto) 64 % (31-73) Lymphocytes (%) (Auto) 22 % (24-48) L Monocytes (%) (Auto) 11 % (0-9) H Eosinophils (%) (Auto) 3 % (0-3) Basophils (%) (Auto) 1 % (0-3) Neutrophils # (Auto) 5.6 x10^3/uL (1.8-7.7) Lymphocytes # (Auto) 2.0 x10^3/uL (1.0-4.8) Monocytes # (Auto) 0.9 x10^3/uL (0.0-1.1) Eosinophils # (Auto) 0.2 x10^3/uL (0.0-0.7) Basophils # (Auto) 0.1 x10^3/uL (0.0-0.2) Sodium Level 141 mmol/L (136-145) Potassium Level 3.5 mmol/L (3.5-5.1) Chloride Level 104 mmol/L (98-107) Carbon Dioxide Level 28 mmol/L (21-32) Anion Gap 9 (6-14) Blood Urea Nitrogen 16 mg/dL (7-20) Creatinine 0.8 mg/dL (0.6-1.0) Estimated GFR (Cockcroft-Gault) 79.9 BUN/Creatinine Ratio 20 (6-20) Glucose Level 111 mg/dL (70-99) H Calcium Level 8.8 mg/dL (8.5-10.1) Total Bilirubin 0.3 mg/dL (0.2-1.0) Aspartate Amino Transferase (AST) 13 U/L (15-37) L Alanine Aminotransferase (ALT) 18 U/L (14-59) Alkaline Phosphatase 60 U/L (46-116) Total Protein 7.5 g/dL (6.4-8.2) Albumin 4.0 g/dL (3.4-5.0) Albumin/Globulin Ratio 1.1 (1.0-1.7) Laboratory Tests 06/13/19 03:34 Laboratory Tests 06/13/19 03:34 EKG EKG [] Radiology/Procedures Radiology/Procedures [] Course & Med Decision Making Course & Med Decision Making Pertinent Labs and Imaging studies reviewed. (See chart for details) []39 no female presents to the emergency Department complaints of right flank pain with radiation to her right groin. Patient states started around 4 PM on . She describes nausea however no vomiting. She describes frequency of urination however no dysuria. She does have underlying history of urinary tract infections. States her symptoms worse, nothing makes her symptoms better. Patient denies any left lower quadrant pain. She does have some right CVA tenderness on exam. Patient denies any fever, shortness breath, chest pain, headache or visual changes. Toradol/IVF/Zofran with some improvement UAD without UTI, small amount of blood appreciated WBC within normal limits, renal function normal Given pain in flank and blood, this is likely stone related - will treat with anti-inflammatory/antiemetics Recommend follow up with PCP in 3 - 5 days Return precautions provided Dragon Disclaimer Dragon Disclaimer This electronic medical record was generated, in whole or in part, using a voice recognition dictation system. Departure Departure Impression: Primary Impression: Acute flank pain Disposition: HOME, SELF-CARE Condition: IMPROVED Referrals: JOYCELYN SORIANO MD (PCP) Patient Instructions: Flank Pain, [id number] Additional Instructions: Recommend follow up with PCP 3 - 5 days Return to the ER with worsening symptoms, intractable pain, fever, altered mental status Tylenol as needed for pain Take medications as prescribed Scripts Ondansetron Hcl (ZOFRAN) 4 Mg Tablet 1 TAB PO PRN Q6-8HRS for nausea, #12 TAB Prov: JOSE HOLT MD 06/13/19 Diclofenac Potassium (DICLOFENAC POTASSIUM) 50 Mg Tablet 1 TAB PO BID for 5 Days, #10 TAB 1 Refill Prov: JOSE HOLT MD 06/13/19 JOSE HOLT MD Jun 13, 2019 04:10
[2019-06-13] MEDS ORDERED: KETOROLAC 30 MG/ML VIAL. IVP ONE (04:15)
[2019-06-13] MEDS ORDERED: ONDANSETRON PF 4 MG/2 ML VIAL. IV ONE (04:15)
[2019-06-13] MEDS ORDERED: ONDA4TAB7 PO (04:39)
[2019-06-13] MEDS ORDERED: DICL50TA2 PO (04:39)
[2019-06-13 05:07] VITALS: BP 113/60
== END 2019-06-13 05:25 | disposition home or self-care (01) ==
LOC: ER 02:55
DX: R10.30 Lower abdominal pain, unspecified (principal); R35.0 Frequency of micturition; R11.0 Nausea; I10 Essential (primary) hypertension; G43.909 Migraine, unspecified, not intractable, without status migrainosus; Z90.711 Acquired absence of uterus with remaining cervical stump; Z98.51 Tubal ligation status; Z91.040 Latex allergy status; Z88.8 Allergy status to other drugs, medicaments and biological substances
CPT/HCPCS: 36415; 80053; 81001; 85025; 87086; 96374; 96375; 99284; J1885; J2405; J7030

== ENCOUNTER 2019-07-01 03:34 | Emergency (ER) | payer MEDICAID ==
[~2019-07-01] VITALS: Ht 165.1 cm; Wt 99.8 kg
[~2019-07-01 03:34] MED LIST changes: +DICL50TA2 PO; +ONDA4TAB7 PO
[2019-07-01 03:45] VITALS: BP 134/81
--- NOTE | 2019-07-01 03:50 | PHYS DOC ---
Past Medical History Past Medical History: Anxiety, Arthritis, Bronchitis, Hypertension, Migraines Additional Past Medical Histor: Adrenal mass,OVARIAN CYST,Scoliosis,PANIC ATTACKS Past Surgical History: Hysterectomy, Tubal ligation, Other Additional Past Surgical Histo: Partial hysterectomy, RIGHT EAR Alcohol Use: None Drug Use: None Adult General Chief Complaint Chief Complaint: EARACHE/EAR PAIN HPI HPI 39-year-old female presents for complaints of right ear pain. Patient states pain started tonight when she woke approximately 3 hours ago. She denies any fever. She has a history of surgical evaluation with ENT requiring tubes however that was approximately 7-8 years ago. She denies any chest pain, shortness breath, nausea, vomiting, changes to her hearing. All other ROS negative unless documented in HPI Review of Systems Review of Systems See Above Current Medications Current Medications Current Medications Medications (Trade) Dose Ordered Sig/[facility] Start Time Stop Time Status Last Admin Dose Admin Ketorolac Tromethamine (Toradol Im) 60 mg 1X ONCE 07/01/19 04:00 07/01/19 04:01 UNV Allergies Allergies Allergies Coded Allergies Type Severity Reaction Last Updated Verified ethyl alcohol Allergy Intermediate Hives 05/22/19 Yes latex Allergy Intermediate Rash 05/22/19 Yes Physical Exam Physical Exam Constitutional: Well developed, well nourished, mild distress 2/2 pain, non- toxic appearance. [] HENT: Normocephalic, atraumatic, right ear with erythema appreciated to TM, fluid behind TM as well, oropharynx moist, no oral exudates, nose normal. [] Cardiovascular:Heart rate regular rhythm, no murmur [] Skin: Warm, dry, no erythema, no rash. [] Neurologic: Alert and oriented X 3, no focal deficits noted. [] Psychologic: Affect normal, judgement normal, mood normal. [] EKG EKG [] Radiology/Procedures Radiology/Procedures [] Course & Med Decision Making Course & Med Decision Making Pertinent Labs and Imaging studies reviewed. (See chart for details) []39-year-old female presents for complaints of right ear pain. Patient states pain started tonight when she woke approximately 3 hours ago. She denies any fever. She has a history of surgical evaluation with ENT requiring tubes however that was approximately 7-8 years ago. She denies any chest pain, shortness breath, nausea, vomiting, changes to her hearing. Recommend anti-inflammatory/tylenol as outpatient RX provided for fluid/Tm/erythema No evidence of otitis externa appreciated Dragon Disclaimer Dragon Disclaimer This electronic medical record was generated, in whole or in part, using a voice recognition dictation system. Departure Departure Impression: Primary Impression: Ear pain, right Disposition: 01 HOME, SELF-CARE Condition: STABLE Referrals: JOYCELYN SORIANO MD (PCP) Patient Instructions: Otitis Externa, [id number] Additional Instructions: Recommend follow up with PCP 3 - 5 days Return to the ER with worsening symptoms, intractable pain, fever, altered mental status Tylenol/Motrin as needed for pain Take antibiotics as directed Scripts Amoxicillin (AMOXICILLIN) 500 Mg Capsule 1 CAP PO Q8HRS for infection for 7 Days, #21 CAP Prov: JOSE HOLT MD 07/01/19 JOSE HOLT MD Jul 01, 2019 03:50
[2019-07-01] MEDS ORDERED: AMOX500C PO (03:56)
[2019-07-01] MEDS ORDERED: KETOROLAC 60 MG/2 ML VIAL. IM ONE (04:30)
== END 2019-07-01 04:00 | disposition home or self-care (01) ==
LOC: ER 03:34
DX: H92.01 Otalgia, right ear (principal); F41.9 Anxiety disorder, unspecified; M19.90 Unspecified osteoarthritis, unspecified site; I10 Essential (primary) hypertension; G43.909 Migraine, unspecified, not intractable, without status migrainosus; Z91.040 Latex allergy status; Z88.8 Allergy status to other drugs, medicaments and biological substances
CPT/HCPCS: 96372; 99283; J1885

== ENCOUNTER 2019-08-06 23:44 | Emergency (ER) | payer MEDICAID ==
[~2019-08-06] VITALS: Ht 170.2 cm; Wt 99.8 kg
[~2019-08-06 23:44] MED LIST changes: +AMOX500C PO; +MECL-75 PO; -MECL25TA3 PO
[2019-08-07] MEDS ORDERED: ONDANSETRON ODT 4 MG TAB.RAPDIS. PO ONE (00:30)
[2019-08-07 00:31] LABS: BILIRUBIN,URINE SMALL (NEG); CLARITY,URINE CLEAR; COLOR,URINE YELLOW; NITRITE,URINE NEGATIVE (NEG); PH,URINE 5.5; PROTEIN,URINE 30 mg/dL (NEG-TRACE); UROBILINOGEN,URINE 0.2 mg/dL (0.2 mg/dL)
[2019-08-07 00:50] LABS: BACTERIA,URINE MODERATE /HPF (0-FEW); SQUAMOUS EPITHELIAL CELL,UR MANY /LPF
[2019-08-07 00:53] VITALS: BP 117/82
[2019-08-07] MEDS ORDERED: ONDA4TAB7 PO (01:15)
--- NOTE | 2019-08-07 01:15 | PHYS DOC ---
Past Medical History Past Medical History: Anxiety, Arthritis, Bronchitis, Hypertension, Migraines Additional Past Medical Histor: Adrenal mass,OVARIAN CYST,Scoliosis,PANIC ATTACKS Past Surgical History: Hysterectomy, Tubal ligation, Other Additional Past Surgical Histo: Partial hysterectomy, RIGHT EAR Alcohol Use: None Drug Use: None Adult General Chief Complaint Chief Complaint: DIZZY/LIGHT HEADED HPI HPI Patient is a 39 year old female who presents dizziness and nausea. Patient states she did not all day but didn't donate plasma. Patient then went home and he felt lightheaded and dizzy and nauseated. Denies vomiting. Denies chest pain palpitations. No fever chills or sweats. No cough or sore throat. Prior hysterectomy. No other acute symptoms or complaints. Review of Systems Review of Systems ROS as per HPI All other systems were reviewed and found to be within normal limits, except as documented in this note. Current Medications Current Medications Current Medications Medications (Trade) Dose Ordered Sig/Americo Start Time Stop Time Status Last Admin Dose Admin Ondansetron HCl (Zofran Odt) 4 mg 1X ONCE 08/07/19 00:30 08/07/19 00:31 DC 08/07/19 00:32 4 MG Allergies Allergies Allergies Coded Allergies Type Severity Reaction Last Updated Verified ethyl alcohol Allergy Intermediate Hives 05/22/19 Yes latex Allergy Intermediate Rash 05/22/19 Yes Physical Exam Physical Exam Constitutional: Well developed, well nourished, no acute distress, non-toxic appearance. [] HENT: Normocephalic, atraumatic, bilateral external ears normal. [] Eyes: PERRLA, EOMI, conjunctiva normal, no discharge. [] Neck: Normal range of motion, no tenderness, supple, no stridor. [] Cardiovascular:Heart rate regular rhythm, no murmur [] Lungs & Thorax: Bilateral breath sounds clear to auscultation [] Abdomen: Bowel sounds normal, soft, no tenderness. [] Skin: Warm, dry. [] Back: No tenderness. [] Extremities: No tenderness. [] Neurologic: Alert and oriented X 3, normal motor function, normal sensory function, no focal deficits noted. [] Psychologic: Affect normal, judgement normal, mood normal. [] Current Patient Data Vital Signs Vital Signs Date Time Temp Pulse Resp B/P (MAP) Pulse Ox O2 Delivery O2 Flow Rate FiO2 08/06/19 23:48 97.9 99 16 135/82 (99) 98 Room Air 97.9 Lab Values Laboratory Tests Test 08/07/19 00:18 08/07/19 00:25 Glucose (Fingerstick) 146 mg/dL (70-99) H Urine Collection Type Unknown Urine Color Yellow Urine Clarity Clear Urine pH 5.5 Urine Specific [place] 1.025 Urine Protein 30 mg/dL (NEG-TRACE) Urine Glucose (UA) Negative mg/dL (NEG) Urine Ketones (Stick) Negative mg/dL (NEG) Urine Blood Small (NEG) Urine Nitrite Negative (NEG) Urine Bilirubin Small (NEG) Urine Urobilinogen Dipstick 0.2 mg/dL (0.2 mg/dL) Urine Leukocyte Esterase Negative (NEG) Urine RBC 3-5 /HPF (0-2) Urine WBC 1-4 /HPF (0-4) Urine Squamous Epithelial Cells Many /LPF Urine Bacteria Moderate /HPF (0-FEW) Urine Mucus Marked /LPF EKG EKG [] Radiology/Procedures Radiology/Procedures [] Course & Med Decision Making Course & Med Decision Making Pertinent Labs and Imaging studies reviewed. (See chart for details) [Zofran given. Symptoms improved. Patient able tolerate oral intake. Abdomen remains soft. No other acute symptoms or complaints. ] Dragon Disclaimer Dragon Disclaimer This electronic medical record was generated, in whole or in part, using a voice recognition dictation system. Departure Departure Impression: Primary Impression: Orthostatic dizziness Additional Impression: Nausea Disposition: 01 HOME, SELF-CARE Condition: GOOD Referrals: JOYCELYN SORIANO MD (PCP) Patient Instructions: Nausea, Adult, [id number] Additional Instructions: Please go home and rest, drink clear liquids and take nausea medication. Follow up with your PCP in 2-3 days. Return to the ED if new or worsening symptoms. Scripts Ondansetron Hcl (ZOFRAN) 4 Mg Tablet 1 TAB PO Q6HRS, #5 TAB 0 Refills Prov: SERA MATSON DO 08/07/19 Problem Qualifiers SERA MATSON DO Aug 07, 2019 01:15
--- NOTE | 2019-08-07 07:49 | EKG ---
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
== END 2019-08-07 01:18 | disposition home or self-care (01) ==
LOC: ER 23:44
DX: R42 Dizziness and giddiness (principal); R11.0 Nausea; I10 Essential (primary) hypertension; G43.909 Migraine, unspecified, not intractable, without status migrainosus; F41.9 Anxiety disorder, unspecified; Z91.040 Latex allergy status; Z88.8 Allergy status to other drugs, medicaments and biological substances
CPT/HCPCS: 81001; 82962; 87086; 93005; 99285; Q0162

== ENCOUNTER 2019-09-09 00:21 | Emergency (ER) | payer MEDICAID ==
[~2019-09-09] VITALS: Ht 165.1 cm; Wt 100.0 kg
[~2019-09-09 00:21] MED LIST changes: -VALA1000 PO; +VALA10008 PO
[2019-09-09 00:27] VITALS: BP 156/92
[2019-09-09] MEDS ORDERED: CYCL10TA2 PO (00:42)
[2019-09-09] MEDS ORDERED: METH4TAB2 PO (00:42)
--- NOTE | 2019-09-09 00:50 | PHYS DOC ---
Past Medical History Past Medical History: Anxiety, Arthritis, Bronchitis, Hypertension, Migraines Additional Past Medical Histor: Adrenal mass,OVARIAN CYST,Scoliosis,PANIC ATTACKS Past Surgical History: Hysterectomy, Tubal ligation, Other Additional Past Surgical Histo: Partial hysterectomy, RIGHT EAR Smoking Status: Never Smoker Alcohol Use: None Drug Use: None Adult General Chief Complaint Chief Complaint: LOWER EXT PAIN HPI HPI Patient is a 39 year old with history of chronic back pain and sciatica who presents with exacerbation of right lower back pain radiating to right hip. Patient states symptoms flared up about 23 weeks ago. Patient works in a [employer] and stands on her feet throughout the day. Pain is described as sharp and burning and radiates below the knee. It is not associated with motor weakness or loss of sensation incontinence or saddle anesthesia. Pain is rated moderate to severe and not improved with [id number]-ihirztx medications. Previous evaluation by primary care physician and an referral to pain management provider for steroid injections have previously been unsuccessful.. Patient has not been evaluated by her primary care physician for her current symptoms..[] Review of Systems Review of Systems Review symptoms as per history of present illness. All other review symptoms negative. All other systems were reviewed and found to be within normal limits, except as documented in this note. Current Medications Current Medications Current Medications Medications (Trade) Dose Ordered Sig/Americo Start Time Stop Time Status Last Admin Dose Admin Cyclobenzaprine HCl (Flexeril) 10 mg 1X ONCE 09/09/19 01:00 09/09/19 01:01 Allergies Allergies Allergies Coded Allergies Type Severity Reaction Last Updated Verified ethyl alcohol Allergy Intermediate Hives 05/22/19 Yes latex Allergy Intermediate Rash 05/22/19 Yes Physical Exam Physical Exam Constitutional: Well developed, well nourished, no acute distress, non-toxic appearance. [] HENT: Normocephalic, atraumatic, bilateral external ears normal, oropharynx moist, no oral exudates, nose normal. [] Eyes: PERRLA, EOMI, conjunctiva normal, no discharge. [] Neck: Normal range of motion, no tenderness, supple, no stridor. [] Cardiovascular:Heart rate regular rhythm, no murmur [] Lungs & Thorax: Bilateral breath sounds clear to auscultation [] Back: No tenderness, no CVA tenderness. [] Extremities: No midline tenderness, right lower paravertebral lumbar pain, tenderness reproduces with palpation. Negative straight leg raising test. [] Neurologic: Alert and oriented X 3, 70s, normal motor function, normal sensory function, no focal deficits noted. Plexus 2+ and symmetric. [] Psychologic: Affect normal, judgement normal, mood normal. [] EKG EKG [] Radiology/Procedures Radiology/Procedures [] Course & Med Decision Making Course & Med Decision Making Pertinent Labs and Imaging studies reviewed. (See chart for details) [Acute aspiration of chronic lumbar radiculopathy. Pain addressed. Recommend follow-up with PCP for further management.] Dragon Disclaimer Dragon Disclaimer This electronic medical record was generated, in whole or in part, using a voice recognition dictation system. Departure Departure Impression: Primary Impression: Sciatica of right side Disposition: ADMITTED INPATIENT Condition: STABLE Patient Instructions: Sciatica, [id number] Additional Instructions: Please avoid strenuous physical activity and avoid heavy lifting. Take newly prescribed medications as directed and follow-up with your PCP for further management.. Scripts Methylprednisolone (MEDROL) 4 Mg Tab.ds.pk 1 PKG PO UD, #1 PKG Prov: SERA MATSON DO 09/09/19 Cyclobenzaprine Hcl (CYCLOBENZAPRINE HCL) 10 Mg Tablet 10 MG PO TID, #30 TAB Prov: SERA MATSON DO 09/09/19 SERA MATSON DO Sep 09, 2019 00:50
[2019-09-09] MEDS ORDERED: CYCLOBENZAPRINE 10 MG TABLET. PO ONE (01:00)
== END 2019-09-09 01:07 | disposition home or self-care (01) ==
LOC: ER 00:21
DX: M54.41 Lumbago with sciatica, right side (principal); F41.9 Anxiety disorder, unspecified; M19.90 Unspecified osteoarthritis, unspecified site; I10 Essential (primary) hypertension; G43.909 Migraine, unspecified, not intractable, without status migrainosus; M41.9 Scoliosis, unspecified; Z90.710 Acquired absence of both cervix and uterus; Z98.51 Tubal ligation status; Z98.890 Other specified postprocedural states; Z91.048 Other nonmedicinal substance allergy status; Z91.040 Latex allergy status
CPT/HCPCS: 99283

== ENCOUNTER → 2019-09-26 | Outpatient (CLI) | payer MEDICAID ==
[2019-09-09 00:27] VITALS: BP 156/92
[~2019-09-26] MED LIST changes: +METH4TAB2 PO
--- NOTE | 2019-09-26 13:12 | KCIC ---
MR of the right knee HISTORY: Right knee pain. Injury a few weeks ago. TECHNIQUE: Routine multiplanar sequences are obtained. FINDINGS: No evidence of medial meniscal tear. Minimal focus of signal at the body of the lateral meniscus with minimal surface violation suggesting a tiny tear but not certain due to its very small size. Anterior and posterior cruciate ligaments are intact. Medial collateral ligament is intact. Iliotibial band unremarkable. Fibular collateral ligament, biceps femoris tendon and popliteus tendon are intact. Extensor mechanism is intact. Small joint effusion. No significant Longoria's cyst. Mild chondromalacia of the medial joint. Mild/moderate chondromalacia of the posterior lateral tibial plateau. Severe chondromalacia of the patellofemoral joint. No evidence of acute fracture. No aggressive bone destruction. No acute soft tissue abnormality. IMPRESSION: 1. Questionable tiny radial tear at the free margin of the body of the lateral meniscus. 2. 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 Electronically signed by: Jay Browne MD (09/26/2019 1:10 PM) [id number]
== END | disposition home or self-care (01) ==
LOC: KCIC MRI 10:40
PROVIDERS: ATTEND Orthopaedic Surgery
DX: M17.11 Unilateral primary osteoarthritis, right knee (principal); M25.461 Effusion, right knee; M94.29 Chondromalacia, multiple sites
CPT/HCPCS: 73721

== ENCOUNTER 2019-12-22 13:40 | Emergency (ER) | payer MEDICAID ==
[~2019-12-22] VITALS: Ht 165.1 cm; Wt 104.5 kg
--- NOTE | 2019-12-22 13:55 | EKG ---
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
[2019-12-22 14:26] LABS: BASO # 0.1 x10^3/uL (0.0-0.2); BASO % 1 % (0-3); EOS # 0.2 x10^3/uL (0.0-0.7); EOS % 3 % (0-3); HEMATOCRIT 40.9 % (36.0-47.0); HEMOGLOBIN 14.2 g/dL (12.0-15.5); LYMPH % 29 % (24-48); MEAN CORPUSCULAR HEMOGLOBIN 30 pg (25-35); MEAN CORPUSCULAR HGB CONC 35 g/dL (31-37); MEAN CORPUSCULAR VOLUME 88 fL (79-100); MONO # 0.6 x10^3/uL (0.0-1.1); MONO % 9 % (0-9); NEUT % 58 % (31-73); PLATELET COUNT 385 x10^3/uL (140-400); RED BLOOD COUNT 4.67 x10^6/uL (3.50-5.40); WHITE BLOOD COUNT 6.8 x10^3/uL (4.0-11.0)
--- NOTE | 2019-12-22 14:35 | RAD ---
CHEST PA LATERAL History: Reason: chest pain, / Spl. Instructions: / History: Comparison: February 21, 2019 Findings: No consolidation or pleural effusion. Normal heart size. No pneumothorax. Impression: 1. No acute cardiopulmonary process. Electronically signed by: David Wu DO (12/22/2019 2:32 PM) [id number]
[2019-12-22 14:43] LABS: CALCIUM 8.8 mg/dL (8.5-10.1); CREATININE 0.7 mg/dL (0.6-1.0); GFR 93.2; POTASSIUM 3.9 mmol/L (3.5-5.1)
[2019-12-22] MEDS ORDERED: DEXAMETHASONE SOD PHOS 4 MG/ML VIAL IVP ONE (15:45)
[2019-12-22] MEDS ORDERED: MELO15TA23 PO (15:45)
[2019-12-22] MEDS ORDERED: KETOROLAC 30 MG/ML VIAL. IVP ONE (15:45)
[2019-12-22 16:14] VITALS: BP 125/77
--- NOTE | 2019-12-22 17:18 | PHYS DOC ---
Past Medical History Past Medical History: Anxiety, Arthritis, Bronchitis, Hypertension, Migraines Additional Past Medical Histor: Adrenal mass,OVARIAN CYST,Scoliosis,PANIC ATTACKS Past Surgical History: Hysterectomy, Tubal ligation, Other Additional Past Surgical Histo: Partial hysterectomy, RIGHT EAR Smoking Status: Never Smoker Alcohol Use: None Drug Use: None General Adult EDM: Chief Complaint: CHEST PAIN HPI: HPI: Patient is a 39 year old female who presents with left-sided chest pain that started 2 days ago. Pain has been constant and progressively getting worse. Pain is worse with movement and better if she rests. Is not worse with deep breaths. She has never had anything like this previously. She denies URI symptoms, cough, wheezing, shortness of breath. She also states that she has been having pain in her knee and is supposed to have surgery on it later this month. She states that she went back to work and the knee is been hurting worse over the last few days. She does not feel like she can work on it. Review of Systems: Review of Systems: General: Denies fever, chills, sweats, fatigue Eyes: Denies drainage, blurred vision HENT: Denies rhinorrhea, sore throat Respiratory: Denies cough, shortness of breath, wheezing Cardiac: Denies edema, palpitations.reports chest pain GI: Denies abdominal pain, N/V MSK: Denies back pain, neck pain Skin: Denies rash, jaundice Neuro: Denies headache, dizziness Psychiatric: Denies SI/HI Heart Score: Risk Factors: Risk Factors: DM, Current or recent (<one month) smoker, HTN, HLP, family history of CAD, obesity. Risk Scores: Score 0 - 3: 2.5% MACE over next 6 weeks - Discharge Home Score 4 - 6: 20.3% MACE over next 6 weeks - Admit for Clinical Observation Score 7 - 10: 72.7% MACE over next 6 weeks - Early Invasive Strategies Current Medications: Current Medications Medications (Trade) Dose Ordered Sig/Americo Start Time Stop Time Status Last Admin Dose Admin Dexamethasone Sodium Phosphate (Decadron) 4 mg 1X ONCE 12/22/19 15:45 12/22/19 15:46 DC 12/22/19 16:06 4 MG Ketorolac Tromethamine (Toradol 30mg Vial) 30 mg 1X ONCE 12/22/19 15:45 12/22/19 15:46 DC 12/22/19 16:06 30 MG Allergies: Allergies: Allergies Coded Allergies Type Severity Reaction Last Updated Verified ethyl alcohol Allergy Intermediate Hives 05/22/19 Yes latex Allergy Intermediate Rash 05/22/19 Yes Physical Exam: PE: Constitutional: Well developed, well nourished, Cooperative, NAD, non-toxic appearing HEENT: Normocephalic, atraumatic, oropharynx moist, EOMI, PERRL, no drainage from eyes, normal conjunctiva Neck: Supple, normal range of motion, no stridor Cardiovascular: RRR, 2+ radial pulses bilaterally, no edema Respiratory: CTA bilaterally, no respiratory distress, no wheezing/crackles, chest wall tenderness Abdomen: Soft, nontender, nondistended, no masses Skin: Warm, dry, intact Extremities: No obvious deformities Neurologic: Alert and Oriented x3, motor and sensory function grossly normal, no focal deficits Psychologic: Normal affect, normal judgment, normal mood. No SI/HI Current Patient Data: Labs: Laboratory Tests Test 12/22/19 13:55 White Blood Count 6.8 x10^3/uL (4.0-11.0) Red Blood Count 4.67 x10^6/uL (3.50-5.40) Hemoglobin 14.2 g/dL (12.0-15.5) Hematocrit 40.9 % (36.0-47.0) Mean Corpuscular Volume 88 fL (79-100) Mean Corpuscular Hemoglobin 30 pg (25-35) Mean Corpuscular Hemoglobin Concent 35 g/dL (31-37) Red Cell Distribution Width 13.0 % (11.5-14.5) Platelet Count 385 x10^3/uL (140-400) Neutrophils (%) (Auto) 58 % (31-73) Lymphocytes (%) (Auto) 29 % (24-48) Monocytes (%) (Auto) 9 % (0-9) Eosinophils (%) (Auto) 3 % (0-3) Basophils (%) (Auto) 1 % (0-3) Neutrophils # (Auto) 4.0 x10^3/uL (1.8-7.7) Lymphocytes # (Auto) 2.0 x10^3/uL (1.0-4.8) Monocytes # (Auto) 0.6 x10^3/uL (0.0-1.1) Eosinophils # (Auto) 0.2 x10^3/uL (0.0-0.7) Basophils # (Auto) 0.1 x10^3/uL (0.0-0.2) Sodium Level 139 mmol/L (136-145) Potassium Level 3.9 mmol/L (3.5-5.1) Chloride Level 102 mmol/L (98-107) Carbon Dioxide Level 30 mmol/L (21-32) Anion Gap 7 (6-14) Blood Urea Nitrogen 11 mg/dL (7-20) Creatinine 0.7 mg/dL (0.6-1.0) Estimated GFR (Cockcroft-Gault) 93.2 Glucose Level 99 mg/dL (70-99) Calcium Level 8.8 mg/dL (8.5-10.1) Troponin I Quantitative < 0.017 ng/mL (0.000-0.055) Laboratory Tests 12/22/19 13:55 Laboratory Tests 12/22/19 13:55 Vital Signs: Vital Signs Date Time Temp Pulse Resp B/P (MAP) Pulse Ox O2 Delivery O2 Flow Rate FiO2 12/22/19 16:14 80 18 125/77 (93) 98 Room Air 12/22/19 13:40 99.0 99.0 EKG: EKG: [] Radiology/Procedures: Radiology/Procedures: [] Course & Med Decision Making: Course & Med Decision Making Pertinent Labs and Imaging studies reviewed. (See chart for details) Patient is a 39-year-old female who presents to the emergency room complaining of left sided chest pain. Patient does have pain that is reproducible on exam. This is suggestive of costochondritis or a chest wall strain. Labs including troponin are negative. Patient does not need further work-up at this time. She was given a work note for her knee. She will be placed on meloxicam. Patient's test results and vitals while in the ED were fully reviewed and discussed with the patient. Patient is stable and at this time does not need admission to the hospital. We have discussed strict return precautions and the importance of following up with their Primary Care Physician. Patient stated understanding and was given an opportunity to ask any questions. Tia Disclaimer: Dragreyes Disclaimer: This electronic medical record was generated, in whole or in part, using a voice recognition dictation system. Departure Departure Impression: Primary Impression: Costochondral pain Additional Impression: Chest pain Disposition: HOME, SELF-CARE Condition: GOOD Patient Instructions: Costochondritis, Vuaf-ax-Omnn Scripts Meloxicam (MELOXICAM) 15 Mg Tablet 1 TAB PO DAILY for 30 Days, #30 TAB 0 Refills Do not take with other NSAIDs Prov: WICHO GARNETT MD 12/22/19 WICHO GARNETT MD Dec 22, 2019 17:18
== END 2019-12-22 16:16 | disposition home or self-care (01) ==
LOC: ER 13:40
DX: R07.1 Chest pain on breathing (principal); I10 Essential (primary) hypertension; G43.909 Migraine, unspecified, not intractable, without status migrainosus; Z91.040 Latex allergy status; Z88.8 Allergy status to other drugs, medicaments and biological substances
CPT/HCPCS: 36415; 71046; 80048; 84484; 85025; 93005; 96374; 96375; 99285; J1100; J1885

== ENCOUNTER 2019-12-26 19:24 | Emergency (ER) | payer MEDICAID ==
[~2019-12-26] VITALS: Ht 165.1 cm; Wt 104.0 kg
[~2019-12-26 19:24] MED LIST changes: +CLOT15CR23 TP; -CLOT15CR4 TP; +MELO15TA23 PO
[2019-12-26] MEDS ORDERED: KETOROLAC 30 MG/ML VIAL. IVP ONE (19:45)
--- NOTE | 2019-12-26 20:28 | PHYS DOC ---
Past Medical History Past Medical History: Anxiety, Arthritis, Bronchitis, Hypertension, Migraines Additional Past Medical Histor: Adrenal mass,OVARIAN CYST,Scoliosis,PANIC ATTACKS Past Surgical History: Hysterectomy, Tubal ligation, Other Additional Past Surgical Histo: Partial hysterectomy, RIGHT EAR Smoking Status: Never Smoker Alcohol Use: None Drug Use: None General Adult EDM: Chief Complaint: CHEST WALL PAIN HPI: HPI: Patient is a 39 year old female presenting to the ED with a chief complaint of left chest wall tenderness. Patient was seen on December 21 with similar complaints that are negative cardiac work-up. Patient was sent home with anti-inflammatory [place] medication but states that today she woke up with similar pain. Patient denies shortness of breath, nausea, vomiting. Patient states that there is tenderness to palpation to her chest. Review of Systems: Review of Systems: Constitutional: Denies fever or chills. [] Eyes: Denies change in visual acuity. [] HENT: Denies nasal congestion or sore throat. [] Respiratory: Denies cough or shortness of breath. [] Cardiovascular: Complains of chest pain [] GI: Denies abdominal pain, nausea, vomiting, bloody stools or diarrhea. [] : Denies dysuria. [] Musculoskeletal: Denies back pain or joint pain. [] Neurologic: Denies headache, focal weakness or sensory changes. [] Heart Score: Risk Factors: Risk Factors: DM, Current or recent (<one month) smoker, HTN, HLP, family history of CAD, obesity. Risk Scores: Score 0 - 3: 2.5% MACE over next 6 weeks - Discharge Home Score 4 - 6: 20.3% MACE over next 6 weeks - Admit for Clinical Observation Score 7 - 10: 72.7% MACE over next 6 weeks - Early Invasive Strategies Current Medications: Current Medications Medications (Trade) Dose Ordered Sig/[facility] Start Time Stop Time Status Last Admin Dose Admin Ketorolac Tromethamine (Toradol 30mg Vial) 30 mg 1X ONCE 12/26/19 19:45 12/26/19 19:46 DC 12/26/19 19:55 30 MG Allergies: Allergies: Allergies Coded Allergies Type Severity Reaction Last Updated Verified ethyl alcohol Allergy Intermediate Hives 05/22/19 Yes latex Allergy Intermediate Rash 05/22/19 Yes Physical Exam: PE: Constitutional: Well developed, well nourished, no acute distress, non-toxic appearance. [] HENT: Normocephalic, atraumatic Eyes: EOMI Neck: Normal range of motion, Supple Cardiovascular:Heart rate regular rhythm, left-sided chest wall tenderness tender to palpation Lungs & Thorax: Bilateral breath sounds clear to auscultation [] Abdomen: Bowel sounds normal, soft, no tenderness Extremities: No tenderness, ROM intact Neurologic: Alert and oriented X 3 EKG: EKG: EKG interpretation: 19: 31 on 12/26/2019 HR: 95 Sinus rhythm Regular intervals Normal axis Nonspecific ST changes Radiology/Procedures: Radiology/Procedures: [] Course & Med Decision Making: Course & Med Decision Making Pertinent Labs and Imaging studies reviewed. (See chart for details) Patient had a negative chest x-ray on December 22, 2019. We ordered troponin, EKG, Toradol IV. EKG does not show any acute changes. Labs are within normal limits. Troponin is negative. Patient states that the Toradol helped relieve her pain. I recommended that patient follow-up with PCP for possible outpatient stress test. Discussed results and plan of care with patient. Patient is instructed to follow up with PCP in one to 2 days. Appropriate discharge instructions given to patient to return to the ED or to seek immediate medical evaluation. Patient is instructed to return to the ED if symptoms worsen or if any concerns. Dragon Disclaimer: Dragreyes Disclaimer: This electronic medical record was generated, in whole or in part, using a voice recognition dictation system. Departure Departure Impression: Primary Impression: Chest wall pain Disposition: HOME, SELF-CARE Condition: STABLE Referrals: JOYCELYN SORIANO MD (PCP) Patient Instructions: Chest Pain (Nonspecific), Chest Wall Pain Additional Instructions: Please return to the ED if symptoms worsen or if any concerns. Please follow-up with PCP in 1 to 2 days. Justicifation of Admission Dx: Justifications for Admission: Justification of Admission Dx: SHAUN Markham DO Dec 26, 2019 20:28
[2019-12-26 20:36] LABS: BASO # 0.1 x10^3/uL (0.0-0.2); BASO % 1 % (0-3); EOS # 0.2 x10^3/uL (0.0-0.7); EOS % 2 % (0-3); HEMATOCRIT 39.3 % (36.0-47.0); HEMOGLOBIN 13.7 g/dL (12.0-15.5); LYMPH % 20 % (24-48); MEAN CORPUSCULAR HEMOGLOBIN 30 pg (25-35); MEAN CORPUSCULAR HGB CONC 35 g/dL (31-37); MEAN CORPUSCULAR VOLUME 88 fL (79-100); MONO # 0.8 x10^3/uL (0.0-1.1); MONO % 9 % (0-9); NEUT # 6.7 x10^3/uL (1.8-7.7); NEUT % 69 % (31-73); PLATELET COUNT 381 x10^3/uL (140-400); RED BLOOD COUNT 4.49 x10^6/uL (3.50-5.40); RED CELL DISTRIBUTION WIDTH 13.1 % (11.5-14.5); WHITE BLOOD COUNT 9.7 x10^3/uL (4.0-11.0)
[2019-12-26 20:48] LABS: CALCIUM 8.6 mg/dL (8.5-10.1); CREATININE 0.8 mg/dL (0.6-1.0); GFR 79.9; POTASSIUM 3.6 mmol/L (3.5-5.1)
[2019-12-26 20:54] LABS: ALBUMIN 3.5 g/dL (3.4-5.0); TOTAL BILIRUBIN 0.3 mg/dL (0.2-1.0); TOTAL PROTEIN 7.1 g/dL (6.4-8.2)
[2019-12-26 21:50] VITALS: BP 119/76
--- NOTE | 2019-12-28 04:29 | EKG ---
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
== END 2019-12-26 21:52 | disposition home or self-care (01) ==
LOC: ER 19:24
DX: R07.89 Other chest pain (principal); F41.9 Anxiety disorder, unspecified; M19.90 Unspecified osteoarthritis, unspecified site; I10 Essential (primary) hypertension; G43.909 Migraine, unspecified, not intractable, without status migrainosus; Z90.710 Acquired absence of both cervix and uterus; Z98.51 Tubal ligation status; Z98.890 Other specified postprocedural states; Z91.040 Latex allergy status; Z88.8 Allergy status to other drugs, medicaments and biological substances
CPT/HCPCS: 36415; 80053; 84484; 85025; 93005; 96374; 99285; J1885

== ENCOUNTER → 2020-01-16 | Outpatient (CLI) | payer MEDICAID ==
[2019-12-26 21:50] VITALS: BP 119/76
[~2020-01-16] MED LIST changes: +ALBU2.5V8 INH; +FERR-36 PO; +FLUT9.9S NS; +LORA10TA3 PO; +PROM25TA10 PO
== END ==
LOC: LAB 13:29
PROVIDERS: ATTEND Orthopaedic Surgery
DX: Z01.818 Encounter for other preprocedural examination (principal); Z11.59 Encounter for screening for other viral diseases; S83.281A Other tear of lateral meniscus, current injury, right knee, initial encounter; M25.561 Pain in right knee; M22.41 Chondromalacia patellae, right knee
CPT/HCPCS: C9803-CS; U0003-CS

== ENCOUNTER 2020-01-20 05:50 | Day surgery (SDC) | payer MEDICAID ==
[~2020-01-20] VITALS: Ht 162.6 cm; Wt 113.9 kg
[~2020-01-20 05:50] MED LIST changes: -PROM25TA10 PO
[2020-01-20] MEDS ORDERED: EPINEPHrine VIAL 30 MG/30 ML VIAL ONE (06:54)
[2020-01-20] MEDS ORDERED: BUPIVACAINE MPF 0.25% 30 ML VIAL. ONE ×3 (06:54→07:30)
[2020-01-20] MEDS ORDERED: fentaNYL PF VIAL 100 MCG/2 ML VIAL IV PRN ×2 (07:00)
[2020-01-20] MEDS ORDERED: HYDROmorphone 2 MG/ML VIAL IV PRN (07:00)
[2020-01-20] MEDS ORDERED: IV RINGERS,LACTATED 1000ML 1,000 ML IV SCH (07:00)
[2020-01-20] MEDS ORDERED: MORPHINE SULFATE 2 MG/ML VIAL. IV PRN (07:00)
[2020-01-20] MEDS ORDERED: PROCHLORPERAZINE 10 MG/2 ML VIAL. IV PRN (07:00)
[2020-01-20] MEDS ORDERED: MIDAZOLAM HCL/PF 2 MG/2 ML VIAL. ONE (07:05)
[2020-01-20] MEDS ORDERED: fentaNYL PF VIAL 100 MCG/2 ML VIAL ONE ×2 (07:13→08:42)
[2020-01-20] MEDS ORDERED: SUCCINYLCHOLINE 200 MG/10 ML VIAL. ONE (07:16)
[2020-01-20] MEDS ORDERED: LIDOCAINE 2% PF 5 ML VIAL. ONE (08:02)
[2020-01-20] MEDS ORDERED: DEXAMETHASONE SOD PHOS 4 MG/ML VIAL ONE (08:02)
[2020-01-20] MEDS ORDERED: PROPOFOL 10 MG/ML (20ML) VIAL. IV ONE (08:02)
[2020-01-20] MEDS ORDERED: ONDANSETRON PF 4 MG/2 ML VIAL. ONE ×2 (08:02→09:20)
[2020-01-20] MEDS ORDERED: SEVOFLURANE 61 TO 120 MINUTES. IH ONE (08:02)
--- NOTE | 2020-01-20 08:27 | PDOC4 ---
Operative Note Operative Note Date of Procedure: January 20, 2020 Preoperative Diagnosis: right knee chondromalacia Postoperative Diagnosis: 1. right knee chondromalacia M94.261 2. right knee loose body M23.41 Procedures performed: 1. right knee arthroscopy with chondroplasty patella and trochlea (patello femoral compartment) CPT 26298 2. right knee arthroscopic lateral release CPT 43812 3. right knee arthroscopy with loose body removal 12 mm from medial compartment CPT 14365 or G0289, (15 minutes spent in a different compartment of the knee) Surgeon: Drew Araya MD Anesthesia: General Estimated Blood Loss: 5 mL Specimens: none Drains: none Complications: none Tourniquet time: 30 minutes at 300 mm Hg Findings: Extensive lateral patellofemoral cartilage loss, and 12 mm cartilaginous loose body within the joint. The patellar defect is on the lateral facet and is 12 x 12 mm. The trochlear defect is linear in the coronal plane, and extends from the lateral trochlea near the suprapatellar pouch to the lateral femoral condyle and is 5 mm from medial to lateral and 25 mm from anterior to posterior.There is exposed bone, Outerbridge grade 4 of the femur, and the patellar lesion is Outerbridge grade 3 with high-grade cartilage loss over an area larger than 1 x 1 cm, but without exposed bone. Indications for Procedure: The patient is a 39-year-old with right knee pain, unrelieved with nonoperative treatment. Exam and MRI are consistent with chondromalacia patella. We talked about the risks and benefits of proceeding with an arthroscopic procedure. We talked about potential risks of ongoing pain, progressive arthritis, bleeding, infection, blood clots, or other potential surgical or anesthetic complications. All of the patient's questions about surgery were answered and they desired to proceed. Written consent was obtained. Description of Operation: The patient was identified in the preoperative holding area. The correct right knee was marked by me. The patient was taken to the operating room, where a general anesthetic was used. Preoperative antibiotics were given intravenously. A time-out procedure was performed. A tourniquet was placed on the upper thigh. Local anesthetic 20 mLs of 0.25% bupivacaine with epinephrine was injected using sterile technique into the knee joint. The limb was prepared circumferentially with ChloraPrep solution and sterile waterproof arthroscopy drapes were applied. The limb was exsanguinated with an Esmarch bandage and the tourniquet was inflated to 350 mm Hg. Lateral and medial arthroscopy portals were established. My certified physical therapist assistant Phil manipulated the knee into the various positions for arthroscopy such as figure 4 with varus stress, while I ran the arthroscope in my left hand and the shaver probe or other instruments in my right hand. The medial meniscus was normal and stable to probing.The medial tibiofemoral joint showed chondromalacia Outerbridge grade II, so a shaving chondroplasty was performed removing loose unstable fragments of articular cartilage.The medial joint line showed a large cartilaginous loose body, 12 mm in diameter. This was removed with a grasper. The ACL showed some minor degenerative changes and fraying but no high-grade tear or injury. The lateral tibiofemoral joint showed a normal lateral meniscus, so no lateral meniscectomy was required.The lateral articular surfaces showed normal articular surfaces so no chondroplasty was required. The patellofemoral joint showed chondromalacia Outerbridge grade III and IV, and a shaving chondroplasty was performed removing unstable fragments of cartilage with the motorized shaver. The suprapatellar pouch, medial and lateral gutters were free of any additional loose bodies. An arthroscopic lateral release was performed with the ArthroCare device, e xtending from the vastus lateralis muscle fibers to the lateral portal, which decompressed the areas of lateral cartilage loss. Copious irrigation was used to drain all meniscal and chondral fragments, and the knee was drained of fluid. The portals were closed by my certified physical therapist assistant with 3-0 Prolene interrupted sutures. Additional local anesthetic, 30 mLs of 0.25% bupivacaine with epinephrine was injected. A bulky sterile dressing was applied and the tourniquet was released. Needle and sponge counts were correct and there were no apparent complications. DREW ARAYA MD Jan 20, 2020 08:27
[2020-01-20] MEDS ORDERED: HYDR-3164 PO (08:47)
[2020-01-20] MEDS ORDERED: PROM25TA10 PO (08:47)
[2020-01-20] MEDS ORDERED: HYDROcodone/APAP 5/325MG 1 TAB TABLET PO ONE (09:15)
[2020-01-20] MEDS ORDERED: SCOPOLAMINE 1.5MG PATCH. TD ONE (09:26)
[2020-01-20] MEDS ORDERED: ONDANSETRON PF 4 MG/2 ML VIAL. IVP ONE (09:30)
[2020-01-20] MEDS ORDERED: PROMETHAZINE 12.5 MG TABLET. PO ONE (10:30)
[2020-01-20 11:10] VITALS: BP 158/76
== END 2020-01-20 11:26 | disposition home or self-care (01) ==
LOC: SURG 05:50
PROVIDERS: ATTEND Orthopaedic Surgery
DX: M94.261 Chondromalacia, right knee (principal); M23.41 Loose body in knee, right knee; G43.909 Migraine, unspecified, not intractable, without status migrainosus; I10 Essential (primary) hypertension; J45.909 Unspecified asthma, uncomplicated; K21.9 Gastro-esophageal reflux disease without esophagitis; D64.9 Anemia, unspecified; F41.9 Anxiety disorder, unspecified; F32.9 Major depressive disorder, single episode, unspecified; E66.01 Morbid (severe) obesity due to excess calories; Z68.42 Body mass index [BMI] 45.0-49.9, adult; Z90.710 Acquired absence of both cervix and uterus; Z87.39 Personal history of other diseases of the musculoskeletal system and connective tissue; Z98.890 Other specified postprocedural states; Z98.51 Tubal ligation status
CPT/HCPCS: 29873; A7015; J0171; J0330; J0696; J1100; J2250; J2405; J2704; J3010; J3490; Q0169

== ENCOUNTER → 2020-03-22 | Outpatient (CLI) | payer MEDICAID ==
[~2020-03-22] MED LIST changes: +BACI1PAC4 TP; +PROM25TA10 PO
== END | disposition home or self-care (01) ==
LOC: LAB 12:31
PROVIDERS: ATTEND Internal Medicine Gastroenterology
DX: Z20.828 Contact with and (suspected) exposure to other viral communicable diseases (principal)
CPT/HCPCS: U0003-CS

== ENCOUNTER → 2020-03-25 | Day surgery (SDC) | payer MEDICAID ==
[~2020-03-25] MED LIST changes: -BACI1PAC4 TP; +FUROSEMIDE 20 MG/2 ML VIAL. IVP ONE; +IPRATRPIUM/ALBUTEROL 0.5/2.5MG 3 ML NEBU. NEB ONE; +IV RINGERS,LACTATED 1000ML 1,000 ML IV SCH; +LIDOCAINE 2% PF 5 ML VIAL. ONE; +PROPOFOL 10 MG/ML (20ML) VIAL. IV ONE
[2020-03-25 14:00] VITALS: BP 113/69
== END | disposition home or self-care (01) ==
LOC: SURG 10:36
PROVIDERS: ATTEND Internal Medicine Gastroenterology
DX: K92.1 Melena (principal); K92.2 Gastrointestinal hemorrhage, unspecified; K64.0 First degree hemorrhoids; I10 Essential (primary) hypertension; K21.9 Gastro-esophageal reflux disease without esophagitis; F41.9 Anxiety disorder, unspecified; F32.9 Major depressive disorder, single episode, unspecified; Z88.8 Allergy status to other drugs, medicaments and biological substances; Z79.82 Long term (current) use of aspirin; Z98.890 Other specified postprocedural states; Z79.899 Other long term (current) drug therapy
CPT/HCPCS: 45378; 94640; J1940; J2704

== ENCOUNTER 2020-04-07 18:50 | Emergency (ER) | payer MEDICAID ==
[~2020-04-07] VITALS: Ht 165.1 cm; Wt 109.0 kg
[~2020-04-07 18:50] MED LIST changes: -FUROSEMIDE 20 MG/2 ML VIAL. IVP ONE; -IPRATRPIUM/ALBUTEROL 0.5/2.5MG 3 ML NEBU. NEB ONE; -IV RINGERS,LACTATED 1000ML 1,000 ML IV SCH; -LIDOCAINE 2% PF 5 ML VIAL. ONE; -PROPOFOL 10 MG/ML (20ML) VIAL. IV ONE
[2020-04-07 20:03] VITALS: BP 142/91
[2020-04-07] MEDS ORDERED: BACI1PAC4 TP (20:30)
[2020-04-07] MEDS ORDERED: CEPH-264 PO (20:30)
--- NOTE | 2020-04-07 20:31 | PHYS DOC ---
Past Medical History Past Medical History: Anxiety, Arthritis, Bronchitis, Hypertension, Migraines Additional Past Medical Histor: Adrenal mass,OVARIAN CYST,Scoliosis,PANIC ATTACKS (RAMYA,NIRMAL M GROUP DIRECTOR EXPERIENCE) Past Surgical History: Hysterectomy, Tubal ligation, Other Additional Past Surgical Histo: Partial hysterectomy, RIGHT EAR (LINDA,NIRMAL M GROUP DIRECTOR EXPERIENCE) Smoking Status: Never Smoker Alcohol Use: None Drug Use: None ([facility],NIRMAL M GROUP DIRECTOR EXPERIENCE) General Adult EDM: Chief Complaint: WOUND CHECK HPI: HPI: Patient is a 40 year old female who presents with was frying up some chicken approximately a week ago when the oil splashed up and burned dorsal right thumb and fourth finger. The jean do not cover any joints and they are not circumferential. She states that the initial blister popped open and draining yellowish purulent fluid and are painful. There is some redness around the area of the jean are approximately 1 cm x 1 cm. There looks to be some scabbing over the area. There is no underlying tendon or bone or muscle seen. Patient is not diabetic. She has a history of hypertension, anxiety, arthritis, bronchitis, migraines, adrenal mass, ovarian cyst, scoliosis, panic attacks, partial hysterectomy. She states her last tetanus shot was 4 years ago. She is rating her burning pain at a 5 out of 10. She has full range of motion of all joints in her fingers. Radial pulses strong present. Skin pink warm and dry and cap refill is less than 2 seconds. (LINDA,NIRMAL M GROUP DIRECTOR EXPERIENCE) Review of Systems: Review of Systems: Constitutional: Denies fever or chills. [] Eyes: Denies change in visual acuity. [] HENT: Denies nasal congestion or sore throat. [] Respiratory: Denies cough or shortness of breath. [] Cardiovascular: Denies chest pain or edema. [] GI: Denies abdominal pain, nausea, vomiting, bloody stools or diarrhea. [] : Denies dysuria. [] Musculoskeletal: Denies back pain or joint pain. Pain from jean to right fourth finger and thumb. [] Integument: Denies rash. Burn to right fourth and thumb. [] Neurologic: Denies headache, focal weakness or sensory changes. [] Endocrine: Denies polyuria or polydipsia. [] Lymphatic: Denies swollen glands. [] Psychiatric: Denies depression or anxiety. [] (NIRMAL MCKEON GROUP DIRECTOR EXPERIENCE) Heart Score: Risk Factors: Risk Factors: DM, Current or recent (<one month) smoker, HTN, HLP, family history of CAD, obesity. Risk Scores: Score 0 - 3: 2.5% MACE over next 6 weeks - Discharge Home Score 4 - 6: 20.3% MACE over next 6 weeks - Admit for Clinical Observation Score 7 - 10: 72.7% MACE over next 6 weeks - Early Invasive Strategies ([facility] EXPERIENCE) Allergies: Allergies: Allergies Coded Allergies Type Severity Reaction Last Updated Verified ethyl alcohol Allergy Intermediate Hives 03/25/20 Yes latex Allergy Intermediate Rash 03/25/20 Yes ([facility] APRN) Physical Exam: PE: Constitutional: Well developed, well nourished, no acute distress, non-toxic appearance. [] HENT: Normocephalic, atraumatic, bilateral external ears normal, oropharynx moist, no oral exudates, nose normal. [] Eyes: PERRLA, EOMI, conjunctiva normal, no discharge. [] Neck: Normal range of motion, no tenderness, supple, no stridor. [] Cardiovascular:Heart rate regular rhythm, no murmur [] Lungs & Thorax: Bilateral breath sounds clear to auscultation [] Abdomen: Bowel sounds normal, soft, no tenderness, no masses, no pulsatile masses. [] Skin: Warm, dry, no erythema, no rash. Burn to dorsal right fourth finger and thumb. [] Back: No tenderness, no CVA tenderness. [] Extremities: No tenderness, no cyanosis, no clubbing, ROM intact, no edema. [] Neurologic: Alert and oriented X 3, normal motor function, normal sensory function, no focal deficits noted. [] Psychologic: Affect normal, judgement normal, mood normal. [] ([facility] DIRECT[facility] EXPERIENCE) Current Patient Data: Vital Signs: Vital Signs Date Time Temp Pulse Resp B/P (MAP) Pulse Ox O2 Delivery O2 Flow Rate FiO2 04/07/20 20:03 98.8 91 18 142/91 (108) 97 Room Air 98.8 ([facility] DIRECT[facility] EXPERIENCE) EKG: EKG: [] ([facility],NIRMAL M GROUP DIRECTOR EXPERIENCE) Radiology/Procedures: Radiology/Procedures: [] (NIRMAL MCKEON APRN) Course & Med Decision Making: Course & Med Decision Making Pertinent Labs and Imaging studies reviewed. (See chart for details) See HPI. Patient states that she has been applying Neosporin to the areas. She is alert and oriented for. Speaks in full complete sentences. Ambulatory with a steady gait. There is no swelling of the extremities. [] (NIRMAL MCKEON APRN) Course & Med Decision Making I have reviewed the PA/GALLEY HAND's note and Plan of Care. I was available for consultation as needed during the patient's visit in the emergency department. I agree with the clinical impression, plans and disposition. (CHRIS FUENTES MD) Dragon Disclaimer: Dragon Disclaimer: This electronic medical record was generated, in whole or in part, using a voice recognition dictation system. (NIRMAL MCKEON APRN) Departure Departure Impression: Primary Impression: Burn Disposition: HOME, SELF-CARE Condition: STABLE Referrals: JOYCELYN SORIANO MD (PCP) Patient Instructions: Burn Care Additional Instructions: Follow-up with primary care if needed. Use medications as prescribed. Keep areas clean and covered. Scripts Bacitracin (BACITRACIN) 1 Each Packet 1 EACH TP BID, #20 PKT Prov: NIRMAL MCKEON APRN 04/07/20 Cephalexin (KEFLEX) 500 Mg Capsule 500 MG PO QID for 10 Days, #40 CAP Prov: NIRMAL MCKEON APRN 04/07/20 Justicifation of Admission Dx: Justifications for Admission: Justification of Admission Dx: N/A (NIRMAL MCKEON APRN) NIRMAL MCKEON APRN Apr 07, 2020 20:31 CHRIS FUENTES MD Apr 07, 2020 21:02
== END 2020-04-07 20:34 | disposition home or self-care (01) ==
LOC: ER 18:50
DX: T23.241A Burn of second degree of multiple right fingers (nail), including thumb, initial encounter (principal); F41.9 Anxiety disorder, unspecified; M19.90 Unspecified osteoarthritis, unspecified site; I10 Essential (primary) hypertension; G43.909 Migraine, unspecified, not intractable, without status migrainosus; Z90.710 Acquired absence of both cervix and uterus; Z98.51 Tubal ligation status; Z98.890 Other specified postprocedural states; Z91.040 Latex allergy status; Z88.8 Allergy status to other drugs, medicaments and biological substances; X08.8XXA Exposure to other specified smoke, fire and flames, initial encounter; Y93.89 Activity, other specified; Y92.89 Other specified places as the place of occurrence of the external cause; Y99.8 Other external cause status; T31.0 Burns involving less than 10% of body surface
CPT/HCPCS: 99283

== ENCOUNTER 2020-05-02 16:39 | Emergency (ER) | payer MEDICAID ==
[~2020-05-02] VITALS: Ht 165.1 cm; Wt 104.5 kg
[~2020-05-02 16:39] MED LIST changes: +BACI1PAC4 TP
--- NOTE | 2020-05-02 18:05 | PHYS DOC ---
Past Medical History Past Medical History: No Pertinent History Additional Past Medical Histor: Adrenal mass,OVARIAN CYST,Scoliosis,PANIC ATTACKS (NIRMAL MCKEON LEGAL INSTRUCTOR) Past Surgical History: Knee Replacement Additional Past Surgical Histo: Partial hysterectomy, RIGHT EAR (NIRMAL MCKEON LEGAL INSTRUCTOR) Smoking Status: Never Smoker Alcohol Use: None Drug Use: None (NIRMAL MCKEON LEGAL INSTRUCTOR) General Adult EDM: Chief Complaint: MULTIPLE COMPLAINTS HPI: HPI: Patient is a 40 year old female who presents with right knee arthroscopy by Dr. Araya on April 30 and states that since then she has felt a small lump to the lateral aspect of the anterior knee. She states she is concerned and thinks that it could be a bone displacement. She also complains of new right anterior ankle pain that is sharp and only when she is up and putting pressure walking. Patient also complains of left knee pain that is worsening since she has had a surgery. She states it is also a sharp and achy pain that feels just like the right knee did before she had surgery. Patient rates her overall pain a 6 out of 10. (NIRMAL MCKEON LEGAL INSTRUCTOR) Review of Systems: Review of Systems: Constitutional: Denies fever or chills. [] Eyes: Denies change in visual acuity. [] HENT: Denies nasal congestion or sore throat. [] Respiratory: Denies cough or shortness of breath. [] Cardiovascular: Denies chest pain. +Right knee 1+ edema. [] GI: Denies abdominal pain, nausea, vomiting, bloody stools or diarrhea. [] : Denies dysuria. [] Musculoskeletal: Denies back pain. +Left knee, +right knee, +right ankle joint pain. [] Integument: Denies rash. [] Neurologic: Denies headache, focal weakness or sensory changes. [] Endocrine: Denies polyuria or polydipsia. [] Lymphatic: Denies swollen glands. [] Psychiatric: Denies depression or anxiety. [] (NIRMAL MCKEON LEGAL INSTRUCTOR) Heart Score: Risk Factors: Risk Factors: DM, Current or recent (<one month) smoker, HTN, HLP, family history of CAD, obesity. Risk Scores: Score 0 - 3: 2.5% MACE over next 6 weeks - Discharge Home Score 4 - 6: 20.3% MACE over next 6 weeks - Admit for Clinical Observation Score 7 - 10: 72.7% MACE over next 6 weeks - Early Invasive Strategies (NIRMAL MCKEON LEGAL INSTRUCTOR) Allergies: Allergies: Allergies Coded Allergies Type Severity Reaction Last Updated Verified ethyl alcohol Allergy Intermediate Hives 03/25/20 Yes latex Allergy Intermediate Rash 03/25/20 Yes (NIRMAL MCKEON LEGAL INSTRUCTOR) Physical Exam: PE: Constitutional: Well developed, well nourished, no acute distress, non-toxic appearance. [] HENT: Normocephalic, atraumatic, bilateral external ears normal, oropharynx barb st, no oral exudates, nose normal. [] Eyes: PERRLA, EOMI, conjunctiva normal, no discharge. [] Neck: Normal range of motion, no tenderness, supple, no stridor. [] Cardiovascular:Heart rate regular rhythm, no murmur [] Lungs & Thorax: Bilateral breath sounds clear to auscultation [] Abdomen: Bowel sounds normal, soft, no tenderness, no masses, no pulsatile masses. [] Skin: Warm, dry, no erythema, no rash. [] Back: No tenderness, no CVA tenderness. [] Extremities: No tenderness, no cyanosis, no clubbing, ROM intact, right knee 1+ edema. [] Neurologic: Alert and oriented X 3, normal motor function, normal sensory function, no focal deficits noted. [] Psychologic: Affect normal, judgement normal, mood normal. [] ([facility]) Current Patient Data: Vital Signs: Vital Signs Date Time Temp Pulse Resp B/P (MAP) Pulse Ox O2 Delivery O2 Flow Rate FiO2 05/02/20 17:41 98.4 87 20 140/93 (109) 98 Room Air 98.4 ([facility]) EKG: EKG: [] ([facility]) Radiology/Procedures: Radiology/Procedures: [] Impression: [facility] [address] [place] [address] IMAGING REPORT Signed PATIENT: KAYLENE CORDERO ACCOUNT: [id number] : 1980 LOCATION: ER AGE: 40 SEX: F EXAM STATUS: REG ER ORD. PHYSICIAN: NIRMAL MCKEON APRN REASON: pain PROCEDURE: ANKLE RIGHT 3V KNEE LEFT 3V, KNEE RIGHT 3V, ANKLE RIGHT 3V History: Pain Left knee radiographs Comparison: December 29, 2019 Findings: 3 views of the left knee are submitted. No acute fracture or dislocation is identified. There is again mild narrowing of the medial compartment joint space and minimal osteophyte formation. Impression: 1. There is mild medial compartment osteoarthritic change. Right knee radiographs: COMPARISON: December 29, 2019 FINDINGS: 3 views of the right knee are submitted. There is again [id number] osteoarthritic change of the medial compartment of the right knee. No acute fracture or dislocation is identified. There is mild osteoarthritic change of the patellofemoral articulation. IMPRESSION: 1.There is osteoarthritic change greatest of the medial compartment. Right ankle radiographs: COMPARISON: March 21, 2014 FINDINGS: 3 views of the right ankle are submitted. No acute fracture or dislocation is identified. There is small plantar calcaneal enthesophyte. There may be some soft tissue swelling about the proximal foot. IMPRESSION: 1.No acute osseous abnormality is identified by radiographs. There may be some soft tissue swelling about the proximal foot. Electronically signed by: Wisam Marks MD (05/02/2020 7:20 PM) [facility] DICTATED and SIGNED BY: WISAM MARKS MD DATE: 05/02/201919 (NIRMAL MCKEON APRN) Course & Med Decision Making: Course & Med Decision Making Pertinent Labs and Imaging studies reviewed. (See chart for details) See HPI. The right knee has 1+ more swelling than the left knee. There is no swelling to the ankle. No deformity to any joints or laxity to any joints. There is no redness or heat to any other joints. There is no calf tenderness with palpation. There is no lower leg extremity swelling. Patient denies numbness or tingling, skin color change, coolness of extremity. Pedal pulses are strong and present. Cap refill less than 2 seconds. Skin is pink warm and dry. Patient is ambulatory with a steady gait. She states she would like crutches to help her ambulate. 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 Patient states she does have a appointment with Dr. Araya in 1 month but she would like her left knee looked at. I also offered her a knee immobilizer for her left knee and she states that she would like 1. Patient states she has hydrocodone at home for pain and an antibiotic for post surgery. No tenderness with palpation to any joint. Patient is given some pain meds and a knee brace. Patient is also given some crutches. [] (NIRMAL MCKEON APRN) Dragon Disclaimer: Dragon Disclaimer: This electronic medical record was generated, in whole or in part, using a voice recognition dictation system. (NIRMAL MCKEON APRN) Departure Departure Impression: Primary Impression: Right knee pain Qualified Codes: M25.561 - Pain in right knee; G89.29 - Other chronic pain Additional Impressions: Left knee pain Qualified Codes: M25.562 - Pain in left knee Ankle pain, right Qualified Codes: M25.571 - Pain in right ankle and joints of right foot Disposition: 01 DC HOME SELF CARE/HOMELESS Condition: STABLE Referrals: JOYCELYN SORIANO MD (PCP) Patient Instructions: Ankle Pain, Arthritis, Degenerative-Brief, Knee Pain Additional Instructions: Follow-up with Dr. Araya as soon as possible. Use knee immobilizer, elevation and ice. Take medication as prescribed. Try rest as much as possible. Scripts Hydrocodone/Apap 5-325 (NORCO 5-325 TABLET) 1 Each Tablet 1 TAB PO PRN Q6HRS PRN for PAIN, #6 TAB 0 Refills Prov: NIRMAL MCKEON APRN 05/02/20 Attending Signature Attending Signature I have reviewed the PA/HEALTH NURSE's note and plan of care. I was available for consultation as needed during the patient's visit in the emergency department. I agree with the clinical impression, plan, and disposition. (JOYCELYN ARREDONDO DO) NIRMAL MCKEON APRN May 02, 2020 18:05 JOYCELYN ARREDONDO DO May 05, 2020 06:54
--- NOTE | 2020-05-02 19:23 | RAD ---
KNEE LEFT 3V, KNEE RIGHT 3V, ANKLE RIGHT 3V History: Pain Left knee radiographs Comparison: December 29, 2019 Findings: 3 views of the left knee are submitted. No acute fracture or dislocation is identified. There is again mild narrowing of the medial compartment joint space and minimal osteophyte formation. Impression: 1. There is mild medial compartment osteoarthritic change. Right knee radiographs: COMPARISON: December 29, 2019 FINDINGS: 3 views of the right knee are submitted. There is again [id number] osteoarthritic change of the medial compartment of the right knee. No acute fracture or dislocation is identified. There is mild osteoarthritic change of the patellofemoral articulation. IMPRESSION: 1.There is osteoarthritic change greatest of the medial compartment. Right ankle radiographs: COMPARISON: March 21, 2014 FINDINGS: 3 views of the right ankle are submitted. No acute fracture or dislocation is identified. There is small plantar calcaneal enthesophyte. There may be some soft tissue swelling about the proximal foot. IMPRESSION: 1.No acute osseous abnormality is identified by radiographs. There may be some soft tissue swelling about the proximal foot. Electronically signed by: John Monson MD (05/02/2020 7:20 PM) [facility]ITAL[facility]enn[facility]
--- NOTE | 2020-05-02 19:23 | RAD ---
KNEE LEFT 3V, KNEE RIGHT 3V, ANKLE RIGHT 3V History: Pain Left knee radiographs Comparison: December 29, 2019 Findings: 3 views of the left knee are submitted. No acute fracture or dislocation is identified. There is again mild narrowing of the medial compartment joint space and minimal osteophyte formation. Impression: 1. There is mild medial compartment osteoarthritic change. Right knee radiographs: COMPARISON: December 29, 2019 FINDINGS: 3 views of the right knee are submitted. There is again gysh-ps-wjsofmoi osteoarthritic change of the medial compartment of the right knee. No acute fracture or dislocation is identified. There is mild osteoarthritic change of the patellofemoral articulation. IMPRESSION: 1.There is osteoarthritic change greatest of the medial compartment. Right ankle radiographs: COMPARISON: March 21, 2014 FINDINGS: 3 views of the right ankle are submitted. No acute fracture or dislocation is identified. There is small plantar calcaneal enthesophyte. There may be some soft tissue swelling about the proximal foot. IMPRESSION: 1.No acute osseous abnormality is identified by radiographs. There may be some soft tissue swelling about the proximal foot. Electronically signed by: John Monson MD (05/02/2020 7:20 PM) [facility]ENTERJennifer
--- NOTE | 2020-05-02 19:23 | RAD ---
KNEE LEFT 3V, KNEE RIGHT 3V, ANKLE RIGHT 3V History: Pain Left knee radiographs Comparison: December 29, 2019 Findings: 3 views of the left knee are submitted. No acute fracture or dislocation is identified. There is again mild narrowing of the medial compartment joint space and minimal osteophyte formation. Impression: 1. There is mild medial compartment osteoarthritic change. Right knee radiographs: COMPARISON: December 29, 2019 FINDINGS: 3 views of the right knee are submitted. There is again gfhi-ee-yuopjigk osteoarthritic change of the medial compartment of the right knee. No acute fracture or dislocation is identified. There is mild osteoarthritic change of the patellofemoral articulation. IMPRESSION: 1.There is osteoarthritic change greatest of the medial compartment. Right ankle radiographs: COMPARISON: March 21, 2014 FINDINGS: 3 views of the right ankle are submitted. No acute fracture or dislocation is identified. There is small plantar calcaneal enthesophyte. There may be some soft tissue swelling about the proximal foot. IMPRESSION: 1.No acute osseous abnormality is identified by radiographs. There may be some soft tissue swelling about the proximal foot. Electronically signed by: John Monson MD (05/02/2020 7:20 PM) [facility]enn[facility]
[2020-05-02] MEDS ORDERED: HYDR-3164 PO (19:39)
[2020-05-02 19:50] VITALS: BP 143/88
== END 2020-05-02 19:55 | disposition home or self-care (01) ==
LOC: ER 16:39
DX: G89.29 Other chronic pain (principal); M25.561 Pain in right knee; M25.562 Pain in left knee; M25.571 Pain in right ankle and joints of right foot; R60.0 Localized edema; Z98.890 Other specified postprocedural states; Z88.8 Allergy status to other drugs, medicaments and biological substances
CPT/HCPCS: 73562; 73610; 99284

== ENCOUNTER → 2020-05-04 | Outpatient (CLI) | payer MEDICAID ==
[2020-05-02 19:50] VITALS: BP 143/88
== END ==
LOC: LAB 12:09
PROVIDERS: ATTEND Internal Medicine Gastroenterology
DX: Z01.812 Encounter for preprocedural laboratory examination (principal); R13.10 Dysphagia, unspecified; Z20.828 Contact with and (suspected) exposure to other viral communicable diseases
CPT/HCPCS: U0003-CS

== ENCOUNTER → 2020-05-07 | Day surgery (SDC) | payer MEDICAID ==
[~2020-05-07] MED LIST changes: +IV RINGERS,LACTATED 1000ML 1,000 ML IV SCH; +LIDOCAINE 2% PF 5 ML VIAL. ONE; +PROPOFOL 10 MG/ML (20ML) VIAL. IV ONE
--- NOTE | 2020-05-07 10:26 | CONS ---
DATE OF CONSULTATION: 05/07/2020 REASON FOR CONSULTATION: Dysphagia. HISTORY OF PRESENT ILLNESS: This is a 40-year-old female whose past medical history is significant for hypertension, scoliosis, migraines, is seen for solid food dysphagia. It is mainly in the subcervical location associated with heartburn. She has been on omeprazole without improvement. She does not drink or smoke, but does use caffeine. There are risk factors for the reflux with the continued symptoms. She requests further evaluation. PAST MEDICAL HISTORY: Hypertension, scoliosis, arthritis, history of rectal bleeding. FAMILY HISTORY: Significant for heart attacks with both parents, breast cancer with an aunt, diabetes with her mother, hypertension with her mother. SOCIAL HISTORY: She is nonsmoker, nondrinker. MEDICATION LIST: Includes bupropion, aspirin, omeprazole, iron, lisinopril, citalopram, and ____. PAST SURGICAL HISTORY: Hysterectomy, tubal ligation, tonsillectomy and adenoidectomy. REVIEW OF SYSTEMS: As per records. PHYSICAL EXAMINATION: LUNGS: Clear. CARDIOVASCULAR: Reveals an S1, S2 without S3, S4 or appreciable murmur. ABDOMEN: Reveals a soft abdomen, normoactive bowel sounds without appreciable hepatosplenomegaly. EXTREMITIES: Reveals no cyanosis, clubbing or edema. IMPRESSION: Dysphagia, most likely secondary to Schatzki ring. Differential includes achalasia, malignancy, Mcghee's, peptic stricture, eosinophilic esophagitis. Therefore, I recommend upper endoscopy with possible biopsy and/or dilatation. Risks and benefits of procedure, including risk of hemorrhage and perforation during the operation were discussed. The patient is willing to proceed at this time. CHRIS NEIL MD DR: GIA/marianne JOB#: [id number] / [id number]
--- NOTE | 2020-05-10 15:08 | PATHOLOGY ---
[facility] Accession Number: [id number] . 01 Material submitted: . esophagus - ESOPHAGEAL BIOPSY R/O EOSINOPHILIC ESOPHAGITIS . 01 Clinical history: . DYSPHAGIA . 02 Diagnosis: Esophageal biopsies: - Reflux esophagitis. . (JP:mm; 05/10/2020) [facility] 05/10/2020 1211 Local . 02 Comment: Sections of the esophageal biopsy reveal multiple segments of focally tangentially-oriented, hyperplastic squamous esophageal mucosa. The findings are consistent with reflux esophagitis. There is no evidence of an eosinophilic esophagitis. There is no evidence of Mcghee's change, dysplasia, or malignancy. . (JPM:mm; 05/10/2020) . 02 Electronically signed: . Josh Starks MD, Pathologist NPI- [id number] . 01 Gross description: . Received in formalin labeled "Gutierrez, Keshia, esophageal BX rule out eosinophilic esophagitis" are multiple walters-brown soft tissue fragments measuring in aggregate 1.5 x 0.3 x 0.1 cm. The specimen is submitted entirely in A1. ([facility]; 05/09/2020) [facility] 05/09/2020 1336 Local . 02 Pathologist provided ICD-10: K21.00 . 02 CPT . 485159 Specimen Comment: A courtesy copy of this report has been sent to [phone], [phone] Specimen Comment: [id number] Specimen Comment: Report sent to / DR SORIANO Performed at: 01 [facility] [address], [place], [place] [id number] MD René Cartagena MD Phone: [phone] Performed at: 02 [facility] [address] [place], [place] [id number] MD Josh Starks MD Phone: [phone]
== END ==
LOC: SURG 08:04
PROVIDERS: ATTEND Internal Medicine Gastroenterology
DX: K22.2 Esophageal obstruction (principal); K21.00 Gastro-esophageal reflux disease with esophagitis, without bleeding; I10 Essential (primary) hypertension; G43.909 Migraine, unspecified, not intractable, without status migrainosus; F41.9 Anxiety disorder, unspecified; Z88.8 Allergy status to other drugs, medicaments and biological substances; Z83.3 Family history of diabetes mellitus; Z82.49 Family history of ischemic heart disease and other diseases of the circulatory system; Z80.3 Family history of malignant neoplasm of breast; Z98.890 Other specified postprocedural states; Z79.899 Other long term (current) drug therapy
CPT/HCPCS: 43239; 43450; 88305; J2704

== ENCOUNTER → 2020-06-04 | Outpatient (CLI) | payer MEDICAID ==
[~2020-06-04] MED LIST changes: -IV RINGERS,LACTATED 1000ML 1,000 ML IV SCH; -LIDOCAINE 2% PF 5 ML VIAL. ONE; -PROPOFOL 10 MG/ML (20ML) VIAL. IV ONE
--- NOTE | 2020-06-04 11:52 | KCIC ---
EXAMINATION: MRI LEFT KNEE WITHOUT IV CONTRAST CLINICAL HISTORY: Medial left knee pain, no known injury TECHNIQUE: Multiplanar multisequential images obtained through the knee without intravenous contrast. COMPARISON: Left knee radiographs 05/02/2020 FINDINGS: MENISCI: Medial Meniscus: Intact. Lateral Meniscus: Intact. LIGAMENTS: ACL: Intact PCL: Intact MCL: Intact LCL Complex: Intact CARTILAGE: Medial Femoral Condyle: Normal Medial Tibial Plateau: Normal Lateral Femoral Condyle: Normal Lateral Tibial Plateau: Normal Patella: Moderate sized area(s) of predominantly high grade (greater than 50% thickness) cartilage loss and or fissuring with smaller area(s) of full thickness cartilage loss and or fissuring with subchondral marrow reactive/cystic changes in the medial facet Trochlea: Small area(s) of full thickness cartilage loss and or fissuring with subchondral marrow reactive/cystic changes in the superior medial trochlea TENDONS: The distal quadriceps and patellar tendons are intact. The popliteus tendon is intact. BONES AND MARROW: No evidence of acute fracture or suspicious marrow replacing process. MUSCLES: Muscle bulk and signal intensity within normal limits. JOINT FLUID AND SYNOVIUM: No joint effusion. No synovitis. Small Longoria's cyst. OTHER: Subcutaneous edema along the anterior knee with more confluent edema in the region of the prepatellar and superficial infrapatellar bursae, suggestive of bursitis. IMPRESSION: Moderate full-thickness chondral wear in the patella. Findings suggestive of mild prepatellar and possible minimal infrapatellar bursitis, correlate clinically. No meniscus tear or acute ligamentous injury. Electronically signed by: Kelton Bush DO (06/04/2020 11:49 AM) [id number]
== END ==
LOC: KCIC MRI 08:45
PROVIDERS: ATTEND Orthopaedic Surgery
DX: M25.562 Pain in left knee (principal)
CPT/HCPCS: 73721

== ENCOUNTER 2020-10-11 23:50 | Emergency (ER) | payer MEDICAID ==
[~2020-10-11] VITALS: Ht 165.1 cm; Wt 109.0 kg
[~2020-10-11 23:50] MED LIST changes: +BUPR150T21 PO; -BUPR150T6 PO; +LISI10TA16 PO; -LISI10TA2 PO; +NAPR-699 PO; -NAPR250T6 PO
[2020-10-12 00:40] VITALS: BP 138/90
[2020-10-12] MEDS ORDERED: HYDR-2761 PO (02:26)
--- NOTE | 2020-10-12 02:26 | PHYS DOC ---
Past Medical History Past Medical History: No Pertinent History Additional Past Medical Histor: Adrenal mass,OVARIAN CYST,Scoliosis,PANIC ATTACKS Additional Past Surgical Histo: Partial hysterectomy, RIGHT EAR, Right knee arthroscopic meniscal repair. Smoking Status: Never Smoker Alcohol Use: None Drug Use: None General Adult EDM: Chief Complaint: KNEE SWELLING HPI: HPI: Patient is a 40 year old female who presents with Left knee swelling of 9 months duration[address] Patient sees Dr. Araya (Orthopedic surgeon) who has already began diagnosing the left knee and has ordered XR and MRI. Next appointment is 10/26/2020. Patient presents to the ED today because pain and instability has become unbearable and she desires pain control until her next appointment with Dr. Araya. Patient reports swelling is constant and associated with intense pain. Unable to flex knee due to swelling. Patient does not recall a mechanism of injury, but states symptoms have been getting worse for the past 9 months. Patient reports instability and locking, popping, giving way. Pain is worse while going up and down stairs. Patient has tried ibuprofen, tylenol, neoprene sleeve, and ice without receiving adequate relief. Review of Systems: Review of Systems: Constitutional: Denies fever or chills Eyes: Denies redness or eye pain HENT: Denies nasal congestion or sore throat Respiratory: Denies cough or shortness of breath Cardiovascular: Denies chest pain or palpitations GI: Denies abdominal pain, nausea, or vomiting : Denies dysuria or hematuria Musculoskeletal: Denies back pain. Reports swelling and pain of Left knee. Integument: Patient reports new onset rash on medial aspect of left thigh. Denies other skin changes. Neurologic: Denies headache, focal weakness or sensory changes Complete systems were reviewed and found to be within normal limits, except as documented in this note. Heart Score: C/O Chest Pain: N/A Family History: Family History: No pertinent family history. Current Medications: Lisinopril, Prilosec, Ibuprofen, Tylenol Allergies: Allergies: Allergies Coded Allergies Type Severity Reaction Last Updated Verified ethyl alcohol Allergy Intermediate Hives 05/07/20 Yes latex Allergy Intermediate Rash 05/07/20 Yes Physical Exam: PE: Constitutional: Well developed, well nourished, mild distress, non-toxic appearance HENT: Normocephalic, atraumatic Eyes: PERRL, EOMI, conjunctiva normal, no discharge Neck: Normal range of motion, no tenderness, supple Lungs & Thorax: No respiratory distress, equal chest rise and fall Abdomen: Soft, no tenderness Skin: Warm, dry, no erythema Back: No tenderness, no CVA tenderness Neurologic: Alert and oriented X 3, normal motor function, normal sensory function, no focal deficits noted Psychologic: Affect normal, judgment normal Left Lower Extremity: Left knee is swollen on exam. Left pretibial edema noted. Patient has pain with passive flexion of knee. Inability to flex knee past 45 degrees due to swelling. Medial joint line tenderness present on exam. Current Patient Data: Vital Signs: Vital Signs Date Time Temp Pulse Resp B/P (MAP) Pulse Ox O2 Delivery O2 Flow Rate FiO2 10/12/20 00:40 98.0 96 18 138/90 (106) 97 Room Air 98.0 EKG: EKG: [] Radiology/Procedures: Radiology/Procedures: [] Course & Med Decision Making: Course & Med Decision Making Patient is a 40 year old female who presents with Left knee swelling of 9 months duration. Patient sees Dr. Araya (Orthopedic surgeon) who has already began diagnosing the left knee and has ordered XR and MRI. Next appointment is 10/26/2020. Patient presents to the ED today because pain and instability has become unbearable and she desires pain control until her next appointment with Dr. Araya. No additional imaging necessary at this time. Pain was addressed medically with first dose given in ED. Von wrap was applied for swelling. Crutch was provided. Patient stable for discharge with outpatient follow-up with Dr. Araya. Discussed findings and plan with patient, who acknowledges understanding and agreement. Tia Disclaimer: Tia Disclaimer: This electronic medical record was generated, in whole or in part, using a voice recognition dictation system. Departure Departure Impression: Primary Impression: Left knee pain Qualified Codes: M25.562 - Pain in left knee; G89.29 - Other chronic pain Disposition: 01 DC HOME SELF CARE/HOMELESS Condition: STABLE Referrals: JOYCELYN SORIANO MD (PCP) DREW ARAYA MD Patient Instructions: Crutch Use, Hgxm-zb-[id number], Knee Pain, Pzvt-zj-Hboa, Knee Wraps (Elastic Bandage) and RICE Scripts Hydrocodone Bit/Acetaminophen (HYDROCODONE-APAP 5-325 ) 1 Tab Tablet 0.5-1 TAB PO PRN Q6HRS PRN for PAIN, #10 TAB 0 Refills Prov: JOYCELYN ARREDONDO DO 10/12/20 JOYCELYN ARREDONDO DO Oct 12, 2020 02:26
[2020-10-12] MEDS ORDERED: HYDROcodone/APAP 5/325MG 1 TAB TABLET ONE (02:56)
[2020-10-12] MEDS ORDERED: KETOROLAC 30 MG/ML VIAL. IM ONE (03:00)
[2020-10-12] MEDS ORDERED: HYDROcodone/APAP 5/325MG 1 TAB TABLET PO ONE (03:00)
== END 2020-10-12 02:53 | disposition home or self-care (01) ==
LOC: ER 23:50
DX: G89.29 Other chronic pain (principal); M25.562 Pain in left knee; R60.0 Localized edema; Z90.710 Acquired absence of both cervix and uterus; Z98.890 Other specified postprocedural states; Z91.040 Latex allergy status; Z88.8 Allergy status to other drugs, medicaments and biological substances
CPT/HCPCS: 99283

== ENCOUNTER → 2020-10-26 | Outpatient (CLI) | payer MEDICAID ==
[2020-10-12 00:40] VITALS: BP 138/90
--- NOTE | 2020-10-26 12:06 | KCIC ---
Examination: MRI of the left knee without contrast HISTORY: History of left knee pain COMPARISON: 06/04/2020 TECHNIQUE: Multiplanar, multisequence MR imaging of the left knee without contrast FINDINGS: The anterior cruciate ligament, posterior cruciate ligament is intact. The medial, lateral meniscus a ppears intact . The medial collateral ligament appears intact. Lateral collateral ligamentous complex including the fibular collateral ligament, biceps femoris tendon, popliteus tendon appear intact. Th e medial, lateral retinaculum appears intact. Small knee joint effusion. There is deep fissuring of c artilage identified in the patellofemoral compartment. There is mild superficial fraying of cartilage identified in the medial, lateral compartments. There is mild increased T2 signal/edema identified anterior to the infrapatellar tendon likely edema or bursitis, unchanged. Mild joint space loss medial, lateral and patellofemoral compartments. IMPRESSION: 1. Grade II chondromalacia patellofemoral compartment. 2. Small knee joint effusion. 3. Mild increased T2 signal/edema identified anterior to the infrapatellar tendon likely edema or bu rsitis, unchanged. Electronically signed by: Ignacio Nina MD (10/26/2020 12:04 PM) [id number]
== END ==
LOC: KCIC MRI 10:07
PROVIDERS: ATTEND Orthopaedic Surgery
DX: S83.002A Unspecified subluxation of left patella, initial encounter (principal); M22.42 Chondromalacia patellae, left knee; M25.462 Effusion, left knee; X58.XXXA Exposure to other specified factors, initial encounter; Y93.89 Activity, other specified; Y92.89 Other specified places as the place of occurrence of the external cause; Y99.8 Other external cause status
CPT/HCPCS: 73721

== ENCOUNTER → 2020-11-09 | Outpatient (CLI) | payer MEDICAID ==
[2020-10-12 00:40] VITALS: BP 138/90
[~2020-11-09] MED LIST changes: +DICL75TA PO; +OMEP40CA45 PO
== END ==
LOC: LAB 10:36
PROVIDERS: ATTEND Orthopaedic Surgery
DX: Z01.812 Encounter for preprocedural laboratory examination (principal); Z20.822 Contact with and (suspected) exposure to COVID-19
CPT/HCPCS: U0003; U0005

== ENCOUNTER 2020-11-12 05:50 | Day surgery (SDC) | payer MEDICAID ==
[~2020-11-12] VITALS: Ht 162.6 cm; Wt 112.9 kg
[2020-11-12] MEDS ORDERED: IV RINGERS,LACTATED 1000ML 1,000 ML IV SCH (06:00)
[2020-11-12] MEDS ORDERED: fentaNYL PF VIAL 100 MCG/2 ML VIAL IVP PRN ×2 (06:00)
[2020-11-12] MEDS ORDERED: MORPHINE SULFATE 2 MG/ML VIAL. IVP PRN (06:00)
[2020-11-12] MEDS ORDERED: PROCHLORPERAZINE 10 MG/2 ML VIAL. IVP PRN (06:00)
[2020-11-12] MEDS ORDERED: HYDROmorphone 2 MG/ML VIAL IVP PRN (06:00)
[2020-11-12] MEDS ORDERED: LIDOCAINE 2% PF 5 ML VIAL. ONE (06:16)
[2020-11-12] MEDS ORDERED: PROPOFOL 10 MG/ML (20ML) VIAL. IV ONE (06:16)
[2020-11-12] MEDS ORDERED: BUPIVACAINE-EPI 0.25% 30 ML VIAL KIT. ONE ×2 (06:42)
[2020-11-12] MEDS ORDERED: EPINEPHrine VIAL 30 MG/30 ML VIAL ONE (06:42)
[2020-11-12] MEDS ORDERED: fentaNYL PF VIAL 100 MCG/2 ML VIAL ONE ×2 (06:51→08:33)
[2020-11-12] MEDS ORDERED: DEXAMETHASONE SOD PHOS 4 MG/ML VIAL ONE (07:40)
[2020-11-12] MEDS ORDERED: SEVOFLURANE 16 TO 30 MINUTES. IH ONE (07:40)
--- NOTE | 2020-11-12 08:46 | PDOC4 ---
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 Exam and MRI are consistent with chondromalacia and possible loose chondral flap. We talked about the risks and benefits of proceeding with an arthroscopic procedure. We talked about potential risks of ongoing pain, progressive arthritis, bleeding, infection, blood clots, or other potential surgical or anesthetic complications. All of the patient's questions about surgery were answered and they desired to proceed. Written consent was obtained. Description of Operation: The patient was identified in the preoperative holding area. The correct left knee was marked by me. The patient was taken to the operating room, where a general anesthetic was used. Preoperative antibiotics were given intravenously. A time-out procedure was performed. A tourniquet was placed on the upper thigh. Local anesthetic 20 mL of 0.5% bupivacaine was injected using sterile technique into the knee joint. The limb was prepared circumferentially with ChloraPrep solution and sterile waterproof arthroscopy drapes were applied. The limb was exsanguinated with an Esmarch bandage and the tourniquet was inflated. Lateral and medial arthroscopy portals were established. There was moderate anterior synovitis in the anterior compartment, and synovectomy was performed for visualization The medial meniscus was normal and stable to probing. The medial tibiofemoral joint showed normal articular surfaces so no chondroplasty was required. The intercondylar notch was free of loose bodies, and the ACL was intact. The lateral tibiofemoral joint was examined. The lateral meniscus was normal. The lateral articular surfaces showed normal articular surfaces so no chondroplasty was required. The patellofemoral joint showed chondromalacia, Outerbridge grade 3. Shaving chondroplasty was performed of loose flaps. There is one small area of exposed bone about 4 mm in diameter at the center so this is actually Outerbridge grade 4 at that area. The larger lesion is partial-thickness cartilage loss, sort of a long teardrop shaped, with the tail of the teardrop extending laterally, and the center of the teardrop more centered at the mid patellar region. The trochlea is relatively well-preserved with just Outerbridge 1 fraying and no need for extensive chondroplasty. Patellar tracking was assessed arthroscopically, at the patella is tilted laterally. An arthroscopic lateral release was performed with the Seisquare thermal energy device from the distal portion of the vastus lateralis, to the lateral portal. Evaluation of patellar tracking after the release shows improved alignment and less tilt of the patella and better distribution patell ofemoral contact with slight flexion. Copious irrigation was used to drain all chondral fragments, and the knee was drained of fluid. The portals were closed with #3-0 Prolene interrupted sutures. Additional local anesthetic, 30 mL of 0.25% bupivacaine with epinephrine was injected. A bulky sterile dressing was applied and the tourniquet was released. Needle and sponge counts were correct and there were no apparent complications. DREW ARAYA MD Nov 12, 2020 08:46
[2020-11-12] MEDS ORDERED: PROCHLORPERAZINE 10 MG/2 ML VIAL. ONE (09:04)
[2020-11-12 09:24] VITALS: BP 123/65
[2020-11-12] MEDS ORDERED: HYDR-2769 PO (09:31)
[2020-11-12] MEDS ORDERED: PROM25TA10 PO (09:31)
[2020-11-12] MEDS ORDERED: ASPI325T8 PO (09:32)
== END 2020-11-12 10:12 | disposition home or self-care (01) ==
LOC: SURG 05:50
PROVIDERS: ATTEND Orthopaedic Surgery
DX: M22.42 Chondromalacia patellae, left knee (principal); M22.12 Recurrent subluxation of patella, left knee; I10 Essential (primary) hypertension; E78.00 Pure hypercholesterolemia, unspecified; J45.909 Unspecified asthma, uncomplicated; E66.9 Obesity, unspecified; K21.9 Gastro-esophageal reflux disease without esophagitis; M19.90 Unspecified osteoarthritis, unspecified site; F41.9 Anxiety disorder, unspecified; F32.9 Major depressive disorder, single episode, unspecified; Z90.710 Acquired absence of both cervix and uterus; Z98.890 Other specified postprocedural states; Z79.899 Other long term (current) drug therapy; Z79.82 Long term (current) use of aspirin; Z91.040 Latex allergy status; Z88.8 Allergy status to other drugs, medicaments and biological substances
CPT/HCPCS: 29873; A4930; A6253; A6402; J0171; J0690; J0780; J1100; J2704; J3010

== ENCOUNTER 2021-06-17 12:46 | Emergency (ER) | payer MEDICAID ==
[~2021-06-17] VITALS: Ht 165.1 cm; Wt 72.5 kg
[~2021-06-17 12:46] MED LIST changes: +CYCL10TA19 PO; -CYCL10TA2 PO; +HYDR-2769 PO; +MIRT-7 PO; -MIRT15TA3 PO; -OMEP40CA45 PO; +OMEP40CA7 PO
[2021-06-17 15:09] VITALS: BP 164/104
[2021-06-17] MEDS ORDERED: AMOX875T PO (15:45)
[2021-06-17] MEDS ORDERED: HYDR-2761 PO (15:45)
[2021-06-17] MEDS ORDERED: IBUP-1007 PO (15:45)
[2021-06-17] MEDS ORDERED: CLIN-94 PO (15:45)
--- NOTE | 2021-06-17 15:46 | PHYS DOC ---
Past Medical History Past Medical History: No Pertinent History Additional Past Medical Histor: Adrenal mass,OVARIAN CYST,Scoliosis,PANIC ATTACKS (MARIN BENITEZ APRN) Past Surgical History: Other Additional Past Surgical Histo: KNEE SURGERY (MARIN BENITEZ APRN) Smoking Status: Never Smoker Alcohol Use: None Drug Use: None (MARIN BENITEZ APRN) General Adult EDM: Chief Complaint: EYE PROBLEMS HPI: HPI: Patient is a 41-year-old female that presents today with left lower eyelid swelling and pain. 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 She denies any pain or redness of her eye itself only the lower lid she said is painful to touch and it is quite swollen for her. She states over the last couple days she has tried moist warm towels to that area thinking it was a stye and she said has not gotten any better. Patient denies fever or chills at this time (MARIN BENITEZ YARD LOADER OPERATOR) Review of Systems: Review of Systems: Constitutional: Denies fever or chills. [] Eyes: Left lower lid eye pain [] HENT: Denies nasal congestion or sore throat. [] Respiratory: Denies cough or shortness of breath. [] Cardiovascular: Denies chest pain or edema. [] GI: Denies abdominal pain, nausea, vomiting, bloody stools or diarrhea. [] : Denies dysuria. [] Musculoskeletal: Denies back pain or joint pain. [] Integument: Denies rash. [] Neurologic: Denies headache, focal weakness or sensory changes. [] Endocrine: Denies polyuria or polydipsia. [] Lymphatic: Denies swollen glands. [] Psychiatric: Denies depression or anxiety. [] (MARIN BENITEZ YARD LOADER OPERATOR) Heart Score: C/O Chest Pain: N/A Risk Factors: Risk Factors: DM, Current or recent (<one month) smoker, HTN, HLP, family history of CAD, obesity. Risk Scores: Score 0 - 3: 2.5% MACE over next 6 weeks - Discharge Home Score 4 - 6: 20.3% MACE over next 6 weeks - Admit for Clinical Observation Score 7 - 10: 72.7% MACE over next 6 weeks - Early Invasive Strategies (MARIN BENITEZ APRN) Allergies: Allergies: Allergies Coded Allergies Type Severity Reaction Last Updated Verified ethyl alcohol Allergy Intermediate Hives 11/12/20 Yes latex Allergy Intermediate Rash 11/12/20 Yes (MARIN BENITEZ APRN) Physical Exam: PE: Constitutional: Well developed, well nourished, no acute distress, non-toxic appearance. [] HENT: Normocephalic, atraumatic, bilateral external ears normal, oropharynx moist, no oral exudates, nose normal. [] Eyes: PERRLA, EOMI, conjunctiva normal, no discharge left eye lower lid is swollen to touch no redness or drainage noted. [] Neck: Normal range of motion, no tenderness, supple, no stridor. [] Cardiovascular:Heart rate regular rhythm, no murmur [] Lungs & Thorax: Bilateral breath sounds clear to auscultation [] Abdomen: Bowel sounds normal, soft, no tenderness, no masses, no pulsatile masses. [] Skin: Warm, dry, no erythema, no rash. [] Back: No tenderness, no CVA tenderness. [] Extremities: No tenderness, no cyanosis, no clubbing, ROM intact, no edema. [] Neurologic: Alert and oriented X 3, normal motor function, normal sensory function, no focal deficits noted. [] Psychologic: Affect normal, judgement normal, mood normal. [] (MARIN BENITEZ YARD LOADER OPERATOR) Current Patient Data: Vital Signs: Vital Signs Date Time Temp Pulse Resp B/P (MAP) Pulse Ox O2 Delivery O2 Flow Rate FiO2 06/17/21 15:09 98.6 87 16 164/104 (124) 98 Room Air 98.6 (MARIN BENITEZ APRN) EKG: EKG: [] (MARIN BENITEZ YARD LOADER OPERATOR) Radiology/Procedures: Radiology/Procedures: [] (MARIN BENITEZ APRN) Course & Med Decision Making: Course & Med Decision Making Pertinent Labs and Imaging studies reviewed. (See chart for details) We will treat patient with oral antibiotics on an outpatient basis at this time. Instructed patient that if over the weekend her pain becomes worse, increased swelling or redness is noted in the eye, patient develops a fever, or eye starts having drainage that she is to return to the emergency department for evaluation. Patient is instructed on Sunday if her eye is still continuing to bother her but no worse to follow-up with her crop duster or Dr. Lambert with whom we gave her referral to for further management of this. (MARIN BENITEZ APRN) Dragon Disclaimer: Dragon Disclaimer: This electronic medical record was generated, in whole or in part, using a voice recognition dictation system. (MARIN BENITEZ APRN) Departure Departure Impression: Primary Impression: Edema of lower eyelid Disposition: HOME / SELF CARE / HOMELESS Condition: STABLE Referrals: JOYCELYN SORIANO MD (PCP) JAIME LAMBERT MD Patient Instructions: Periorbital Cellulitis Additional Instructions: Take antibiotics as directed finish the entire course of the antibiotic Take Motrin 600 mg 1 tablet every 6 hours for the next 2 to 3 days and then as needed Follow-up with your crop duster on Sunday by phone for further management or Dr. Lambert with whom you got a referral to Return to the emergency department for increased facial swelling, development of redness or drainage in the eye, fever, or increased pain or loss of vision Scripts Ibuprofen (IBUPROFEN) 600 Mg Tablet 600 MG PO PRN Q6HRS PRN for INFLAMMATION, #20 TAB Prov: MARIN BENITEZ APRN 06/17/21 Hydrocodone Bit/Acetaminophen (HYDROCODONE-APAP 5-325 ) 1 Tab Tablet 1 TAB PO PRN Q6HRS PRN for PAIN, #14 TAB 0 Refills Prov: MARIN BENITEZ APRN 06/17/21 Clindamycin Hcl (CLINDAMYCIN HCL) 300 Mg Capsule 1 CAP PO TID, #21 CAP Prov: MARIN BENITEZ 06/17/21 Amoxicillin (AMOXICILLIN) 875 Mg Tablet 1 TAB PO BID for 7 Days, #14 TAB Prov: MARIN BENITEZ APRN 06/17/21 Attending Signature Attending Signature I have reviewed the PA/[employer]'s note and plan of care. I was available for consultation as needed during the patient's visit in the emergency department. I agree with the clinical impression, plan, and disposition. (JOYCELYN ARRDEONDO DO) MARIN BENITEZ APRN Jun 17, 2021 15:46 JOYCELYN ARREDONDO DO Jun 18, 2021 06:29
== END 2021-06-17 16:01 | disposition home or self-care (01) ==
LOC: ER 12:46
DX: H02.845 Edema of left lower eyelid (principal); H57.12 Ocular pain, left eye; Z88.8 Allergy status to other drugs, medicaments and biological substances; Z91.040 Latex allergy status
CPT/HCPCS: 99283